=== PATIENT | female | born 1995 | race Caucasian/White ===

== ENCOUNTER → 2016-06-12 | Outpatient (CLI) | payer BC ==
--- NOTE | 2016-06-12 13:40 | DIAGNOSTIC IMAGING REPORT ---
CHEST 2 VIEWS ROUTINE CLINICAL HISTORY: Adenopathy COMPARISON STUDY: No previous studies for comparison. FINDINGS: The cardiac and mediastinal contours are normal. There is no evidence of focal pulmonary consolidation. There is no evidence of failure. No pleural effusions are visualized.[ There is no conventional radiographic evidence of adenopathy within the chest. IMPRESSION: No active disease in the chest. Electronically signed by: Kory Foreman M.D. 06/12/2016 1:38 PM
[2016-06-12 14:38] LABS: BASO % 0.4 %; BASO ABS # 0.03 K/uL (0-0.2); COMPLETE YES; EOS % 1.3 %; HEMATOCRIT 42.8 % (37-47); IG% 0.1 %; LYMPH % 28.1 %; LYMPH ABS # 2.17 K/uL (1.2-3.4); MEAN CELL VOLUME 87.9 fL (80-100); MEAN CORPUSCULAR HGB CONC 34.1 g/dl (32-36); MEAN PLATELET VOLUME 11.6 fL (7.4-10.4); MONO % 5.6 %; NEUT % 64.5 %; PLATELET COUNT 184 K/uL (130-400); RED BLOOD COUNT 4.87 M/uL (4.2-5.4); WHITE BLOOD COUNT 7.71 K/uL (4.8-10.8)
[2016-06-12 14:46] LABS: PREG INTERNAL NEGATIVE QC NEG CLEAR BACKGROUND; PREG INTERNAL POSITIVE QC POS CONTROL LINE
[2016-06-12 14:49] LABS: URINE APPEARANCE CLEAR (CLEAR); URINE BILIRUBIN NEG (NEG); URINE COLOR YELLOW; URINE NITRITE NEG (NEG); URINE SPECIFIC GRAVITY 1.005 (1.000-1.030); UROBILINOGEN NEG (NEG); ZZUR CULT IF INDIC CLEAN CATCH NO
[2016-06-12 14:52] LABS: ALT/SGPT 23 U/L (12-78); AST/SGOT 9 U/L (15-37); BLOOD UREA NITROGEN 6 mg/dl (7-18); BUN/CREATININE RATIO 7.5 (10-20); CALCIUM 8.7 mg/dl (8.5-10.1); CARBON DIOXIDE 24 mmol/L (21-32); CHLORIDE 106 mmol/L (98-107); GLUCOSE 77 mg/dl (70-99); MANUAL MICROSCOPIC REQUIRED? NO; POTASSIUM 3.9 mmol/L (3.5-5.1); REVIEW REQ? NO; SODIUM 141 mmol/L (136-145)
[2016-06-12 14:54] LABS: ALB/GLOB RATIO 1.4 (0.9-2); ALKALINE PHOSPHATASE 91 U/L (45-117); CHOLESTEROL 149 mg/dl (0-200); CHOLESTEROL/HDL RATIO 2.3; HDL CHOLESTEROL 65 mg/dl; LDL CHOLESTEROL CALCULATED 72 mg/dl; TRIGLYCERIDES 60 mg/dl (0-150); VERY LOW DENSITY LIPOPROT CALC 12 mg/dl
== END | disposition home or self-care (01) ==
LOC: C.LAB1850 12:16
PROVIDERS: ATTEND Internal Medicine
DX: N92.6 Irregular menstruation, unspecified (principal); R59.9 Enlarged lymph nodes, unspecified

== ENCOUNTER → 2016-06-19 | Outpatient (CLI) | payer BC | END | disposition home or self-care (01) | LOC: C.LAB1850 11:03 | PROVIDERS: ATTEND Internal Medicine | DX: Z20.5 Contact with and (suspected) exposure to viral hepatitis (principal) ==

== ENCOUNTER → 2016-06-19 | Outpatient (CLI) | payer BC ==
[2016-06-20 23:08] LABS: CHLAMYDIA TRACH RNA*** NOT DETECTED (NOT DETECTED); GC (NEIS GONORRHOEAE)RNA** NOT DETECTED (NOT DETECTED)
== END | disposition home or self-care (01) ==
LOC: C.LABSPEC 10:51
PROVIDERS: ATTEND Obstetrics & Gynecology
DX: N92.1 Excessive and frequent menstruation with irregular cycle (principal)

== ENCOUNTER 2019-07-30 08:50 | Inpatient (IN) ==
[2019-07-30] MEDS ORDERED: ACETAMINOPHEN 500 MG TAB PO STA (09:28)
[2019-07-30] MEDS ORDERED: KETOROLAC 30 MG/ML VIAL IV STA (09:28)
[2019-07-30] MEDS: SODIUM CHLORIDE 0.9% 1000ML 1,000 ML IV SCH ×2 (09:44→11:34)
--- NOTE | 2019-07-30 09:51 | Emergency Department Note ---
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 She has had a cough and some minor upper respiratory symptoms for a few days, these apparently got worse last evening, at which point she noted a sore throat, fever and a dry cough. She was given Tylenol for subjective fever last evening up but not take her temperature with a thermometer. She noted worsening left upper chest and left lateral rib pain in the last 24 hours. She states it is constant in nature, sharp, worse with deep breathing and coughing, rating it a 7/10. She notes shortness of breath with exertion. She reports feeling nauseous and anorexic denies vomiting. She reports generalized body and muscle aches. She did not get a flu shot this year. She has been around sick people at home and at work. She d enies any abdominal pain. No urinary symptoms. Home Medications Home Medications Medication Instructions Recorded Confirmed Type buprenorphine HCl 8 mg sublingual 8 mg SL BID #10 tab 04/09/19 07/30/19 Rx tablet acetaminophen [Tylenol] 325 mg PO QID PRN 07/30/19 07/30/19 History citalopram [Celexa] 10 mg PO HS 07/30/19 07/30/19 History clindamycin-benzoyl peroxide 1 applic TOPICAL BID 07/30/19 07/30/19 History Allergies Allergy/AdvReac Type Severity Reaction Status Date / Time No Known Allergies Allergy Verified 07/30/19 09:43 Past Med/Surg History Medical History Depression (Chronic) GERD (gastroesophageal reflux disease) H/O intravenous drug use in remission Hx MRSA infection (Chronic) Raynauds disease (Chronic) Surgical History History of cholecystectomy History of incision and drainage History of tonsillectomy and adenoidectomy Family History (Updated 07/30/19 @ 13:41 by Tanya Hensley DO) Other No significant family history Social History (Updated 07/30/19 @ 13:42 by Tanya Hensley DO) Preferred Language: Kazakh current occupational status: employed Feels Safe at Home: Yes Smoking Status: Current every day smoker Hx Alcohol Use: No Hx Substance Use: Yes substance use type: former substance user Review of Systems A total of 10 systems reviewed and were otherwise negative Physical Exam Vital Signs Vital Signs - 24 hr 07/30/19 08:56 07/30/19 09:06 07/30/19 09:08 Temperature 38.2 C H Temperature Source Oral Pulse Rate 124 H 114 H 114 H Pulse Rate [Finger] Pulse Rate from SpO2 Sensor 115 H 114 H Respiratory Rate 22 36 H 34 H Respiratory Effort / Characteristics Respiratory Depth Blood Pressure 106/69 111/69 Blood Pressure [Right Arm] Blood Pressure Mean 81 86 Blood Pressure Mean [Right Arm] Blood Pressure Position Sitting Pulse Oximetry 96 96 96 Oxygen Delivery Method Room Air Sepsis Recent Fever Within 48 Hours Yes Sepsis New/Unexplained Change in Mental Status No Sepsis Action Taken by Nursing No Action Required 07/30/19 09:10 07/30/19 09:20 07/30/19 09:30 Temperature Temperature Source Pulse Rate 114 H 120 H 118 H Pulse Rate [Finger] Pulse Rate from SpO2 Sensor 115 H 119 H 117 H Respiratory Rate 37 H 29 H 31 H Respiratory Effort / Characteristics Respiratory Depth Blood Pressure 118/71 Blood Pressure [Right Arm] Blood Pressure Mean 76 Blood Pressure Mean [Right Arm] Blood Pressure Position Pulse Oximetry 95 95 Oxygen Delivery Method Sepsis Recent Fever Within 48 Hours Sepsis New/Unexplained Change in Mental Status Sepsis Action Taken by Nursing 07/30/19 09:31 07/30/19 09:40 07/30/19 09:42 Temperature Temperature Source Pulse Rate 118 H 121 H Pulse Rate [Finger] 117 H Pulse Rate from SpO2 Sensor 119 H 120 H Respiratory Rate 28 H 31 H 22 Respiratory Effort / Characteristics Non-Labored Respiratory Depth Normal Blood Pressure Blood Pressure [Right Arm] 118/71 Blood Pressure Mean Blood Pressure Mean [Right Arm] 86 Blood Pressure Position Pulse Oximetry 95 97 Oxygen Delivery Method Room Air Sepsis Recent Fever Within 48 Hours Sepsis New/Unexplained Change in Mental Status Sepsis Action Taken by Nursing 07/30/19 09:50 07/30/19 10:00 07/30/19 10:01 Temperature Temperature Source Pulse Rate 113 H 112 H 112 H Pulse Rate [Finger] Pulse Rate from SpO2 Sensor 116 H 112 H 112 H Respiratory Rate 44 H 36 H 31 H Respiratory Effort / Characteristics Respiratory Depth Blood Pressure 108/70 Blood Pressure [Right Arm] Blood Pressure Mean 75 Blood Pressure Mean [Right Arm] Blood Pressure Position Pulse Oximetry 97 92 92 Oxygen Delivery Method Sepsis Recent Fever Within 48 Hours Sepsis New/Unexplained Change in Mental Status Sepsis Action Taken by Nursing 07/30/19 10:10 07/30/19 10:20 07/30/19 11:02 Temperature 37.8 C H Temperature Source Oral Pulse Rate 112 H 108 H Pulse Rate [Finger] Pulse Rate from SpO2 Sensor 112 H 108 H Respiratory Rate 36 H 31 H Respiratory Effort / Characteristics Respiratory Depth Blood Pressure Blood Pressure [Right Arm] Blood Pressure Mean Blood Pressure Mean [Right Arm] Blood Pressure Position Pulse Oximetry 95 93 Oxygen Delivery Method Sepsis Recent Fever Within 48 Hours Sepsis New/Unexplained Change in Mental Status Sepsis Action Taken by Nursing 07/30/19 11:11 07/30/19 11:12 07/30/19 11:13 Temperature Temperature Source Pulse Rate 114 H 111 H 112 H Pulse Rate [Finger] Pulse Rate from SpO2 Sensor 112 H Respiratory Rate 36 H 33 H 35 H Respiratory Effort / Characteristics Respiratory Depth Blood Pressure 114/68 Blood Pressure [Right Arm] Blood Pressure Mean 99 Blood Pressure Mean [Right Arm] Blood Pressure Position Pulse Oximetry 95 91 Oxygen Delivery Method Sepsis Recent Fever Within 48 Hours Sepsis New/Unexplained Change in Mental Status Sepsis Action Taken by Nursing 07/30/19 11:20 07/30/19 11:30 07/30/19 11:31 Temperature Temperature Source Pulse Rate 111 H 108 H 108 H Pulse Rate [Finger] Pulse Rate from SpO2 Sensor 114 H Respiratory Rate 20 30 H 30 H Respiratory Effort / Characteristics Respiratory Depth Blood Pressure Blood Pressure [Right Arm] Blood Pressure Mean Blood Pressure Mean [Right Arm] Blood Pressure Position Pulse Oximetry 90 Oxygen Delivery Method Sepsis Recent Fever Within 48 Hours Sepsis New/Unexplained Change in Mental Status Sepsis Action Taken by Nursing 07/30/19 11:32 07/30/19 11:40 07/30/19 12:02 Temperature Temperature Source Pulse Rate 110 H 110 H 108 H Pulse Rate [Finger] Pulse Rate from SpO2 Sensor Respiratory Rate 31 H 25 H 17 Respiratory Effort / Characteristics Respiratory Depth Blood Pressure 102/44 L Blood Pressure [Right Arm] Blood Pressure Mean 60 Blood Pressure Mean [Right Arm] Blood Pressure Position Pulse Oximetry Oxygen Delivery Method Sepsis Recent Fever Within 48 Hours Sepsis New/Unexplained Change in Mental Status Sepsis Action Taken by Nursing 07/30/19 12:10 07/30/19 12:20 07/30/19 12:30 Temperature Temperature Source Pulse Rate 112 H 107 H 108 H Pulse Rate [Finger] Pulse Rate from SpO2 Sensor Respiratory Rate 26 H 29 H 27 H Respiratory Effort / Characteristics Respiratory Depth Blood Pressure 115/68 Blood Pressure [Right Arm] Blood Pressure Mean 82 Blood Pressure Mean [Right Arm] Blood Pressure Position Pulse Oximetry Oxygen Delivery Method Sepsis Recent Fever Within 48 Hours Sepsis New/Unexplained Change in Mental Status Sepsis Action Taken by Nursing 07/30/19 12:31 07/30/19 12:59 07/30/19 13:00 Temperature Temperature Source Pulse Rate 106 H 107 H 107 H Pulse Rate [Finger] Pulse Rate from SpO2 Sensor Respiratory Rate 27 H 28 H 23 Respiratory Effort / Characteristics Respiratory Depth Blood Pressure Blood Pressure [Right Arm] Blood Pressure Mean Blood Pressure Mean [Right Arm] Blood Pressure Position Pulse Oximetry Oxygen Delivery Method Sepsis Recent Fever Within 48 Hours Sepsis New/Unexplained Change in Mental Status Sepsis Action Taken by Nursing 07/30/19 13:10 07/30/19 13:20 07/30/19 13:30 Temperature Temperature Source Pulse Rate 112 H 107 H 107 H Pulse Rate [Finger] Pulse Rate from SpO2 Sensor Respiratory Rate 25 H 32 H 26 H Respiratory Effort / Characteristics Respiratory Depth Blood Pressure Blood Pressure [Right Arm] Blood Pressure Mean Blood Pressure Mean [Right Arm] Blood Pressure Position Pulse Oximetry Oxygen Delivery Method Sepsis Recent Fever Within 48 Hours Sepsis New/Unexplained Change in Mental Status Sepsis Action Taken by Nursing 07/30/19 13:36 07/30/19 13:37 07/30/19 13:40 Temperature 37.1 C Temperature Source Pulse Rate 105 H 105 H 106 H Pulse Rate [Finger] Pulse Rate from SpO2 Sensor 105 H 105 H 105 H Respiratory Rate 28 H 20 22 Respiratory Effort / Characteristics Respiratory Depth Blood Pressure 105/61 Blood Pressure [Right Arm] Blood Pressure Mean 89 Blood Pressure Mean [Right Arm] Blood Pressure Position Pulse Oximetry 100 99 100 Oxygen Delivery Method Room Air Sepsis Recent Fever Within 48 Hours Sepsis New/Unexplained Change in Mental Status Sepsis Action Taken by Nursing MENTAL STATUS: Patient is an ill although nontoxic appearing 23-year-old female who is awake and alert and in mild distress due to her stated complaint. She is febrile in triage with a temperature of 38.2 C orally. She is noted to be tachycardic. HEAD: Atraumatic, without temporal or scalp tenderness. EYES: PERRL, EOMI, no discharge or injection. EARS: Tympanic membranes intact, not inflamed, have normal contour. External canals clear. NOSE: Nares patent, turbinates edematous and boggy with clear rhinorrhea. MOUTH: Mucous membranes moist, no lesions, tongue and gums appear normal. THROAT: Tonsils are surgically absent. No pharyngeal erythema, injection, exudates. Uvula is midline. Airway is patent. No trismus. NECK: Supple, nontender, no lymphadenopathy. HEART: Tachycardic rate and rhythm without murmurs, ectopy, gallops, or rubs. LUNGS: Breath sounds slightly harsh and diminished to auscultation, right greater than left posteriorly. No accessory muscle use or retraction. Full and equal chest expansion. CHEST: Reproducible left costochondral tenderness to palpation. SKIN: Chronic scarring noted diffusely. Mild erythema of the hands bilaterally. NEUROLOGICAL: Sensory and motor functions grossly intact. Normal gait. Course Course The patient was seen and assessed as above. Old records are reviewed. She presents the emergency department for evaluation of influenza-like symptoms over the last few days with associated cough and now worsening pleuritic chest and rib pain. She is noted to be febrile and tachycardic in triage. O2 sats are stable on room air. She is ill but nontoxic in appearance without signs of meningitis or encephalitis on exam. Patient history and presentation were reviewed with attending physician and ED work-up was agreed upon. IV lock was initiated and laboratory studies were collected. Patient was placed on the nurse monitoring and EKG was performed. She was hydrated with 2 L of normal saline solution medicated with Tylenol 1 g orally for fever and Toradol 30 mg IV for myalgias and chest pain. CBC with differential, CMP, ESR, troponin, d-dimer, lactic acid, blood cultures x2 and influenza swab were obtained. Chest x-ray was performed. Laboratory studies noted a leukopenia, with a white count of 3.5. No left shift or bandemia. No anemia. Platelet count is also slightly low at 95,000. Sed rate is normal at 3. D-dimer markedly elevated at 3480. Chemistries note sodium 133, potassium 3.2, chloride 101, carbon dioxide 23, BUN 6 and creatinine 0.7. Lactic acid 1.8. She has slight nonspecific elevation of her transaminases of unclear etiology. Troponin is negative x1. Influenza swab was negative. Urine dip was clear and test was negative. Chest x-ray noted consolidative infiltrative changes bilaterally. All laboratory and diagnostic imaging studies were reviewed with attending physician. She was empirically ordered ceftriaxone 1 g IV and doxycycline 100 mg IV. Influenza PCR was performed. All laboratory and diagnostic imaging studies were reviewed with the patient. IV team had been consulted for access, as the patient is a difficult stick. They were unable to place an 18-gauge in the antecubital space and the 18-gauge in the right forearm that they placed the patient accidentally dislodged. CT PE study was desired due to her elevated d- dimer and her symptoms, however this was later ordered as a CT chest with IV c ontrast due to lack of appropriate access. Admission/observation was advised and the patient was agreeable. The patient did take her own buprenorphine 8mg SL tablet in the ED. The patient's influenza PCR was positive for influenza B. Chest CT confirmed multifocal airspace opacities in the lower lobes concerning for a multifocal pneumonia. Results of her additional studies were reviewed with her. She was made aware that I was pursuing hospitalization. Patient was reviewed with the [facility] Service, Dr. Hensley, for further care and management. Administered Medications Sodium Chloride (Nss 1000ml) 1,000 mls @ 250 mls/hr IV .Q4H MARK Stop: 08/29/19 13:29 Last Admin: 07/30/19 13:39 Dose: 250 mls/hr Documented by: [id number] Ioversol (Optiray 320 100ml) 94 ml IV ONCE PRN PRN Reason: Interaction Checking Stop: 08/03/19 11:53 Last Admin: 07/30/19 11:54 Dose: 94 ml Documented by: [id number] Discontinued Medications Acetaminophen (Tylenol) 1,000 mg PO NOW STA Stop: 07/30/19 09:29 Last Admin: 07/30/19 09:41 Dose: 1,000 mg Documented by: [id number] Sodium Chloride (Nss 1000ml) 1,000 mls @ 999 mls/hr IV .Q1H1M MARK Stop: 07/30/19 11:28 Last Infusion: 07/30/19 13:22 Dose: 0 mls/hr Documented by: [id number] Admin: 07/30/19 11:34 Dose: 999 mls/hr Documented by: [id number] Infusion: 07/30/19 10:56 Dose: 0 mls/hr Documented by: [id number] Admin: 07/30/19 09:44 Dose: 999 mls/hr Documented by: [id number] Ceftriaxone Sodium (Rocephin) 1,000 mg in 50 mls @ 100 mls/hr IV NOW STA Stop: 07/30/19 11:18 Last Infusion: 07/30/19 12:16 Dose: 0 mls/hr Documented by: [id number] Admin: 07/30/19 11:34 Dose: 100 mls/hr Documented by: [id number] Doxycycline Hyclate 100 mg/ (Dextrose) 110 mls @ 50 mls/hr IV NOW STA Stop: 07/30/19 13:00 Last Admin: 07/30/19 12:15 Dose: 50 mls/hr Documented by: [id number] Ketorolac Tromethamine (Toradol) 30 mg IV NOW STA Stop: 07/30/19 09:29 Last Admin: 07/30/19 09:44 Dose: 30 mg Documented by: [id number] Medical Decision Making Differential Diagnosis Differential diagnosis includes acute coronary syndrome, myocarditis, end ocarditis, pericarditis, pericardial effusions /tamponade, pulmonary embolism, pneumonia, pneumothorax, anemia, acute bronchitis, musculoskeletal, anxiety, costochondritis, among others. Medical Records Attestation: I reviewed the patient's medical records. Home Medications Current Medication List: was personally reviewed by me Laboratory Data Attestation: I reviewed the patient's lab results. Result diagrams: 07/30/19 09:49 07/30/19 09:49 Lab Results 07/30/19 07/30/19 07/30/19 Range/Units 09:35 09:35 09:49 WBC (4.8-10.8) K/uL RBC (4.2-5.4) M/uL Hgb (12.0-16.0) g/dL Hct (37-47) % MCV (80-100) fL MCH (25-34) pg MCHC (32-36) g/dL RDW Std Deviation (36.4-46.3) fL RDW Coeff of Christina (11.5-14.5) % Plt Count (130-400) K/uL MPV (7.4-10.4) fL Immature Gran % (Auto) % Neut % (Auto) % Lymph % (Auto) % [place] % (Auto) % Eos % (Auto) % Baso % (Auto) % Immature Gran # (Auto) (0.00-0.02) K/uL Neut # (Auto) (1.4-6.5) K/uL Lymph # (Auto) (1.2-3.4) K/uL [place] # (Auto) (0.11-0.59) K/uL Eos # (Auto) (0-0.5) K/uL Baso # (Auto) (0-0.2) K/uL Platelet Estimate (Normal) ESR (0-21) mm/hr D-Dimer 3480 H* (0-500) ug/L FEU Sodium (136-145) mmol/L Potassium (3.5-5.1) mmol/L Chloride (98-107) mmol/L Carbon Dioxide (21-32) mmol/L Anion Gap (3-11) BUN (7-18) mg/dl Creatinine (0.6-1.2) mg/dl Est Cr Clr Drug Dosing Est GFR ( Amer) Est GFR (Non-Af Amer) BUN/Creatinine Ratio (10-20) Glucose (70-99) mg/dl Lactate (0.4-2.0) mmol/L Calcium (8.5-10.1) mg/dl Total Bilirubin (0.2-1) mg/dl AST (15-37) U/L ALT (12-78) U/L Alkaline Phosphatase (45-117) U/L Troponin I (0-0.045) ng/ml Total Protein (6.4-8.2) gm/dl Albumin (3.4-5.0) gm/dl Globulin (2.5-4.0) gm/dl Albumin/Globulin Ratio (0.9-2) POC Urine pH (4.5-7.5) POC Urine Protein (Negative) POC Ur Glucose (UA) (Normal) POC Urine Ketones (Negative) POC Urine Blood (Negative) POC Urine Nitrite (Negative) POC Urine Bilirubin (Negative) POC Urine Urobilinogen (Normal) POC U Leukocyte Esteras (Negative) POC Ur Test (NEG) Influenza Type A Ag Neg for Influ A (Neg) Influenza Type A (PCR) Neg for Influ A (Neg) Influenza Type B Ag Neg for Influ B (Neg) Influenza Type B (PCR) Pos for Influ B A* (Neg) 07/30/19 07/30/19 07/30/19 Range/Units 09:49 09:49 09:49 WBC 3.45 L (4.8-10.8) K/uL RBC 4.77 (4.2-5.4) M/uL Hgb 13.9 (12.0-16.0) g/dL Hct 40.1 (37-47) % MCV 84.1 (80-100) fL MCH 29.1 (25-34) pg MCHC 34.7 (32-36) g/dL RDW Std Deviation 38.7 (36.4-46.3) fL RDW Coeff of Christina 12.7 (11.5-14.5) % Plt Count 95 L (130-400) K/uL MPV 10.3 (7.4-10.4) fL Immature Gran % (Auto) 0.3 % Neut % (Auto) 81.7 % Lymph % (Auto) 9.9 % [place] % (Auto) 8.1 % Eos % (Auto) 0.0 % Baso % (Auto) 0.0 % Immature Gran # (Auto) 0.01 (0.00-0.02) K/uL Neut # (Auto) 2.82 (1.4-6.5) K/uL Lymph # (Auto) 0.34 L (1.2-3.4) K/uL [place] # (Auto) 0.28 (0.11-0.59) K/uL Eos # (Auto) 0.00 (0-0.5) K/uL Baso # (Auto) 0.00 (0-0.2) K/uL Platelet Estimate Decreased L (Normal) ESR 3 (0-21) mm/hr D-Dimer (0-500) ug/L FEU Sodium 133 L (136-145) mmol/L Potassium 3.2 L (3.5-5.1) mmol/L Chloride 101 (98-107) mmol/L Carbon Dioxide 23 (21-32) mmol/L Anion Gap 9.0 (3-11) BUN 6 L (7-18) mg/dl Creatinine 0.70 (0.6-1.2) mg/dl Est Cr Clr Drug Dosing Not Reportable Est GFR ( Amer) 140.5 Est GFR (Non-Af Amer) 121.3 BUN/Creatinine Ratio 8.2 L (10-20) Glucose 120 H (70-99) mg/dl Lactate (0.4-2.0) mmol/L Calcium 8.3 L (8.5-10.1) mg/dl Total Bilirubin 0.4 (0.2-1) mg/dl AST 90 H (15-37) U/L ALT 99 H (12-78) U/L Alkaline Phosphatase 132 H (45-117) U/L Troponin I < 0.015 (0-0.045) ng/ml Total Protein 6.9 (6.4-8.2) gm/dl Albumin 4.0 (3.4-5.0) gm/dl Globulin 2.9 (2.5-4.0) gm/dl Albumin/Globulin Ratio 1.4 (0.9-2) POC Urine pH (4.5-7.5) POC Urine Protein (Negative) POC Ur Glucose (UA) (Normal) POC Urine Ketones (Negative) POC Urine Blood (Negative) POC Urine Nitrite (Negative) POC Urine Bilirubin (Negative) POC Urine Urobilinogen (Normal) POC U Leukocyte Esteras (Negative) POC Ur Test (NEG) Influenza Type A Ag (Neg) Influenza Type A (PCR) (Neg) Influenza Type B Ag (Neg) Influenza Type B (PCR) (Neg) 07/30/19 07/30/19 07/30/19 Range/Units 09:49 11:15 11:15 WBC (4.8-10.8) K/uL RBC (4.2-5.4) M/uL Hgb (12.0-16.0) g/dL Hct (37-47) % MCV (80-100) fL MCH (25-34) pg MCHC (32-36) g/dL RDW Std Deviation (36.4-46.3) fL RDW Coeff of Christina (11.5-14.5) % Plt Count (130-400) K/uL MPV (7.4-10.4) fL Immature Gran % (Auto) % Neut % (Auto) % Lymph % (Auto) % [place] % (Auto) % Eos % (Auto) % Baso % (Auto) % Immature Gran # (Auto) (0.00-0.02) K/uL Neut # (Auto) (1.4-6.5) K/uL Lymph # (Auto) (1.2-3.4) K/uL [place] # (Auto) (0.11-0.59) K/uL Eos # (Auto) (0-0.5) K/uL Baso # (Auto) (0-0.2) K/uL Platelet Estimate (Normal) ESR (0-21) mm/hr D-Dimer (0-500) ug/L FEU Sodium (136-145) mmol/L Potassium (3.5-5.1) mmol/L Chloride (98-107) mmol/L Carbon Dioxide (21-32) mmol/L Anion Gap (3-11) BUN (7-18) mg/dl Creatinine (0.6-1.2) mg/dl Est Cr Clr Drug Dosing Est GFR ( Amer) Est GFR (Non-Af Amer) BUN/Creatinine Ratio (10-20) Glucose (70-99) mg/dl Lactate 1.8 (0.4-2.0) mmol/L Calcium (8.5-10.1) mg/dl Total Bilirubin (0.2-1) mg/dl AST (15-37) U/L ALT (12-78) U/L Alkaline Phosphatase (45-117) U/L Troponin I (0-0.045) ng/ml Total Protein (6.4-8.2) gm/dl Albumin (3.4-5.0) gm/dl Globulin (2.5-4.0) gm/dl Albumin/Globulin Ratio (0.9-2) POC Urine pH 7 (4.5-7.5) POC Urine Protein Negative (Negative) POC Ur Glucose (UA) Normal (Normal) POC Urine Ketones Negative (Negative) POC Urine Blood Negative (Negative) POC Urine Nitrite Negative (Negative) POC Urine Bilirubin Negative (Negative) POC Urine Urobilinogen Normal (Normal) POC U Leukocyte Esteras Negative (Negative) POC Ur Test NEG (NEG) Influenza Type A Ag (Neg) Influenza Type A (PCR) (Neg) Influenza Type B Ag (Neg) Influenza Type B (PCR) (Neg) Imaging Data Attestation: I personally reviewed and interpreted this imaging study as follows: Radiologist's Impression: CHEST CT WITH CONTRAST CT DOSE: 219.89 mGy.cm HISTORY: Abnormal chest x-ray. MULTIFOCAL PNEUMONIA TECHNIQUE: Multiaxial CT images of the chest were performed following the intr avenous administration of contrast. A dose lowering technique was utilized adhering to the principles of ALARA. COMPARISON: Chest 07/30/2019. FINDINGS: No pneumothorax. No pleural effusions. Opacification of some of the bilateral lower lobe bronchi. Subcentimeter nodular densities within the lung apices favor pleural-parenchymal scarring. Respiratory motion artifact. Multifocal areas of dense consolidation within the bilateral lower lobes, left greater than right. Multiple additional scattered nodular densities seen within the bilateral lower lobes, right middle lobe, and left upper lobe. These findings favor a multifocal pneumonia. No areas of central cavitation. No fractures within the visualized osseous structures. Prominent mediastinal and hilar lymph nodes which may be reactive. Normal esophagus. The spleen is partially visualized but appears to be enlarged. Prior cholecystectomy. A 9 mm hypodense lesion within the right hepatic dome. This is technically too small to characterize. The mediastinal vascular structures are within normal limits. IMPRESSION: 1. Multifocal airspace opacities as described above most pronounced within the lower lobes. This favors a multifocal pneumonia. Chest x-ray follow-up recommended to ensure complete resolution. 2. Prominent mediastinal and bilateral hilar lymph nodes which may be reactive. 3. Splenomegaly. This may also be reactive. XR chest 2V PA/lateral CLINICAL HISTORY: COUGH, FEVER dyspnea COMPARISON STUDY: 06/12/2016 FINDINGS: Diffuse bibasilar parenchymal infiltrative change. Consolidative component involving the left lower lobe. Potential underlying nodular component of the left hilum as well as left lower lobe region. Poor visibility left hemidiaphragm. Pulmonary apices are clear. IMPRESSION: 1. Consolidative infiltrative change left and to a lesser extent right lung base. 2. Nodular-like consolidative change at versus true nodularity left lower lobe and left perihilar region. 3. This examination should be repeated at a later date to ensure complete resolution and exclude underlying nodular pathology. ECG Data Attestation: I personally reviewed and interpreted this ECG as follows: Indication: + chest pain and + SOB/dyspnea Rate (beats per minute): 114 Rhythm: + sinus tachycardia ECG Intervals/blocks: + Normal QT and + Normal QT-c ECG [place]: + Normal ECG ST segments: no ST elevation Comparison ECG Date: no prior available Prescription Drug Monitoring [place] Drug Monitoring Program reviewed and findings noted below (Buprenorphine prescriptions from a provider in [place], last filled 07/21/2019) Blood Pressure Blood Pressure Findings: Normal blood pressure Blood Pressure Disposition: did not require urgent referral MDM Narrative See ED Course. Impression & Plan Multifocal pneumonia, Influenza B Discharge Plan Visit Data Chief Complaint: Flank Pain Stated Complaint: LT SIDED FLANK PAIN, FLU SYMPTOMS LAST NIGHT ED Provider: Gilson Brennan ED Midlevel Provider: Ingrid Lizama Discharge Problem: Multifocal pneumonia, Influenza B Patient Disposition: Being Evaluated by Hospitalist Forms Stand Alone Forms: My [facility] [employer] Prescriptions Prescriptions: No Action buprenorphine HCl 8 mg tablet, sublingual 8 mg SL BID Qty: 10 RF: 0 acetaminophen [Tylenol] 325 mg Tablet 325 mg PO QID PRN (Reason: Pain) RF: 0 clindamycin-benzoyl peroxide 1-5 % gel 1 applic TOPICAL BID RF: 0 citalopram [Celexa] 10 mg tablet 10 mg PO HS RF: 0 Referrals Referrals: PCP,NO [Primary Care Provider] -
[2019-07-30 10:15] LABS: D Dimer 3480 ug/L FEU (0-500)
[2019-07-30 10:19] LABS: Alanine Aminotransferase 99 U/L (12-78); BUN Creatinine Ratio 8.2 (10-20); Blood Urea Nitrogen 6 mg/dl (7-18); Calcium 8.3 mg/dl (8.5-10.1); Carbon Dioxide 23 mmol/L (21-32); Chloride 101 mmol/L (98-107); Est GFR (African American) 140.5; Est GFR (Non-African American) 121.3; Glucose 120 mg/dl (70-99); Potassium 3.2 mmol/L (3.5-5.1); Sodium 133 mmol/L (136-145)
[2019-07-30 10:21] LABS: Hematocrit (blood only) 40.1 % (37-47); Hemoglobin 13.9 g/dL (12.0-16.0); Mean Corpuscular Hemoglobin 29.1 pg (25-34); Mean Corpuscular Hgb Conc 34.7 g/dL (32-36); Mean Corpuscular Volume 84.1 fL (80-100); Mean Platelet Volume 10.3 fL (7.4-10.4); Platelet Count 95 K/uL (130-400); RDW Coefficient of Variation 12.7 % (11.5-14.5); RDW Standard Deviation 38.7 fL (36.4-46.3); Red Blood Count 4.77 M/uL (4.2-5.4); White Blood Count 3.45 K/uL (4.8-10.8)
[2019-07-30 10:22] LABS: Immature Granulocytes # (auto) 0.01 K/uL (0.00-0.02); Immature Granulocytes % (auto) 0.3 %; Lymphocytes # (auto) 0.34 K/uL (1.2-3.4); Lymphocytes % (auto) 9.9 %; Monocytes # (auto) 0.28 K/uL (0.11-0.59); Monocytes % (auto) 8.1 %; Neutrophils # (auto) 2.82 K/uL (1.4-6.5); Neutrophils % (auto) 81.7 %; Platelet Estimate Decreased (Normal)
[2019-07-30 10:24] LABS: Albumin Globulin Ratio 1.4 (0.9-2); Alkaline Phosphatase 132 U/L (45-117); Aspartate Aminotransferase 90 U/L (15-37); Bilirubin,Total 0.4 mg/dl (0.2-1); Globulin 2.9 gm/dl (2.5-4.0); Total Protein 6.9 gm/dl (6.4-8.2); Troponin I < 0.015 ng/ml (0-0.045)
--- NOTE | 2019-07-30 10:42 | XRay Report ---
XR chest 2V PA/lateral CLINICAL HISTORY: COUGH, FEVER dyspnea COMPARISON STUDY: 06/12/2016 FINDINGS: Diffuse bibasilar parenchymal infiltrative change. Consolidative component involving the le ft lower lobe. Potential underlying nodular component of the left hilum as well as left lower lobe region. Poor visibility left hemidiaphragm. Pulmonary apices are clear. IMPRESSION: 1. Consolidative infiltrative change left and to a lesser extent right lung base. 2. Nodular-like consolidative change at versus true nodularity left lower lobe and left perihilar reg ion. 3. This examination should be repeated at a later date to ensure complete resolution and exclude unde rlying nodular pathology. ACT 112: Negative or not required by law. The above report was generated using voice recognition software. It may contain grammatical, syntax or spelling errors. Electronically signed by: Gary Denny M.D. 07/30/2019 10:40 AM
[2019-07-30] MEDS ORDERED: DOXYCYCLINE HYCLATE 100 MG in DEXTROSE 5% 100 ML IV STA (10:49)
[2019-07-30] MEDS ORDERED: cefTRIAXone SODIUM 1,000 MG/50 ML BAG IV STA (10:49)
[2019-07-30 11:20] LABS: POC Urine Bilirubin Negative (Negative); POC Urine Blood Negative (Negative); POC Urine Glucose Normal (Normal); POC Urine Ketones Negative (Negative); POC Urine Leukocytes Negative (Negative); POC Urine Nitrite Negative (Negative); POC Urine Protein Negative (Negative); POC Urine Urobilinogen Normal (Normal); POC Urine pH 7 (4.5-7.5)
[2019-07-30] MEDS ORDERED: IOVERSOL 100ml IV PRN (11:54)
[2019-07-30 11:57] LABS: Influenza A virus by PCR Neg for Influ A (Neg)
--- NOTE | 2019-07-30 12:27 | CT Scan Report ---
CHEST CT WITH CONTRAST CT DOSE: 219.89 mGy.cm HISTORY: Abnormal chest x-ray. MULTIFOCAL PNEUMONIA TECHNIQUE: Multiaxial CT images of the chest were performed following the intravenous administration of contrast. A dose lowering technique was utilized adhering to the principles of ALARA. COMPARISON: Chest 07/30/2019. FINDINGS: No pneumothorax. No pleural effusions. Opacification of some of the bilateral lower lobe br onchi. Subcentimeter nodular densities within the lung apices favor pleural-parenchymal scarring. Res piratory motion artifact. Multifocal areas of dense consolidation within the bilateral lower lobes, l eft greater than right. Multiple additional scattered nodular densities seen within the bilateral low er lobes, right middle lobe, and left upper lobe. These findings favor a multifocal pneumonia. No are as of central cavitation. No fractures within the visualized osseous structures. Prominent mediastina l and hilar lymph nodes which may be reactive. Normal esophagus. The spleen is partially visualized b ut appears to be enlarged. Prior cholecystectomy. A 9 mm hypodense lesion within the right hepatic do me. This is technically too small to characterize. The mediastinal vascular structures are within nor mal limits. IMPRESSION: 1. Multifocal airspace opacities as described above most pronounced within the lower lobes. This favo rs a multifocal pneumonia. Chest x-ray follow-up recommended to ensure complete resolution. 2. Prominent mediastinal and bilateral hilar lymph nodes which may be reactive. 3. Splenomegaly. This may also be reactive. ACT 112: Negative or not required by law. Electronically signed by: Yakov Calvert M.D. 07/30/2019 12:26 PM
[2019-07-30] MEDS ORDERED: SODIUM CHLORIDE 0.9% 1000ML 1,000 ML IV SCH (13:30)
--- NOTE | 2019-07-30 14:06 | History & Physical Report ---
Date of Service July 30, 2019 Assessment & Plan (1) Influenza B: 23-year-old female with history of former IV drug use, MRSA infection, presenting with influenza B and multifocal pneumonia. Patient febrile on arrival, tachycardic, tachypneic, adequate oxygenation on room air. Symptoms ongoing for 2 to 3 days. -Admit to medical floor telemetry monitoring Droplet precautions Tamiflu 75 mg p.o. twice daily Supplemental oxygen as needed to maintain saturations greater than 94% Tylenol as needed for pain or fever Present on Admission?: Yes (2) Multifocal pneumonia: Patient with dense bilateral consolidations noted on CT chest most consistent with multifocal pneumonia. In setting of influenza B and history of prior MRSA skin infections would be most concerned about staphylococcal pneumonia. Patient is febrile, tachycardic, tachypneic, leukopenic with WBC = 3.45. Maintaining saturations on room air. Of note, obtaining sats difficult at times due to patient's Raynauds. -Admit to medical floor telemetry Obtain sputum culture -Check ABG when patient arrives to the floor Follow blood cultures drawn in the ER Tamiflu as above for influenza B Vancomycin, ceftriaxone and azithromycin. Will de-escalate pending patient's clinical response and culture results Normal saline at 125 mL/h x 2 L Tylenol as needed for pain or fever Repeat troponin, patient with mild T wave abnormalities on EKG. -Supplemental oxygen as needed Present on Admission?: Yes (3) Hx MRSA infection: Boyfriend reports patient contracted MRSA from a previous surgery. She has had minor skin abscesses and infections intermittently over the last few years. Does not appear to have any active skin/soft tissue infections. Contact precautions Vancomycin for pneumonia as above Present on Admission?: Yes (4) H/O intravenous drug use in remission: Patient with prior history of IV drug use. 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 She is on Subutex 8 mg sublingual twice daily -Check U tox Continue Subutex 8 mg sublingual twice daily Avoid use of opioids if possible Present on Admission?: Yes (5) Depression: Chronic. Continue Celexa 10 mg p.o. nightly Present on Admission?: Yes (6) Abnormal LFTs: Patient with mild elevation of LFTs, alkaline phosphatase of 132, AST = 90, ALT = 99. Abdominal exam is benign Repeat LFTs in a.m. Consider additional imaging if labs worsening Present on Admission?: Yes (7) Thrombocytopenia: Platelets = 95. Possibly secondary to underlying illness/sepsis. No active bleeding Repeat CBC in a.m. Present on Admission?: Yes (8) GERD (gastroesophageal reflux disease): Chronic. Stable. Patient presently on no medications for this Continue to monitor F/E/Nnormal saline at 125 mL hour x2 L with 20 mEq KCl per bag, regular diet as tolerated Prophylaxispatient is low risk for DVT. No prophylaxis indicated Codefull per discussion with patient Dispositionadmission to medical floor telemetry monitoring. Low threshold for transfer should patient's clinical condition decline Present on Admission?: Yes History of Present Illness Chief Complaint: Cough, shortness of breath Primary Care Provider: NO PCP Hugo Ortiz is a 23-year-old female with history of prior IV drug abuse, MRSA infections presenting with multifocal pneumonia and influenza B. Patient states she has been having 2 to 3 days of fevers, chills, sweats and body aches. Also with a dry cough, throat pain and chest discomfort with breathing and coughing. On arrival to the ER patient febrile at 38.2, tachycardic at 124 bpm, tachypneic at 36 breaths/min, adequate oxygenation of 96% on room air. ER course Tylenol 1000 mg p.o., ceftriaxone 1 g IV, doxycycline 100 mg IV, Toradol 30 mg IV, normal saline x 1L and 250 mL/h Allergies Allergy/AdvReac Type Severity Reaction Status Date / Time No Known Allergies Allergy Verified 07/30/19 09:43 Home Medications Home Medications Medication Instructions Recorded Confirmed Type buprenorphine HCl 8 mg sublingual 8 mg SL BID #10 tab 04/09/19 07/30/19 Rx tablet acetaminophen [Tylenol] 325 mg PO QID PRN 07/30/19 07/30/19 History citalopram [Celexa] 10 mg PO HS 07/30/19 07/30/19 History clindamycin-benzoyl peroxide 1 applic TOPICAL BID 07/30/19 07/30/19 History Past Med/Surg History Medical History Depression (Chronic) GERD (gastroesophageal reflux disease) H/O intravenous drug use in remission Hx MRSA infection (Chronic) Raynauds disease (Chronic) Surgical History History of cholecystectomy History of incision and drainage History of tonsillectomy and adenoidectomy Family History (Updated 07/30/19 @ 13:41 by Tanya Hensley DO) Other No significant family history Social History (Updated 07/30/19 @ 13:42 by Tanya Hensley DO) Preferred Language: Mongolian current occupational status: employed Feels Safe at Home: Yes Smoking Status: Current every day smoker Hx Alcohol Use: No Hx Substance Use: Yes substance use type: former substance user Review of Systems Review of Systems: All systems reviewed & are unremarkable except as noted in HPI & below Patient denies headache, dizziness, abdominal pain, nausea, vomiting, diarrhea, constipation Physical Exam Physical Exam: General: patient anxious and ill in appearance, NAD, AA&O x 4 Skin: warm, dry, intact, skin on hands and feet red, blanchable. Scattered scars on arms and legs HEENT: NC/AT, PERRL, EOMI, anicteric sclera, conjunctiva without injection, external ear normal to inspection and nontender, nares patent, slightly dry mucus membranes, dentition intact, no oropharyngeal lesions, neck supple, trachea midline, no LAD, no thyromegaly, no JVD Heart: +S1/S2, regular, tachycardic, no m/r/g Lungs: equal air entry bilaterally, coarse breath sounds in bilateral lung mallory with diffuse crackles and end expiratory wheezing Abd: +BS, soft, NT/ND, no masses/organomegaly/ascites Ext: warm, 2+ pulses in UE/LE bilaterally, no clubbing/cyanosis or edema, redness of skin as above Neuro: nonfocal, patient AA&O x 4, speech intact, no facial droop, moving all extremities on command with equal strength 5/5 Results & Data Vital Signs (Past 12 Hours) Vital Signs Temp Pulse Pulse Resp BP BP Pulse Ox 07/30/19 13:10 112 H 25 H 07/30/19 13:00 107 H 23 07/30/19 12:59 107 H 28 H 07/30/19 12:31 106 H 27 H 07/30/19 12:30 108 H 27 H 115/68 07/30/19 12:20 107 H 29 H 07/30/19 12:10 112 H 26 H 07/30/19 12:02 108 H 17 07/30/19 11:40 110 H 25 H 07/30/19 11:32 110 H 31 H 102/44 L 07/30/19 11:31 108 H 30 H 07/30/19 11:30 108 H 30 H 07/30/19 11:20 111 H 20 90 07/30/19 11:13 112 H 35 H 91 07/30/19 11:12 111 H 33 H 114/68 95 07/30/19 11:11 114 H 36 H 07/30/19 11:02 37.8 C H 07/30/19 10:20 108 H 31 H 93 07/30/19 10:10 112 H 36 H 95 07/30/19 10:01 112 H 31 H 92 07/30/19 10:00 112 H 36 H 108/70 92 07/30/19 09:50 113 H 44 H 97 07/30/19 09:42 117 H 22 118/71 97 07/30/19 09:40 121 H 31 H 07/30/19 09:31 118 H 28 H 95 07/30/19 09:30 118 H 31 H 118/71 07/30/19 09:20 120 H 29 H 95 07/30/19 09:10 114 H 37 H 95 07/30/19 09:08 114 H 34 H 96 07/30/19 09:06 114 H 36 H 111/69 96 07/30/19 08:56 38.2 C H 124 H 22 106/69 96 Laboratory Results Lab Results 07/30/19 07/30/19 07/30/19 Range/Units 09:35 09:35 09:49 WBC (4.8-10.8) K/uL RBC (4.2-5.4) M/uL Hgb (12.0-16.0) g/dL Hct (37-47) % MCV (80-100) fL MCH (25-34) pg MCHC (32-36) g/dL RDW Std Deviation (36.4-46.3) fL RDW Coeff of Christina (11.5-14.5) % Plt Count (130-400) K/uL MPV (7.4-10.4) fL Immature Gran % (Auto) % Neut % (Auto) % Lymph % (Auto) % [place] % (Auto) % Eos % (Auto) % Baso % (Auto) % Immature Gran # (Auto) (0.00-0.02) K/uL Neut # (Auto) (1.4-6.5) K/uL Lymph # (Auto) (1.2-3.4) K/uL [place] # (Auto) (0.11-0.59) K/uL Eos # (Auto) (0-0.5) K/uL Baso # (Auto) (0-0.2) K/uL Platelet Estimate (Normal) ESR (0-21) mm/hr D-Dimer 3480 H* (0-500) ug/L FEU Sodium (136-145) mmol/L Potassium (3.5-5.1) mmol/L Chloride (98-107) mmol/L Carbon Dioxide (21-32) mmol/L Anion Gap (3-11) BUN (7-18) mg/dl Creatinine (0.6-1.2) mg/dl Est Cr Clr Drug Dosing Est GFR ( Amer) Est GFR (Non-Af Amer) BUN/Creatinine Ratio (10-20) Glucose (70-99) mg/dl Lactate (0.4-2.0) mmol/L Calcium (8.5-10.1) mg/dl Total Bilirubin (0.2-1) mg/dl AST (15-37) U/L ALT (12-78) U/L Alkaline Phosphatase (45-117) U/L Troponin I (0-0.045) ng/ml Total Protein (6.4-8.2) gm/dl Albumin (3.4-5.0) gm/dl Globulin (2.5-4.0) gm/dl Albumin/Globulin Ratio (0.9-2) POC Urine pH (4.5-7.5) POC Urine Protein (Negative) POC Ur Glucose (UA) (Normal) POC Urine Ketones (Negative) POC Urine Blood (Negative) POC Urine Nitrite (Negative) POC Urine Bilirubin (Negative) POC Urine Urobilinogen (Normal) POC U Leukocyte Esteras (Negative) POC Ur Test (NEG) Influenza Type A Ag Neg for Influ A (Neg) Influenza Type A (PCR) Neg for Influ A (Neg) Influenza Type B Ag Neg for Influ B (Neg) Influenza Type B (PCR) Pos for Influ B A* (Neg) 07/30/19 07/30/19 07/30/19 Range/Units 09:49 09:49 09:49 WBC 3.45 L (4.8-10.8) K/uL RBC 4.77 (4.2-5.4) M/uL Hgb 13.9 (12.0-16.0) g/dL Hct 40.1 (37-47) % MCV 84.1 (80-100) fL MCH 29.1 (25-34) pg MCHC 34.7 (32-36) g/dL RDW Std Deviation 38.7 (36.4-46.3) fL RDW Coeff of Christina 12.7 (11.5-14.5) % Plt Count 95 L (130-400) K/uL MPV 10.3 (7.4-10.4) fL Immature Gran % (Auto) 0.3 % Neut % (Auto) 81.7 % Lymph % (Auto) 9.9 % [place] % (Auto) 8.1 % Eos % (Auto) 0.0 % Baso % (Auto) 0.0 % Immature Gran # (Auto) 0.01 (0.00-0.02) K/uL Neut # (Auto) 2.82 (1.4-6.5) K/uL Lymph # (Auto) 0.34 L (1.2-3.4) K/uL [place] # (Auto) 0.28 (0.11-0.59) K/uL Eos # (Auto) 0.00 (0-0.5) K/uL Baso # (Auto) 0.00 (0-0.2) K/uL Platelet Estimate Decreased L (Normal) ESR 3 (0-21) mm/hr D-Dimer (0-500) ug/L FEU Sodium 133 L (136-145) mmol/L Potassium 3.2 L (3.5-5.1) mmol/L Chloride 101 (98-107) mmol/L Carbon Dioxide 23 (21-32) mmol/L Anion Gap 9.0 (3-11) BUN 6 L (7-18) mg/dl Creatinine 0.70 (0.6-1.2) mg/dl Est Cr Clr Drug Dosing Not Reportable Est GFR ( Amer) 140.5 Est GFR (Non-Af Amer) 121.3 BUN/Creatinine Ratio 8.2 L (10-20) Glucose 120 H (70-99) mg/dl Lactate (0.4-2.0) mmol/L Calcium 8.3 L (8.5-10.1) mg/dl Total Bilirubin 0.4 (0.2-1) mg/dl AST 90 H (15-37) U/L ALT 99 H (12-78) U/L Alkaline Phosphatase 132 H (45-117) U/L Troponin I < 0.015 (0-0.045) ng/ml Total Protein 6.9 (6.4-8.2) gm/dl Albumin 4.0 (3.4-5.0) gm/dl Globulin 2.9 (2.5-4.0) gm/dl Albumin/Globulin Ratio 1.4 (0.9-2) POC Urine pH (4.5-7.5) POC Urine Protein (Negative) POC Ur Glucose (UA) (Normal) POC Urine Ketones (Negative) POC Urine Blood (Negative) POC Urine Nitrite (Negative) POC Urine Bilirubin (Negative) POC Urine Urobilinogen (Normal) POC U Leukocyte Esteras (Negative) POC Ur Test (NEG) Influenza Type A Ag (Neg) Influenza Type A (PCR) (Neg) Influenza Type B Ag (Neg) Influenza Type B (PCR) (Neg) 07/30/19 07/30/19 07/30/19 Range/Units 09:49 11:15 11:15 WBC (4.8-10.8) K/uL RBC (4.2-5.4) M/uL Hgb (12.0-16.0) g/dL Hct (37-47) % MCV (80-100) fL MCH (25-34) pg MCHC (32-36) g/dL RDW Std Deviation (36.4-46.3) fL RDW Coeff of Christina (11.5-14.5) % Plt Count (130-400) K/uL MPV (7.4-10.4) fL Immature Gran % (Auto) % Neut % (Auto) % Lymph % (Auto) % [place] % (Auto) % Eos % (Auto) % Baso % (Auto) % Immature Gran # (Auto) (0.00-0.02) K/uL Neut # (Auto) (1.4-6.5) K/uL Lymph # (Auto) (1.2-3.4) K/uL [place] # (Auto) (0.11-0.59) K/uL Eos # (Auto) (0-0.5) K/uL Baso # (Auto) (0-0.2) K/uL Platelet Estimate (Normal) ESR (0-21) mm/hr D-Dimer (0-500) ug/L FEU Sodium (136-145) mmol/L Potassium (3.5-5.1) mmol/L Chloride (98-107) mmol/L Carbon Dioxide (21-32) mmol/L Anion Gap (3-11) BUN (7-18) mg/dl Creatinine (0.6-1.2) mg/dl Est Cr Clr Drug Dosing Est GFR ( Amer) Est GFR (Non-Af Amer) BUN/Creatinine Ratio (10-20) Glucose (70-99) mg/dl Lactate 1.8 (0.4-2.0) mmol/L Calcium (8.5-10.1) mg/dl Total Bilirubin (0.2-1) mg/dl AST (15-37) U/L ALT (12-78) U/L Alkaline Phosphatase (45-117) U/L Troponin I (0-0.045) ng/ml Total Protein (6.4-8.2) gm/dl Albumin (3.4-5.0) gm/dl Globulin (2.5-4.0) gm/dl Albumin/Globulin Ratio (0.9-2) POC Urine pH 7 (4.5-7.5) POC Urine Protein Negative (Negative) POC Ur Glucose (UA) Normal (Normal) POC Urine Ketones Negative (Negative) POC Urine Blood Negative (Negative) POC Urine Nitrite Negative (Negative) POC Urine Bilirubin Negative (Negative) POC Urine Urobilinogen Normal (Normal) POC U Leukocyte Esteras Negative (Negative) POC Ur Test NEG (NEG) Influenza Type A Ag (Neg) Influenza Type A (PCR) (Neg) Influenza Type B Ag (Neg) Influenza Type B (PCR) (Neg) Diagnostic Findings XR chest 2V PA/lateral CLINICAL HISTORY: COUGH, FEVER dyspnea COMPARISON STUDY: 06/12/2016 FINDINGS: Diffuse bibasilar parenchymal infiltrative change. Consolidative component involving the left lower lobe. Potential underlying nodular component of the left hilum as well as left lower lobe region. Poor visibility left hemidiaphragm. Pulmonary apices are clear. IMPRESSION: 1. Consolidative infiltrative change left and to a lesser extent right lung base. 2. Nodular-like consolidative change at versus true nodularity left lower lobe and left perihilar region. 3. This examination should be repeated at a later date to ensure complete resolution and exclude underlying nodular pathology. ACT 112: Negative or not required by law. The above report was generated using voice recognition software. It may contain grammatical, syntax or spelling errors. Electronically signed by: Gary Denny M.D. 07/30/2019 10:40 AM Dictated: 07/30/19 1038 Transcribed: 07/30/[address] WITH CONTRAST CT DOSE: 219.89 mGy.cm HISTORY: Abnormal chest x-ray. MULTIFOCAL PNEUMONIA TECHNIQUE: Multiaxial CT images of the chest were performed following the intravenous administration of contrast. A dose lowering technique was utilized adhering to the principles of ALARA. COMPARISON: Chest 07/30/2019. FINDINGS: No pneumothorax. No pleural effusions. Opacification of some of the bilateral lower lobe bronchi. Subcentimeter nodular densities within the lung apices favor pleural-parenchymal scarring. Respiratory motion artifact. Multifocal areas of dense consolidation within the bilateral lower lobes, left greater than right. Multiple additional scattered nodular densities seen within the bilateral lower lobes, right middle lobe, and left upper lobe. These findings favor a multifocal pneumonia. No areas of central cavitation. No fractures within the visualized osseous structures. Prominent mediastinal and hilar lymph nodes which may be reactive. Normal esophagus. The spleen is partially visualized but appears to be enlarged. Prior cholecystectomy. A 9 mm hypodense lesion within the right hepatic dome. This is technically too small to characterize. The mediastinal vascular structures are within normal limits. IMPRESSION: 1. Multifocal airspace opacities as described above most pronounced within the lower lobes. This favors a multifocal pneumonia. Chest x-ray follow-up recommended to ensure complete resolution. 2. Prominent mediastinal and bilateral hilar lymph nodes which may be reactive. 3. Splenomegaly. This may also be reactive. ACT 112: Negative or not required by law. Electronically signed by: Yakov Calvert M.D. 07/30/2019 12:26 PM Dictated: 07/30/19 1218 Transcribed: 07/30/19 1218 ECG Additional Comments: Study shows sinus tachycardia 114 bpm, normal axis, WV = 138, QRS = 80, QTC = 463, T wave inversions present in anterior leads Code Status & VTE Plan Code Status Full code per discussion with patient VTE Prophylaxis Plan Reason for no VTE drug order: Treatment not indicated Reason for no VTE mechanical prophylaxis: Treatment not indicated PG Care Time/CCT Total # of Minutes Spent Total Time Spent with Patient: Total time spent is greater than 50% in coordination of care (as documented) at patient's floor/unit and/or counseling patient: Coding Level of Care Code 63815 Initial Inpt Care Lvl 3 Diagnoses Influenza B J10.1 Multifocal pneumonia J18.9 Hx MRSA infection Z86.14 H/O intravenous drug use in remission Z87.898 Depression F32.9 Depression Type: major depressive disorder Major depression recurrence: unspecified whether recurrent Active/Remission status: remission status unspecified Abnormal LFTs R94.5 Thrombocytopenia D69.6 GERD (gastroesophageal reflux disease) K21.9 Esophagitis presence: esophagitis presence not specified (1) GERD (gastroesophageal reflux disease) Esophagitis presence: esophagitis presence not specified Qualified Code(s): K21.9 - Gastro-esophageal reflux disease without esophagitis (2) Depression Depression Type: major depressive disorder Major depression recurrence: unspecified whether recurrent Active/Remission status: remission status unspecified Qualified Code(s): F32.9 - Major depressive disorder, single episode, unspecified
[2019-07-30] MEDS ORDERED: VANCOMYCIN CONSULT ACTIVE PRN (14:31)
[2019-07-30] MEDS ORDERED: ACETAMINOPHEN 325 MG TAB PO PRN (14:31)
[2019-07-30] MEDS ORDERED: ONDANSETRON INJ 2 MG/ML 2 ML VIAL IV PRN (14:31)
[2019-07-30] MEDS ORDERED: AZITHROMYCIN 500 MG in DEXTROSE 5% 250 ML IV STA (14:34)
[2019-07-30 15:07] LABS: HCO3 ABG 18 mmol/L (19-24); Oxygen Saturation ABG 85.1 % (90-95); PCO2 ABG 33 mmHg (35-46); PO2 ABG 54 mmHg (80-95); pH ABG 7.37 (7.35-7.45)
[2019-07-30 15:08] LABS: Allen Test Pos (Pos)
--- NOTE | 2019-07-30 15:12 | Pharmacy Report ---
Pharmacy Abx Initial Consult - Date of Service July 30, 2019 - Pharmacy Dosing Scope Date of Consult: 07/30/2019 Consultation requested by: Dr. Hensley Pharmacy is consulted to initiate vancomycin IV dosing therapy, order appropriate labs and adjust drug dose/frequency. - Subjective The patient is a 23 year old F admitted on 07/30/19 13:21 with flu and multilobular pneumonia - Objective Height: 5 ft 2 in Weight: 47.627 kg Vital Signs (Past 12hrs): Vital Signs Temp Pulse Pulse Resp BP BP Pulse Ox 07/30/19 13:40 106 H 22 100 07/30/19 13:37 37.1 C 105 H 20 99 07/30/19 13:36 105 H 28 H 105/61 100 07/30/19 13:30 107 H 26 H 07/30/19 13:20 107 H 32 H 07/30/19 13:10 112 H 25 H 07/30/19 13:00 107 H 23 07/30/19 12:59 107 H 28 H 07/30/19 12:31 106 H 27 H 07/30/19 12:30 108 H 27 H 115/68 07/30/19 12:20 107 H 29 H 07/30/19 12:10 112 H 26 H 07/30/19 12:02 108 H 17 07/30/19 11:40 110 H 25 H 07/30/19 11:32 110 H 31 H 102/44 L 07/30/19 11:31 108 H 30 H 07/30/19 11:30 108 H 30 H 07/30/19 11:20 111 H 20 90 07/30/19 11:13 112 H 35 H 91 07/30/19 11:12 111 H 33 H 114/68 95 07/30/19 11:11 114 H 36 H 07/30/19 11:02 37.8 C H 07/30/19 10:20 108 H 31 H 93 07/30/19 10:10 112 H 36 H 95 07/30/19 10:01 112 H 31 H 92 07/30/19 10:00 112 H 36 H 108/70 92 07/30/19 09:50 113 H 44 H 97 07/30/19 09:42 117 H 22 118/71 97 07/30/19 09:40 121 H 31 H 07/30/19 09:31 118 H 28 H 95 07/30/19 09:30 118 H 31 H 118/71 07/30/19 09:20 120 H 29 H 95 07/30/19 09:10 114 H 37 H 95 07/30/19 09:08 114 H 34 H 96 07/30/19 09:06 114 H 36 H 111/69 96 07/30/19 08:56 38.2 C H 124 H 22 106/69 96 Lab Results (24hrs): Laboratory Tests (24 Hours) 07/30/19 07/30/19 07/30/19 09:49 09:49 09:49 WBC 3.45 L Neut # (Auto) 2.82 ESR 3 Creatinine 0.70 Est Cr Clr Drug Dosing Not Reportable Micro Results: 07/30/19 10:53 Aerobic Blood Culture - Pending Blood Anaerobic Blood Culture - Pending 07/30/19 09:45 Aerobic Blood Culture - Pending Blood Anaerobic Blood Culture - Pending - Risk Factors for Resistance * History of infection with a multidrug-resistant organism: MRSA - Assessment & Plan Assessment 23 year old F ADMITTED WITH FLU AND MULTILOBULAR PNEUMONIA Plan VANCOMYCIN for treatment of POST-FLU PNEUMONIA H/O MRSA Vancomycin IV * Estimated PK Parameters: Vd 0.7 L/kg, Juan José 0.0874 hr-1, t1/2 7.9 hr * Loading dose: 1250 mg (25 mg/kg) * Maintenance dose: 1000 mg IV (20 mg/kg) every 8 hours * Goal trough level for PNEUMONIA : 15 to 20 mcg/mL * Trough ordered for 07/31/2019 (prior to steady state to see if therapeutic level is obtainable) * A less than traditional dose has been selected due to increased clearance in young, thin patients. Pharmacy will continue to follow and will adjust dose/frequency as necessary. Thank you.
[2019-07-30] MEDS ORDERED: VANCOMYCIN HCL 1,250 MG in SODIUM CHLORIDE 0.9% 250 ML IV ONE (15:15)
[2019-07-30 15:54] LABS: Magnesium 1.3 mg/dl (1.8-2.4); Phosphorus 1.9 mg/dl (2.5-4.9)
[2019-07-30] MEDS: NSS + 20MEQ KCL 20 MEQ/1,000 ML BAG IV SCH (16:20)
[2019-07-30] MEDS: OSELTAMIVIR PHOSPHATE 75 MG CAP PO SCH ×2 (16:20→22:55)
[2019-07-30] MEDS ORDERED: SODIUM PHOSPHATE 3 MMOL/1 ML INFUSION IV STA (16:36)
[2019-07-30] MEDS ORDERED: SODIUM PHOSPHATE 15 MMOL in SODIUM CHLORIDE 0.9% 250 ML IV ONE (17:00)
[2019-07-30 17:40] LABS: Amphetamines+Metham, Urine Pos (Neg); Barbiturates, Urine Neg (Neg); Benzodiazepine, Urine Neg (Neg); Cocaine, Urine Neg (Neg); MDMA (Ecstacy), Urine Pos (Neg); Methadone, Urine Neg (Neg); Opiate, Urine Neg (Neg); Phencyclidine, Urine Neg (Neg)
[2019-07-30 17:45] LABS: Base Excess ABG -6.8 mEq/L (-9-1.8); HCO3 ABG 18 mmol/L (19-24); Oxygen Saturation ABG 89.8 % (90-95); PCO2 ABG 35 mmHg (35-46); PO2 ABG 61 mmHg (80-95); pH ABG 7.34 (7.35-7.45)
[2019-07-30 17:47] LABS: Allen Test Pos (Pos)
[2019-07-30] MEDS: MAGNESIUM SULFATE / D5W 1 GM/100 ML BAG IV SCH ×3 (17:49→20:05)
[2019-07-30] MEDS ORDERED: LORazepam 1 MG/2 ML VIAL IV STA (19:57)
[2019-07-30] MEDS: CEFEPIME 2,000 MG in SYRINGE 7.5 ML IV SCH (20:19)
--- NOTE | 2019-07-30 20:48 | Critical Care Consultation ---
Date of Consultation July 30, 2019 Assessment & Plan (1) Sepsis with acute hypoxic respiratory failure: Reason Critically Ill: 23-year-old female presents with positive influenza B and likely superimposed multilobular pneumonia and hypoxic respiratory failure Neuro - [facility] ICU: Negative History of drug abuse: Continue Suboxone Anxiety disorder: Continue home med Cardiac - Currently normotensive, mild sinus tachycardia with rate in the low 100s Troponins negative Will obtain echocardiogram as patient has history of IV drug abuse, multiple MRSA infections, febrile and septic Respiratory - Hypoxic respiratory failureinfluenza B pneumonia with likely superimposed multilobular pneumonia on CT -Currently maintaining oxygenation on BiPAP, continue to monitor in ICU as patient is high risk for needing intubation if decompensates -AB.28/36/147/17, adjusting BiPAP settings as necessary -We will continue broad-spectrum antibiotics, see pneumonia treatment -Sputum culture pending, Legionella, Streptococcus sent; blood cultures pending -Continuous pulse ox monitoring -Repeat chest x-ray in a.m. GI - N.p.o. for now except medications Elevated LFTsabdominal exam benign -we will obtain hepatic ultrasound -Patient high risk for hep C, hep C and HIV pending -Trend LFTs RENAL/LYTES - Creatinine within normal limits, monitor routine BMPs Replete electrolytes as necessary Mild metabolic acidosis, lactate elevated will continue to trend - Strict I's and O's ENDO - No history diabetes or thyroid disease, ICU hyperglycemia protocol HEME - H&H stable, monitor Thrombocytopeniasepsis induced?, Liver disease? -Hep C and liver ultrasound pending -See sepsis and transaminitis management -Continue to trend platelet count, transfuse if indicated ID - Sepsispatient presents with fever, elevated lactate in the setting of multifocal pneumonia and positive influenza B -Blood cultures pending, Legionella pending -MRSA PCR positive -Hep C HIV pending -Trending lactate, procalcitonin -Continue vancomycin, cefepime, azithromycin, Tamiflu; will narrow antibiotics based off cultures LINES/IV ACCESS - Peripheral IVs DVT PROPHYLAXIS - Sheyla Soler I have personally spent 45 minutes of critical care time in the direct management of this patient. This is a life/limb threatening event. This includes time spent evaluating patient, direct bedside care, chart review, placing orders, interpretation of diagnostic studies, discussion with consultants, patient, and family members, as well as other required patient management activities. This time is exclusive of all separately billable procedures, and teaching time and separate from and in addition to any other critical care service time. Thank you for allowing us to participate in the care of this patient. Please refer to my attending physician's documentation for any further recommendations. (2) Abnormal LFTs: (3) Multifocal pneumonia: (4) Thrombocytopenia: (5) Influenza B: (6) GERD (gastroesophageal reflux disease): (7) Raynauds disease: (8) Depression: (9) Hx MRSA infection: (10) IV drug abuse: (11) Lactic acid acidosis: Supervising Physician Co-Signing Physician Notes Seen and examined. Discussed with admitting hospitalist and JAEL overnight. Please refer to my critical care note from today. History of Present Illness Attending Physician: Tanya Hensley DO History of Present Illness Ms. Ortiz is a 23-year-old female with past medical history of IV drug a buse, recurrent MRSA skin infections, GERD, Raynauds disease who presented with dry cough, throat pain, left chest and rib pain with inspiration, SOB, that had worsened overnight and reported a fever from the previous night. She was positive for influenza B in the ED and CT imaging reflective of multifocal pneumonia. Patient had become increasingly hypoxic and tachypneic throughout the day and was requiring high flow nasal cannula. She was transferred to the ICU for worsening of hypoxia and SOB with patient considered high risk for intubation. On arrival to the ICU patient is sitting up in bed, seemingly anxious and tachypneic with respiratory rate in the low 30s. At the time she was wearing high flow nasal cannula, which she was refusing higher settings of flow due to discomfort. She was briefly tried on BiPAP but did not tolerate due to anxiety. At this time the patient's oxygen saturation was upper 80s to low 90s on 15 L oxygen mask. Patient was given IV Ativan for anxiety and placed on BiPAP which she tolerated at that time. She has showed significant improvement in oxygen saturation and respiratory rate on BiPAP, however patient still at significant high risk for requiring intubation in the event of decompensation and will remain in ICU for further management at this time. She reports shortness of breath and anxiety and continues to have left-sided chest pain with inspiration. She currently denies headache, syncope/dizziness, sore throat, abdominal pain, nausea or vomiting, or diarrhea. Patient does have swelling to the hands and feet she states is chronic associated with Raynauds. Allergies Allergy/AdvReac Type Severity Reaction Status Date / Time No Known Allergies Allergy Verified 07/30/19 09:43 Home Medications Home Medications Medication Instructions Recorded Confirmed Type buprenorphine HCl 8 mg sublingual 8 mg SL BID #10 tab 04/09/19 07/30/19 Rx tablet acetaminophen [Tylenol] 325 mg PO QID PRN 07/30/19 07/30/19 History citalopram [Celexa] 10 mg PO HS 07/30/19 07/30/19 History clindamycin-benzoyl peroxide 1 applic TOPICAL BID 07/30/19 07/30/19 History Patient History Medical History Depression (Chronic) GERD (gastroesophageal reflux disease) H/O intravenous drug use in remission Hx MRSA infection (Chronic) Raynauds disease (Chronic) Surgical History History of cholecystectomy History of incision and drainage History of tonsillectomy and adenoidectomy Family History (Updated 07/30/19 @ 13:41 by Tanya Hensley DO) Other No significant family history Social History (Updated 07/30/19 @ 13:42 by Tanya Hensley DO) Preferred Language: Croatian Communication Ability: Effective Ssrs Report Developer Required: No Beliefs That Will Affect Care: None Current Living Situation: Significant Other current occupational status: employed Feels Safe at Home: Yes Smoking Status: Current every day smoker Tobacco Type: cigarettes ; Hx Alcohol Use: No Hx Substance Use: No Review of Systems Review of Systems: All systems reviewed & are unremarkable except as noted in HPI & below Physical Exam Eyes: PERRL, conjunctivae normal, anicteric sclerae ENMT: external ear and nose normal, oropharynx normal Neck: trachea midline, no thyromegaly Respiratory: + tachypneic and symmetric chest movement; does not use accessory muscles and no stridor Auscultation: no wheezes Rhonchi auscultated in all lung mallory bilaterally and more pronounced in bases bilaterally Cardiovascular: Rate/Rhythm: + tachycardic Heart Sounds: normal S1 and normal S2; no murmur Vessels: no JVD Extremities: + pedal edema Gastrointestinal (Abdomen): normal bowel sounds, soft, nontender, no hepatosplenomegaly Neurologic: PERRL, EOMI, accommodation nl, no face palsy, no dysarthria Psychiatric: Orientation: alert and oriented x 3 Anxious Results & Data ([facility]) Vital Signs (Past 12 Hours) Vital Signs Temp Pulse Pulse Resp BP BP BP 07/30/19 19:50 106 H 29 H 07/30/19 19:43 108 H 35 H 108/67 07/30/19 19:40 108 H 100 H 28 H 07/30/19 19:30 108 H 29 H 07/30/19 19:20 108 H 29 H 07/30/19 19:12 112 H 33 H 97/66 L 07/30/19 19:11 112 H 34 H 07/30/19 19:00 36.8 C 104 H 07/30/19 18:29 110 H 22 07/30/19 16:20 37.1 C 110 H 27 H 94/60 L 07/30/19 16:09 108 H 20 07/30/19 15:19 36.8 C 109 H 101/67 07/30/19 15:06 36.7 C 111 H 26 H 95/56 L 07/30/19 13:40 106 H 22 07/30/19 13:37 37.1 C 105 H 20 07/30/19 13:36 105 H 28 H 105/61 07/30/19 13:30 107 H 26 H 07/30/19 13:20 107 H 32 H 07/30/19 13:10 112 H 25 H 07/30/19 13:00 107 H 23 07/30/19 12:59 107 H 28 H 07/30/19 12:31 106 H 27 H 07/30/19 12:30 108 H 27 H 115/68 07/30/19 12:20 107 H 29 H 07/30/19 12:10 112 H 26 H 07/30/19 12:02 108 H 17 07/30/19 11:40 110 H 25 H 07/30/19 11:32 110 H 31 H 102/44 L 07/30/19 11:31 108 H 30 H 07/30/19 11:30 108 H 30 H 07/30/19 11:20 111 H 20 07/30/19 11:13 112 H 35 H 07/30/19 11:12 111 H 33 H 114/68 07/30/19 11:11 114 H 36 H 07/30/19 11:02 37.8 C H 07/30/19 10:20 108 H 31 H 07/30/19 10:10 112 H 36 H 07/30/19 10:01 112 H 31 H 07/30/19 10:00 112 H 36 H 108/70 07/30/19 09:50 113 H 44 H 07/30/19 09:42 117 H 22 118/71 07/30/19 09:40 121 H 31 H 07/30/19 09:31 118 H 28 H 07/30/19 09:30 118 H 31 H 118/71 07/30/19 09:20 120 H 29 H 07/30/19 09:10 114 H 37 H 07/30/19 09:08 114 H 34 H 07/30/19 09:06 114 H 36 H 111/69 07/30/19 08:56 38.2 C H 124 H 22 106/69 Pulse Ox 07/30/19 19:50 93 07/30/19 19:43 93 07/30/19 19:40 93 07/30/19 19:30 89 L 07/30/19 19:20 90 07/30/19 19:12 88 L 07/30/19 19:11 87 L 07/30/19 19:00 07/30/19 18:29 87 L 07/30/19 16:20 93 07/30/19 16:09 94 07/30/19 15:19 95 07/30/19 15:06 91 07/30/19 13:40 100 07/30/19 13:37 99 07/30/19 13:36 100 07/30/19 13:30 07/30/19 13:20 07/30/19 13:10 07/30/19 13:00 07/30/19 12:59 07/30/19 12:31 07/30/19 12:30 07/30/19 12:20 07/30/19 12:10 07/30/19 12:02 07/30/19 11:40 07/30/19 11:32 07/30/19 11:31 07/30/19 11:30 07/30/19 11:20 90 07/30/19 11:13 91 07/30/19 11:12 95 07/30/19 11:11 07/30/19 11:02 07/30/19 10:20 93 07/30/19 10:10 95 07/30/19 10:01 92 07/30/19 10:00 92 07/30/19 09:50 97 07/30/19 09:42 97 07/30/19 09:40 07/30/19 09:31 95 07/30/19 09:30 07/30/19 09:20 95 07/30/19 09:10 95 07/30/19 09:08 96 07/30/19 09:06 96 07/30/19 08:56 96 Laboratory Results Laboratory Results - last 24 hr 07/30/19 07/30/19 07/30/19 09:35 09:35 09:49 WBC RBC Hgb POC Hgb Hct POC Hct MCV MCH MCHC RDW Std Deviation RDW Coeff of Christina Plt Count MPV Immature Gran % (Auto) Neut % (Auto) Lymph % (Auto) [place] % (Auto) Eos % (Auto) Baso % (Auto) Immature Gran # (Auto) Neut # (Auto) Lymph # (Auto) [place] # (Auto) Eos # (Auto) Baso # (Auto) Platelet Estimate ESR D-Dimer 3480 H* Sample Site POC pH POC pCO2 POC pO2 POC HCO3 POC Total CO2 POC Base Excess ABG pH ABG pH (Temp Correct) ABG pCO2 ABG pCO2 (Temp Corrct ABG pO2 POC ABG pO2 at Pt Temp ABG HCO3 ABG O2 Saturation ABG Base Excess Dar Test Barometric Pressure Oxygen Given O2 Delivery Device POC O2 Rate POC FiO2 IPAP POC Sodium Sodium POC Potassium Potassium Chloride Carbon Dioxide Anion Gap BUN Creatinine Est Cr Clr Drug Dosing Est GFR ( Amer) Est GFR (Non-Af Amer) BUN/Creatinine Ratio Glucose Lactate Calcium Phosphorus Magnesium Total Bilirubin AST ALT Alkaline Phosphatase Troponin I Total Protein Albumin Globulin Albumin/Globulin Ratio POC Urine pH POC Urine Protein POC Ur Glucose (UA) POC Urine Ketones POC Urine Blood POC Urine Nitrite POC Urine Bilirubin POC Urine Urobilinogen POC U Leukocyte Esteras POC Ur Test Nasal Screen MRSA (PCR) Urine Opiates Screen Ur Methadone, Qual Urine Barbiturates Ur Phencyclidine (PCP) U Amphetamines Confirm U Amphetamin/Meth Scrn U Methamphetamin Confrm Urine MDEA MDMA (Ecstasy) Screen MDMA Urine MDMA U Benzodiazepines Scrn Ur Cocaine Metabolite U Marijuana (THC) Screen Drug Screen Comment Hepatitis A IgM Ab Hep Bs Antigen Hep B Core IgM Ab Hepatitis C Antibody HIV 1&2 Ab/P24 Ag 4thGn Influenza Type A Ag Neg for Influ A Influenza Type A (PCR) Neg for Influ A Influenza Type B Ag Neg for Influ B Influenza Type B (PCR) Pos for Influ B A* S.pneumoniae Type 1 IgG S.pneumoniae Type 3 IgG S.pneumoniae Type 4 IgG S.pneumoniae Type 5 IgG S.pneumoniae Type 8 IgG S.pneumoniae 9 (9N) IgG S.pneumon 12 (12F) IgG S.pneumoniae Typ 14 IgG S.pneumon 19 (19F) IgG S.pneumon 23 (23F) IgG S.pneumon 26 (6B) IgG S.pneumon 51 (7F) IgG S.pneumon 56 (18C) IgG S.pneumon 68 (9V) IgG 07/30/19 07/30/19 07/30/19 09:49 09:49 09:49 WBC 3.45 L RBC 4.77 Hgb 13.9 POC Hgb Hct 40.1 POC Hct MCV 84.1 MCH 29.1 MCHC 34.7 RDW Std Deviation 38.7 RDW Coeff of Christina 12.7 Plt Count 95 L MPV 10.3 Immature Gran % (Auto) 0.3 Neut % (Auto) 81.7 Lymph % (Auto) 9.9 [place] % (Auto) 8.1 Eos % (Auto) 0.0 Baso % (Auto) 0.0 Immature Gran # (Auto) 0.01 Neut # (Auto) 2.82 Lymph # (Auto) 0.34 L [place] # (Auto) 0.28 Eos # (Auto) 0.00 Baso # (Auto) 0.00 Platelet Estimate Decreased L ESR 3 D-Dimer Sample Site POC pH POC pCO2 POC pO2 POC HCO3 POC Total CO2 POC Base Excess ABG pH ABG pH (Temp Correct) ABG pCO2 ABG pCO2 (Temp Corrct ABG pO2 POC ABG pO2 at Pt Temp ABG HCO3 ABG O2 Saturation ABG Base Excess Dar Test Barometric Pressure Oxygen Given O2 Delivery Device POC O2 Rate POC FiO2 IPAP POC Sodium Sodium 133 L POC Potassium Potassium 3.2 L Chloride 101 Carbon Dioxide 23 Anion Gap 9.0 BUN 6 L Creatinine 0.70 Est Cr Clr Drug Dosing Not Reportable Est GFR ( Amer) 140.5 Est GFR (Non-Af Amer) 121.3 BUN/Creatinine Ratio 8.2 L Glucose 120 H Lactate Calcium 8.3 L Phosphorus Magnesium Total Bilirubin 0.4 AST 90 H ALT 99 H Alkaline Phosphatase 132 H Troponin I < 0.015 Total Protein 6.9 Albumin 4.0 Globulin 2.9 Albumin/Globulin Ratio 1.4 POC Urine pH POC Urine Protein POC Ur Glucose (UA) POC Urine Ketones POC Urine Blood POC Urine Nitrite POC Urine Bilirubin POC Urine Urobilinogen POC U Leukocyte Esteras POC Ur Test Nasal Screen MRSA (PCR) Urine Opiates Screen Ur Methadone, Qual Urine Barbiturates Ur Phencyclidine (PCP) U Amphetamines Confirm U Amphetamin/Meth Scrn U Methamphetamin Confrm Urine MDEA MDMA (Ecstasy) Screen MDMA Urine MDMA U Benzodiazepines Scrn Ur Cocaine Metabolite U Marijuana (THC) Screen Drug Screen Comment Hepatitis A IgM Ab Hep Bs Antigen Hep B Core IgM Ab Hepatitis C Antibody HIV 1&2 Ab/P24 Ag 4thGn Influenza Type A Ag Influenza Type A (PCR) Influenza Type B Ag Influenza Type B (PCR) S.pneumoniae Type 1 IgG S.pneumoniae Type 3 IgG S.pneumoniae Type 4 IgG S.pneumoniae Type 5 IgG S.pneumoniae Type 8 IgG S.pneumoniae 9 (9N) IgG S.pneumon 12 (12F) IgG S.pneumoniae Typ 14 IgG S.pneumon 19 (19F) IgG S.pneumon 23 (23F) IgG S.pneumon 26 (6B) IgG S.pneumon 51 (7F) IgG S.pneumon 56 (18C) IgG S.pneumon 68 (9V) IgG 07/30/19 07/30/19 07/30/19 09:49 09:49 11:15 WBC RBC Hgb POC Hgb Hct POC Hct MCV MCH MCHC RDW Std Deviation RDW Coeff of Christina Plt Count MPV Immature Gran % (Auto) Neut % (Auto) Lymph % (Auto) [place] % (Auto) Eos % (Auto) Baso % (Auto) Immature Gran # (Auto) Neut # (Auto) Lymph # (Auto) [place] # (Auto) Eos # (Auto) Baso # (Auto) Platelet Estimate ESR D-Dimer Sample Site POC pH POC pCO2 POC pO2 POC HCO3 POC Total CO2 POC Base Excess ABG pH ABG pH (Temp Correct) ABG pCO2 ABG pCO2 (Temp Corrct ABG pO2 POC ABG pO2 at Pt Temp ABG HCO3 ABG O2 Saturation ABG Base Excess Dar Test Barometric Pressure Oxygen Given O2 Delivery Device POC O2 Rate POC FiO2 IPAP POC Sodium Sodium POC Potassium Potassium Chloride Carbon Dioxide Anion Gap BUN Creatinine Est Cr Clr Drug Dosing Est GFR ( Amer) Est GFR (Non-Af Amer) BUN/Creatinine Ratio Glucose Lactate 1.8 Calcium Phosphorus 1.9 L Magnesium 1.3 L Total Bilirubin AST ALT Alkaline Phosphatase Troponin I Total Protein Albumin Globulin Albumin/Globulin Ratio POC Urine pH 7 POC Urine Protein Negative POC Ur Glucose (UA) Normal POC Urine Ketones Negative POC Urine Blood Negative POC Urine Nitrite Negative POC Urine Bilirubin Negative POC Urine Urobilinogen Normal POC U Leukocyte [place]ster[place] Negative POC Ur Test Nasal Screen MRSA (PCR) Urine Opiates Screen Ur Methadone, Qual Urine Barbiturates Ur Phencyclidine (PCP) U Amphetamines Confirm U Amphetamin/Meth Scrn U Methamphetamin Confrm Urine MDEA MDMA (Ecstasy) Screen MDMA Urine MDMA U Benzodiazepines Scrn Ur Cocaine Metabolite U Marijuana (THC) Screen Drug Screen Comment Hepatitis A IgM Ab Hep Bs Antigen Hep B Core IgM Ab Hepatitis C Antibody HIV 1&2 Ab/P24 Ag 4thGn Influenza Type A Ag Influenza Type A (PCR) Influenza Type B Ag Influenza Type B (PCR) S.pneumoniae Type 1 IgG S.pneumoniae Type 3 IgG S.pneumoniae Type 4 IgG S.pneumoniae Type 5 IgG S.pneumoniae Type 8 IgG S.pneumoniae 9 (9N) IgG S.pneumon 12 (12F) IgG S.pneumoniae Typ 14 IgG S.pneumon 19 (19F) IgG S.pneumon 23 (23F) IgG S.pneumon 26 (6B) IgG S.pneumon 51 (7F) IgG S.pneumon 56 (18C) IgG S.pneumon 68 (9V) IgG 07/30/19 07/30/19 07/30/19 11:15 14:57 16:00 WBC RBC Hgb POC Hgb Hct POC Hct MCV MCH MCHC RDW Std Deviation RDW Coeff of Christina Plt Count MPV Immature Gran % (Auto) Neut % (Auto) Lymph % (Auto) [place] % (Auto) Eos % (Auto) Baso % (Auto) Immature Gran # (Auto) Neut # (Auto) Lymph # (Auto) [place] # (Auto) Eos # (Auto) Baso # (Auto) Platelet Estimate ESR D-Dimer Sample Site POC pH POC pCO2 POC pO2 POC HCO3 POC Total CO2 POC Base Excess ABG pH 7.37 ABG pH (Temp Correct) ABG pCO2 33 L ABG pCO2 (Temp Corrct ABG pO2 54 L POC ABG pO2 at Pt Temp ABG HCO3 18 L ABG O2 Saturation 85.1 L ABG Base Excess -6.0 Dar Test Pos Barometric Pressure 738.9 Oxygen Given 3 L O2 Delivery Device POC O2 Rate POC FiO2 IPAP POC Sodium Sodium POC Potassium Potassium Chloride Carbon Dioxide Anion Gap BUN Creatinine Est Cr Clr Drug Dosing Est GFR ( Amer) Est GFR (Non-Af Amer) BUN/Creatinine Ratio Glucose Lactate Calcium Phosphorus Magnesium Total Bilirubin AST ALT Alkaline Phosphatase Troponin I Total Protein Albumin Globulin Albumin/Globulin Ratio POC Urine pH POC Urine Protein POC Ur Glucose (UA) POC Urine Ketones POC Urine Blood POC Urine Nitrite POC Urine Bilirubin POC Urine Urobilinogen POC U Leukocyte Esteras POC Ur Test NEG Nasal Screen MRSA (PCR) Positive A Urine Opiates Screen Ur Methadone, Qual Urine Barbiturates Ur Phencyclidine (PCP) U Amphetamines Confirm U Amphetamin/Meth Scrn U Methamphetamin Confrm Urine MDEA MDMA (Ecstasy) Screen MDMA Urine MDMA U Benzodiazepines Scrn Ur Cocaine Metabolite U Marijuana (THC) Screen Drug Screen Comment Hepatitis A IgM Ab Hep Bs Antigen Hep B Core IgM Ab Hepatitis C Antibody HIV 1&2 Ab/P24 Ag 4thGn Influenza Type A Ag Influenza Type A (PCR) Influenza Type B Ag Influenza Type B (PCR) S.pneumoniae Type 1 IgG S.pneumoniae Type 3 IgG S.pneumoniae Type 4 IgG S.pneumoniae Type 5 IgG S.pneumoniae Type 8 IgG S.pneumoniae 9 (9N) IgG S.pneumon 12 (12F) IgG S.pneumoniae Typ 14 IgG S.pneumon 19 (19F) IgG S.pneumon 23 (23F) IgG S.pneumon 26 (6B) IgG S.pneumon 51 (7F) IgG S.pneumon 56 (18C) IgG S.pneumon 68 (9V) IgG 07/30/19 07/30/19 07/30/19 17:10 17:10 17:28 WBC RBC Hgb POC Hgb Hct POC Hct MCV MCH MCHC RDW Std Deviation RDW Coeff of Christina Plt Count MPV Immature Gran % (Auto) Neut % (Auto) Lymph % (Auto) [place] % (Auto) Eos % (Auto) Baso % (Auto) Immature Gran # (Auto) Neut # (Auto) Lymph # (Auto) [place] # (Auto) Eos # (Auto) Baso # (Auto) Platelet Estimate ESR D-Dimer Sample Site POC pH POC pCO2 POC pO2 POC HCO3 POC Total CO2 POC Base Excess ABG pH 7.34 L ABG pH (Temp Correct) ABG pCO2 35 ABG pCO2 (Temp Corrct ABG pO2 61 L POC ABG pO2 at Pt Temp ABG HCO3 18 L ABG O2 Saturation 89.8 L ABG Base Excess -6.8 Dar Test Pos Barometric Pressure 740.1 Oxygen Given 40% O2 Delivery Device POC O2 Rate POC FiO2 IPAP POC Sodium Sodium POC Potassium Potassium Chloride Carbon Dioxide Anion Gap BUN Creatinine Est Cr Clr Drug Dosing Est GFR ( Amer) Est GFR (Non-Af Amer) BUN/Creatinine Ratio Glucose Lactate Calcium Phosphorus Magnesium Total Bilirubin AST ALT Alkaline Phosphatase Troponin I Total Protein Albumin Globulin Albumin/Globulin Ratio POC Urine pH POC Urine Protein POC Ur Glucose (UA) POC Urine Ketones POC Urine Blood POC Urine Nitrite POC Urine Bilirubin POC Urine Urobilinogen POC U Leukocyte Esteras POC Ur Test Nasal Screen MRSA (PCR) Urine Opiates Screen Neg Ur Methadone, Qual Neg Urine Barbiturates Neg Ur Phencyclidine (PCP) Neg U Amphetamines Confirm Pending U Amphetamin/Meth Scrn Pos H U Methamphetamin Confrm Pending Urine MDEA Pending MDMA (Ecstasy) Screen Pos H MDMA Pending Urine MDMA Pending U Benzodiazepines Scrn Neg Ur Cocaine Metabolite Neg U Marijuana (THC) Screen Neg Drug Screen Comment Pending Hepatitis A IgM Ab Hep Bs Antigen Hep B Core IgM Ab Hepatitis C Antibody HIV 1&2 Ab/P24 Ag 4thGn Influenza Type A Ag Influenza Type A (PCR) Influenza Type B Ag Influenza Type B (PCR) S.pneumoniae Type 1 IgG S.pneumoniae Type 3 IgG S.pneumoniae Type 4 IgG S.pneumoniae Type 5 IgG S.pneumoniae Type 8 IgG S.pneumoniae 9 (9N) IgG S.pneumon 12 (12F) IgG S.pneumoniae Typ 14 IgG S.pneumon 19 (19F) IgG S.pneumon 23 (23F) IgG S.pneumon 26 (6B) IgG S.pneumon 51 (7F) IgG S.pneumon 56 (18C) IgG S.pneumon 68 (9V) IgG 07/30/19 07/30/19 07/30/19 18:17 20:13 20:13 WBC RBC Hgb POC Hgb Hct POC Hct MCV MCH MCHC RDW Std Deviation RDW Coeff of Christina Plt Count MPV Immature Gran % (Auto) Neut % (Auto) Lymph % (Auto) [place] % (Auto) Eos % (Auto) Baso % (Auto) Immature Gran # (Auto) Neut # (Auto) Lymph # (Auto) [place] # (Auto) Eos # (Auto) Baso # (Auto) Platelet Estimate ESR D-Dimer Sample Site POC pH POC pCO2 POC pO2 POC HCO3 POC Total CO2 POC Base Excess ABG pH ABG pH (Temp Correct) ABG pCO2 ABG pCO2 (Temp Corrct ABG pO2 POC ABG pO2 at Pt Temp ABG HCO3 ABG O2 Saturation ABG Base Excess Dar Test Barometric Pressure Oxygen Given O2 Delivery Device POC O2 Rate POC FiO2 IPAP POC Sodium Sodium POC Potassium Potassium Chloride Carbon Dioxide Anion Gap BUN Creatinine Est Cr Clr Drug Dosing Est GFR ( Amer) Est GFR (Non-Af Amer) BUN/Creatinine Ratio Glucose Lactate Calcium Phosphorus Magnesium Total Bilirubin AST ALT Alkaline Phosphatase Troponin I < 0.015 Total Protein Albumin Globulin Albumin/Globulin Ratio POC Urine pH POC Urine Protein POC Ur Glucose (UA) POC Urine Ketones POC Urine Blood POC Urine Nitrite POC Urine Bilirubin POC Urine Urobilinogen POC U Leukocyte Esteras POC Ur Test Nasal Screen MRSA (PCR) Urine Opiates Screen Ur Methadone, Qual Urine Barbiturates Ur Phencyclidine (PCP) U Amphetamines Confirm U Amphetamin/Meth Scrn U Methamphetamin Confrm Urine MDEA MDMA (Ecstasy) Screen MDMA Urine MDMA U Benzodiazepines Scrn Ur Cocaine Metabolite U Marijuana (THC) Screen Drug Screen Comment Hepatitis A IgM Ab Pending Hep Bs Antigen Pending Hep B Core IgM Ab Pending Hepatitis C Antibody Pending HIV 1&2 Ab/P24 Ag 4thGn Influenza Type A Ag Influenza Type A (PCR) Influenza Type B Ag Influenza Type B (PCR) S.pneumoniae Type 1 IgG Pending S.pneumoniae Type 3 IgG Pending S.pneumoniae Type 4 IgG Pending S.pneumoniae Type 5 IgG Pending S.pneumoniae Type 8 IgG Pending S.pneumoniae 9 (9N) IgG Pending S.pneumon 12 (12F) IgG Pending S.pneumoniae Typ 14 IgG Pending S.pneumon 19 (19F) IgG Pending S.pneumon 23 (23F) IgG Pending S.pneumon 26 (6B) IgG Pending S.pneumon 51 (7F) IgG Pending S.pneumon 56 (18C) IgG Pending S.pneumon 68 (9V) IgG Pending 07/30/19 07/30/19 07/30/19 20:13 20:13 20:56 WBC RBC Hgb POC Hgb 10.5 L Hct POC Hct 31 L MCV MCH MCHC RDW Std Deviation RDW Coeff of Christina Plt Count MPV Immature Gran % (Auto) Neut % (Auto) Lymph % (Auto) [place] % (Auto) Eos % (Auto) Baso % (Auto) Immature Gran # (Auto) Neut # (Auto) Lymph # (Auto) [place] # (Auto) Eos # (Auto) Baso # (Auto) Platelet Estimate ESR D-Dimer Sample Site R Radial POC pH 7.28 L POC pCO2 37 POC pO2 147 H POC HCO3 17 L POC Total CO2 18 L POC Base Excess -10.0 L ABG pH ABG pH (Temp Correct) 7.281 L ABG pCO2 ABG pCO2 (Temp Corrct 37 ABG pO2 POC ABG pO2 at Pt Temp 146 ABG HCO3 ABG O2 Saturation ABG Base Excess Dar Test Pass Barometric Pressure Oxygen Given O2 Delivery Device BIPAP POC O2 Rate 26 POC FiO2 100 IPAP 14 POC Sodium 136 Sodium POC Potassium 3.0 L Potassium Chloride Carbon Dioxide Anion Gap BUN Creatinine Est Cr Clr Drug Dosing Est GFR ( Amer) Est GFR (Non-Af Amer) BUN/Creatinine Ratio Glucose Lactate 2.9 H* Calcium Phosphorus Magnesium Total Bilirubin AST ALT Alkaline Phosphatase Troponin I Total Protein Albumin Globulin Albumin/Globulin Ratio POC Urine pH POC Urine Protein POC Ur Glucose (UA) POC Urine Ketones POC Urine Blood POC Urine Nitrite POC Urine Bilirubin POC Urine Urobilinogen POC U Leukocyte Esteras POC Ur Test Nasal Screen MRSA (PCR) Urine Opiates Screen Ur Methadone, Qual Urine Barbiturates Ur Phencyclidine (PCP) U Amphetamines Confirm U Amphetamin/Meth Scrn U Methamphetamin Confrm Urine MDEA MDMA (Ecstasy) Screen MDMA Urine MDMA U Benzodiazepines Scrn Ur Cocaine Metabolite U Marijuana (THC) Screen Drug Screen Comment Hepatitis A IgM Ab Hep Bs Antigen Hep B Core IgM Ab Hepatitis C Antibody HIV 1&2 Ab/P24 Ag 4thGn Pending Influenza Type A Ag Influenza Type A (PCR) Influenza Type B Ag Influenza Type B (PCR) S.pneumoniae Type 1 IgG S.pneumoniae Type 3 IgG S.pneumoniae Type 4 IgG S.pneumoniae Type 5 IgG S.pneumoniae Type 8 IgG S.pneumoniae 9 (9N) IgG S.pneumon 12 (12F) IgG S.pneumoniae Typ 14 IgG S.pneumon 19 (19F) IgG S.pneumon 23 (23F) IgG S.pneumon 26 (6B) IgG S.pneumon 51 (7F) IgG S.pneumon 56 (18C) IgG S.pneumon 68 (9V) IgG Medications Administered Home Medications buprenorphine HCl 8 mg sublingual tablet 8 mg SL BID #10 tab 04/09/19 [Rx Confirmed 07/30/19] acetaminophen [Tylenol] 325 mg PO QID PRN 07/30/19 [History Confirmed 07/30/19] citalopram [Celexa] 10 mg PO HS 07/30/19 [History Confirmed 07/30/19] clindamycin-benzoyl peroxide 1 applic TOPICAL BID 07/30/19 [History Confirmed 07/30/19] Active Medications Acetaminophen (Tylenol) 650 mg PO Q4H PRN PRN Reason: pain/fever Stop: 08/29/19 14:30 Albuterol (Ventolin 0.5% 2.5mg/0.5ml) 2.5 mg NEB Q2H PRN PRN Reason: SOB/Wheeze Stop: 08/29/19 16:34 Buprenorphine HCl (Subutex) 8 mg SL BID MARK Stop: 08/29/19 20:59 Citalopram Hydrobromide (Celexa) 10 mg PO HS MARK Stop: 08/29/19 20:59 Hydroxyzine HCl (Vistaril) 10 mg PO TID PRN PRN Reason: Anxiety Stop: 08/29/19 14:30 Azithromycin 250 mg/ Dextrose 252.5 mls @ 125 mls/hr IV Q24H MARK Stop: 08/05/19 18:02 Potassium Chloride/Sodium Chloride (Normal Saline W/20 Meq Kcl) 20 meq in 1,000 mls @ 125 mls/hr IV .Q8H MARK Stop: 07/31/19 07:29 Last Infusion: 07/30/19 17:52 Dose: 0 mls/hr Documented by: Vancomycin HCl 1,000 mg/ (Sodium Chloride) 270 mls @ 125 mls/hr IV Q8H MARK Stop: 08/07/19 00:00 Cefepime HCl 2,000 mg/ Syringe 20 mls @ 5.5 mls/min IV Q8H MARK; Protocol Stop: 08/06/19 19:59 Last Admin: 07/30/19 20:19 Dose: 5.5 mls/min Documented by: Ioversol (Optiray 320 100ml) 94 ml IV ONCE PRN PRN Reason: Interaction Checking Stop: 08/03/19 11:53 Last Admin: 07/30/19 11:54 Dose: 94 ml Documented by: Miscellaneous (Order Awaiting Action) 1 ea N/A QS MARK Stop: 08/29/19 15:59 Last Admin: 07/30/19 15:21 Dose: Not Given Documented by: Miscellaneous (Icu Protocol For Hyperglycemia) 1 ea N/A PRN PRN; Protocol PRN Reason: Hyperglycemia Protocol Stop: 08/01/19 21:32 Miscellaneous Information (Consult) 1 ea N/A UD PRN PRN Reason: Consult Stop: 08/29/19 14:30 Ondansetron HCl (Zofran) 4 mg IV Q6H PRN PRN Reason: Nausea Stop: 08/29/19 14:30 Last Admin: 07/30/19 17:10 Dose: 4 mg Documented by: Oseltamivir Phosphate (Tamiflu) 75 mg PO BID MARK; Protocol Stop: 08/04/19 15:59 Last Admin: 07/30/19 16:20 Dose: 75 mg Documented by: Coding Level of Care Code Critical Care 1st 30-74 mins Diagnoses Sepsis with acute hypoxic respiratory failure A41.9; R65.20; J96.01 Abnormal LFTs R94.5 Multifocal pneumonia J18.9 Thrombocytopenia D69.6 Influenza B J10.1 GERD (gastroesophageal reflux disease) K21.9 Esophagitis presence: esophagitis presence not specified Raynauds disease I73.00 Depression F32.9 Active/Remission status: remission status unspecified Depression Type: major depressive disorder Major depression recurrence: unspecified whether recurrent Hx MRSA infection Z86.14 IV drug abuse F19.10 Lactic acid acidosis E87.2 (1) Depression Active/Remission status: remission status unspecified Depression Type: major depressive disorder Major depression recurrence: unspecified whether recurrent Qualified Code(s): F32.9 - Major depressive disorder, single episode, unspecified (2) GERD (gastroesophageal reflux disease) Esophagitis presence: esophagitis presence not specified Qualified Code(s): K21.9 - Gastro-esophageal reflux disease without esophagitis
[2019-07-30 21:10] LABS: iSTAT Allen Test Pass; iSTAT Art Bld Gas pCO2 Correct 37 mmHg (35-46); iSTAT Art Bld Gas pH Corrected 7.281 (7.35-7.45); iSTAT Arterial Blood Gas HCO3 17 meg/L (19-24); iSTAT Arterial Blood Gas pCO2 37 mmHg (35-46); iSTAT Arterial Blood Gas pH 7.28 (7.35-7.45); iSTAT Arterial Blood Gas pO2 147 mmHg (80-95); iSTAT Arterial Blood Gas pO2 C 146; iSTAT Carbon Dioxide 18 mmol/L (24-31); iSTAT FiO2 100 %; iSTAT Hematocrit 31 % (37-47); iSTAT Hemoglobin 10.5 g/dl (12.0-16.0); iSTAT Site R Radial; iSTAT Sodium 136 mmol/L (135-144)
[2019-07-30] MEDS ORDERED: ICU PROTOCOL FOR HYPERGLYCEMIA PRN (21:33)
--- NOTE | 2019-07-30 21:42 | XRay Report ---
SINGLE VIEW CHEST CLINICAL HISTORY: Respiratory failure. FINDINGS: An AP, portable, upright chest radiograph is compared to chest x-ray and chest CT performed earlier the same day 07/30/2019. The examination is degraded by portable technique and patient rotati on. The cardiomediastinal silhouette is unremarkable. Dense bibasilar airspace consolidation is aga in noted. This has increased at the right lung base from previous. There is small layering pleural ef fusions. No pneumothorax is seen. The bony thorax is grossly intact. IMPRESSION: Dense bibasilar airspace consolidation and small pleural effusions. Consolidation at the right lung base has increased as compared to today's earlier examination. ACT 112: Negative or not required by law. Electronically signed by: Steve Shelby M.D. 07/30/2019 9:41 PM
[2019-07-30] MEDS: buprenorphine HCL 8 MG SUBL SL SCH ×2 (22:53→23:00)
[2019-07-30] MEDS: CITALOPRAM 20 MG TAB PO SCH (22:54)
[2019-07-31] MEDS ORDERED: NORMOSOL-R 1,000 ML IV SCH (00:30)
[2019-07-31] MEDS: VANCOMYCIN HCL 1,000 MG in SODIUM CHLORIDE 0.9% 250 ML IV SCH ×2 (00:35→09:56)
[2019-07-31 01:49] LABS: Hepatitis B Surface Antigen Neg (Neg)
[2019-07-31 02:17] LABS: Hepatitis C IgG 13Yrs+Old_Rflx Neg (Neg)
[2019-07-31 02:58] LABS: BUN Creatinine Ratio 9.3 (10-20); Calcium 6.9 mg/dl (8.5-10.1); Creatinine Clr Calc Pharmacy 106.9 ml/min; Est GFR (African American) 147.1; Est GFR (Non-African American) 126.9; Potassium 3.9 mmol/L (3.5-5.1)
[2019-07-31] MEDS ORDERED: LORazepam 2 MG/4 ML VIAL ONE ×2 (03:11→05:47)
[2019-07-31] MEDS: CEFEPIME 2,000 MG in SYRINGE 7.5 ML IV SCH ×3 (03:20→19:38)
[2019-07-31] MEDS ORDERED: LORazepam 1 MG/2 ML VIAL IV STA ×2 (03:24→05:45)
[2019-07-31] MEDS: NSS + 20MEQ KCL 20 MEQ/1,000 ML BAG IV SCH (04:57)
--- NOTE | 2019-07-31 06:06 | Electrocardiogram Report ---
Test Reason : Blood Pressure : / mmHG Vent. Rate : 114 BPM Atrial Rate : 114 BPM P-R Int : 138 ms QRS Dur : 080 ms QT Int : 336 ms P-R-T Axes : 074 058 057 degrees QTc Int : 463 ms Poor data quality, interpretation may be adversely affected Sinus tachycardia Nonspecific T wave abnormality Abnormal ECG No previous ECGs available Confirmed by Harinder Rankin ([id number]) on 07/31/2019 6:06:24 AM Referred By: REFERRED SELF Confirmed By:Harinder Rankin
--- NOTE | 2019-07-31 06:39 | Ultrasound Report ---
US liver CLINICAL HISTORY: elevated LFTs COMPARISON STUDY: No previous studies for comparison. FINDINGS: Prior cholecystectomy. Common bile duct 4 mm. Possible 1 cm hemangioma superior right hepat ic lobe. Pancreas is unremarkable. Right kidney is negative for hydronephrosis. IMPRESSION: 1. Negative study post cholecystectomy.. 2. 1 cm benign hepatic hemangioma. ACT 112: Negative or not required by law. The above report was generated using voice recognition software. It may contain grammatical, syntax or spelling errors. Electronically signed by: Gary Denny M.D. 07/31/2019 6:38 AM
[2019-07-31] MEDS ORDERED: RAPID SEQUENCE INDUCTION BAG ONE (07:24)
[2019-07-31] MEDS ORDERED: PROPOFOL IV EMULSION 10 MG/ML 100 ML VIAL IV ONE (07:24)
[2019-07-31] MEDS ORDERED: VANCOMYCIN TROUGH ONE ×2 (07:30→17:30)
--- NOTE | 2019-07-31 08:39 | XRay Report ---
XR chest 1V portable CLINICAL HISTORY: L sub CVL, Intubation, OG Tube placement COMPARISON STUDY: 07/30/2019 FINDINGS: Interval placement of a left subclavian catheter with the tip in the superior vena cava. No evidence for pneumothorax. Nasogastric tube within the stomach. Endotracheal tube 3 cm above the denice. Basilar infiltrative changes again noted. IMPRESSION: 1. Central catheter placed in the superior vena cava. 2. Endotracheal tube 3 cm above the denice. 3. Nasogastric tube within the stomach. ACT 112: Negative or not required by law. The above report was generated using voice recognition software. It may contain grammatical, syntax or spelling errors. Electronically signed by: Gary Denny M.D. 07/31/2019 8:37 AM
[2019-07-31] MEDS ORDERED: STAT IV Infusion **Titration per Protocol STA (08:42)
[2019-07-31] MEDS ORDERED: fentaNYL citrate 100 MCG/2 ML VIAL IV PRN (08:42)
[2019-07-31] MEDS ORDERED: fentaNYL citrate 100 MCG/2 ML VIAL ONE (08:47)
[2019-07-31] MEDS ORDERED: MIDAZOLAM HCL 1 MG/ML 2ML VIAL ONE (08:48)
[2019-07-31] MEDS ORDERED: ENOXAPARIN INJ 40 MG/0.4 ML SYR SQ SCH (09:00)
--- NOTE | 2019-07-31 09:09 | Procedure Note ---
Procedure Note Date of Service July 31, 2019 INTUBATION PROCEDURE NOTE: Provider: Uli Troncoso MD A time-out was completed verifying correct patient, procedure, site, positioning. Patient was evaluated and required intubation for hypoxemic respiratory failure, multifocal pneumonia, and respiratory fatigue. Sedative agent used: 40 mg of etomidate, 10 mL's propofol Paralysis agent used: None Emergent consent was implied given patients rapidly declining clinical status and need for airway protection. The patient was prepared in the appropriate fashion. Patient was preoxygenated using BiPAP. She was placed on 100% FiO2. Appropriate adjuvants were identified. The patient was administered etomidate. A roll was placed under the shoulders to achieve appropriate sniffing position. Video laryngoscopy was performed using a glide scope with a #3 blade. A grade 1 view was identified. A previously tested 7.5 endotracheal tube had been loaded on the stylette. This was passed through the oropharynx and under direct visualization directed into the glottis. The stylette was removed and the patient was ventilated via the bag valve system. Tube misting was identified. Bilateral breath sounds were auscultated. Bilateral chest rise noted. End-tidal CO2 was detected. The tube was secured at 23 cm at the teeth. Patient tolerated the procedure well. Post Intubation Chest X-ray confirms placement without pneumothorax. Patient tolerated the procedure well and there were no immediate complications. Coding CPT Codes Resuscitation - Resuscitation: 26281 Endotracheal Intubation, emergency ([id number]) [facility] [place] Procedure Codes (Charges) Resuscitation Resuscitation: 24139 Endotracheal Intubation, emergency
--- NOTE | 2019-07-31 09:11 | Procedure Note ---
Procedure Note Date of Service July 31, 2019 CENTRAL LINE PROCEDURE NOTE: Procedure: Central Line Placement Provider: Uli Troncoso MD Indication: Central Drug Administration, Poor Venous Access, Multiple Lab Draws Necessary, etc. Anesthesia: 5 mL lidocaine 1% Site: Left subclavian EBL: Less than 10 mL's Procedure was emergent. Patient was unable to provide consent. No family immediately available A time-out was completed verifying correct patient, procedure, site, positioning, and implants(s) or special equipment if applicable. The left anterior chest and neck were prepped and draped in normal sterile fashion using chlorhexidine. Sterile drapes and full barrier precautions were used. An area inferior to the mid clavicular area was anesthetized with lidocaine down to the clavicle. A finder needle was then used and passed underneath the clavicle to access the subclavian vein. Blood appeared dark and nonpulsatile. A wire was passed without difficulty. The tract was dilated over the wire. A triple-lumen catheter was then threaded over the wire via Seldinger technique. Wire was withdrawn. All ports flushed and estephanie easily. Biopatch was applied and the catheter sutured in place with a sterile dressing applied. Post procedure x-ray was completed, placement was appropriate and no pneumothorax was noted. Images obtained are saved for permanent record Coding CPT Codes Tubes, Drains, and Vasc Access - Tubes, Drains, and Vasc Access: [id number] Place catheter in vein superior or inferior vena cava ([id number]) [facility] [place] Procedure Codes (Charges) Tubes, Drains, and Vasc Access Procedure 1: Tubes, Drains, and Vasc Access: [id number] Place catheter in vein superior or inferior vena cava
--- NOTE | 2019-07-31 09:13 | Procedure Note ---
Procedure Note Date of Service July 31, 2019 ARTERIAL LINE PROCEDURE NOTE: Procedure: Arterial Line Placement Provider: Uli Troncoso MD Indication: Monitoring on Pressors Anesthesia: None Procedure was urgent. Patient is been intubated and was unable to provide consent. No family immediately available A time-out was completed verifying correct patient, procedure, site, positioning, and implant(s) or special equipment if applicable. Allens test was performed to ensure adequate perfusion. Patients right wrist was prepped and draped in the usual sterile fashion. A 20g Arrow arterial line was introduced into the right radial artery on the second attempt. Catheter was threaded, and the needle was removed with appropriate blood return. Good waveform was observed. The patient tolerated the procedure well. Blood Loss: Minimal Complications: None Coding CPT Codes Tubes, Drains, and Vasc Access - Tubes, Drains, and Vasc Access: [id number] Place Catheter In Artery ([id number]) [facility] [place] Procedure Codes (Charges) Tubes, Drains, and Vasc Access Procedure 1: Tubes, Drains, and Vasc Access: [id number] Place Catheter In Artery
--- NOTE | 2019-07-31 09:20 | Critical Care Progress Note ---
Date of Service July 31, 2019 Assessment & Plan Admission and Anticipated Discharge Date Admission Date: July 30, 2019 Subjective Patient in ICU, sedated on ventilator. Review of Systems Review of Systems: Unobtainable due to endotracheal tube Physical Exam Constitutional: WD/WN, vitals as above Eyes: + anicteric sclerae ENMT: external ear and nose normal, oropharynx normal Neck: normal visual inspection and trachea midline Respiratory: + respiratory distress; + abnormal respiratory effort, no retract ions, does not use accessory muscles and no cough Auscultation: + rhonchi (b/l lung bases); no diminished lung sounds, no crackles, no wheezes and no pleural rub Cardiovascular: RRR, no murmur, no edema Heart Sounds: normal S1 and normal S2 Gastrointestinal (Abdomen): normal bowel sounds, soft, nontender, no hepatosplenomegaly Skin: + rash (patient with blanching areas of erythema on b/l lower extremties. ) Trauma: + evidence of skin trauma (patient with multiple healed scabs consistent with IV drug use on b/l UE) Patient with violaceous discoloration of hands and feet, consistent with radynaud's phenomenon. +tattoo of lower on L lateral thigh Genitourinary: woods catheter in place draining pale yellow colored urine without visible clots Results [facility] Data ([facility]) Vital Signs (Past 12 Hours) Vital Signs Temp Pulse Resp BP Pulse Ox Pulse Ox 07/31/19 07:45 110 H 26 H 98 07/31/19 07:11 123 H 45 H 171/152 H 90 07/31/19 07:00 122 H 36 H 100 07/31/19 06:41 118 H 37 H 153/74 H 98 07/31/19 06:30 115 H 34 H 100 07/31/19 06:11 116 H 34 H 132/97 100 07/31/19 06:00 117 H 38 H 100 07/31/19 05:42 120 H 41 H 120/68 96 07/31/19 05:30 118 H 40 H 87 L 07/31/19 05:11 123 H 38 H 149/77 H 89 L 07/31/19 05:00 107 H 23 97 07/31/19 04:41 111 H 22 119/70 100 07/31/19 04:30 110 H 23 100 07/31/19 04:11 110 H 24 113/66 100 07/31/19 04:00 37 C 110 H 25 H 100 07/31/19 03:57 112 H 23 126/73 97 07/31/19 03:30 117 H 30 H 92 07/31/19 03:00 105 H 21 93 07/31/19 02:30 115 H 37 H 99 07/31/19 02:21 110 H 28 H 99 07/31/19 02:00 36.9 C 113 H 30 H 100 07/31/19 01:41 105 H 24 126/74 100 07/31/19 01:30 107 H 23 100 07/31/19 01:11 105 H 23 119/79 99 07/31/19 01:00 37 C 103 H 23 100 07/31/19 00:45 105 H 28 H 99 07/31/19 00:41 108 H 32 H 124/77 100 07/31/19 00:30 103 H 24 100 07/31/19 00:15 106 H 26 H 100 07/31/19 00:11 108 H 29 H 130/73 100 07/31/19 00:00 106 H 25 H 100 100 07/30/19 23:45 103 H 22 100 07/30/19 23:41 102 H 20 101/79 100 07/30/19 23:30 101 H 22 100 07/30/19 23:15 101 H 25 H 94 07/30/19 23:11 101 H 26 H 121/81 90 07/30/19 23:00 105 H 36 H 94 07/30/19 22:45 100 H 23 95 07/30/19 22:41 100 H 22 118/75 92 07/30/19 22:30 102 H 26 H 97 07/30/19 22:15 99 H 27 H 93 07/30/19 22:12 101 H 21 96 07/30/19 22:10 99 H 28 H 116/73 92 07/30/19 22:00 101 H 20 100 07/30/19 21:50 100 H 22 95 07/30/19 21:40 100 H 22 119/73 99 07/30/19 21:30 101 H 26 H 95 Resident Activity Tracking Resident Involvement: Resident Care Provided Care Provided: Adult [facility] Medicine
--- NOTE | 2019-07-31 09:29 | Critical Care Progress Note ---
Date of Service July 31, 2019 Assessment & Plan (1) Sepsis with acute hypoxic respiratory failure: Impression: 23-year-old female with history of drug abuse presents with influenza B and multifocal pneumonia with progressive hypoxemic respiratory failure. 24-hour events: Patient was admitted to the intensive care unit and initially appeared to respond to noninvasive positive pressure ventilation. This morning she had increased work of breathing and progressive oxygen requirement. Decision was made to proceed with intubation. Central line and arterial line were placed. Proceeding with bronchoscopy with BAL today. Recommendations: 1. Acute hypoxemic respiratory failure: Secondary to influenza and multifocal pneumonia. Continue lung protective ventilatory strategy. 2. Multifocal pneumonia: Day #2 cefepime, azithromycin, Tamiflu. Await bronchoscopy cultures cultures and tailor antibiotics based on results and clinical response. 3. Leukopenia/thrombocytopenia: HIV pending. May be secondary to sepsis with underlying bone marrow suppression. Continue to trend. 4. Nutrition: Nutritional consult for initiation of enteric tube feedings. 5. Non-anion gap metabolic acidosis. Patient did have an elevated lactate and follow-up is pending this morning. 6. Hypokalemia/hypocalcemia: Replacement protocol initiated. Will follow. 7. Transaminitis: Suspect some degree of shock liver. Continue to trend AST and ALT as well as alk phos. Additional imaging depending on clinical course and trend of laboratory values. 8. Substance abuse: Patient's tox screen was positive for methamphetamine and MDMA on presentation. 9. Blanching skin rash, history of Raynaud's phenomenon: May be consistent with toxic shock syndrome. Await blood cultures. May need to transition to clindamycin. Renal function preserved currently. Unclear if the patient has some underlying connective tissue disorders. 60 minutes critical care time spent evaluating managing patient with multiorgan system high risk of loss of life or function. (2) Multifocal pneumonia: (3) Thrombocytopenia: (4) Abnormal LFTs: (5) Influenza B: Review of Systems Review of Systems: Unobtainable due to endotracheal tube Physical Exam Constitutional: + ill appearing and + mechanically ventilated Intubated and sedated Eyes: PERRL Neck: trachea midline, no thyromegaly Respiratory: Coarse rhonchi bilateral bases. No wheezing Cardiovascular: Rate/Rhythm: + tachycardic Heart Sounds: normal S1 and normal S2; no murmur Gastrointestinal (Abdomen): normal bowel sounds, soft, nontender, no hepatosplenomegaly Musculoskeletal: Extremities: extremities normal to inspection Skin: Multiple areas of blanching rash most prominent on the bilateral thighs and feet. Some evidence of Raynaud's phenomenon. Neurologic: Intubated and sedated Lymphatic: no cervical lymphadenopathy Results & Data ([facility]) Vital Signs (Past 12 Hours) Vital Signs Temp Pulse Resp BP Pulse Ox Pulse Ox 07/31/19 07:45 110 H 26 H 98 07/31/19 07:11 123 H 45 H 171/152 H 90 07/31/19 07:00 122 H 36 H 100 07/31/19 06:41 118 H 37 H 153/74 H 98 07/31/19 06:30 115 H 34 H 100 07/31/19 06:11 116 H 34 H 132/97 100 07/31/19 06:00 117 H 38 H 100 07/31/19 05:42 120 H 41 H 120/68 96 07/31/19 05:30 118 H 40 H 87 L 07/31/19 05:11 123 H 38 H 149/77 H 89 L 07/31/19 05:00 107 H 23 97 07/31/19 04:41 111 H 22 119/70 100 07/31/19 04:30 110 H 23 100 07/31/19 04:11 110 H 24 113/66 100 07/31/19 04:00 37 C 110 H 25 H 100 07/31/19 03:57 112 H 23 126/73 97 07/31/19 03:30 117 H 30 H 92 07/31/19 03:00 105 H 21 93 07/31/19 02:30 115 H 37 H 99 07/31/19 02:21 110 H 28 H 99 07/31/19 02:00 36.9 C 113 H 30 H 100 07/31/19 01:41 105 H 24 126/74 100 07/31/19 01:30 107 H 23 100 07/31/19 01:11 105 H 23 119/79 99 07/31/19 01:00 37 C 103 H 23 100 07/31/19 00:45 105 H 28 H 99 07/31/19 00:41 108 H 32 H 124/77 100 07/31/19 00:30 103 H 24 100 07/31/19 00:15 106 H 26 H 100 07/31/19 00:11 108 H 29 H 130/73 100 02/20/20 00:00 106 H 25 H 100 100 07/30/19 23:45 103 H 22 100 07/30/19 23:41 102 H 20 101/79 100 07/30/19 23:30 101 H 22 100 07/30/19 23:15 101 H 25 H 94 07/30/19 23:11 101 H 26 H 121/81 90 07/30/19 23:00 105 H 36 H 94 07/30/19 22:45 100 H 23 95 07/30/19 22:41 100 H 22 118/75 92 07/30/19 22:30 102 H 26 H 97 07/30/19 22:15 99 H 27 H 93 07/30/19 22:12 101 H 21 96 07/30/19 22:10 99 H 28 H 116/73 92 07/30/19 22:00 101 H 20 100 07/30/19 21:50 100 H 22 95 07/30/19 21:40 100 H 22 119/73 99 07/30/19 21:30 101 H 26 H 95 Laboratory Results 07/30/19 07/30/19 14:57 17:28 ABG pH 7.37 7.34 L ABG pCO2 33 L 35 ABG pO2 54 L 61 L ABG HCO3 18 L 18 L ABG O2 Saturation 85.1 L 89.8 L ABG Base Excess -6.0 -6.8 CBC, BMP pending from this morning Diagnostic Findings Post intubation film this morning demonstrates bilateral hazy opacities with possible left pleural effusion. Subclavian line and orogastric tube are in good position. Endotracheal tube approximately 1-1/2 cm above the current Coding Level of Care Code Critical Care 1st 30-74 mins Diagnoses Sepsis with acute hypoxic respiratory failure A41.9; R65.20; J96.01 Multifocal pneumonia J18.9 Thrombocytopenia D69.6 Abnormal LFTs R94.5 Influenza B J10.1 Time Spent (min) 60
[2019-07-31 09:37] LABS: Hematocrit (blood only) 30.3 % (37-47); Hemoglobin 10.5 g/dL (12.0-16.0); Mean Corpuscular Hemoglobin 29.2 pg (25-34); Mean Corpuscular Hgb Conc 34.7 g/dL (32-36); Mean Corpuscular Volume 84.2 fL (80-100); Mean Platelet Volume 10.3 fL (7.4-10.4); Platelet Count 62 K/uL (130-400); RDW Coefficient of Variation 12.9 % (11.5-14.5); RDW Standard Deviation 39.5 fL (36.4-46.3); White Blood Count 3.59 K/uL (4.8-10.8)
[2019-07-31] MEDS ORDERED: ETOMIDATE 2 MG/ML 20 ML VIAL IV ONE (09:43)
[2019-07-31 09:47] LABS: Alanine Aminotransferase 179 U/L (12-78); Albumin Level 2.2 gm/dl (3.4-5.0); Aspartate Aminotransferase 140 U/L (15-37); BUN Creatinine Ratio 12.2 (10-20); Blood Urea Nitrogen 5 mg/dl (7-18); Calcium 6.5 mg/dl (8.5-10.1); Carbon Dioxide 19 mmol/L (21-32); Chloride 111 mmol/L (98-107); Creatinine Clr Calc Pharmacy 155.3 ml/min; Est GFR (African American) > 150.0; Est GFR (Non-African American) 143.5; Glucose 103 mg/dl (70-99); Magnesium 2.3 mg/dl (1.8-2.4); Potassium 3.7 mmol/L (3.5-5.1); Sodium 137 mmol/L (136-145)
--- NOTE | 2019-07-31 09:48 | Hospitalist Progress Note ---
Date of Service July 31, 2019 Assessment & Plan (1) Sepsis with acute hypoxic respiratory failure: Pt is a 23yo with a Hx of IV drug abuse on Subaxone who is currently in the ICU with acute hypoxic respiratory failure secondary to influenza and a multifocal pneumonia. Acute hypoxic respiratory failure in the setting of Influenza and multifocal pneumonia. -currently intubated in the ICU -chest XR on admission with L>R lung consolidation -chest CT with multifocal airspace opacities suggestive of multifocal pneumonia -MRSA + -pancytopenic, likely from influenza (viral suppression) or secondary to sepsis -Blood Cx x2 pending, bronch Cx pending -Echo with no evidence of vegetations, no significant abnormalities noted -continue Vancomycin, cefepime, azithromycin -continue Tamiflu BID Transaminitis -Liver enzymes elevated -Liver ultrasound with only noted cholecystectomy and 1cm benign hepatic hemangioma -HIV and hepatitis studies pending -shock liver a potential cause Hx of IV drug Use -Pt 2 years clean per chart review -drug screen positive for Meth and MDMA- possibly secondary to recent use of cold medicines? -continue home Subaxone 8mg SL BID Hx of Raynauds -stable Depression -continue home Celexa 10mg po hs FEN/GI: TPN DVT prophylaxis: Heparin CODE STATUS: Full Dispo: ICU for intubation Admission and Anticipated Discharge Date Admission Date: July 30, 2019 Supervising Physician Co-Signing Physician Notes I personally examined the patient and verified all pedro points of history and exam, discussed case, and agree with decision making with Dr Steen. Intubated, sedated. No meaningful HPI or review of systems obtainable. Vitals noted, in general she is intubated sedated. Lungs coarse on the vent. Chest rise and fall is even. No pallor or icterus. No focal neuro deficits n oted/asymmetry noted at rest. Influenza with subsequent pneumonia and hypoxic respiratory failure requiring ventilationcontinue current care, follow closely. Appreciate senior firmware engineer assistance. Otherwise as above. Subjective Pt seen this AM. Intubated. Review of Systems Review of Systems: Unobtainable due to endotracheal tube Physical Exam Physical Exam: General: Intubated Neuro: currently sedated HEENT: NC/AT, intubated CV: RRR, Normal s1, s2. No murmurs appreciated Resp: Breath sounds coarse and wheezy bilaterall Abdomen: . Soft, nondistended. No organomegaly appreciated. Extremities: lower extremities bilaterally in boots Results & Data ([place]) Vital Signs (Past 12 Hours) Vital Signs Temp Pulse Resp BP Pulse Ox Pulse Ox 07/31/19 07:45 110 H 26 H 98 07/31/19 07:11 123 H 45 H 171/152 H 90 07/31/19 07:00 122 H 36 H 100 07/31/19 06:41 118 H 37 H 153/74 H 98 07/31/19 06:30 115 H 34 H 100 07/31/19 06:11 116 H 34 H 132/97 100 07/31/19 06:00 117 H 38 H 100 07/31/19 05:42 120 H 41 H 120/68 96 07/31/19 05:30 118 H 40 H 87 L 07/31/19 05:11 123 H 38 H 149/77 H 89 L 07/31/19 05:00 107 H 23 97 07/31/19 04:41 111 H 22 119/70 100 07/31/19 04:30 110 H 23 100 07/31/19 04:11 110 H 24 113/66 100 07/31/19 04:00 37 C 110 H 25 H 100 07/31/19 03:57 112 H 23 126/73 97 07/31/19 03:30 117 H 30 H 92 07/31/19 03:00 105 H 21 93 07/31/19 02:30 115 H 37 H 99 07/31/19 02:21 110 H 28 H 99 07/31/19 02:00 36.9 C 113 H 30 H 100 07/31/19 01:41 105 H 24 126/74 100 07/31/19 01:30 107 H 23 100 07/31/19 01:11 105 H 23 119/79 99 07/31/19 01:00 37 C 103 H 23 100 07/31/19 00:45 105 H 28 H 99 07/31/19 00:41 108 H 32 H 124/77 100 07/31/19 00:30 103 H 24 100 07/31/19 00:15 106 H 26 H 100 07/31/19 00:11 108 H 29 H 130/73 100 07/31/19 00:00 106 H 25 H 100 100 07/30/19 23:45 103 H 22 100 07/30/19 23:41 102 H 20 101/79 100 02/19/20 23:30 101 H 22 100 07/30/19 23:15 101 H 25 H 94 07/30/19 23:11 101 H 26 H 121/81 90 07/30/19 23:00 105 H 36 H 94 07/30/19 22:45 100 H 23 95 07/30/19 22:41 100 H 22 118/75 92 07/30/19 22:30 102 H 26 H 97 07/30/19 22:15 99 H 27 H 93 07/30/19 22:12 101 H 21 96 07/30/19 22:10 99 H 28 H 116/73 92 07/30/19 22:00 101 H 20 100 07/30/19 21:50 100 H 22 95 Resident Activity Tracking Resident Involvement: Resident Care Provided Care Provided: Adult Hospital Medicine
[2019-07-31] MEDS: MIDAZOLAM HCL 125 MG/250 ML BAG IV SCH (09:53)
[2019-07-31 09:58] LABS: Immature Granulocytes # (auto) 0.02 K/uL (0.00-0.02); Immature Granulocytes % (auto) 0.6 %; Lymphocytes # (auto) 0.43 K/uL (1.2-3.4); Monocytes # (auto) 0.17 K/uL (0.11-0.59); Monocytes % (auto) 4.7 %; Neutrophils # (auto) 2.97 K/uL (1.4-6.5); Neutrophils % (auto) 82.7 %
[2019-07-31] MEDS: MIDAZOLAM HCL 1 MG/ML 2ML VIAL IV PRN (09:59)
[2019-07-31] MEDS: buprenorphine HCL 8 MG SUBL SL SCH (10:00)
[2019-07-31] MEDS: HEPARIN SOD 5,000 UNIT/0.5 ML VIAL SQ SCH ×2 (10:05→19:53)
[2019-07-31] MEDS: fentaNYL DRIP 1,250 MCG/250 ML BAG IV SCH ×2 (10:05→19:52)
[2019-07-31 10:09] LABS: Alkaline Phosphatase 176 U/L (45-117); Bilirubin Direct 0.4 mg/dl (0-0.2); Bilirubin,Total 0.7 mg/dl (0.2-1); Phosphorus 1.8 mg/dl (2.5-4.9); Total Protein 4.4 gm/dl (6.4-8.2)
--- NOTE | 2019-07-31 10:18 | Procedure Note ---
Procedure Note: Bronchoscopy Procedure Procedure: Fiberoptic bronchoscopy Bronchoalveolar lavage Provider: Uli Troncoso MD Consent: Emergent procedure. Patient intubated and unable to provide consent. Family not immediately available. Procedure: Patient was intubated in the intensive care unit on the mechanical ventilator. She had diffuse pulmonary infiltrates and bronchoscopy was indicated to provide lower respiratory samples to guide therapy. The patient was placed on 100% FiO2 via the ventilator. The fiberoptic br onchoscope was advanced through the existing endotracheal tube via the adapter. The tube was sounded and found to be approximately 0.5 cm above the denice. It will be withdrawn 1 to 2cm. The denice was sharp. There were no endobronchial lesions or masses. There were some thin mucopurulent secretions identified within the bilateral lower lobes which were collected and sent for microbiologic analysis. The mucosa was very friable. After the inspection bronchoscopy was completed, the scope was wedged into the left lower lobe. BAL was attempted with instillation of 2 aliquots of 60 cc of saline. Unfortunately return was suboptimal due to easily collapsing airways. Nevertheless an adequate rib turn was achieved to allow for additional microbiologic analysis. Impression: 1. Endotracheal tube just proximal to the level of the denice. Will be withdrawn 2 cm. 2. Scant mucopurulent secretions in the lower lobes. Await microbiologic analysis 3. Borderline successful BAL left lower lobe.
[2019-07-31] MEDS: OSELTAMIVIR PHOSPHATE 75 MG CAP PO SCH (11:15)
[2019-07-31 11:26] LABS: Lymphocyte Body Fluid Man 0 %; Neutrophil Body Fluid Man 95 %
[2019-07-31 11:27] LABS: Eosinophil Body Fluid Man 2 %; Fluid Mono/Macrophage 3 %
[2019-07-31 11:55] LABS: iSTAT Art Bld Gas pCO2 Correct 36 mmHg (35-46); iSTAT Art Bld Gas pH Corrected 7.328 (7.35-7.45); iSTAT Arterial Blood Gas HCO3 19 meg/L (19-24); iSTAT Arterial Blood Gas pCO2 33 mmHg (35-46); iSTAT Arterial Blood Gas pH 7.36 (7.35-7.45); iSTAT Arterial Blood Gas pO2 98 mmHg (80-95); iSTAT Arterial Blood Gas pO2 C 110; iSTAT Carbon Dioxide 20 mmol/L (24-31); iSTAT FiO2 60 %; iSTAT Hematocrit 27 % (37-47); iSTAT Hemoglobin 9.2 g/dl (12.0-16.0); iSTAT Potassium 3.8 mmol/L (3.3-5.0); iSTAT Site Art Line; iSTAT Sodium 135 mmol/L (135-144)
[2019-07-31] MEDS ORDERED: cefTRIAXone SODIUM 1,000 MG in DEXTROSE 5% 50 ML IV SCH (12:00)
[2019-07-31] MEDS: ACETAMINOPHEN SOL 650 MG/20.3 ML UDC OG PRN ×2 (12:12→17:35)
[2019-07-31] MEDS: OSELTAMIVIR PHOSPHATE SUSP 75 MG/12.5 ML UDP NG SCH ×2 (12:12→19:57)
[2019-07-31] MEDS: IMPACT LIQD 1.0 CAL 1,000 ML BAG OG SCH (12:14)
--- NOTE | 2019-07-31 13:43 | Pharmacy Report ---
Pharmacy Abx Dose Short Note - Date of Service July 31, 2019 - Assessment & Plan Assessment * 23 year old F admitted for influenza B, multifocal pneumonia, resp failure, early ARDS? - intubated this AM * Empiric VANCOMYCIN + CEFEPIME+ AZITHROMYCIN + TAMIFLU ordered - Pharmacy consulted to dose VANCOMYCIN * CXR read as: dense bibasilar airspace consolidation and small pleural effusions * + fever, + tachycardia, + tachypnea, + leukopenia, non-hypotensive, procal 6.6 * Pt does have + MRSA nasal screening this admission, + h/o IVDA * BAL cx's obtained this AM * BLCXs, Legionella urine Ag, and strep serology pending * SCr stable - will need to reeval UOP s/p intubation * QTc 463 Plan Vancomycin * Currently receiving 1000mg (~20mg/kg) IV Q 8 hrs * Trough level was ordered this AM prior to 2nd dose, however retimed trough for prior to 3rd dose - this is prior to achieving steady-state and needs to be interpreted as such. Will hold this dose until trough level reported * Regimen is aggressive and may lead to a supratherapeutic level * Goal trough level for pulm infxn : 15 to 20 mcg/mL Pharmacy will continue to follow and will adjust dose/frequency as necessary. Thank you.
--- NOTE | 2019-07-31 14:09 | XCELERA ---
[id number] [id number]
[2019-07-31] MEDS: AZITHROMYCIN 250 MG in DEXTROSE 5% 250 ML IV SCH (15:43)
--- NOTE | 2019-07-31 17:25 | Billing Data ---
Date of Service July 31, 2019 Coding Level of Care Code 34352 Subseq Hosp Care Lvl 2
[2019-07-31] MEDS ORDERED: VANCOMYCIN HCL 1,000 MG in SODIUM CHLORIDE 0.9% 250 ML IV ONE (19:30)
[2019-07-31] MEDS: CITALOPRAM 20 MG TAB PO SCH (19:53)
[2019-08-01] MEDS: VANCOMYCIN HCL 1,000 MG in SODIUM CHLORIDE 0.9% 250 ML IV SCH ×2 (02:25→10:37)
[2019-08-01] MEDS: CEFEPIME 2,000 MG in SYRINGE 7.5 ML IV SCH (03:51)
[2019-08-01] MEDS: ACETAMINOPHEN SOL 650 MG/20.3 ML UDC OG PRN ×3 (03:51→16:36)
[2019-08-01] MEDS: fentaNYL DRIP 1,250 MCG/250 ML BAG IV SCH ×3 (04:33→19:53)
[2019-08-01] MEDS: MIDAZOLAM HCL 125 MG/250 ML BAG IV SCH ×2 (04:33→19:53)
[2019-08-01 04:36] LABS: Base Excess ABG -4.9 mEq/L (-9-1.8); HCO3 ABG 20 mmol/L (19-24); Oxygen Saturation ABG 95.4 % (90-95); PCO2 ABG 35 mmHg (35-46); PO2 ABG 75 mmHg (80-95); pH ABG 7.37 (7.35-7.45)
[2019-08-01 04:38] LABS: Allen Test Pos (Pos)
[2019-08-01 04:39] LABS: Hematocrit (blood only) 28.3 % (37-47); Hemoglobin 9.7 g/dL (12.0-16.0); Mean Corpuscular Hgb Conc 34.3 g/dL (32-36); Mean Corpuscular Volume 84.5 fL (80-100); RDW Coefficient of Variation 13.3 % (11.5-14.5); RDW Standard Deviation 40.9 fL (36.4-46.3); Red Blood Count 3.35 M/uL (4.2-5.4); White Blood Count 2.86 K/uL (4.8-10.8)
[2019-08-01 04:54] LABS: Mean Platelet Volume 10.3 fL (7.4-10.4); Platelet Count 59 K/uL (130-400)
[2019-08-01 05:06] LABS: Alanine Aminotransferase 109 U/L (12-78); Albumin Level 1.9 gm/dl (3.4-5.0); Aspartate Aminotransferase 52 U/L (15-37); BUN Creatinine Ratio 21.8 (10-20); Bilirubin Direct 0.6 mg/dl (0-0.2); Blood Urea Nitrogen 9 mg/dl (7-18); Calcium 6.7 mg/dl (8.5-10.1); Carbon Dioxide 23 mmol/L (21-32); Chloride 112 mmol/L (98-107); Creatinine Clr Calc Pharmacy 163.1 ml/min; Est GFR (African American) > 150.0; Est GFR (Non-African American) 145.8; Glucose 118 mg/dl (70-99); Magnesium 2.4 mg/dl (1.8-2.4); Potassium 3.7 mmol/L (3.5-5.1); Sodium 136 mmol/L (136-145)
[2019-08-01 05:11] LABS: Alkaline Phosphatase 163 U/L (45-117); Bilirubin,Total 0.9 mg/dl (0.2-1); Total Protein 4.1 gm/dl (6.4-8.2)
[2019-08-01 05:16] LABS: Dohle Bodies 2+; Echinocytes 1+; Eosinophils # (auto) 0.03 K/uL (0-0.5); Giant Platelets 2+; Immature Granulocytes # (auto) 0.14 K/uL (0.00-0.02); Immature Granulocytes % (auto) 4.9 %; Lymphocytes # (auto) 0.35 K/uL (1.2-3.4); Lymphocytes % (auto) 12.2 %; Monocytes # (auto) 0.12 K/uL (0.11-0.59); Monocytes % (auto) 4.2 %; Neutrophils # (auto) 2.22 K/uL (1.4-6.5); Neutrophils % (auto) 77.7 %
[2019-08-01] MEDS ORDERED: POTASSIUM PHOS 3 MMOL/1 ML INFUSION IV STA (06:10)
[2019-08-01] MEDS ORDERED: POTASSIUM PHOSPHATE 24 MMOL in SODIUM CHLORIDE 0.9% 500 ML IV ONE (06:15)
--- NOTE | 2019-08-01 07:07 | XRay Report ---
XR chest 1V portable CLINICAL HISTORY: Respiratory failure COMPARISON STUDY: July 31, 2019 FINDINGS: The endotracheal tube is 13 mm above the denice. There is a left subclavian central venous catheter unchanged in position. There is a nasogastric tube which passes into the stomach. The heart is normal in size. There are persistent extensive lower lung zone bilateral pulmonary airspace opacit ies.[ IMPRESSION: Extensive bilateral pulmonary airspace opacities similar to the preceding examination. ACT 112: Negative or not required by law. Electronically signed by: Kory Foreman M.D. 08/01/2019 7:06 AM
[2019-08-01 07:12] LABS: Phosphorus 0.8 mg/dl (2.5-4.9)
--- NOTE | 2019-08-01 08:37 | Critical Care Progress Note ---
Date of Service August 01, 2019 Assessment & Plan (1) Admitted to intensive care unit: Reason Critically Ill: 23 yo female with hypoxic respiratory failure secondary to Influenza B + superimposed bacterial PNA 24hrs: patient was intubated due to increased work of breathing. A L subclavian CVC and a R radial A-line were placed. 1 of 2 blood cultures grew MRSA. CXR stable from previous study, demonstrating appropriate positioning of tubes and catheters. Neuro: [facility] ICU: negative * sedated on 150mcg/hr fentanyl drip and 8mg/hr versed * Hx of IV drug abuse - on Suboxone, currently holding as patient is on fentanyl for sedation * Hx anxiety/depression - continue home Celexa, hydroxyzine * urine tox positive on admission for Methamphetamine and Ecstasy Cardiac: * ECHO 07/30 showing normal EF without valvular vegetations. * R art line for continuous BP monitoring * tachycardia: HR remains >100 bpm. Likely secondary to septic state Respiratory: * Mechanically ventilated; on assist control volume. settings: 18/360/5/30% * Influenza B + superimposed multifocal PNA - continue respiratory support. Currently on Day 2/7 of Vancomycin, Day 2/7 of Cefepime. Day 2/5 for Azithromycin, Day 2/5 of Tamiflu. We will discontinue vanc in favor of dapsone/ceftaroline for better MRSA coverage (however dapsone alone insufficient for pulmonary penetration). awaiting bronch cultures and urine legionella antigen. There is concern for L sided pleural effusion - will reposition patient to upright and perform bedside US; pleuracentesis if necessary to reduce risk of infection GI: * NPO, tube feeds at rate of 35 with plans to increase to 45 today. -stress ulcer ppx with protonix (H2 duarte unfavorable in setting of thrombocytopenia) * Elevated LFTs: trending down. likely contact center representative of shock liver > primary hepatic etiology. Hep B and C neg. Hep A pending. RENAL/LYTES: * mild, non-gapped metabolic acidosis * phos low at 0.8; IV replacement ordered; K normal at 3.7. Mag normal. Ca corrects to 8.4. * Cr remains WNL : * Valentino -strict Is/Os ENDO: * ICU protocol for hyperglycemia HEME: * thrombocytopenia: platelets at 59 today. patient is on heparin for DVT ppx - unlikely to represent HIT although we will rule out with heparin Inc platelet antibody; likely secondary to septic state; will d/c heparin today * leukocytosis - WBC at 2.86, down from 3.5 on admission. suspicion for underlying immunodeficiency (HIV neg, Hep B and C neg); consider further work up * anemia: hg 9.7 today. may be dilutional as patient has received >6.5 liters of fluid. continue to trend ID: * Influenza B with superimposed multifocal PNA. Currently on Day 2 of Cefepime. Day 2 for Azithromycin, Day 2/5 of Tamiflu. Patient received 1 day of vancomycin, but we will discontinue the vanc in favor of dapsone/ceftaroline for better MRSA coverage (dapsone alone insufficient for pulmonary penetration). awaiting bronch cultures and urine legionella antigen. * 1 of 2 blood cultures return as + for gram positive cocci, PCR + for MRSA. repeat blood cultures ordered. antibiotics as above. ECHO from 07/31 showing no valvular vegetations. * concern for Toxic Shock Syndrome at this point is low given marked improvement in lower extremity rash; also less likely given staph bacteremia, as opposed t o strep. * procal up to 6.83; lactate has downtrended * recommend influenza vaccination for mother, boyfriend, and other close contacts LINES/IV ACCESS: * ETT * R radial A-line * L subclavian CVC * OG tube * Valentino CODE STATUS: Full DVT PROPHYLAXIS: we will d/c Heparin in the setting of thrombocytopenia. bilateral SCDs Thank you for allowing us to participate in the care of this patient. Please re osman to my attending physician's documentation for any further recommendations. Admission and Anticipated Discharge Date Admission Date: July 30, 2019 Supervising Physician Co-Signing Physician Notes Patient seen and examined. Discussed on multidisciplinary rounds and with ICU bedside nurse. Mother updated at bedside. Patient has been relatively stable overnight. She continues to become agitated with any significant manipulation. Her chest x-ray is essentially unchanged. There was a question of potential pleural fluid collection on the left on this morning's x-ray. We performed thoracic ultrasound which did not demonstrate any significant pleural fluid on the left. The right lung was also free of any effusion. Her blood cultures and respiratory cultures are all positive for staph aureus. Will discontinue cefepime and vancomycin and placed on daptomycin and ceftaroline for pulmonary and bloodstream coverage as ceftaroline does not have a bacteremia indication. Surveillance cultures will be obtained today. Continue to trend white count and procalcitonin. Patient is receiving tube feeding and will continue to advance to goal. Continue deep sedation pending respiratory improvement which would allow for exacerbation. Subjective Patient in ICU; mechanically ventilated and sedated. Mother present at bedside - does not believe Hugo was vaccinated against influenza this season. Review of Systems Review of Systems: Unobtainable due to endotracheal tube Physical Exam Constitutional: WD/WN, vitals as above + mechanically ventilated + sedated Eyes: closed while sedated ENMT: external ear and nose normal, oropharynx normal Neck: normal visual inspection and trachea midline Respiratory: normal respiratory effort and symmetric chest movement Auscultation: + rhonchi (bilateral lung bases); no crackles and no pleural rub Cardiovascular: RRR, no murmur, no edema Heart Sounds: normal S1 and normal S2 Extremities: no pedal edema wearing bilateral SCDs Gastrointestinal (Abdomen): normal bowel sounds, soft, nontender, no hepatosplenomegaly Skin: Trauma: + evidence of skin trauma (multiple track chang on b/l forearms ) +tattoo present on R thigh (black galvan) blanching patches of erythema present on b/l lower extremities, receding compared to presentation on 07/31 Genitourinary: Valentino catheter in place draining yellow colored without visible clots Results & Data ([facility]) Vital Signs (Past 12 Hours) Vital Signs Pulse Resp BP Pulse Ox 08/01/19 05:00 118 H 93 08/01/19 04:54 107 H 18 95 08/01/19 04:30 105 H 94 08/01/19 04:15 107 H 115/63 91 08/01/19 04:00 108 H 91 08/01/19 03:30 105 H 94 08/01/19 03:15 105 H 125/65 95 08/01/19 03:00 105 H 96 08/01/19 02:30 104 H 96 08/01/19 02:15 102 H 104/64 96 08/01/19 02:00 103 H 95 08/01/19 01:39 102 H 19 95 08/01/19 01:30 103 H 95 08/01/19 01:15 103 H 111/60 96 08/01/19 01:00 106 H 96 08/01/19 00:30 103 H 99 08/01/19 00:15 105 H 104/57 L 98 08/01/19 00:00 104 H 98 07/31/19 23:30 105 H 97 07/31/19 23:15 104 H 107/57 L 98 07/31/19 23:00 104 H 98 07/31/19 22:30 107 H 100 07/31/19 22:15 107 H 103/61 98 07/31/19 22:00 113 H 98 07/31/19 21:30 111 H 98 07/31/19 21:15 111 H 102/47 L 98 07/31/19 21:00 113 H 18 98 Critical Care Time Critical Care Time: Yes Total Critical Care Time: 41 Resident Activity Tracking Resident Involvement: Resident Care Provided Care Provided: Adult Hospital Medicine
[2019-08-01] MEDS: OSELTAMIVIR PHOSPHATE SUSP 75 MG/12.5 ML UDP NG SCH ×2 (08:40→19:56)
[2019-08-01] MEDS: HEPARIN SOD 5,000 UNIT/0.5 ML VIAL SQ SCH (08:40)
[2019-08-01] MEDS: DAPTOmycin 500 MG in SYRINGE 0 ML IV SCH (10:33)
[2019-08-01] MEDS: CEFTAROLINE FOSAMIL ACETATE 600 MG in SODIUM CHLORIDE 0.9% 250 ML IV SCH ×2 (10:33→18:10)
[2019-08-01] MEDS: fentaNYL citrate 100 MCG/2 ML VIAL IV PRN (10:45)
[2019-08-01] MEDS: MIDAZOLAM HCL 1 MG/ML 2ML VIAL IV PRN (10:45)
--- NOTE | 2019-08-01 11:48 | Billing Data ---
Date of Service August 01, 2019 Coding Level of Care Code Critical Care 1st 30-74 mins Time Spent (min) 41
[2019-08-01] MEDS: LANSOPRAZOLE 30 MG SOLTAB OG SCH (12:11)
--- NOTE | 2019-08-01 13:40 | Hospitalist Progress Note ---
Date of Service August 01, 2019 Assessment & Plan (1) Sepsis with acute hypoxic respiratory failure: 23yo with a Hx of IV drug abuse on Subaxone and MRSA infection admitted to the ICU with sepsis and acute hypoxic respiratory failure secondary to influenza and a multifocal pneumonia Acute hypoxic respiratory failure in the setting of Influenza and multifocal pneumonia. -remains intubated and on sedatives (fentanyl/midazolam) -chest XR on admission with L>R lung consolidation -chest CT with multifocal airspace opacities suggestive of multifocal pneumonia -Nasal MRSA + -One blood culture growing staph aureus; repeat blood Cx x 2 pending, bronch Cx growing staph aureus as well -Echo with no evidence of vegetations, no significant abnormalities noted -Transitioned from Vancomycin, cefepime, azithromycin to Azithromycin and Daptomycin/Ceftaroline for better MRSA coverage (dapsone alone has poor lung penetration) -continue Tamiflu BID Pancytopenia likely secondary to bone marrow suppression in the setting of infection/influenza -WBC 2.8, Hgb 9.7, and plt 50 -Continue to monitor CBC Transaminitis likely secondary to sepsis/shock liver -Liver enzymes improving -Liver ultrasound with only noted cholecystectomy and 1cm benign hepatic hemangioma -HIV negative and hepatitis panel - negative HBsAg and Hep C others pending -Continue to monitor Hx of IV drug Use -Pt 2 years clean per chart review -drug screen positive for Meth and MDMA- possibly secondary to recent use of cold medicines? -Holding home Subaxone 8mg SL BID while on fentanyl Hx of Raynauds -stable Depression -continue home Celexa 10mg po hs FEN/GI: Enteral nutrition started via OG tube, pantoprazole for GI prophylaxis DVT prophylaxis: Heparin CODE STATUS: Full Dispo: transition to PCU once clinically improved (2) Multifocal pneumonia: (3) H/O intravenous drug use in remission: (4) Hx MRSA infection: (5) Depression: (6) Raynauds disease: (7) Influenza B: (8) GERD (gastroesophageal reflux disease): (9) Thrombocytopenia: (10) Abnormal LFTs: Admission and Anticipated Discharge Date Admission Date: July 30, 2019 Supervising Physician Co-Signing Physician Notes case dw dr fox. ICU/Dr Troncoso managing critical care. otherwise as above to clarify - sepsis was present on admission, as manifest by her tachycardia, tachypnea, white count, and (to a lesser degree) temperature. Subjective Patient continues to be in the ICU; mechanically ventilated and sedated. Mother present at bedside and reports her color being better today. She was as little anxious over night but was calmer this morning according to mother. Review of Systems Review of Systems: Limited due to patient being sedated and on ventilator Physical Exam Physical Exam: General: In NAD Neuro: Sedated while on ventilator, moves to physical stimuli but does not open eyes CV: RRR, no m/r/g Pulm: coarse breath sounds while on ventilator Abdomen: +BS, no response to palpation in all quadrants, non-distended Extremities: bilateral hand trace-1+ edema, radial pulse 2+, finger tips cold - hx of raynauds, trace-1+ LE edema Results & Data ([facility]) Vital Signs (Past 12 Hours) Vital Signs Pulse Resp BP Pulse Ox 08/01/19 11:37 100 H 18 97 08/01/19 11:15 102 H 105/57 L 96 08/01/19 10:15 106 H 103/66 95 08/01/19 09:15 109 H 127/79 97 08/01/19 09:12 105 H 21 97 08/01/19 08:15 97 H 124/69 99 08/01/19 08:00 105 H 08/01/19 07:15 94 H 114/60 100 08/01/19 05:00 118 H 93 08/01/19 04:54 107 H 18 95 08/01/19 04:30 105 H 94 08/01/19 04:15 107 H 115/63 91 08/01/19 04:00 108 H 91 08/01/19 03:30 105 H 94 08/01/19 03:15 105 H 125/65 95 08/01/19 03:00 105 H 96 08/01/19 02:30 104 H 96 08/01/19 02:15 102 H 104/64 96 08/01/19 02:00 103 H 95 Resident Activity Tracking Resident Involvement: Resident Care Provided Care Provided: Adult Hospital Medicine (1) Depression Active/Remission status: remission status unspecified Depression Type: major depressive disorder Major depression recurrence: unspecified whether recurrent Qualified Code(s): F32.9 - Major depressive disorder, single episode, unspecified (2) GERD (gastroesophageal reflux disease) Esophagitis presence: esophagitis presence not specified Qualified Code(s): K21.9 - Gastro-esophageal reflux disease without esophagitis
[2019-08-01] MEDS: AZITHROMYCIN 250 MG in DEXTROSE 5% 250 ML IV SCH (16:23)
--- NOTE | 2019-08-01 19:24 | Hospitalist Progress Note ---
Date of Service August 01, 2019 Assessment & Plan Admission and Anticipated Discharge Date Admission Date: July 30, 2019 Results & Data ([facility]) Vital Signs (Past 12 Hours) Vital Signs Pulse Resp BP Pulse Ox 08/01/19 18:15 105 H 115/61 95 08/01/19 17:28 108 H 18 94 08/01/19 17:15 107 H 109/62 94 08/01/19 16:15 105 H 110/62 95 08/01/19 15:15 103 H 111/65 95 08/01/19 14:15 98 H 110/59 L 97 08/01/19 14:02 96 H 19 96 08/01/19 13:15 95 H 109/58 L 97 08/01/19 12:15 98 H 108/59 L 96 08/01/19 11:37 100 H 18 97 08/01/19 11:15 102 H 105/57 L 96 08/01/19 10:15 106 H 103/66 95 08/01/19 09:15 109 H 127/79 97 08/01/19 09:12 105 H 21 97 08/01/19 08:15 97 H 124/69 99 08/01/19 08:00 105 H PG Care Time/CCT Total # of Minutes Spent Total Time Spent with Patient: Total time spent is greater than 50% in coordination of care (as documented) at patient's floor/unit and/or counseling patient: Coding Level of Care Code None
[2019-08-01] MEDS: CITALOPRAM 20 MG TAB PO SCH (19:56)
[2019-08-02] MEDS: CEFTAROLINE FOSAMIL ACETATE 600 MG in SODIUM CHLORIDE 0.9% 250 ML IV SCH ×3 (02:17→17:31)
[2019-08-02] MEDS: ACETAMINOPHEN SOL 650 MG/20.3 ML UDC OG PRN (04:00)
[2019-08-02] MEDS: ALBUTEROL 0.5% NEB SOLN 2.5 MG/0.5 ML VIAL NEB PRN ×5 (04:42→23:49)
[2019-08-02] MEDS: fentaNYL DRIP 1,250 MCG/250 ML BAG IV SCH (04:47)
[2019-08-02 04:51] LABS: Base Excess ABG -5.9 mEq/L (-9-1.8); HCO3 ABG 20 mmol/L (19-24); Oxygen Saturation ABG 94.1 % (90-95); PCO2 ABG 40 mmHg (35-46); PO2 ABG 70 mmHg (80-95); pH ABG 7.32 (7.35-7.45)
[2019-08-02 04:53] LABS: Allen Test POS (Pos)
[2019-08-02 05:02] LABS: Hematocrit (blood only) 29.6 % (37-47); Hemoglobin 10.2 g/dL (12.0-16.0); Mean Corpuscular Hemoglobin 29.1 pg (25-34); Mean Corpuscular Hgb Conc 34.5 g/dL (32-36); Mean Corpuscular Volume 84.6 fL (80-100); RDW Coefficient of Variation 13.5 % (11.5-14.5); RDW Standard Deviation 41.4 fL (36.4-46.3); White Blood Count 7.42 K/uL (4.8-10.8)
[2019-08-02 05:03] LABS: Alanine Aminotransferase 78 U/L (12-78); Albumin Level 1.9 gm/dl (3.4-5.0); Aspartate Aminotransferase 18 U/L (15-37); BUN Creatinine Ratio 20.3 (10-20); Blood Urea Nitrogen 9 mg/dl (7-18); Calcium 7.2 mg/dl (8.5-10.1); Carbon Dioxide 23 mmol/L (21-32); Chloride 113 mmol/L (98-107); Creatinine Clr Calc Pharmacy 173.9 ml/min; Est GFR (African American) > 150.0; Est GFR (Non-African American) 140.2; Glucose 121 mg/dl (70-99); Potassium 3.8 mmol/L (3.5-5.1); Sodium 138 mmol/L (136-145)
[2019-08-02 05:17] LABS: Basophils # (auto) 0.01 K/uL (0-0.2); Basophils % (auto) 0.1 %; Dohle Bodies 1+; Echinocytes 2+; Eosinophils # (auto) 0.03 K/uL (0-0.5); Eosinophils % (auto) 0.4 %; Immature Granulocytes # (auto) 0.03 K/uL (0.00-0.02); Immature Granulocytes % (auto) 0.4 %; Lymphocytes % (auto) 13.5 %; Mean Platelet Volume 10.6 fL (7.4-10.4); Monocytes # (auto) 0.68 K/uL (0.11-0.59); Monocytes % (auto) 9.2 %; Neutrophils # (auto) 5.67 K/uL (1.4-6.5); Neutrophils % (auto) 76.4 %; Platelet Count 90 K/uL (130-400); Platelet Estimate Decreased (Normal)
[2019-08-02 05:19] LABS: Alkaline Phosphatase 221 U/L (45-117); Bilirubin,Total 1.4 mg/dl (0.2-1); Creatine Kinase 58 U/L (26-192); Phosphorus 1.2 mg/dl (2.5-4.9); Total Protein 4.6 gm/dl (6.4-8.2)
[2019-08-02] MEDS ORDERED: POTASSIUM PHOS 3 MMOL/1 ML INFUSION IV STA (05:40)
[2019-08-02] MEDS ORDERED: POTASSIUM PHOSPHATE 24 MMOL in SODIUM CHLORIDE 0.9% 500 ML IV ONE (06:15)
--- NOTE | 2019-08-02 07:13 | Critical Care Progress Note ---
Date of Service August 02, 2019 Assessment & Plan (1) Admitted to intensive care unit: Reason Critically Ill: 23 yo female with hypoxic respiratory failure secondary to Influenza B + superimposed bacterial PNA 24hrs: Maintained on ventilator with ARDSnet protocol. Bedside thoracic US show ing no appreciable pleural effusion on either side. Gram + coverage was escalated to dapsone/ceftaroline. Gram - coverage was discontinued. Repeat blood cultures were ordered, showing no growth thus far. Neuro: [facility] ICU: negative * sedated on 150mcg/hr fentanyl drip and 7mg/hr versed * Hx of IV drug abuse - on Suboxone, currently holding as patient is on fentanyl for sedation * Hx anxiety/depression - continue home Celexa, hydroxyzine * urine tox positive on admission for Methamphetamine and Ecstasy Cardiac: * ECHO 07/30 showing normal EF without valvular vegetations. * R art line for continuous BP monitoring * tachycardia: HR remains >100 bpm. Likely secondary to septic state Respiratory: * Mechanically ventilated; on assist control volume. settings: 18/360/5/40% * Influenza B + superimposed multifocal PNA - currently supporting respiration with mechanical ventilation; will wean sedation for SBT today. Currently on Day 2 of Dapsone/ceftaroline (MRSA coverage), Day 3/5 for Azithromycin (atypical coverage), Day 3/5 of Tamiflu. bronch cultures + for staph aureas. urine legionella antigen negative. GI: * NPO, tube feeds at goal rate of 45 - continue stress ulcer ppx with protonix (indication is 48 hour ventilation) * Elevated LFTs: resolved. likely ict sales representative of shock liver > primary hepatic etiology. Hep B and C neg. Hep A pending. RENAL/LYTES: * mild, non-gapped metabolic acidosis * phos low at 1.2; IV replacement ordered; K normal at 3.8. Mag normal 2.0. Ca corrects to 8.9 * Cr remains WNL : * Valentino -strict Is/Os ENDO: * ICU protocol for hyperglycemia HEME: * thrombocytopenia: platelets increased to 97 today, up from 59. heparin platelet antibody negative. likely secondary to septic state * leukocytosis - resolved. WBC normal at 7 today. Immunodeficiency was considered, work up thus far negative. (HIV neg, Hep B and C neg) * anemia: hgb stable at 10.2 ID: * Influenza B with superimposed multifocal PNA. Currently on Day 2 of dapsone/ceftaroline (MRSA coverage), Day 3/5 for Azithromycin (atypical coverage), Day 3/5 of Tamiflu. bronch cultures grew staph aureas; urine legionella antigen neg. * 1 of 2 blood cultures from 07/30 return as + for gram positive cocci, PCR + for MRSA. repeat blood cultures obtained 08/01, no growth to date. antibiotics as above. ECHO from 07/31 showing no valvular vegetations. * concern for Toxic Shock Syndrome at this point is low given marked improvement in lower extremity rash; also less likely given staph bacteremia, as opposed to strep. * procal trending down. lactate has downtrended * recommend influenza vaccination for mother, boyfriend, and other close contacts LINES/IV ACCESS: * ETT * R radial A-line * L subclavian CVC * OG tube * Valentino CODE STATUS: Full DVT PROPHYLAXIS: Heparin discontinued 08/01 in the setting of thrombocytopenia. bilateral SCDs Thank you for allowing us to participate in the care of this patient. Please refer to my attending physician's documentation for any further recommendations. Admission and Anticipated Discharge Date Admission Date: July 30, 2019 Supervising Physician Co-Signing Physician Notes Patient seen and examined. Discussed with ICU nurse and mother at bedside relatively stable overnight. She remains on minimal vent settings. Her chest x-ray is stable. She remains deeply sedated at this point time and will working on cutting down her sedation. In the past she had become extremely agitated with decreasing sedatives. We will start her on dexmedetomidine and Geodon to see if we can decrease her sedation. If she does well on a sedation break, may be able to do an SBT but previously she has become too agitated with any attempts to perform SBT's. Surveillance cultures remain negative to date but will continue to follow. She is currently day #2 daptomycin and ceftaroline. Will complete course of azithromycin and Tamiflu Her HIT antibody screen was negative and platelets are recovering. White blood cell count also increasing. Her procalcitonin continues to climb as well which will need to be followed closely. Continue antibiotics for now. Restart DVT prophylaxis. Continue tube feeds but may need to hold off when she is ready for a spontaneous breathing trial. Significant ray nodes with blanching the hands. Will check JOSE and SCL 70. Subjective Patient in ICU. Sedated on mechanical ventilation. Review of Systems Review of Systems: Unobtainable due to endotracheal tube Physical Exam Constitutional: WD/WN, vitals as above + mechanically ventilated ENMT: external ear and nose normal, oropharynx normal Neck: normal visual inspection and trachea midline Respiratory: normal respiratory effort and symmetric chest movement Auscultation: + rhonchi (bilateral lung bases); no crackles and no pleural rub Cardiovascular: Rate/Rhythm: regular rhythm and + tachycardic Heart Sounds: normal S1 and normal S2 Extremities: no pedal edema Gastrointestinal (Abdomen): normal bowel sounds, soft, nontender, no hepatosplenomegaly Skin: Trauma: + evidence of skin trauma (multiple track chang on b/l forearms ) erythematous, blanching patches on b/l lowering extremities, not transcending demarcated boundaries. Genitourinary: Valentino catheter in place draining yellow colored urine without visible clots Results & Data ([facility]) Vital Signs (Past 12 Hours) Vital Signs Pulse Resp BP Pulse Ox Pulse Ox 08/02/19 05:15 118 H 19 96 08/02/19 05:00 119 H 95 08/02/19 04:30 120 H 99 08/02/19 04:15 117 H 122/76 85 L 08/02/19 04:00 102 H 123/73 08/02/19 03:30 103 H 95 08/02/19 03:15 101 H 122/72 96 08/02/19 03:00 103 H 95 08/02/19 02:30 101 H 96 08/02/19 02:15 102 H 123/73 95 08/02/19 02:11 101 H 18 96 08/02/19 02:00 101 H 96 08/02/19 01:30 103 H 95 08/02/19 01:15 101 H 124/72 96 08/02/19 01:00 102 H 95 08/02/19 00:30 108 H 94 08/02/19 00:15 107 H 126/77 94 08/02/19 00:00 105 H 93 08/01/19 23:30 107 H 94 08/01/19 23:15 111 H 127/82 93 08/01/19 23:06 107 H 18 95 08/01/19 23:00 106 H 95 08/01/19 22:30 104 H 96 02/21/20 22:26 104 H 126/75 96 08/01/19 22:15 106 H 125/76 93 08/01/19 22:00 102 H 96 08/01/19 21:31 100 H 119/70 96 08/01/19 21:30 100 H 96 08/01/19 21:15 99 H 119/70 97 08/01/19 21:09 97 08/01/19 21:07 99 H 08/01/19 21:00 99 H 97 08/01/19 20:30 100 H 98 08/01/19 20:15 101 H 118/64 97 08/01/19 20:00 102 H 115/61 98 97 08/01/19 19:47 101 H 18 98 08/01/19 19:30 101 H 97 08/01/19 19:15 101 H 118/66 97 Resident Activity Tracking Resident Involvement: Resident Care Provided Care Provided: Adult [facility] Medicine
--- NOTE | 2019-08-02 08:06 | XRay Report ---
XR chest 1V portable HISTORY: Shortness of breath. COMPARISON: Chest 08/01/2019. FINDINGS: Endotracheal tube terminates 1.2 cm from the denice. Left subclavian Port-A-Cath terminates at the right atrium. Nasogastric tube terminus below the diaphragm. The tip is not included on this study. No pneumothorax. Bibasilar airspace opacities remain unchanged. No evidence for pulmonary nguyen a. The heart is normal in size. IMPRESSION: 1. No change in the bibasilar airspace opacities. 2. Endotracheal tube terminates 1.2 cm from the denice. This could be pulled back by approximately 1 cm. ACT 112: Negative or not required by law. Electronically signed by: Yakov Calvert M.D. 08/02/2019 8:04 AM
[2019-08-02] MEDS ORDERED: STAT IV Infusion **Titration per Protocol STA (08:40)
[2019-08-02] MEDS ORDERED: CALCIUM CHLORIDE 10% 1,000 MG in SODIUM CHLORIDE 0.9% 50 ML IV STA (08:50)
--- NOTE | 2019-08-02 08:52 | Billing Data ---
Date of Service August 02, 2019 Coding Level of Care Code 71357 Subseq Hosp Care Lvl 3
[2019-08-02] MEDS: OSELTAMIVIR PHOSPHATE SUSP 75 MG/12.5 ML UDP NG SCH ×2 (09:05→19:46)
[2019-08-02] MEDS: LANSOPRAZOLE 30 MG SOLTAB OG SCH (09:05)
[2019-08-02] MEDS: DEXMEDETOMIDINE HCL 200 MCG in SODIUM CHLORIDE 0.9% 48 ML IV SCH ×2 (09:06→19:41)
[2019-08-02] MEDS ORDERED: DAPTOMYCIN CONSULT ACTIVE PRN (09:21)
[2019-08-02] MEDS ORDERED: [UNRECOGNIZED DRUG - REMARK] PRN (09:21)
[2019-08-02] MEDS: ENOXAPARIN INJ 30 MG/0.3 ML SYR SQ SCH ×2 (09:23→19:44)
[2019-08-02] MEDS: DAPTOmycin 500 MG in SYRINGE 0 ML IV SCH (09:42)
--- NOTE | 2019-08-02 10:00 | Hospitalist Progress Note ---
Date of Service August 02, 2019 Assessment & Plan (1) Admitted to intensive care unit: (2) Sepsis with acute hypoxic respiratory failure: 23yo with a Hx of IV drug abuse on Subaxone and MRSA infection remains in the ICU after presenting with sepsis and acute hypoxic respiratory failure se condary to influenza and a multifocal pneumonia. Plan for weaning sedation today and SBT. Acute hypoxic respiratory failure in the setting of Influenza and multifocal pneumonia. -remains intubated and on sedatives (fentanyl/midazolam) - Plan for weaning sedation today and SBT -chest XR on admission with L>R lung consolidation -chest CT with multifocal airspace opacities suggestive of multifocal pneumonia -Nasal MRSA +, urine legionella negative -One blood culture growing staph aureus; repeat blood Cx x 2 NGTD, bronch Cx growing staph aureus as well -Echo with no evidence of vegetations, no significant abnormalities noted -Transitioned from Vancomycin, cefepime, azithromycin --> Azithromycin 3/5 and Daptomycin/Ceftaroline for better MRSA coverage (dapsone alone has poor lung penetration), day 2 -continue Tamiflu BID, day 3/5 Pancytopenia likely secondary to bone marrow suppression in the setting of infection/influenza - improving Thrombocytopenia - improving plt 59 to 90 today, Heparin plt antibody negative Leukopenia - improved WBC 2.8 to 7.4 today Hgb stable at 10.2 -Continue to monitor CBC Transaminitis likely secondary to sepsis/shock liver -Liver enzymes improving -Liver ultrasound with only noted cholecystectomy and 1cm benign hepatic hemangioma -HIV negative and hepatitis panel - negative HBsAg and Hep C, Hep A pending -Continue to monitor Hx of IV drug Use -Pt 2 years clean per chart review -drug screen positive for Meth and MDMA- possibly secondary to recent use of cold medicines? -Holding home Subaxone 8mg SL BID while on fentanyl Hx of Raynauds -stable Depression -continue home Celexa 10mg po hs and hydroxyzine FEN/GI: Enteral nutrition started via OG tube, pantoprazole for GI prophylaxis DVT prophylaxis: Lovenox CODE STATUS: Full Dispo: transition to PCU once clinically improved (3) Multifocal pneumonia: (4) Thrombocytopenia: (5) Influenza B: (6) GERD (gastroesophageal reflux disease): (7) Raynauds disease: (8) Depression: (9) Hx MRSA infection: (10) H/O intravenous drug use in remission: Admission and Anticipated Discharge Date Admission Date: July 30, 2019 Supervising Physician Co-Signing Physician Notes I personally examined the patient and verified all pedro points of history and exam, discussed case, and agree with decision making with Dr Us. Still intubated and sedated. Does seem to be showing progress. Case discussed with fire alarm repairer. Input appreciated. Vitals noted, sedated on the ventilator chest rise and fall equal and even. No focal neuro deficits. Skin shows no rashes no pallor or icterus. Influenza with secondary pneumoniasepsis present on admission, bacteremiacontinue current care. Showing improvement Subjective Patient in ICU. Remains sedated on mechanical ventilation. Plan to wean sedation today for spontaneous breathing trial. Mother did not express any concerns, at bedside this AM Review of Systems Review of Systems: Limited due to pt being sedated and on ventilator Physical Exam Physical Exam: General: In NAD Neuro: Sedated while on ventilator, does not respond to verbal/physical stimuli CV: RRR, no m/r/g Pulm: coarse breath sounds while on ventilator Abdomen: +BS, no response to palpation in all quadrants, somewhat distended Extremities: hands/fingers warm to touch, mildly erythematous (hx of raynauds),bilateral hand trace-1+ edema, radial pulse 2+, trace-1+ LE edema Results & Data ([facility]) Vital Signs (Past 12 Hours) Vital Signs Pulse Resp BP Pulse Ox 08/02/19 08:00 99 H 08/02/19 07:59 99 H 18 95 08/02/19 05:15 118 H 19 96 08/02/19 05:00 119 H 95 08/02/19 04:30 120 H 99 08/02/19 04:15 117 H 122/76 85 L 08/02/19 04:00 102 H 123/73 08/02/19 03:30 103 H 95 08/02/19 03:15 101 H 122/72 96 08/02/19 03:00 103 H 95 08/02/19 02:30 101 H 96 08/02/19 02:15 102 H 123/73 95 08/02/19 02:11 101 H 18 96 08/02/19 02:00 101 H 96 08/02/19 01:30 103 H 95 08/02/19 01:15 101 H 124/72 96 08/02/19 01:00 102 H 95 08/02/19 00:30 108 H 94 08/02/19 00:15 107 H 126/77 94 08/02/19 00:00 105 H 93 08/01/19 23:30 107 H 94 08/01/19 23:15 111 H 127/82 93 08/01/19 23:06 107 H 18 95 08/01/19 23:00 106 H 95 08/01/19 22:30 104 H 96 08/01/19 22:26 104 H 126/75 96 08/01/19 22:15 106 H 125/76 93 Resident Activity Tracking Resident Involvement: Resident Care Provided Care Provided: Adult Hospital Medicine (1) Depression Active/Remission status: remission status unspecified Depression Type: major depressive disorder Major depression recurrence: unspecified whether recurrent Qualified Code(s): F32.9 - Major depressive disorder, single episode, unspecified (2) GERD (gastroesophageal reflux disease) Esophagitis presence: esophagitis presence not specified Qualified Code(s): K21.9 - Gastro-esophageal reflux disease without esophagitis
--- NOTE | 2019-08-02 15:07 | Billing Data ---
Date of Service August 02, 2019 Coding Level of Care Code 73248 Subseq Hosp Care Lvl 2
[2019-08-02] MEDS: AZITHROMYCIN 250 MG in DEXTROSE 5% 250 ML IV SCH (17:31)
[2019-08-02] MEDS: IMPACT LIQD 1.0 CAL 1,000 ML BAG OG SCH (17:34)
[2019-08-02] MEDS: CITALOPRAM 20 MG TAB PO SCH (19:41)
[2019-08-03] MEDS: ZIPRASIDONE 20 MG/ML SDV IM PRN ×3 (01:07→20:57)
[2019-08-03] MEDS: ACETAMINOPHEN SOL 650 MG/20.3 ML UDC OG PRN ×3 (01:16→16:57)
[2019-08-03] MEDS: DEXMEDETOMIDINE HCL 200 MCG in SODIUM CHLORIDE 0.9% 48 ML IV SCH ×7 (01:51→21:07)
[2019-08-03] MEDS: CEFTAROLINE FOSAMIL ACETATE 600 MG in SODIUM CHLORIDE 0.9% 250 ML IV SCH ×3 (02:24→18:41)
[2019-08-03 04:14] LABS: Eosinophils # (auto) 0.01 K/uL (0-0.5); Eosinophils % (auto) 0.2 %; Hematocrit (blood only) 25.2 % (37-47); Hemoglobin 8.5 g/dL (12.0-16.0); Immature Granulocytes # (auto) 0.05 K/uL (0.00-0.02); Immature Granulocytes % (auto) 0.8 %; Lymphocytes # (auto) 0.74 K/uL (1.2-3.4); Lymphocytes % (auto) 11.6 %; Mean Corpuscular Hemoglobin 28.9 pg (25-34); Mean Corpuscular Hgb Conc 33.7 g/dL (32-36); Mean Corpuscular Volume 85.7 fL (80-100); Mean Platelet Volume 11.1 fL (7.4-10.4); Monocytes # (auto) 0.76 K/uL (0.11-0.59); Monocytes % (auto) 11.9 %; Neutrophils # (auto) 4.83 K/uL (1.4-6.5); Neutrophils % (auto) 75.5 %; Platelet Count 120 K/uL (130-400); RDW Coefficient of Variation 13.9 % (11.5-14.5); RDW Standard Deviation 43.6 fL (36.4-46.3); Red Blood Count 2.94 M/uL (4.2-5.4); White Blood Count 6.39 K/uL (4.8-10.8)
[2019-08-03 04:34] LABS: Alanine Aminotransferase 50 U/L (12-78); Albumin Level 1.6 gm/dl (3.4-5.0); Aspartate Aminotransferase 15 U/L (15-37); BUN Creatinine Ratio 29.3 (10-20); Bilirubin Direct 0.7 mg/dl (0-0.2); Blood Urea Nitrogen 10 mg/dl (7-18); Calcium 7.2 mg/dl (8.5-10.1); Carbon Dioxide 24 mmol/L (21-32); Chloride 114 mmol/L (98-107); Creatinine Clr Calc Pharmacy 237.1 ml/min; Est GFR (African American) > 150.0; Est GFR (Non-African American) > 150.0; Glucose 140 mg/dl (70-99); Magnesium 1.8 mg/dl (1.8-2.4); Potassium 3.6 mmol/L (3.5-5.1); Sodium 141 mmol/L (136-145)
[2019-08-03 04:39] LABS: Alkaline Phosphatase 269 U/L (45-117); Bilirubin,Total 1.1 mg/dl (0.2-1)
[2019-08-03] MEDS ORDERED: POTASSIUM PHOS 3 MMOL/1 ML INFUSION IV STA (06:39)
[2019-08-03] MEDS ORDERED: MAGNESIUM SULFATE / D5W 1 GM/100 ML BAG IV ONE (06:39)
[2019-08-03] MEDS ORDERED: POTASSIUM PHOSPHATE 15 MMOL in SODIUM CHLORIDE 0.9% 250 ML IV ONE (06:45)
[2019-08-03] MEDS: ALBUTEROL 0.5% NEB SOLN 2.5 MG/0.5 ML VIAL NEB PRN ×2 (07:22→19:38)
[2019-08-03] MEDS: MIDAZOLAM HCL 125 MG/250 ML BAG IV SCH (08:05)
[2019-08-03] MEDS: fentaNYL DRIP 1,250 MCG/250 ML BAG IV SCH ×2 (08:05→08:11)
[2019-08-03] MEDS: LANSOPRAZOLE 30 MG SOLTAB OG SCH (08:08)
[2019-08-03] MEDS: ENOXAPARIN INJ 30 MG/0.3 ML SYR SQ SCH ×2 (08:08→20:14)
[2019-08-03] MEDS: OSELTAMIVIR PHOSPHATE SUSP 75 MG/12.5 ML UDP NG SCH ×2 (08:10→20:16)
--- NOTE | 2019-08-03 08:16 | Critical Care Progress Note ---
Date of Service August 03, 2019 Assessment & Plan (1) Sepsis with acute hypoxic respiratory failure: Impression: 23-year-old female with history of drug abuse presents with influenza B and multifocal pneumonia with progressive hypoxemic respiratory failure. 24-hour events: Continued sedation with Precedex. Had to administer Geodon this morning due to severe agitation. Remains hemodynamically stable. Recommendations: 1. Acute hypoxemic respiratory failure: Secondary to influenza and multifocal MRSA pneumonia. Continue lung protective ventilatory strategy. SBT today if we can treat her agitation. 2. MRSA bacteremia and pneumonia with influenza B: Currently on ceftaroline and daptomycin. Has completed course of a azithromycin and Tamiflu. Will need at least 6 weeks of IV antibiotics given bacteremia. Surveillance cultures negative to date. Surface echo unremarkable 3. Leukopenia/thrombocytopenia: HIV negative. Now resolved 4. Nutrition: Continue enteric tube feedings if unable to extubate today. 5. Non-anion gap metabolic acidosis. Resolved 6. Hypokalemia/hypocalcemia: Replacement protocol initiated. Will follow. 7. Transaminitis: Suspect some degree of shock liver. Now resolved, but Alk phos remains elevated. Continue to trend and check GGT. Bili mildly elevated. At risk for acalc cholecystitis but afebrile and WBC normal. Check RUQ US. 8. Substance abuse: Patient's tox screen was positive for methamphetamine and MDMA on presentation. Follow for signs of withdrawl. Holding Subutex 9. Blanching skin rash, history of Raynaud's phenomenon: JOSE and Scl 70 pendi ng. Has had prior hand debridements for deep soft tissue infections. 10. Cytopenias: Significant drop in hemoglobin hematocrit this morning but no evidence of bleeding. No indication for transfusion. Will continue to trend hemoglobin and hematocrit. Platelet count and white count recovering. HIT was negative. HIV negative. 11. Agitated delirium: 1 dose IM Geodon this morning. Continue Precedex. We will add oral olanzipine as well in hopes to decrease the Precedex and facilitate liberation from mechanical ventilator. Discussed with mother and POTTERY DECORATOR at bedside. (2) Multifocal pneumonia: (3) Thrombocytopenia: (4) Abnormal LFTs: (5) Influenza B: Subjective Intubated and sedated on the mechanical ventilator Review of Systems Review of Systems: Unobtainable due to endotracheal tube Physical Exam Constitutional: WD/WN, vitals as above + mechanically ventilated ENMT: external ear and nose normal, oropharynx normal Neck: normal visual inspection and trachea midline Respiratory: normal respiratory effort and symmetric chest movement Auscultation: + rhonchi (bilateral lung bases); no crackles and no pleural rub Cardiovascular: Rate/Rhythm: regular rhythm and + tachycardic Heart Sounds: normal S1 and normal S2 Extremities: no pedal edema Gastrointestinal (Abdomen): normal bowel sounds, soft, nontender, no hepat osplenomegaly Skin: Trauma: + evidence of skin trauma (multiple track chang on b/l forearms ) erythematous, blanching patches on b/l lowering extremities, not transcending demarcated boundaries. Genitourinary: Valentino catheter in place draining yellow colored urine without visible clots Results & Data ([facility]) Vital Signs (Past 12 Hours) Vital Signs Pulse Resp BP Pulse Ox Pulse Ox 08/03/19 05:30 82 96 08/03/19 05:16 83 113/65 97 08/03/19 05:00 86 97 08/03/19 04:30 90 96 08/03/19 04:16 88 119/64 96 08/03/19 04:00 91 H 96 08/03/19 03:30 92 H 97 08/03/19 03:16 93 H 123/63 97 08/03/19 03:00 96 H 97 08/03/19 02:30 102 H 96 08/03/19 02:16 107 H 116/64 96 08/03/19 02:09 104 H 18 98 08/03/19 02:00 106 H 97 08/03/19 01:30 110 H 94 08/03/19 01:16 115 H 110/63 93 08/03/19 01:00 120 H 90 08/03/19 00:30 130 H 89 L 08/03/19 00:16 118 H 118/65 93 08/03/19 00:00 115 H 94 08/02/19 23:34 98 H 18 96 08/02/19 23:30 99 H 95 08/02/19 23:16 99 H 117/64 95 08/02/19 23:00 99 H 95 08/02/19 22:30 101 H 95 08/02/19 22:16 102 H 116/67 95 08/02/19 22:00 103 H 94 08/02/19 21:30 106 H 94 08/02/19 21:16 108 H 117/69 93 08/02/19 21:12 93 H 08/02/19 21:00 112 H 93 97 08/02/19 20:30 117 H 95 08/02/19 20:29 93 H 18 96 08/02/19 20:16 96 H 125/66 96 Laboratory Results 08/03/19 03:45 08/03/19 03:45 Diagnostic Findings Chest x-ray pending Coding Level of Care Code 72905 Subseq Hosp Care Lvl 3 Diagnoses Sepsis with acute hypoxic respiratory failure A41.9; R65.20; J96.01 Multifocal pneumonia J18.9 Thrombocytopenia D69.6 Abnormal LFTs R94.5 Influenza B J10.1 Time Spent (min) 36
[2019-08-03] MEDS: OLANZAPINE ZYDIS 5 MG ORALLY DIS. TAB PO SCH (08:58)
[2019-08-03] MEDS: MIDAZOLAM HCL 1 MG/ML 2ML VIAL IV PRN ×3 (09:11→16:04)
--- NOTE | 2019-08-03 09:16 | XRay Report ---
XR chest 1V portable CLINICAL HISTORY: resp failure dyspnea COMPARISON STUDY: 08/02/2019 FINDINGS: Endotracheal tube 2.8 cm above the denice. Unchanged increase in density left lung base as well as medial right base. The pulmonary apices are clear. There is a nasogastric tube within the stomach. IMPRESSION: Basilar infiltrates unchanged from the prior exam. ACT 112: Negative or not required by law. The above report was generated using voice recognition software. It may contain grammatical, syntax or spelling errors. Electronically signed by: Gary Denny M.D. 08/03/2019 9:15 AM
--- NOTE | 2019-08-03 10:18 | Hospitalist Progress Note ---
Date of Service August 03, 2019 Assessment & Plan (1) Sepsis with acute hypoxic respiratory failure: 23yo with a Hx of IV drug abuse on Subaxone and MRSA infection in the past. Presented with sepsis and acute hypoxic respiratory failure secondary to influenza and a multifocal pneumonia. Remains in the ICU. Plan for SBT today if can control anxiety. Acute hypoxic respiratory failure in the setting of Influenza and multifocal pneumonia. -remains intubated and on sedatives, precedex. Plan for SBT today -chest XR on admission with L>R lung consolidation -chest XR today unchanged bibasilar inflitrates -chest CT with multifocal airspace opacities suggestive of multifocal pneumonia -Nasal MRSA +, urine legionella negative -One blood culture grew staph aureus; repeat blood Cx x 2 NGTD, bronch Cx grew staph aureus as well -Echo with no evidence of vegetations, no significant abnormalities noted -Transitioned from Vancomycin, cefepime, azithromycin initially --> Azithromycin 4/5 and Daptomycin/Ceftaroline for better MRSA coverage (dapsone alone has poor lung penetration), day 3 -continue Tamiflu BID, day 4/5 Pancytopenia likely secondary to bone marrow suppression in the setting of infection/influenza - improving Thrombocytopenia - 120 improving, Heparin plt antibody negative Leukopenia - improved, wnl Hgb decreased from 10.2 to 8.5. No concern for bleeding. -Continue to monitor CBC Transaminitis likely secondary to sepsis/shock liver - improving -AST/ALT improved, continues to have elevated bilirubin and alk phos - RUQ US and GGT ordered -Liver ultrasound initially with only noted cholecystectomy and 1cm benign hepatic hemangioma -HIV negative and hepatitis panel - negative HBsAg and Hep C, Hep A pending -Continue to monitor Hx of IV drug Use -Pt 2 years clean per chart review -drug screen positive for Meth and MDMA- possibly secondary to recent use of cold medicines? -Holding home Subaxone 8mg SL BID while on fentanyl Hx of Raynauds: blanching skin rash -stable -JOSE and Scl 70 scleroderma ordered Depression -continue home Celexa 10mg po hs and hydroxyzine FEN/GI: Enteral nutrition started via OG tube, pantoprazole for GI prophylaxis DVT prophylaxis: Lovenox CODE STATUS: Full Dispo: transition to PCU once clinically improved (2) Multifocal pneumonia: (3) Thrombocytopenia: (4) Influenza B: (5) GERD (gastroesophageal reflux disease): (6) Raynauds disease: (7) Depression: (8) Hx MRSA infection: (9) H/O intravenous drug use in remission: Admission and Anticipated Discharge Date Admission Date: July 30, 2019 Supervising Physician Co-Signing Physician Notes Pt seen, verified all pedro points of history and exam, discussed case, and agree with decision making with Dr Us. Still intubated and sedated. nursing notes she was quite agitated with stimulation earlier - but with lessening sedation they're hoping they may be able to extubate her later today. Vitals noted, calm on the ventilator no pallor. seen very limited due to reported agitation with any significant stimulation, and not wanting to have agitation from exam create a roadblock to possible successful extubation. Influenza with secondary pneumoniasepsis present on admission, bacteremiacontinue current care. appreciate icu management. hopefully extubation soon. Subjective Pt remains in ICU and sedated on ventilator Review of Systems Review of Systems: Limited due to pt being sedated and on ventilator Physical Exam Physical Exam: General: In NAD Neuro: Sedated while on ventilator, appears anxious moving arms and legs but does not open eyes to verbal/physical stimuli CV: RRR, no m/r/g Pulm: coarse breath sounds and transmitted upper airway sounds while on vent ilator Abdomen: +BS, no response to palpation in all quadrants, distended Extremities: hands/fingers warm to touch, erythematous (hx of raynauds),bilateral hand 1+ edema, bilateral LE 1+ edema Results & Data ([facility]) Vital Signs (Past 12 Hours) Vital Signs Pulse Pulse Resp BP Pulse Ox 08/03/19 09:40 92 H 14 92 08/03/19 07:22 79 79 18 96 08/03/19 05:30 82 96 08/03/19 05:16 83 113/65 97 08/03/19 05:00 86 97 08/03/19 04:30 90 96 08/03/19 04:16 88 119/64 96 08/03/19 04:00 91 H 96 08/03/19 03:30 92 H 97 08/03/19 03:16 93 H 123/63 97 08/03/19 03:00 96 H 97 08/03/19 02:30 102 H 96 08/03/19 02:16 107 H 116/64 96 02/23/20 02:09 104 H 18 98 08/03/19 02:00 106 H 97 08/03/19 01:30 110 H 94 08/03/19 01:16 115 H 110/63 93 08/03/19 01:00 120 H 90 08/03/19 00:30 130 H 89 L 08/03/19 00:16 118 H 118/65 93 08/03/19 00:00 115 H 94 08/02/19 23:34 98 H 18 96 08/02/19 23:30 99 H 95 08/02/19 23:16 99 H 117/64 95 08/02/19 23:00 99 H 95 08/02/19 22:30 101 H 95 Resident Activity Tracking Resident Involvement: Resident Care Provided Care Provided: Adult Hospital Medicine (1) Depression Active/Remission status: remission status unspecified Depression Type: major depressive disorder Major depression recurrence: unspecified whether recurrent Qualified Code(s): F32.9 - Major depressive disorder, single episode, unspecified (2) GERD (gastroesophageal reflux disease) Esophagitis presence: esophagitis presence not specified Qualified Code(s): K21.9 - Gastro-esophageal reflux disease without esophagitis
[2019-08-03] MEDS: DAPTOmycin 500 MG in SYRINGE 0 ML IV SCH (11:37)
[2019-08-03] MEDS: fentaNYL citrate 100 MCG/2 ML VIAL IV PRN ×2 (14:53→20:50)
--- NOTE | 2019-08-03 15:08 | Billing Data ---
Date of Service August 03, 2019 Coding Level of Care Code 33061 Subseq Hosp Care Lvl 1
[2019-08-03] MEDS: AZITHROMYCIN 250 MG in DEXTROSE 5% 250 ML IV SCH (15:45)
[2019-08-03] MEDS ORDERED: PROPOFOL IV EMULSION 10 MG/ML 100 ML VIAL IV ONE (16:13)
[2019-08-03] MEDS: propofoL 1,000 MG/100 ML VIAL IV SCH (16:30)
[2019-08-03] MEDS: IMPACT LIQD 1.0 CAL 1,000 ML BAG OG SCH (16:51)
[2019-08-03] MEDS: CITALOPRAM 20 MG TAB PO SCH (20:13)
[2019-08-03] MEDS: hydrOXYzine HCl 10 MG TAB PO PRN (20:48)
[2019-08-04] MEDS: propofoL 1,000 MG/100 ML VIAL IV SCH ×7 (00:44→23:16)
[2019-08-04] MEDS: DEXMEDETOMIDINE HCL 200 MCG in SODIUM CHLORIDE 0.9% 48 ML IV SCH ×3 (00:45→06:52)
[2019-08-04] MEDS: ALBUTEROL 0.5% NEB SOLN 2.5 MG/0.5 ML VIAL NEB PRN (01:29)
[2019-08-04] MEDS: MIDAZOLAM HCL 1 MG/ML 2ML VIAL IV PRN (02:02)
[2019-08-04] MEDS: CEFTAROLINE FOSAMIL ACETATE 600 MG in SODIUM CHLORIDE 0.9% 250 ML IV SCH ×3 (02:45→18:24)
[2019-08-04] MEDS: ACETAMINOPHEN 1,000 MG/100 ML VIAL IV PRN ×3 (03:59→21:23)
[2019-08-04 04:33] LABS: Base Excess ABG -0.8 mEq/L (-9-1.8); HCO3 ABG 23 mmol/L (19-24); Oxygen Saturation ABG 94.8 % (90-95); PCO2 ABG 32 mmHg (35-46); PO2 ABG 71 mmHg (80-95); pH ABG 7.47 (7.35-7.45)
[2019-08-04 04:34] LABS: Allen Test Pos (Pos)
[2019-08-04 05:01] LABS: Basophils # (auto) 0.01 K/uL (0-0.2); Basophils % (auto) 0.2 %; Eosinophils # (auto) 0.03 K/uL (0-0.5); Eosinophils % (auto) 0.7 %; Hematocrit (blood only) 25.2 % (37-47); Hemoglobin 8.3 g/dL (12.0-16.0); Immature Granulocytes # (auto) 0.04 K/uL (0.00-0.02); Immature Granulocytes % (auto) 0.9 %; Lymphocytes # (auto) 0.63 K/uL (1.2-3.4); Lymphocytes % (auto) 14.3 %; Mean Corpuscular Hemoglobin 28.2 pg (25-34); Mean Corpuscular Hgb Conc 32.9 g/dL (32-36); Mean Corpuscular Volume 85.7 fL (80-100); Mean Platelet Volume 10.4 fL (7.4-10.4); Monocytes # (auto) 0.81 K/uL (0.11-0.59); Monocytes % (auto) 18.4 %; Neutrophils # (auto) 2.89 K/uL (1.4-6.5); Neutrophils % (auto) 65.5 %; Platelet Count 164 K/uL (130-400); RDW Coefficient of Variation 14.1 % (11.5-14.5); RDW Standard Deviation 43.9 fL (36.4-46.3); Red Blood Count 2.94 M/uL (4.2-5.4); White Blood Count 4.41 K/uL (4.8-10.8)
[2019-08-04] MEDS ORDERED: DEXMEDETOMIDINE HCL 400 MCG in 0.9 % SODIUM CHLORIDE 96 ML IV SCH (05:30)
[2019-08-04 05:33] LABS: Alanine Aminotransferase 43 U/L (12-78); Albumin Level 1.6 gm/dl (3.4-5.0); Aspartate Aminotransferase 12 U/L (15-37); BUN Creatinine Ratio 26.2 (10-20); Bilirubin Direct 0.5 mg/dl (0-0.2); Blood Urea Nitrogen 9 mg/dl (7-18); Calcium 7.5 mg/dl (8.5-10.1); Carbon Dioxide 27 mmol/L (21-32); Chloride 112 mmol/L (98-107); Creatinine Clr Calc Pharmacy 230.1 ml/min; Est GFR (African American) > 150.0; Est GFR (Non-African American) > 150.0; Glucose 143 mg/dl (70-99); Magnesium 1.7 mg/dl (1.8-2.4); Potassium 3.5 mmol/L (3.5-5.1); Sodium 142 mmol/L (136-145); Total Protein 4.4 gm/dl (6.4-8.2)
[2019-08-04 05:34] LABS: Alkaline Phosphatase 293 U/L (45-117); Phosphorus 2.4 mg/dl (2.5-4.9)
[2019-08-04] MEDS ORDERED: POTASSIUM PHOS 3 MMOL/1 ML INFUSION IV STA (05:53)
[2019-08-04] MEDS ORDERED: MAGNESIUM SULFATE / D5W 1 GM/100 ML BAG IV ONE (05:53)
[2019-08-04] MEDS ORDERED: POTASSIUM PHOSPHATE 21 MMOL in SODIUM CHLORIDE 0.9% 500 ML IV ONE (06:00)
--- NOTE | 2019-08-04 06:49 | Critical Care Progress Note ---
Date of Service August 04, 2019 Assessment & Plan (1) Admitted to intensive care unit: Reason Critically Ill: 23 yo female with PMHx of IV drug abuse admitted for hypoxic respiratory failure secondary to Influenza B + superimposed bacterial PNA, sent to ICU for acute, hypoxic respiratory distress 24hrs: SBT yesterday was unsuccessful, patient remains on ventilator. R arterial line occluded and was removed. Despite continued gram + coverage, and completion of Azithromycin and Tamiflu courses, patient became febrile 08/03. Appears to be volume overloaded on exam. Neuro: [facility] ICU: negative * sedated on propofol 30mg/kg/min, zyprexa 5mg qAM. Started Versed drip in response to continued agitation. Plan for SBT 08/05 * Hx of IV drug abuse - on Suboxone, currently holding as patient has fentanyl 50mcg q2h * Hx anxiety/depression - continue home Celexa, hydroxyzine * urine tox positive on admission for Methamphetamine and Ecstasy Cardiac: * ECHO 07/30 showing normal EF without valvular vegetations. * EKG today showing sinus tach; tachycardiac likely secondary to septic state * Patient appears to be volume overloaded on exam; will order Lasix 10mg, IV; head of bed elevated to 45 degrees to reduce pulmonary congestion * ordered bilateral upper and lower extremity venous duplex studies to assess for venous thrombophlebitis: left cephalic vein with occlusive superficial thrombosis (not phlebitis) in the distal upper arm which is the prior site of the US guided peripheral line that was removed on 08/03 for discontinued functioning. Will surveil with subsequent studies to assess for proximal progression Respiratory: * Mechanically ventilated; on assist control volume. settings: 18/360/5/30% * Influenza B + superimposed multifocal PNA - currently supporting respiration with mechanical ventilation. Currently on Day 4 of Dapsone/ceftaroline (MRSA coverage), completed course of Azithromycin (atypical coverage), and Tamiflu. bronch cultures + for staph aureas, munira albicans. urine legionella antigen negative. GI: * NPO, tube feeds at goal rate of 55 - continue stress ulcer ppx with protonix (indication is 48 hour ventilation) * Elevated LFTs: resolved. likely business process representative of shock liver > primary hepatic etiology. Hep B and C neg. Hep A pending. RENAL/LYTES: * mild respiratory alkalosis * phos low at 2.4; 20mmol IV replacement ordered; K normal at 3.8. Mag low at 1.7, will start PO Mag-oxide. Ca corrects to 9.9 * Cr remains WNL : * Valentino -strict Is/Os * order GC/Chlamydia PCR to assess for additional infectious source ENDO: * ICU protocol for hyperglycemia HEME: * thrombocytopenia: resolved. platelets at 164 today, up from 97. heparin platelet antibody negative. likely secondary to septic state * leukocytopenia: WBC at 4 today; Immunodeficiency was considered, work up thus far negative. (HIV neg, Hep B and C neg) * anemia: hgb stable at 8.3; no obvious source of bleeding; transfuse < 7 ID: * Influenza B with superimposed multifocal PNA. Currently on Day 4 of dapsone/ceftaroline (MRSA coverage), Day 5/5 for Azithromycin (atypical coverage), Day 5/5 of Tamiflu. bronch cultures grew staph aureas; urine legionella antigen neg. * 1 of 2 blood cultures from 07/30 return as + for gram positive cocci, PCR + for MRSA. repeat blood cultures obtained 08/01, no growth to date. antibiotics as above. - patient did spike fever of 38.7 on 08/03 and continues to be febrile today. will repeat blood cultures. - ECHO from 07/31 showing no valvular vegetations. -Rectal exam not concerning for abscess formation. Patient moving all 4 extremities (low concern for spinal abscess formation at this time) * concern for Toxic Shock Syndrome at this point is low given marked improvement in lower extremity rash; also less likely given staph bacteremia, as opposed to strep. * procal trending down. lactate has downtrended * recommend influenza vaccination for mother, boyfriend, and other close contacts LINES/IV ACCESS: * ETT * L subclavian CVC * OG tube * Valentino CODE STATUS: Full DVT PROPHYLAXIS: Lovenox 30mg sq, q12. bilateral SCDs Thank you for allowing us to participate in the care of this patient. Please refer to my attending physician's documentation for any further recommendations. Admission and Anticipated Discharge Date Admission Date: July 30, 2019 Supervising Physician Co-Signing Physician Notes Dr. Newell was resident physician during care of patient. I separately evaluated patient for pedro portions of the history and the exam. I was present during the critical portion of medical decision making, and I discussed the case with the resident. I generally agree with the findings and plan. Patient with persistent fevers, we obtained blood cultures x2 during episodes of febrility. She was found to have a occlusive superficial thrombus in the left upper extremity consistent at prior ultrasound-guided IV site. This does not appear to be propagating proximally, at this time I consider her low risk for subsequent sequelae, symptomatic management as needed, no evidence of suppurative thrombophlebitis. Patient on appropriate antibiotics at this time, she is significantly edematous we will gently diurese the patient and attempt to decrease her total lung water. Patient is previously been on Precedex for several days, I am discontinuing this and transitioning to a Versed infusion in addition to the propofol. Patient remains critically ill. Subjective patient in ICU. Review of Systems Review of Systems: Unobtainable due to endotracheal tube Physical Exam Constitutional: WD/WN, vitals as above + mechanically ventilated ENMT: external ear and nose normal, oropharynx normal Neck: normal visual inspection and trachea midline Respiratory: normal respiratory effort and symmetric chest movement Auscultation: + rhonchi (bilateral lung bases); no crackles and no pleural rub Cardiovascular: RRR, no murmur, no edema Rate/Rhythm: regular rhythm and + tachycardic Heart Sounds: normal S1 and normal S2 Extremities: + pedal edema Gastrointestinal (Abdomen): normal bowel sounds, soft, nontender, no hepatosp lenomegaly Rectal Exam: no rectal mass and no rectal lesions Musculoskeletal: wearing bilateral SCDs Skin: + erythema (blanching patches of erythema present on b/l lower extremities, demarcated) Trauma: + evidence of skin trauma (multiple track chang on b/l forearms ) Neurologic: moves all extremities Genitourinary: Valentino catheter in place draining yellow-colored urine without visible blood clots Results & Data ([facility]) Vital Signs (Past 12 Hours) Vital Signs Pulse Pulse Resp BP Pulse Ox Pulse Ox 08/04/19 06:16 99 H 102/62 95 08/04/19 05:16 96 H 100/60 96 08/04/19 04:16 107 H 98/67 L 95 08/04/19 03:37 105 H 18 97 08/04/19 03:16 108 H 123/75 96 08/04/19 02:16 117 H 131/75 95 08/04/19 01:55 122 H 120/82 96 08/04/19 01:29 87 87 18 92 08/04/19 01:16 84 94/60 L 95 08/04/19 00:16 84 100/70 92 08/03/19 23:16 86 102/66 93 08/03/19 23:12 87 18 95 08/03/19 22:30 90 96 08/03/19 22:16 91 H 101/64 93 08/03/19 22:00 93 H 95 08/03/19 21:30 97 H 93 08/03/19 21:16 100 H 99/62 L 93 08/03/19 21:00 104 H 95 97 08/03/19 20:30 112 H 92 08/03/19 20:16 116 H 97/59 L 95 08/03/19 20:00 120 H 88 L 08/03/19 19:47 102 H 102 H 18 91 08/03/19 19:30 115 H 91 08/03/19 19:16 89 102/57 L 98 08/03/19 19:00 88 98 Critical Care Time Critical Care Time: Yes Total Critical Care Time: 95 I have personally spent 95 minutes of critical care time in the direct management of this patient. This is a life/limb threatening event. This includes time spent evaluating patient, direct bedside care, chart review, placing orders, interpretation of diagnostic studies, discussion with consultants, patient, and/or family members regarding treatment decisions, as well as other required patient management activities. This time is exclusive of all separately billable procedures, and teaching time and separate from and in addition to any other critical care service time. Resident Activity Tracking Resident Involvement: Resident Care Provided Care Provided: Adult [facility]
--- NOTE | 2019-08-04 06:59 | XRay Report ---
XR chest 1V portable CLINICAL HISTORY: Abnormal chest x-ray. Follow-up study. Respiratory failure. COMPARISON STUDY: 08/03/2019 FINDINGS: The endotracheal tube is 1 cm above the denice. There is a left subclavian central venous c atheter unchanged in position. There is a nasogastric tube which passes into the stomach. There are p ersistent bilateral mid to lower lung zone airspace opacities.[ IMPRESSION: 1. Endotracheal tube 1 cm above the denice 2. Persistent bilateral mid to lower lung zone pulmonary airspace opacities ACT 112: Negative or not required by law. Electronically signed by: Kory Foreman M.D. 08/04/2019 6:57 AM
[2019-08-04 07:10] LABS: Amphetamine Urine, Confirm 5410 ng/mL (<250); MDA negative; MDEA negative; MDMA (Ecstasy) Urine, Confirm negative; Methamphetamine, Ur Confirm >15000 ng/mL (<250)
--- NOTE | 2019-08-04 08:06 | Hospitalist Progress Note ---
Date of Service August 04, 2019 Assessment & Plan (1) Admitted to intensive care unit: 23 yo female with PMHx of IV drug abuse admitted for hypoxic respiratory failure secondary to superimposed multifocal pneumonia on Influenza B with MRSA positive blood cultures, sent to ICU for acute, hypoxic respiratory distress. - Currently intubated with mechanical ventilation and sedation. Sedated on propofol 30mg/kg/min, zyprexa 5mg qAM. Precedex discontinued - GI feeds via orograstric tube - Failed spontaneous breathing trail yesterday, became agitated, tachycardic, unable to follow commands safely. - Noted that Right arterial line was occluded and removed. Code: Full Code DVT ppx: Lovenox 30mg SQ q12h FENGI: NPO, tube feeds at goal rate of 55; Protonix for stress ulcer prevention Disposition: Pending improvement of respiratory status/wean from vent for transfer to floor. (2) Sepsis with acute hypoxic respiratory failure: Correction of underlying causes - infectious processes. (3) Multifocal pneumonia: - Superimposed multifocal PNA on positive Influenza B - On Day 4 of Dapsone (MRSA blood and other possible soft tissue infections) and ceftaroline (MRSA Lung coverage), completed course of Azithromycin (atypical coverage), and Tamiflu (influenza B). - bronch cultures positive for MRSA, munira albicans. urine legionella antigen negative. (4) IV drug abuse: - Urine tox positive on admission for Methamphetamine and Ecstasy - Echocardiogram 07/30 showing normal EF without valvular vegetations. Obvious concern for right sided endocarditis in setting of IV drug abuse, but no evidence with normal echo. 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 primary hepatic etiology. Hep B and C neg. Hep A pending. - Resolved. (6) Thrombocytopenia: - Suspected from bone marrow infiltration from influenza - Resolved (7) Influenza B: as noted above (8) GERD (gastroesophageal reflux disease): - noted in past medical hx - Protonix for stress ulcer prevention (9) Lactic acid acidosis: 07/30 2.9 --> resovled to 1.6 on 07/31 Most likely from poor perfusion in setting of sepsis (10) Raynauds disease: Noted in past medical hx No outpatient noted treatment Hands are erythematous with blanching on palpation consistent with disease process. (11) Depression: Noted to be on Celexa 10mg PO HS at home (12) Hx MRSA infection: As noted in past medical hx; most likely from IV Drug Abuse. Admission and Anticipated Discharge Date Admission Date: July 30, 2019 Supervising Physician Co-Signing Physician Notes Attending attestation Pt seen and examined in concert with Dr. Austin. In agreement with the d ocumented findings as noted in the resident documentation with any exceptions or additions as noted here. Pt sedated on ventilator. On examination, diffuse rhonchi and rales with transmitted vent noise. S1/S2 nl, tachycardic. Bilateral distal extremity erythema Acute hypoxic respiratory failure in the setting of multifocal MRSA PNA and influenza B - continue dapsone and ceftaroline. Complete course of Tamiflu. Ventilatory support per ICU team. h/o IVDA - previously on buprenorphine by history, +ve Utox as noted. Not currently on narcotic therapy, monitor for signs/sx of withdrawal Raynauds - stable findings, on broad spectrum abx Else see resident documentation as noted. Subjective Caveat: History Limited by Mechanical Intubation with Sedation. No acute events reported overnight. Continues to have bilateral hand swelling and skin changes consistent with Raynaud's. Failed SBT yesterday for considerations for extubation, patient became anxious, tachycardic, unable to follow commands. Review of Systems Review of Systems: Unobtainable due to endotracheal tube Physical Exam Constitutional: WD/WN, vitals as above + ill appearing and comfortable Eyes: PERRL, conjunctivae normal, anicteric sclerae ENMT: intubated; orogastric feeding tube in place Neck: normal visual inspection and trachea midline Respiratory: coarse expiratory breath sounds anteriorly, diffusely. Inspiratory crackles anteriorly greater on right to area of 4th IC. Cardiovascular: Rate/Rhythm: regular rate and regular rhythm Gastrointestinal (Abdomen): Inspection/Auscultation: abdomen not distended Percussion/Palpation: abdomen soft; abdomen nontender and abdomen not rigid Musculoskeletal: bilateral hand edema with erythematous skin that blanches with pressure to white consistent with patient's Raynaud's history; bilateral feet clearing of erythema as pen estevan outlined from prior for concerns of cellulitis. Scarring to left lateral thigh consistent with prior IV drug use. Neurologic: Sedated Psychiatric: unable to assess sedated Results & Data ([facility]) Vital Signs (Past 12 Hours) Vital Signs Pulse Pulse Resp BP Pulse Ox Pulse Ox 08/04/19 06:16 99 H 102/62 95 08/04/19 05:16 96 H 100/60 96 08/04/19 04:16 107 H 98/67 L 95 08/04/19 03:37 105 H 18 97 08/04/19 03:16 108 H 123/75 96 08/04/19 02:16 117 H 131/75 95 08/04/19 01:55 122 H 120/82 96 08/04/19 01:29 87 87 18 92 08/04/19 01:16 84 94/60 L 95 08/04/19 00:16 84 100/70 92 08/03/19 23:16 86 102/66 93 08/03/19 23:12 87 18 95 08/03/19 22:30 90 96 08/03/19 22:16 91 H 101/64 93 08/03/19 22:00 93 H 95 08/03/19 21:30 97 H 93 08/03/19 21:16 100 H 99/62 L 93 08/03/19 21:00 104 H 95 97 08/03/19 20:30 112 H 92 08/03/19 20:16 116 H 97/59 L 95 Laboratory Results Laboratory Results - last 24 hr 07/30/19 08/03/19 08/03/19 17:10 08:39 11:48 WBC RBC Hgb Hct MCV MCH MCHC RDW Std Deviation RDW Coeff of Christina Plt Count MPV Immature Gran % (Auto) Neut % (Auto) Lymph % (Auto) [place] % (Auto) Eos % (Auto) Baso % (Auto) Immature Gran # (Auto) Neut # (Auto) Lymph # (Auto) [place] # (Auto) Eos # (Auto) Baso # (Auto) ABG pH ABG pCO2 ABG pO2 ABG HCO3 ABG O2 Saturation ABG Base Excess Dar Test Oxygen Given Sodium Potassium Chloride Carbon Dioxide Anion Gap BUN Creatinine Est Cr Clr Drug Dosing Est GFR ( Amer) Est GFR (Non-Af Amer) BUN/Creatinine Ratio Glucose POC Glucose 94 Calcium Phosphorus Magnesium Total Bilirubin Direct Bilirubin GGT Pending AST ALT Alkaline Phosphatase Total Protein Albumin Procalcitonin U Amphetamines Confirm 5410 H U Methamphetamin Confrm >19632 H Urine MDEA negative MDMA negative Urine MDMA negative Drug Screen Comment SEE NOTE 08/03/19 08/04/1908/04/20 18:36 02:58 04:24 WBC RBC Hgb Hct MCV MCH MCHC RDW Std Deviation RDW Coeff of Christina Plt Count MPV Immature Gran % (Auto) Neut % (Auto) Lymph % (Auto) [place] % (Auto) Eos % (Auto) Baso % (Auto) Immature Gran # (Auto) Neut # (Auto) Lymph # (Auto) [place] # (Auto) Eos # (Auto) Baso # (Auto) ABG pH 7.47 H ABG pCO2 32 L ABG pO2 71 L ABG HCO3 23 ABG O2 Saturation 94.8 ABG Base Excess -0.8 Dar Test Pos Oxygen Given 30% Sodium Potassium Chloride Carbon Dioxide Anion Gap BUN Creatinine Est Cr Clr Drug Dosing Est GFR ( Amer) Est GFR (Non-Af Amer) BUN/Creatinine Ratio Glucose POC Glucose 129 H 100 H Calcium Phosphorus Magnesium Total Bilirubin Direct Bilirubin GGT AST ALT Alkaline Phosphatase Total Protein Albumin Procalcitonin U Amphetamines Confirm U Methamphetamin Confrm Urine MDEA MDMA Urine MDMA Drug Screen Comment 08/04/19 08/04/19 08/04/19 04:53 04:53 04:53 WBC 4.41 L RBC 2.94 L Hgb 8.3 L Hct 25.2 L MCV 85.7 MCH 28.2 MCHC 32.9 RDW Std Deviation 43.9 RDW Coeff of Christina 14.1 Plt Count 164 MPV 10.4 Immature Gran % (Auto) 0.9 Neut % (Auto) 65.5 Lymph % (Auto) 14.3 [place] % (Auto) 18.4 Eos % (Auto) 0.7 Baso % (Auto) 0.2 Immature Gran # (Auto) 0.04 H Neut # (Auto) 2.89 Lymph # (Auto) 0.63 L [place] # (Auto) 0.81 H Eos # (Auto) 0.03 Baso # (Auto) 0.01 ABG pH ABG pCO2 ABG pO2 ABG HCO3 ABG O2 Saturation ABG Base Excess Dar Test Oxygen Given Sodium 142 Potassium 3.5 Chloride 112 H Carbon Dioxide 27 Anion Gap 3.0 BUN 9 Creatinine 0.34 L Est Cr Clr Drug Dosing 230.1 Est GFR ( Amer) > 150.0 Est GFR (Non-Af Amer) > 150.0 BUN/Creatinine Ratio 26.2 H Glucose 143 H POC Glucose Calcium 7.5 L Phosphorus 2.4 L Magnesium 1.7 L Total Bilirubin 1.0 Direct Bilirubin 0.5 H GGT AST 12 L ALT 43 Alkaline Phosphatase 293 H Total Protein 4.4 L Albumin 1.6 L Procalcitonin 1.79 H U Amphetamines Confirm U Methamphetamin Confrm Urine MDEA MDMA Urine MDMA Drug Screen Comment Medications Administered Albuterol (Ventolin 0.5% 2.5mg/0.5ml) 2.5 mg NEB Q2H PRN PRN Reason: SOB/Wheeze Stop: 08/29/19 16:34 Last Admin: 08/04/19 01:29 Dose: 2.5 mg Documented by: [id number] Admin: 08/03/19 19:38 Dose: 2.5 mg Documented by: [id number] Admin: 08/03/19 07:22 Dose: 2.5 mg Documented by: [id number] Admin: 08/02/19 23:49 Dose: 2.5 mg Documented by: [id number] Admin: 08/02/19 20:13 Dose: 2.5 mg Documented by: [id number] Admin: 08/02/19 13:34 Dose: 2.5 mg Documented by: [id number] Admin: 08/02/19 07:59 Dose: 2.5 mg Documented by: [id number] Admin: 08/02/19 04:42 Dose: 2.5 mg Documented by: [id number] Buprenorphine HCl (Subutex) 8 mg SL BID MARK Stop: 08/29/19 20:59 Last Admin: 07/31/19 10:00 Dose: Not Given Documented by: [id number] Admin: 07/30/19 23:00 Dose: Not Given Documented by: [id number] Citalopram Hydrobromide (Celexa) 10 mg PO HS MARK Stop: 08/29/19 20:59 Last Admin: 08/03/19 20:13 Dose: 10 mg Documented by: [id number] Admin: 08/02/19 19:41 Dose: 10 mg Documented by: [id number] Admin: 08/01/19 19:56 Dose: 10 mg Documented by: [id number] Admin: 07/31/19 19:53 Dose: 10 mg Documented by: [id number] Admin: 07/30/19 22:54 Dose: 10 mg Documented by: [id number] Enoxaparin Sodium (Lovenox) 30 mg SQ Q12H MARK Stop: 09/01/19 08:59 Last Admin: 08/04/19 08:21 Dose: 30 mg Documented by: [id number] Admin: 08/03/19 20:14 Dose: 30 mg Documented by: [id number] Admin: 08/03/19 08:08 Dose: 30 mg Documented by: [id number] Admin: 08/02/19 19:44 Dose: 30 mg Documented by: [id number] Admin: 08/02/19 09:23 Dose: 30 mg Documented by: [id number] Enteral Nutritional Formula (Impact 1.0 [place]) 1,[address] [facility]; Protocol Stop: 08/30/19 11:14 Last Admin: 08/03/19 16:51 Dose: 1,000 ml Documented by: [id number] Admin: 08/02/19 17:34 Dose: 1,000 ml Documented by: [id number] Admin: 07/31/19 12:14 Dose: 1,000 ml Documented by: [id number] Fentanyl Citrate (Fentanyl Citrate) 50 mcg IV Q2H PRN PRN Reason: Moderate Pain (4,5,6) Stop: 08/14/19 08:41 Last Admin: 08/03/19 20:50 Dose: 50 mcg Documented by: [id number] Admin: 08/03/19 14:53 Dose: 50 mcg Documented by: [id number] Admin: 08/01/19 10:45 Dose: 50 mcg Documented by: [id number] Hydroxyzine HCl (Vistaril) 10 mg PO TID PRN PRN Reason: Anxiety Stop: 08/29/19 14:30 Last Admin: 08/03/19 20:48 Dose: 10 mg Documented by: [id number] Azithromycin 250 mg/ Dextrose 252.5 mls @ 125 mls/hr IV Q24H MARK Stop: 08/05/19 18:02 Last Infusion: 08/03/19 18:08 Dose: 0 mls/hr Documented by: [id number] Admin: 08/03/19 15:45 Dose: 125 mls/hr Documented by: [id number] Infusion: 08/02/19 21:03 Dose: 0 mls/hr Documented by: [id number] Admin: 08/02/19 17:31 Dose: 125 mls/hr Documented by: [id number] Infusion: 08/01/19 18:48 Dose: 0 mls/hr Documented by: [id number] Admin: 08/01/19 16:23 Dose: 125 mls/hr Documented by: [id number] Infusion: 07/31/19 17:37 Dose: 0 mls/hr Documented by: [id number] Admin: 07/31/19 15:43 Dose: 125 mls/hr Documented by: [id number] Fentanyl Citrate (Fentanyl Drip) 1,250 mcg in 250 mls @ 0 mls/hr IV .Q0M MARK; Protocol Stop: 08/14/19 08:44 Last Titration: 08/03/19 08:50 Dose: 0 mcg/hr, 0 mls/hr Documented by: [id number] Admin: 08/03/19 08:11 Dose: Not Given Documented by: [id number] Admin: 08/03/19 08:05 Dose: Not Given Documented by: [id number] Titration: 08/02/19 14:40 Dose: 0 mcg/hr, 0 mls/hr Documented by: [id number] Titration: 08/02/19 12:00 Dose: 75 mcg/hr, 15 mls/hr Documented by: [id number] Titration: 08/02/19 10:30 Dose: 100 mcg/hr, 20 mls/hr Documented by: [id number] Titration: 08/02/19 08:43 Dose: 125 mcg/hr, 25 mls/hr Documented by: [id number] Admin: 08/02/19 04:47 Dose: 150 mcg/hr, 30 mls/hr Documented by: [id number] Cosigned by: [id number] Titration: 08/02/19 04:13 Dose: 150 mcg/hr, 30 mls/hr Documented by: [id number] Cosigned by: [id number] Admin: 08/01/19 19:53 Dose: 150 mcg/hr, 30 mls/hr Documented by: [id number] Cosigned by: [id number] Titration: 08/01/19 19:53 Dose: 150 mcg/hr, 30 mls/hr Documented by: [id number] Cosigned by: [id number] Titration: 08/01/19 18:57 Dose: 150 mcg/hr, 30 mls/hr Documented by: [id number] Cosigned by: [id number] Admin: 08/01/19 12:13 Dose: 150 mcg/hr, 30 mls/hr Documented by: [id number] Cosigned by: [id number] Titration: 08/01/19 12:13 Dose: 150 mcg/hr, 30 mls/hr Documented by: [id number] Cosigned by: [id number] Titration: 08/01/19 07:22 Dose: 150 mcg/hr, 30 mls/hr Documented by: [id number] Cosigned by: [id number] Admin: 08/01/19 04:33 Dose: 150 mcg/hr, 30 mls/hr Documented by: [id number] Cosigned by: [id number] Titration: 08/01/19 04:12 Dose: 150 mcg/hr, 30 mls/hr Documented by: [id number] Cosigned by: [id number] Admin: 07/31/19 19:52 Dose: 150 mcg/hr, 30 mls/hr Documented by: [id number] Cosigned by: [id number] Titration: 07/31/19 19:52 Dose: 100 mcg/hr, 20 mls/hr Documented by: [id number] Cosigned by: [id number] Titration: 07/31/19 19:23 Dose: 100 mcg/hr, 20 mls/hr Documented by: [id number] Cosigned by: [id number] Titration: 07/31/19 13:05 Dose: 100 mcg/hr, 20 mls/hr Documented by: [id number] Titration: 07/31/19 12:13 Dose: 75 mcg/hr, 15 mls/hr Documented by: [id number] Titration: 07/31/19 11:14 Dose: 50 mcg/hr, 10 mls/hr Documented by: [id number] Admin: 07/31/19 10:05 Dose: 25 mcg/hr, 5 mls/hr Documented by: [id number] Cosigned by: [id number] Midazolam HCl (Versed) 125 mg in 250 mls @ 0 mls/hr IV .Q0M MARK; Protocol Stop: 08/30/19 08:44 Last Titration: 08/03/19 08:51 Dose: 0 mg/hr, 0 mls/hr Documented by: [id number] Admin: 08/03/19 08:05 Dose: Not Given Documented by: [id number] Admin: 08/03/19 08:05 Dose: Not Given Documented by: [id number] Admin: 08/03/19 08:05 Dose: Not Given Documented by: [id number] Titration: 08/02/19 14:40 Dose: 0 mg/hr, 0 mls/hr Documented by: [id number] Titration: 08/02/19 12:35 Dose: 2 mg/hr, 4 mls/hr Documented by: [id number] Titration: 08/02/19 10:30 Dose: 4 mg/hr, 8 mls/hr Documented by: [id number] Titration: 08/02/19 09:27 Dose: 5 mg/hr, 10 mls/hr Documented by: [id number] Titration: 08/02/19 08:43 Dose: 6 mg/hr, 12 mls/hr Documented by: [id number] Titration: 08/01/19 19:53 Dose: 7 mg/hr, 14 mls/hr Documented by: [id number] Cosigned by: [id number] Admin: 08/01/19 19:53 Dose: 7 mg/hr, 14 mls/hr Documented by: [id number] Cosigned by: [id number] Titration: 08/01/19 18:57 Dose: 7 mg/hr, 14 mls/hr Documented by: [id number] Cosigned by: [id number] Titration: 08/01/19 18:25 Dose: 7 mg/hr, 14 mls/hr Documented by: [id number] Titration: 08/01/19 07:22 Dose: 8 mg/hr, 16 mls/hr Documented by: [id number] Cosigned by: [id number] Admin: 08/01/19 04:33 Dose: 8 mg/hr, 16 mls/hr Documented by: [id number] Cosigned by: [id number] Titration: 08/01/19 04:33 Dose: 8 mg/hr, 16 mls/hr Documented by: [id number] Cosigned by: [id number] Titration: 07/31/19 20:30 Dose: 8 mg/hr, 16 mls/hr Documented by: [id number] Titration: 07/31/19 19:23 Dose: 4 mg/hr, 8 mls/hr Documented by: [id number] Cosigned by: [id number] Titration: 07/31/19 12:13 Dose: 4 mg/hr, 8 mls/hr Documented by: [id number] Titration: 07/31/19 11:14 Dose: 2 mg/hr, 4 mls/hr Documented by: [id number] Titration: 07/31/19 10:30 Dose: 1.5 mg/hr, 3 mls/hr Documented by: [id number] Admin: 07/31/19 09:53 Dose: 1 mg/hr, 2 mls/hr Documented by: [id number] Ceftaroline Fosamil 600 mg/ (Sodium Chloride) 270 mls @ 270 mls/hr IV Q8H MARK Stop: 08/08/19 10:29 Last Infusion: 08/04/19 03:59 Dose: 0 mls/hr Documented by: [id number] Admin: 08/04/19 02:45 Dose: 270 mls/hr Documented by: [id number] Infusion: 08/03/19 20:18 Dose: 0 mls/hr Documented by: [id number] Admin: 08/03/19 18:41 Dose: 270 mls/hr Documented by: [id number] Infusion: 08/03/19 12:38 Dose: 0 mls/hr Documented by: [id number] Admin: 08/03/19 11:37 Dose: 270 mls/hr Documented by: [id number] Infusion: 08/03/19 04:30 Dose: 0 mls/hr Documented by: [id number] Admin: 08/03/19 02:24 Dose: 270 mls/hr Documented by: [id number] Infusion: 08/02/19 19:00 Dose: 0 mls/hr Documented by: [id number] Admin: 08/02/19 17:31 Dose: 270 mls/hr Documented by: [id number] Infusion: 08/02/19 10:45 Dose: 0 mls/hr Documented by: [id number] Admin: 08/02/19 09:42 Dose: 270 mls/hr Documented by: [id number] Infusion: 08/02/19 03:34 Dose: 0 mls/hr Documented by: [id number] Admin: 08/02/19 02:17 Dose: 270 mls/hr Documented by: [id number] Infusion: 08/01/19 20:18 Dose: 0 mls/hr Documented by: [id number] Admin: 08/01/19 18:10 Dose: 270 mls/hr Documented by: [id number] Infusion: 08/01/19 12:10 Dose: 0 mls/hr Documented by: [id number] Admin: 08/01/19 10:33 Dose: 270 mls/hr Documented by: [id number] Daptomycin 500 mg/ Syringe 10 mls @ 5 mls/min IV Q24H MARK; Protocol Stop: 08/15/19 10:29 Last Admin: 08/03/19 11:37 Dose: 5 mls/min Documented by: [id number] Admin: 08/02/19 09:42 Dose: 5 mls/min Documented by: [id number] Admin: 08/01/19 10:33 Dose: 5 mls/min Documented by: [id number] Propofol (Diprivan) 1,000 mg in 100 mls @ 12.186 mls/hr IV .Q8H13M MARK; Protocol Stop: 08/06/19 16:14 Last Titration: 08/04/19 06:54 Dose: 30 mcg/kg/min, 12.2 mls/hr Documented by: [id number] Cosigned by: [id number] Admin: 08/04/19 00:44 Dose: 30 mcg/kg/min, 12.2 mls/hr Documented by: [id number] Cosigned by: [id number] Titration: 08/04/19 00:44 Dose: 30 mcg/kg/min, 12.2 mls/hr Documented by: [id number] Cosigned by: [id number] Titration: 08/03/19 22:55 Dose: 30 mcg/kg/min, 12.2 mls/hr Documented by: [id number] Cosigned by: [id number] Titration: 08/03/19 16:50 Dose: 10 mcg/kg/min, 4.1 mls/hr Documented by: [id number] Admin: 08/03/19 16:30 Dose: 5 mcg/kg/min, 2 mls/hr Documented by: [id number] Cosigned by: [id number] Acetaminophen (Ofirmev) 1,000 mg in 100 mls @ 400 mls/hr IV Q8H PRN PRN Reason: Pain or Fever Stop: 08/07/19 03:49 Last Infusion: 08/04/19 04:19 Dose: 0 mls/hr Documented by: [id number] Admin: 08/04/19 03:59 Dose: 400 mls/hr Documented by: [id number] Dexmedetomidine HCl 400 mcg/ (Sodium Chloride) 100 mls @ 16.925 mls/hr IV .Q5H5 5M MARK; Protocol Stop: 08/08/19 05:29 Last Admin: 08/04/19 06:54 Dose: 1 mcg/kg/hr, 16.9 mls/hr Documented by: [id number] Cosigned by: [id number] Potassium Phosphate 21 mmol/ (Sodium Chloride) 507 mls @ 88 mls/hr IV ONE ONE Stop: 08/04/19 11:45 Last Admin: 08/04/19 06:11 Dose: 88 mls/hr Documented by: [id number] Lansoprazole (Prevacid) [address] [facility] Stop: 08/31/19 10:59 Last Admin: 08/04/19 08:20 Dose: 30 mg Documented by: [id number] Admin: 08/03/19 08:08 Dose: 30 mg Documented by: [id number] Admin: 08/02/19 09:05 Dose: 30 mg Documented by: [id number] Admin: 08/01/19 12:11 Dose: 30 mg Documented by: [id number] Midazolam HCl (Versed) 2 mg IV Q2H PRN PRN Reason: agitation/anxiety Stop: 08/30/19 08:41 Last Admin: 08/04/19 02:02 Dose: 2 mg Documented by: [id number] Admin: 08/03/19 16:04 Dose: 2 mg Documented by: [id number] Admin: 08/03/19 12:18 Dose: 2 mg Documented by: [id number] Admin: 08/03/19 09:11 Dose: 2 mg Documented by: [id number] Admin: 08/01/19 10:45 Dose: 2 mg Documented by: [id number] Admin: 07/31/19 09:59 Dose: 2 mg Documented by: [id number] Miscellaneous (Order Awaiting Action) 1 ea N/A QS [facility] Stop: 08/29/19 15:59 Last Admin: 07/31/19 09:59 Dose: Not Given Documented by: [id number] Admin: 07/31/19 06:14 Dose: Not Given Documented by: [id number] Admin: 07/30/19 15:21 Dose: Not Given Documented by: [id number] Olanzapine (Zyprexa Zydis Od) [address] [facility] Stop: 09/02/19 08:59 Last Admin: 08/04/19 08:20 Dose: 5 mg Documented by: [id number] Admin: 08/03/19 08:58 Dose: 5 mg Documented by: [id number] Ondansetron HCl (Zofran) 4 mg IV Q6H PRN PRN Reason: Nausea Stop: 08/29/19 14:30 Last Admin: 07/30/19 17:10 Dose: 4 mg Documented by: [id number] Ziprasidone (Geodon) 5 mg IM BID PRN PRN Reason: Agitation Stop: 09/01/19 08:39 Last Admin: 08/03/19 20:57 Dose: 5 mg Documented by: [id number] Admin: 08/03/19 08:15 Dose: 5 mg Documented by: [id number] Admin: 08/03/19 01:07 Dose: 5 mg Documented by: [id number] Resident Activity Tracking Resident Involvement: Resident Care Provided Care Provided: Adult Hospital Medicine (1) Depression Active/Remission status: remission status unspecified Depression Type: major depressive disorder Major depression recurrence: unspecified whether recurrent Qualified Code(s): F32.9 - Major depressive disorder, single episode, unspecified (2) GERD (gastroesophageal reflux disease) Esophagitis presence: esophagitis presence not specified Qualified Code(s): K21.9 - Gastro-esophageal reflux disease without esophagitis
[2019-08-04] MEDS: LANSOPRAZOLE 30 MG SOLTAB OG SCH (08:20)
[2019-08-04] MEDS: OLANZAPINE ZYDIS 5 MG ORALLY DIS. TAB PO SCH (08:20)
[2019-08-04] MEDS: ENOXAPARIN INJ 30 MG/0.3 ML SYR SQ SCH ×2 (08:21→21:22)
[2019-08-04] MEDS ORDERED: FUROSEMIDE 40 MG/4 ML VIAL IV ONE (10:30)
[2019-08-04] MEDS ORDERED: POTASSIUM CHLORIDE PWD 20 MEQ PACK PO ONE (10:45)
[2019-08-04] MEDS: DAPTOmycin 500 MG in SYRINGE 0 ML IV SCH (12:06)
[2019-08-04] MEDS: fentaNYL citrate 100 MCG/2 ML VIAL IV PRN ×5 (12:08→23:15)
--- NOTE | 2019-08-04 12:50 | Ultrasound Report ---
BILATERAL LOWER EXTREMITY VENOUS DOPPLER HISTORY: systemic infection COMPARISON STUDY: None. FINDINGS: There is normal compressibility, flow, and augmentation within the bilateral lower extremit y deep venous systems. IMPRESSION: No DVT within the right or left lower extremity. ACT 112: Negative or not required by law. Electronically signed by: Johan Bledsoe M.D. 08/04/2019 12:49 PM
--- NOTE | 2019-08-04 12:52 | Ultrasound Report ---
US venous doppler UE BI HISTORY: 23 years-old Female systemic infection COMPARISON: None TECHNIQUE: Multiple real-time sonographic images of the bilateral upper extremity deep venous structu res were obtained assessing grayscale appearance, color and spectral flow FINDINGS: Normal flow, compressibility, phasicity and augmentation of the upper extremity deep venous structure s. Limited view of the right upper extremity basilic and cephalic veins secondary to small size. Adams tionally, there is limited view of the left subclavian vein secondary to IV catheter and bandaging. Occlusive superficial venous thrombosis involves the cephalic vein at the level of the distal upper a rm and antecubital fossa extending for a length of at least 5 cm. There is adjacent subcutaneous nguyen a. IMPRESSION: 1. No sonographic evidence of deep venous thrombosis. 2. Occlusive superficial venous thrombosis of the left cephalic vein. ACT 112: Negative or not required by law. The above report was generated using voice recognition software. It may contain grammatical, syntax o r spelling errors. Electronically signed by: Johan Bledsoe M.D. 08/04/2019 12:51 PM
[2019-08-04] MEDS: IMPACT LIQD 1.0 CAL 1,000 ML BAG OG SCH (13:10)
[2019-08-04 14:25] LABS: Anti Nuclear Antibody Screen NEGATIVE (NEGATIVE); Scleroderma Anti Scl-70 Ab <1.0 NEG AI (<1.0 NEG)
[2019-08-04] MEDS ORDERED: MIDAZOLAM HCL 1 MG/ML 2ML VIAL ONE (16:53)
[2019-08-04] MEDS ORDERED: STAT IV Infusion **Titration per Protocol STA (17:19)
[2019-08-04] MEDS ORDERED: MIDAZOLAM HCL 125MG/250ML D5W ONE (17:20)
[2019-08-04 17:26] LABS: Blood Urea Nitrogen 9 mg/dl (7-18); Calcium 7.7 mg/dl (8.5-10.1); Carbon Dioxide 27 mmol/L (21-32); Chloride 112 mmol/L (98-107); Creatinine Clr Calc Pharmacy 230.1 ml/min; Est GFR (African American) > 150.0; Est GFR (Non-African American) > 150.0; Glucose 130 mg/dl (70-99); Magnesium 1.9 mg/dl (1.8-2.4); Potassium 4.2 mmol/L (3.5-5.1); Sodium 142 mmol/L (136-145)
[2019-08-04] MEDS: MIDAZOLAM HCL 125 MG/250 ML BAG IV SCH (17:31)
[2019-08-04 17:32] LABS: Phosphorus 3.4 mg/dl (2.5-4.9)
[2019-08-04] MEDS ORDERED: MIDAZOLAM HCL 1 MG/ML 2ML VIAL IV STA (18:10)
--- NOTE | 2019-08-04 18:34 | Billing Data ---
Date of Service August 04, 2019 Coding Level of Care Code Critical Care 1st - mins
--- NOTE | 2019-08-04 21:11 | Procedure Note ---
Procedure Note Date of Service August 04, 2019 Procedure: Arterial Line Placement Attending: Dr. Mccarty APC: Ed Penaloza PA-C Indication: Monitoring on Pressors Anesthesia: Lidocaine 1% Emergent consent implied given the patient's labile blood pressures and need for frequent blood draws in the setting of poor central access. A time-out was completed verifying correct patient, procedure, site, positioning, and implant(s) or special equipment if applicable. Allens test was performed to ensure adequate perfusion. Patients RIGHT wrist was prepped and draped in the usual sterile fashion. Ultrasound guidance was used to aid needle placement. A 20g Arrow arterial line was introduced into the RIGHT Radial artery. Strong pulsatile blood flow was appreciated up the catheter, however I was unable to introduce the catheter into the vessel. The needle was removed and catheter was withdrawn and pulsatile arterial blood flow was noted. The catheter was wired over and I attempted to gently pass the catheter into the vessel unsuccessfully. The procedure was abated at this time and dressing was applied to the affected area. The patient tolerated the procedure well. Blood Loss: Minimal Complications: None Procedural Ultrasound Guidance: Procedure Date: 08/04/2019 Indication: Poor access, frequent lab draws, labile blood pressures. Attending: Dr. Mccarty APC: Ed Penaloza PA-C Artery Identified: YES Complications: Unable to thread catheter into vessel. Patient tolerated procedure: WELL Coding CPT Codes Tubes, Drains, and Vasc Access - Tubes, Drains, and Vasc Access: [id number] Place Catheter In Artery ([id number]) [facility] [place] Codes (Charges) Tubes, Drains, and Vasc Access Procedure 2: Tubes, Drains, and Vasc Access: [id number] Place Catheter In Artery
[2019-08-04] MEDS: MAGNESIUM OXIDE 400 MG TAB PO SCH (21:22)
[2019-08-04] MEDS: CITALOPRAM 20 MG TAB PO SCH (21:22)
[2019-08-05 00:02] LABS: BUN Creatinine Ratio 28.6 (10-20); Blood Urea Nitrogen 9 mg/dl (7-18); Calcium 7.5 mg/dl (8.5-10.1); Carbon Dioxide 29 mmol/L (21-32); Chloride 109 mmol/L (98-107); Creatinine Clr Calc Pharmacy 252.4 ml/min; Est GFR (African American) > 150.0; Est GFR (Non-African American) > 150.0; Glucose 127 mg/dl (70-99); Magnesium 1.8 mg/dl (1.8-2.4); Phosphorus 3.2 mg/dl (2.5-4.9); Potassium 3.6 mmol/L (3.5-5.1); Sodium 141 mmol/L (136-145)
[2019-08-05] MEDS ORDERED: POTASSIUM CHLORIDE / WTR 20 MEQ/100 ML PLCT IV ONE (00:07)
[2019-08-05] MEDS ORDERED: FUROSEMIDE 10 MG in SYRINGE 0 ML IV STA (00:13)
[2019-08-05] MEDS: fentaNYL citrate 100 MCG/2 ML VIAL IV PRN ×2 (01:49→04:21)
[2019-08-05] MEDS: CEFTAROLINE FOSAMIL ACETATE 600 MG in SODIUM CHLORIDE 0.9% 250 ML IV SCH ×3 (02:29→17:51)
[2019-08-05] MEDS: propofoL 1,000 MG/100 ML VIAL IV SCH ×3 (04:13→18:20)
[2019-08-05] MEDS ORDERED: ALBUMIN 25% 50 ML IV ONE (05:23)
[2019-08-05 05:35] LABS: Hematocrit (blood only) 25.1 % (37-47); Hemoglobin 8.4 g/dL (12.0-16.0); Mean Corpuscular Hemoglobin 28.6 pg (25-34); Mean Corpuscular Hgb Conc 33.5 g/dL (32-36); Mean Corpuscular Volume 85.4 fL (80-100); Mean Platelet Volume 9.8 fL (7.4-10.4); Platelet Count 275 K/uL (130-400); RDW Standard Deviation 43.9 fL (36.4-46.3); Red Blood Count 2.94 M/uL (4.2-5.4); White Blood Count 9.08 K/uL (4.8-10.8)
[2019-08-05] MEDS ORDERED: FUROSEMIDE 10 MG in SYRINGE 0 ML IV ONE (05:35)
[2019-08-05 05:47] LABS: Base Excess ABG 2.2 mEq/L (-9-1.8); HCO3 ABG 26 mmol/L (19-24); Oxygen Saturation ABG 95.6 % (90-95); PCO2 ABG 35 mmHg (35-46); PO2 ABG 79 mmHg (80-95); pH ABG 7.48 (7.35-7.45)
[2019-08-05 05:51] LABS: Allen Test Pos (Pos)
[2019-08-05 05:52] LABS: BUN Creatinine Ratio 28.2 (10-20); Blood Urea Nitrogen 10 mg/dl (7-18); Calcium 7.9 mg/dl (8.5-10.1); Carbon Dioxide 29 mmol/L (21-32); Chloride 108 mmol/L (98-107); Creatinine Clr Calc Pharmacy 230.1 ml/min; Est GFR (African American) > 150.0; Est GFR (Non-African American) > 150.0; Glucose 119 mg/dl (70-99); Magnesium 1.8 mg/dl (1.8-2.4); Phosphorus 3.6 mg/dl (2.5-4.9); Sodium 141 mmol/L (136-145)
--- NOTE | 2019-08-05 06:15 | Critical Care Progress Note ---
Date of Service August 05, 2019 Assessment & Plan (1) Admitted to intensive care unit: Reason Critically Ill: 23 yo female with PMHx of IV drug abuse admitted for hypoxic respiratory failure secondary to Influenza B + superimposed bacterial PNA, sent to ICU for intubation and mechanical ventilation 24hrs: Blood pressures became labile with elevated HR last evening. Night team attempted to place a R Arterial line but was unable to secure; blood pressures since stabilized. Blood cultures were repeated in the setting of a new fever. CXR reviewed showing improvement of infiltrate in R lower base. Neuro: [facility] ICU: negative * sedation stopped for SBT * Hx of IV drug abuse - on Suboxone, currently holding as patient has fentanyl 50mcg q2h * Hx anxiety/depression - continue home Celexa, hydroxyzine * urine tox positive on admission for Methamphetamine and Ecstasy Cardiac: * ECHO 07/30 showing normal EF without valvular vegetations. We will repeat TTE today given new exam finding of erythema/warmth in vascular distribution on right foot (ie concern for sceptic thrombosis). If TTE is negative for valvular vegetations, will hold off on ANGELO. patient does have history of Raynaud's disease, which has presented with redness hands and feet throughout hospital stay, although exam today reveals uncharacteristic unilateral findings. * tachycardia - likely secondary to septic state * Patient appears to be volume overloaded on exam; received two doses of 10mg IV lasix overnight; diuresed >6.5 L of urine. head of bed elevated to 45 degrees to reduce pulmonary congestion; ordered bilateral leg wraps * left cephalic vein with occlusive superficial thrombosis (not phlebitis) visualized in the distal upper arm on venous duplex from 08/04. consistent with the prior site of the US guided peripheral line that was removed on 08/03 for discontinued functioning. - we will initiate anticoagulation today with heparin drip Respiratory: * plan for extubation today * Influenza B + superimposed multifocal PNA - Currently on Day 5 of Dapsone/ceftaroline (MRSA coverage), completed course of Azithromycin (atypical coverage), and Tamiflu. bronch cultures + for staph aureas, munira albicans. urine legionella antigen negative. GI: * NPO, tube feeds held today for SBT - continue stress ulcer ppx with protonix (indication is 48 hour ventilation) * Elevated LFTs: resolved. likely manufacturer representative of shock liver > primary hepatic etiology. Hep B and C neg. Hep A pending. RENAL/LYTES: * Metabolic and respiratory alkalosis * phos normal at 3.6; K normal at 4.0. Mag normal at 1.8, continue PO Mag-oxide. Ca corrects to 9.8 * Cr remains WNL : * Valentino -strict Is/Os * GC/Chlamydia PCR pending ENDO: * ICU protocol for hyperglycemia HEME: * thrombocytopenia: resolved. platelets at 275. heparin platelet antibody negative. likely secondary to septic state * leukocytopenia: resolved, WBC normal today; Immunodeficiency was considered, work up thus far negative. (HIV neg, Hep B and C neg) * anemia: hgb stable at 8.4; no obvious source of bleeding; transfuse < 7 ID: * Influenza B with superimposed multifocal PNA. Currently on Day 5 of 5 of dapsone/ceftaroline (MRSA coverage), completed course of Azithromycin (atypical coverage) and Tamiflu. bronch cultures grew staph aureas; urine legionella antigen neg. CXR from today reviewed, showing improvement in infiltrate of R base, no change to L base. * 1 of 2 blood cultures from 07/30 return as + for gram positive cocci, PCR + for MRSA. repeat blood cultures obtained 08/01, no growth to date. blood cultures obtained again 08/04 in the morning and again in the evening corresponding to febrile episodes - showing no growth to date. antibiotics as above. - ECHO from 07/31 showing no valvular vegetations. Repeat TTE ordered today - Rectal exam 08/04 not concerning for abscess formation. No carbuncles or furuncles virilized on skin in perirectal area. Patient moving all 4 extremities (low concern for spinal abscess formation at this time) * concern for Toxic Shock Syndrome at this point is low given marked improvement in lower extremity rash; also less likely given staph bacteremia, as opposed to strep. * procal trending down. lactate has downtrended * recommend influenza vaccination for mother, boyfriend, and other close contacts LINES/IV ACCESS: * ETT * L subclavian CVC * OG tube * Valentino CODE STATUS: Full DVT PROPHYLAXIS: Lovenox 30mg sq, q12. bilateral SCDs Thank you for allowing us to participate in the care of this patient. Please refer to my attending physician's documentation for any further recommendations. Admission and Anticipated Discharge Date Admission Date: July 30, 2019 Supervising Physician Co-Signing Physician Notes Dr. Newell was resident physician during care of patient. I separately evaluated patient for pedro portions of the history and the exam. I was present during the critical portion of medical decision making, and I discussed the case with the resident. I generally agree with the findings and plan. Patient blood cultures remain negative, has defervesced. A occlusive superficial thrombus in the left upper extremity now has more edema in the left arm given reports of persistent lymphedema in the hands secondary to Raynaud's phenomenon and surgery we will place the patient on anticoagulation to hopefully minimize post thrombotic syndrome. Bleeding risk outweighed by potential benefits. She was able to be extubated, required some Geodon for agitation and restlessness, this should improve as the patient continues to clear her sedative medications. Patient remains critically ill. Subjective patient in ICU. currently sedated on ventilator Review of Systems Review of Systems: Unobtainable due to endotracheal tube Physical Exam Constitutional: WD/WN, vitals as above + mechanically ventilated ENMT: external ear and nose normal, oropharynx normal Neck: normal visual inspection and trachea midline Respiratory: normal respiratory effort and symmetric chest movement Auscultation: + rhonchi (bilateral lung bases); no crackles and no pleural rub Cardiovascular: RRR, no murmur, no edema Rate/Rhythm: regular rhythm and + tachycardic Heart Sounds: normal S1 and normal S2 Extremities: + edema (improved from exam 08/04) Gastrointestinal (Abdomen): normal bowel sounds, soft, nontender, no hepatosplenomegaly Skin: Trauma: + evidence of skin trauma (multiple track chang on b/l forearms ) +R foot is erythematous relative to L, warm to the touch. No erythema or streaking present on L upper extremity Neurologic: moves all extremities Genitourinary: Valentino catheter in place draining yellow colored urine without visible blood clots Results & Data ([facility]) Vital Signs (Past 12 Hours) Vital Signs Pulse Resp BP Pulse Ox Pulse Ox 08/05/19 04:09 128 H 08/05/19 04:03 126 H 22 93 08/05/19 02:17 126 H 111/69 90 08/05/19 02:03 130 H 20 92 08/05/19 02:00 140 H 88 L 08/05/19 01:17 126 H 122/78 95 08/05/19 01:00 113 H 95 08/05/19 00:17 112 H 113/70 97 08/05/19 00:05 112 H 08/05/19 00:00 111 H 97 08/04/19 23:50 95 08/04/19 23:30 112 H 18 96 08/04/19 23:17 115 H 116/64 96 08/04/19 23:00 120 H 95 08/04/19 22:17 122 H 124/71 95 08/04/19 22:00 120 H 96 08/04/19 21:17 130 H 136/79 94 08/04/19 21:00 122 H 95 95 08/04/19 20:53 128 H 22 94 08/04/19 20:00 120 H 94 08/04/19 19:17 125 H 126/84 92 08/04/19 19:00 129 H 93 08/04/19 18:17 127 H 108/89 93 Critical Care Time Critical Care Time: Yes Total Critical Care Time: 45 I have personally spent 45 minutes of critical care time in the direct management of this patient. This is a life/limb threatening event. This includes time spent evaluating patient, direct bedside care, chart review, placing orders, interpretation of diagnostic studies, discussion with consultants, patient, and/or family members regarding treatment decisions, as well as other required patient management activities. This time is exclusive of all separately billable procedures, and teaching time and separate from and in addition to any other critical care service time. Resident Activity Tracking Resident Involvement: Resident Care Provided Care Provided: Adult Hospital Medicine
[2019-08-05 06:47] LABS: Basophils # (auto) 0.02 K/uL (0-0.2); Basophils % (auto) 0.2 %; Eosinophils # (auto) 0.05 K/uL (0-0.5); Eosinophils % (auto) 0.6 %; Immature Granulocytes # (auto) 0.15 K/uL (0.00-0.02); Immature Granulocytes % (auto) 1.7 %; Lymphocytes # (auto) 1.12 K/uL (1.2-3.4); Lymphocytes % (auto) 12.3 %; Monocytes # (auto) 1.04 K/uL (0.11-0.59); Monocytes % (auto) 11.5 %; Neutrophils % (auto) 73.7 %
--- NOTE | 2019-08-05 06:56 | XRay Report ---
XR chest 1V portable CLINICAL HISTORY: f/u pneumonia COMPARISON STUDY: 08/04/2019 FINDINGS: Improved aeration right lung base. Unchanging infiltrative change left mid to lower lung. N asogastric tube within the stomach. Endotracheal tube 3 cm above the denice. IMPRESSION: 1. Endotracheal tube 3 cm above the denice. 2. Improving infiltrative process right base. 3. Unchanged increased density left lung base. ACT 112: Negative or not required by law. The above report was generated using voice recognition software. It may contain grammatical, syntax or spelling errors. Electronically signed by: Gary Denny M.D. 08/05/2019 6:54 AM
--- NOTE | 2019-08-05 06:57 | Hospitalist Progress Note ---
Date of Service August 05, 2019 Assessment & Plan (1) Admitted to intensive care unit: 23 yo female with PMHx of IV drug abuse admitted for hypoxic respiratory failure secondary to superimposed multifocal pneumonia on Influenza B with MRSA positive blood cultures, sent to ICU for acute, hypoxic respiratory distress. - Currently intubated with mechanical ventilation and sedation was stopped for SBT with goal for extubation today - GI feeds via orograstric tube held for trail of SBT and hopes to extubate today - Failed spontaneous breathing trail yesterday, became agitated, tachycardic, unable to follow commands safely. - Noted that Right arterial line was occluded and removed. Code: Full Code DVT ppx: Lovenox 30mg SQ q12h FENGI: NPO, tube feeds at goal rate of 55; Protonix for stress ulcer prevention Disposition: Pending improvement of respiratory status/wean from vent for tra nsfer to floor. (2) Sepsis with acute hypoxic respiratory failure: Correction of underlying causes - infectious processes. - Tachycardia and Echocardiogram findings of hyperdynamic LV most likely from sepsis. (3) Multifocal pneumonia: - Superimposed multifocal PNA on positive Influenza B - On Day 5 of Dapsone (MRSA blood and other possible soft tissue infections) and ceftaroline (MRSA Lung coverage), completed course of Azithromycin (atypical coverage), and Tamiflu (influenza B). - bronch cultures positive for MRSA, munira albicans. urine legionella antigen negative. - 1/2 blood cultures from 07/30 return positive for gram positive cocci/MRSA. Repeated blood cultures obtained 08/01, NGTD blood cultures obtained again 08/04 in the morning and again in the evening in setting of febrile episodes - showing no growth to date. antibiotics as above. (4) IV drug abuse: - Urine tox positive on admission for Methamphetamine and Ecstasy - Echocardiogram 07/30 showing normal EF without valvular vegetations. Obvious concern for right sided endocarditis in setting of IV drug abuse, but no evidence with normal echo. 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 primary hepatic etiology. Hep B and C neg. Hep A pending. - Resolved. (6) Thrombocytopenia: - Suspected from bone marrow infiltration from influenza - Resolved, significantly improved today (7) Influenza B: as noted above (8) GERD (gastroesophageal reflux disease): - noted in past medical hx - Protonix for stress ulcer prevention (9) Lactic acid acidosis: 07/30 2.9 --> resovled to 1.6 on 07/31 Most likely from poor perfusion in setting of sepsis (10) Raynauds disease: Noted in past medical hx No outpatient noted treatment Hands are erythematous with blanching on palpation consistent with disease process. (11) Depression: Noted to be on Celexa 10mg PO HS at home (12) Hx MRSA infection: As noted in past medical hx; most likely from IV Drug Abuse. (13) Edema: Noted significant bilateral upper extremities worse at hands; bilateral lower extremities but improved in setting of significant urine output. Admission and Anticipated Discharge Date Admission Date: July 30, 2019 Supervising Physician Co-Signing Physician Notes Attending attestation Pt seen and examined in concert with Dr. Austin. In agreement with the documented findings as noted in the resident documentation with any exceptions or additions as noted here. Pt sedated on ventilator with increased agitation approaching extubation with weaning sedation. On examination, diffuse rhonchi and rales with transmitted vent noise. S1/S2 nl, tachycardic. Bilateral distal extremity erythema minimally improved. Acute hypoxic respiratory failure in the setting of multifocal MRSA PNA and influenza B - continue dapsone and ceftaroline. Completed course of Tamiflu. Ventilatory support per ICU team for trial of extubation today. h/o IVDA - previously on buprenorphine by history, +ve Utox as noted. mother unaware of buprenorphine per s/o. continue fentanyl Raynauds - stable findings, on broad spectrum abx Else see resident documentation as noted. Subjective Caveat: History Limited by Mechanical Intubation with Sedation. No acute events reported overnight. Family was at bedside yesterday later afternoon and mother was unaware of her daughter's substance abuse history. Hguo was noted to have recently relocated back home from [place]. Review of Systems Review of Systems: Unobtainable due to endotracheal tube Physical Exam Constitutional: WD/WN, vitals as above + ill appearing and comfortable Eyes: PERRL, conjunctivae normal, anicteric sclerae Neck: normal visual inspection and trachea midline Cardiovascular: Rate/Rhythm: regular rate and regular rhythm Extremities: + edema (2+ pitting) Gastrointestinal (Abdomen): Inspection/Auscultation: abdomen not distended Percussion/Palpation: abdomen soft; abdomen not rigid Skin: bilateral hand edema with erythematous skin that blanches with pressure to white consistent with patient's Raynaud's history; bilateral feet clearing of erythema as pen estevan outlined from prior for concerns of cellulitis. Scarring to left lateral thigh consistent with prior IV drug use. Results & Data ([facility]) Vital Signs (Past 12 Hours) Vital Signs Pulse Resp BP Pulse Ox Pulse Ox 08/05/19 04:09 128 H 08/05/19 04:03 126 H 22 93 08/05/19 02:17 126 H 111/69 90 08/05/19 02:03 130 H 20 92 08/05/19 02:00 140 H 88 L 08/05/19 01:17 126 H 122/78 95 08/05/19 01:00 113 H 95 08/05/19 00:17 112 H 113/70 97 08/05/19 00:05 112 H 08/05/19 00:00 111 H 97 08/04/19 23:50 95 08/04/19 23:30 112 H 18 96 08/04/19 23:17 115 H 116/64 96 08/04/19 23:00 120 H 95 08/04/19 22:17 122 H 124/71 95 08/04/19 22:00 120 H 96 08/04/19 21:17 130 H 136/79 94 08/04/19 21:00 122 H 95 95 08/04/19 20:53 128 H 22 94 08/04/19 20:00 120 H 94 08/04/19 19:17 125 H 126/84 92 08/04/19 19:00 129 H 93 Laboratory Results Laboratory Results - last 24 hr 08/02/19 08/03/19 08/04/19 08:58 08:39 11:00 WBC RBC Hgb Hct MCV MCH MCHC RDW Std Deviation RDW Coeff of Christina Plt Count MPV Immature Gran % (Auto) Neut % (Auto) Lymph % (Auto) Kerr % (Auto) Eos % (Auto) Baso % (Auto) Immature Gran # (Auto) Neut # (Auto) Lymph # (Auto) Kerr # (Auto) Eos # (Auto) Baso # (Auto) PT INR APTT PTT Ratio ABG pH ABG pCO2 ABG pO2 ABG HCO3 ABG O2 Saturation ABG Base Excess Dar Test Barometric Pressure Oxygen Given Sodium Potassium Chloride Carbon Dioxide Anion Gap BUN Creatinine Est Cr Clr Drug Dosing Est GFR ( Amer) Est GFR (Non-Af Amer) BUN/Creatinine Ratio Glucose POC Glucose 117 H Calcium Phosphorus Magnesium GGT 91 H JOSE Screen NEGATIVE Scl-70 Scleroderma Ab <1.0 NEG C.trachomatis RNA N.gonorrhoeae RNA Reference Lab Comment 08/04/19 08/04/19 08/04/19 13:51 16:19 23:35 WBC RBC Hgb Hct MCV MCH MCHC RDW Std Deviation RDW Coeff of Christina Plt Count MPV Immature Gran % (Auto) Neut % (Auto) Lymph % (Auto) Kerr % (Auto) Eos % (Auto) Baso % (Auto) Immature Gran # (Auto) Neut # (Auto) Lymph # (Auto) Kerr # (Auto) Eos # (Auto) Baso # (Auto) PT INR APTT PTT Ratio ABG pH ABG pCO2 ABG pO2 ABG HCO3 ABG O2 Saturation ABG Base Excess Dar Test Barometric Pressure Oxygen Given Sodium 142 141 Potassium 4.2 D 3.6 Chloride 112 H 109 H Carbon Dioxide 27 29 Anion Gap 3.0 3.0 BUN 9 9 Creatinine 0.34 L 0.31 L Est Cr Clr Drug Dosing 230.1 252.4 Est GFR ( Amer) > 150.0 > 150.0 Est GFR (Non-Af Amer) > 150.0 > 150.0 BUN/Creatinine Ratio 28.0 H 28.6 H Glucose 130 H 127 H POC Glucose Calcium 7.7 L 7.5 L Phosphorus 3.4 D 3.2 Magnesium 1.9 1.8 GGT JOSE Screen Scl-70 Scleroderma Ab C.trachomatis RNA Pending N.gonorrhoeae RNA Pending Reference Lab Comment Pending 08/05/19 08/05/19 08/05/19 05:12 05:12 05:36 WBC 9.08 RBC 2.94 L Hgb 8.4 L Hct 25.1 L MCV 85.4 MCH 28.6 MCHC 33.5 RDW Std Deviation 43.9 RDW Coeff of Christina 14.0 Plt Count 275 D MPV 9.8 Immature Gran % (Auto) 1.7 Neut % (Auto) 73.7 Lymph % (Auto) 12.3 Kerr % (Auto) 11.5 Eos % (Auto) 0.6 Baso % (Auto) 0.2 Immature Gran # (Auto) 0.15 H Neut # (Auto) 6.70 H Lymph # (Auto) 1.12 L Kerr # (Auto) 1.04 H Eos # (Auto) 0.05 Baso # (Auto) 0.02 PT INR APTT PTT Ratio ABG pH 7.48 H ABG pCO2 35 ABG pO2 79 L ABG HCO3 26 H ABG O2 Saturation 95.6 H ABG Base Excess 2.2 H Dar Test Pos Barometric Pressure 727.1 Oxygen Given 35% Sodium 141 Potassium 4.0 Chloride 108 H Carbon Dioxide 29 Anion Gap 4.0 BUN 10 Creatinine 0.34 L Est Cr Clr Drug Dosing 230.1 Est GFR ( Amer) > 150.0 Est GFR (Non-Af Amer) > 150.0 BUN/Creatinine Ratio 28.2 H Glucose 119 H POC Glucose Calcium 7.9 L Phosphorus 3.6 Magnesium 1.8 GGT JOSE Screen Scl-70 Scleroderma Ab C.trachomatis RNA N.gonorrhoeae RNA Reference Lab Comment 08/05/19 10:35 WBC RBC Hgb Hct MCV MCH MCHC RDW Std Deviation RDW Coeff of Christina Plt Count MPV Immature Gran % (Auto) Neut % (Auto) Lymph % (Auto) Kerr % (Auto) Eos % (Auto) Baso % (Auto) Immature Gran # (Auto) Neut # (Auto) Lymph # (Auto) Kerr # (Auto) Eos # (Auto) Baso # (Auto) PT Pending INR Pending APTT Pending PTT Ratio Pending ABG pH ABG pCO2 ABG pO2 ABG HCO3 ABG O2 Saturation ABG Base Excess Dar Test Barometric Pressure Oxygen Given Sodium Potassium Chloride Carbon Dioxide Anion Gap BUN Creatinine Est Cr Clr Drug Dosing Est GFR ( Amer) Est GFR (Non-Af Amer) BUN/Creatinine Ratio Glucose POC Glucose Calcium Phosphorus Magnesium GGT JOSE Screen Scl-70 Scleroderma Ab C.trachomatis RNA N.gonorrhoeae RNA Reference Lab Comment Medications Administered Albuterol (Ventolin 0.5% 2.5mg/0.5ml) 2.5 mg NEB Q2H PRN PRN Reason: SOB/Wheeze Stop: 08/29/19 16:34 Last Admin: 08/04/19 01:29 Dose: 2.5 mg Documented by: [id number] Admin: 08/03/19 19:38 Dose: 2.5 mg Documented by: [id number] Admin: 08/03/19 07:22 Dose: 2.5 mg Documented by: [id number] Admin: 08/02/19 23:49 Dose: 2.5 mg Documented by: [id number] Admin: 08/02/19 20:13 Dose: 2.5 mg Documented by: [id number] Admin: 08/02/19 13:34 Dose: 2.5 mg Documented by: [id number] Admin: 08/02/19 07:59 Dose: 2.5 mg Documented by: [id number] Admin: 08/02/19 04:42 Dose: 2.5 mg Documented by: [id number] Buprenorphine HCl (Subutex) 8 mg SL BID MARK Stop: 08/29/19 20:59 Last Admin: 07/31/19 10:00 Dose: Not Given Documented by: [id number] Admin: 07/30/19 23:00 Dose: Not Given Documented by: [id number] Citalopram Hydrobromide (Celexa) 10 mg PO HS MARK Stop: 08/29/19 20:59 Last Admin: 08/04/19 21:22 Dose: 10 mg Documented by: [id number] Admin: 08/03/19 20:13 Dose: 10 mg Documented by: [id number] Admin: 08/02/19 19:41 Dose: 10 mg Documented by: [id number] Admin: 08/01/19 19:56 Dose: 10 mg Documented by: [id number] Admin: 07/31/19 19:53 Dose: 10 mg Documented by: [id number] Admin: 07/30/19 22:54 Dose: 10 mg Documented by: [id number] Enteral Nutritional Formula (Impact 1.0 Kota) 1,000 ml [facility]G [facility]; Protocol Stop: 08/30/19 11:14 Last Admin: 08/04/19 13:10 Dose: 1,000 ml Documented by: [id number] Admin: 08/03/19 16:51 Dose: 1,000 ml Documented by: [id number] Admin: 08/02/19 17:34 Dose: 1,000 ml Documented by: [id number] Admin: 07/31/19 12:14 Dose: 1,000 ml Documented by: [id number] Fentanyl Citrate (Fentanyl Citrate) 50 mcg IV Q2H PRN PRN Reason: Moderate Pain (4,5,6) Stop: 08/14/19 08:41 Last Admin: 08/05/19 04:21 Dose: 50 mcg Documented by: [id number] Admin: 08/05/19 01:49 Dose: 50 mcg Documented by: [id number] Admin: 08/04/19 23:15 Dose: 50 mcg Documented by: [id number] Admin: 08/04/19 19:53 Dose: 50 mcg Documented by: [id number] Admin: 08/04/19 17:44 Dose: 50 mcg Documented by: [id number] Admin: 08/04/19 15:31 Dose: 50 mcg Documented by: [id number] Admin: 08/04/19 12:08 Dose: 50 mcg Documented by: [id number] Admin: 08/03/19 20:50 Dose: 50 mcg Documented by: [id number] Admin: 08/03/19 14:53 Dose: 50 mcg Documented by: [id number] Admin: 08/01/19 10:45 Dose: 50 mcg Documented by: [id number] Hydroxyzine HCl (Vistaril) 10 mg PO TID PRN PRN Reason: Anxiety Stop: 08/29/19 14:30 Last Admin: 08/03/19 20:48 Dose: 10 mg Documented by: [id number] Ceftaroline Fosamil 600 mg/ (Sodium Chloride) 270 mls @ 270 mls/hr IV Q8H MARK Stop: 08/08/19 10:29 Last Infusion: 08/05/19 03:30 Dose: 0 mls/hr Documented by: [id number] Admin: 08/05/19 02:29 Dose: 270 mls/hr Documented by: [id number] Infusion: 08/04/19 20:34 Dose: 0 mls/hr Documented by: [id number] Admin: 08/04/19 18:24 Dose: 270 mls/hr Documented by: [id number] Infusion: 08/04/19 13:44 Dose: 0 mls/hr Documented by: [id number] Admin: 08/04/19 12:06 Dose: 270 mls/hr Documented by: [id number] Infusion: 08/04/19 03:59 Dose: 0 mls/hr Documented by: [id number] Admin: 08/04/19 02:45 Dose: 270 mls/hr Documented by: [id number] Infusion: 08/03/19 20:18 Dose: 0 mls/hr Documented by: [id number] Admin: 08/03/19 18:41 Dose: 270 mls/hr Documented by: [id number] Infusion: 08/03/19 12:38 Dose: 0 mls/hr Documented by: [id number] Admin: 08/03/19 11:37 Dose: 270 mls/hr Documented by: [id number] Infusion: 08/03/19 04:30 Dose: 0 mls/hr Documented by: [id number] Admin: 08/03/19 02:24 Dose: 270 mls/hr Documented by: [id number] Infusion: 08/02/19 19:00 Dose: 0 mls/hr Documented by: [id number] Admin: 08/02/19 17:31 Dose: 270 mls/hr Documented by: [id number] Infusion: 08/02/19 10:45 Dose: 0 mls/hr Documented by: [id number] Admin: 08/02/19 09:42 Dose: 270 mls/hr Documented by: [id number] Infusion: 08/02/19 03:34 Dose: 0 mls/hr Documented by: [id number] Admin: 08/02/19 02:17 Dose: 270 mls/hr Documented by: [id number] Infusion: 08/01/19 20:18 Dose: 0 mls/hr Documented by: [id number] Admin: 08/01/19 18:10 Dose: 270 mls/hr Documented by: [id number] Infusion: 08/01/19 12:10 Dose: 0 mls/hr Documented by: [id number] Admin: 08/01/19 10:33 Dose: 270 mls/hr Documented by: [id number] Daptomycin 500 mg/ Syringe 10 mls @ 5 mls/min IV Q24H MARK; Protocol Stop: 08/15/19 10:29 Last Admin: 08/04/19 12:06 Dose: 5 mls/min Documented by: [id number] Admin: 08/03/19 11:37 Dose: 5 mls/min Documented by: [id number] Admin: 08/02/19 09:42 Dose: 5 mls/min Documented by: [id number] Admin: 08/01/19 10:33 Dose: 5 mls/min Documented by: [id number] Propofol (Diprivan) 1,000 mg in 100 mls @ 20.31 mls/hr IV .Q4H56M MARK; Protocol Stop: 08/06/19 16:14 Last Admin: 08/05/19 08:19 Dose: 50 mcg/kg/min, 20.3 mls/hr Documented by: [id number] Cosigned by: [id number] Titration: 08/05/19 08:19 Dose: 50 mcg/kg/min, 20.3 mls/hr Documented by: [id number] Cosigned by: [id number] Titration: 08/05/19 07:00 Dose: 50 mcg/kg/min, 20.3 mls/hr Documented by: [id number] Cosigned by: [id number] Admin: 08/05/19 04:13 Dose: 49.98 mcg/kg/min, 20.3 mls/hr Documented by: [id number] Cosigned by: [id number] Titration: 08/05/19 04:12 Dose: 49.98 mcg/kg/min, 20.3 mls/hr Documented by: [id number] Cosigned by: [id number] Admin: 08/04/19 23:16 Dose: 49.98 mcg/kg/min, 20.3 mls/hr Documented by: [id number] Cosigned by: [id number] Titration: 08/04/19 23:16 Dose: 50 mcg/kg/min, 20.3 mls/hr Documented by: [id number] Cosigned by: [id number] Titration: 08/04/19 23:02 Dose: 49.98 mcg/kg/min, 20.3 mls/hr Documented by: [id number] Cosigned by: [id number] Admin: 08/04/19 19:12 Dose: 50 mcg/kg/min, 20.3 mls/hr Documented by: [id number] Cosigned by: [id number] Titration: 08/04/19 19:12 Dose: 50 mcg/kg/min, 20.3 mls/hr Documented by: [id number] Cosigned by: [id number] Admin: 08/04/19 15:13 Dose: 50 mcg/kg/min, 20.3 mls/hr Documented by: [id number] Cosigned by: [id number] Titration: 08/04/19 14:28 Dose: 50 mcg/kg/min, 20.3 mls/hr Documented by: [id number] Cosigned by: [id number] Admin: 08/04/19 11:23 Dose: Not Given Documented by: [id number] Admin: 08/04/19 11:22 Dose: Not Given Documented by: [id number] Titration: 08/04/19 11:17 Dose: 50 mcg/kg/min, 20.3 mls/hr Documented by: [id number] Titration: 08/04/19 10:30 Dose: 45 mcg/kg/min, 18.3 mls/hr Documented by: [id number] Titration: 08/04/19 10:00 Dose: 40 mcg/kg/min, 16.2 mls/hr Documented by: [id number] Titration: 08/04/19 09:30 Dose: 35 mcg/kg/min, 14.2 mls/hr Documented by: [id number] Admin: 08/04/19 09:01 Dose: 30 mcg/kg/min, 12.2 mls/hr Documented by: [id number] Cosigned by: [id number] Titration: 08/04/19 08:56 Dose: 30 mcg/kg/min, 12.2 mls/hr Documented by: [id number] Cosigned by: [id number] Titration: 08/04/19 06:54 Dose: 30 mcg/kg/min, 12.2 mls/hr Documented by: [id number] Cosigned by: [id number] Admin: 08/04/19 00:44 Dose: 30 mcg/kg/min, 12.2 mls/hr Documented by: [id number] Cosigned by: [id number] Titration: 08/04/19 00:44 Dose: 30 mcg/kg/min, 12.2 mls/hr Documented by: [id number] Cosigned by: [id number] Titration: 08/03/19 22:55 Dose: 30 mcg/kg/min, 12.2 mls/hr Documented by: [id number] Cosigned by: [id number] Titration: 08/03/19 16:50 Dose: 10 mcg/kg/min, 4.1 mls/hr Documented by: [id number] Admin: 08/03/19 16:30 Dose: 5 mcg/kg/min, 2 mls/hr Documented by: [id number] Cosigned by: [id number] Acetaminophen (Ofirmev) 1,000 mg in 100 mls @ 400 mls/hr IV Q8H PRN PRN Reason: Pain or Fever Stop: 08/07/19 03:49 Last Infusion: 08/04/19 21:45 Dose: 0 mls/hr Documented by: [id number] Admin: 08/04/19 21:23 Dose: 400 mls/hr Documented by: [id number] Infusion: 08/04/19 13:30 Dose: 0 mls/hr Documented by: [id number] Admin: 08/04/19 13:04 Dose: 400 mls/hr Documented by: [id number] Infusion: 08/04/19 04:19 Dose: 0 mls/hr Documented by: [id number] Admin: 08/04/19 03:59 Dose: 400 mls/hr Documented by: [id number] Midazolam HCl (Versed) 125 mg in 250 mls @ 6 mls/hr IV .Q24H MARK; Protocol Stop: 09/03/19 17:29 Last Titration: 08/05/19 10:02 Dose: 3 mg/hr, 6 mls/hr Documented by: [id number] Titration: 08/05/19 09:02 Dose: 4 mg/hr, 8 mls/hr Documented by: [id number] Titration: 08/05/19 07:00 Dose: 5 mg/hr, 10 mls/hr Documented by: [id number] Cosigned by: [id number] Titration: 08/04/19 23:02 Dose: 5 mg/hr, 10 mls/hr Documented by: [id number] Cosigned by: [id number] Titration: 08/04/19 20:55 Dose: 5 mg/hr, 10 mls/hr Documented by: [id number] Titration: 08/04/19 20:22 Dose: 4 mg/hr, 8 mls/hr Documented by: [id number] Titration: 08/04/19 19:52 Dose: 3 mg/hr, 6 mls/hr Documented by: [id number] Titration: 08/04/19 19:22 Dose: 2.5 mg/hr, 5 mls/hr Documented by: [id number] Titration: 08/04/19 18:31 Dose: 1.5 mg/hr, 3 mls/hr Documented by: [id number] Admin: 08/04/19 17:31 Dose: 1 mg/hr, 2 mls/hr Documented by: [id number] Cosigned by: [id number] Lansoprazole (Prevacid) 30 mg OG DAILY MARK Stop: 08/31/19 10:59 Last Admin: 08/05/19 08:20 Dose: 30 mg Documented by: [id number] Admin: 08/04/19 08:20 Dose: 30 mg Documented by: [id number] Admin: 08/03/19 08:08 Dose: 30 mg Documented by: [id number] Admin: 08/02/19 09:05 Dose: 30 mg Documented by: [id number] Admin: 08/01/19 12:11 Dose: 30 mg Documented by: [id number] Magnesium Oxide (Mag-Ox) 400 mg PO HS MARK Stop: 09/03/19 20:59 Last Admin: 08/04/19 21:22 Dose: 400 mg Documented by: [id number] Miscellaneous (Order Awaiting Action) 1 ea N/A QS [facility] Stop: 08/29/19 15:59 Last Admin: 07/31/19 09:59 Dose: Not Given Documented by: [id number] Admin: 07/31/19 06:14 Dose: Not Given Documented by: [id number] Admin: 07/30/19 15:21 Dose: Not Given Documented by: [id number] Olanzapine (Zyprexa Zydis Od) 5 mg PO QAM [facility] Stop: 09/02/19 08:59 Last Admin: 08/05/19 08:20 Dose: 5 mg Documented by: [id number] Admin: 08/04/19 08:20 Dose: 5 mg Documented by: [id number] Admin: 08/03/19 08:58 Dose: 5 mg Documented by: [id number] Ondansetron HCl (Zofran) 4 mg IV Q6H PRN PRN Reason: Nausea Stop: 08/29/19 14:30 Last Admin: 07/30/19 17:10 Dose: 4 mg Documented by: [id number] Ziprasidone (Geodon) 5 mg IM BID PRN PRN Reason: Agitation Stop: 09/01/19 08:39 Last Admin: 08/03/19 20:57 Dose: 5 mg Documented by: [id number] Admin: 08/03/19 08:15 Dose: 5 mg Documented by: [id number] Admin: 08/03/19 01:07 Dose: 5 mg Documented by: [id number] Resident Activity Tracking Resident Involvement: Resident Care Provided Care Provided: Adult Hospital Medicine (1) Depression Active/Remission status: remission status unspecified Depression Type: major depressive disorder Major depression recurrence: unspecified whether recurrent Qualified Code(s): F32.9 - Major depressive disorder, single episode, unspecified (2) GERD (gastroesophageal reflux disease) Esophagitis presence: esophagitis presence not specified Qualified Code(s): K21.9 - Gastro-esophageal reflux disease without esophagitis
[2019-08-05] MEDS: OLANZAPINE ZYDIS 5 MG ORALLY DIS. TAB PO SCH (08:20)
[2019-08-05] MEDS: ENOXAPARIN INJ 30 MG/0.3 ML SYR SQ SCH (08:20)
[2019-08-05] MEDS: LANSOPRAZOLE 30 MG SOLTAB OG SCH (08:20)
[2019-08-05 10:57] LABS: Partial Thromboplastin Ratio 0.9; Partial Thromboplastin Time 23.6 Seconds (21.0-31.0); Prothrombin Time 10.4 Seconds (9.0-12.0)
[2019-08-05] MEDS: Heparin IV Standard *NO* Bolus IV SCH ×2 (11:22→11:28)
[2019-08-05] MEDS: HEPARIN SODIUM/DEXTROSE 25,000 UNITS/500 ML BAG IV SCH (11:23)
[2019-08-05] MEDS ORDERED: GLYCOPYRROLATE 0.2 MG/ML VIAL IV ONE (12:19)
[2019-08-05] MEDS ORDERED: DEXAMETHASONE SOD PHOSPHATE 4 MG in SYRINGE 0 ML IV ONE (12:30)
--- NOTE | 2019-08-05 13:14 | Billing Data ---
Date of Service August 05, 2019 Coding Level of Care Code Critical Care 1st - mins
[2019-08-05] MEDS: DAPTOmycin 500 MG in SYRINGE 0 ML IV SCH (13:39)
[2019-08-05] MEDS ORDERED: RACEPINEPHRINE 2.25% NEBU SOLN 0.5 ML VIAL NEB STA (13:47)
--- NOTE | 2019-08-05 14:30 | Electrocardiogram Report ---
Test Reason : Blood Pressure : / mmHG Vent. Rate : 121 BPM Atrial Rate : 121 BPM P-R Int : 154 ms QRS Dur : 072 ms QT Int : 300 ms P-R-T Axes : 050 028 017 degrees QTc Int : 426 ms Sinus tachycardia Nonspecific ST abnormality Abnormal ECG When compared with ECG of 30-JUL-2019 09:05, Nonspecific T wave abnormality has replaced inverted T waves in Lateral leads Confirmed by Gaetano Bae ([id number]) on 08/05/2019 2:29:58 PM Referred By: REFERRED SELF Confirmed By:Dino Bae
[2019-08-05] MEDS ORDERED: ZIPRASIDONE 20 MG/ML SDV IM PRN (17:35)
[2019-08-05] MEDS: ZIPRASIDONE 20 MG/ML SDV IM PRN (17:50)
[2019-08-05 18:31] LABS: Partial Thromboplastin Time 25.8 Seconds (21.0-31.0)
[2019-08-05] MEDS: MIDAZOLAM HCL 125 MG/250 ML BAG IV SCH (18:59)
[2019-08-05] MEDS ORDERED: HEPARIN IV BOLUS 5,000 UNITS in SYRINGE 0 ML IV ONE (19:30)
[2019-08-05] MEDS: CITALOPRAM 20 MG TAB PO SCH (20:35)
[2019-08-05] MEDS: MAGNESIUM OXIDE 400 MG TAB PO SCH (20:36)
[2019-08-05] MEDS: ZIPRASIDONE HCL 20 MG CAP PO SCH (20:36)
[2019-08-05] MEDS ORDERED: ZIPRASIDONE HCL 20 MG CAP PO SCH (21:00)
[2019-08-06 01:22] LABS: Partial Thromboplastin Ratio 1.2; Partial Thromboplastin Time 31.8 Seconds (21.0-31.0)
[2019-08-06] MEDS ORDERED: HEPARIN IV BOLUS 5,000 UNITS in SYRINGE 0 ML IV STA (01:43)
[2019-08-06] MEDS: CEFTAROLINE FOSAMIL ACETATE 600 MG in SODIUM CHLORIDE 0.9% 250 ML IV SCH ×3 (02:13→18:32)
[2019-08-06] MEDS: ACETAMINOPHEN 1,000 MG/100 ML VIAL IV PRN (02:14)
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
--- NOTE | 2019-08-06 06:56 | Hospitalist Progress Note ---
Date of Service August 06, 2019 Assessment & Plan (1) Admitted to intensive care unit: 23 yo female with PMHx of IV drug abuse admitted for hypoxic respiratory failure secondary to superimposed multifocal pneumonia on Influenza B with MRSA positive blood cultures, sent to ICU for acute, hypoxic respiratory distress. - Extubated and weaned from NC 2L. - Started on Xarelto for Occlusive superficial venous thrombosis of the left cephalic vein. - Noted that Right arterial line was occluded and removed. - Noted that Daptomycin was rec to be discontinued with plans for maintaining ceftaroline while inpatient and then d/c with plans for Dalvance at [facility] for 2 doses s/p d/c from hospital to complete treatment course - not a candidate for picc line with active drug use Code: Full Code DVT ppx: Xarelto 10mg PO FENGI: Regular easy to chew Disposition: Currently in ICU to monitor patient safety from drug use (2) Sepsis with acute hypoxic respiratory failure: Correction of underlying causes - infectious processes. - Tachycardia and prior Echocardiogram findings of hyperdynamic LV most likely from sepsis. (3) Multifocal pneumonia: - Superimposed multifocal PNA on positive Influenza B - On Day 6 of Dapsone (MRSA blood and other possible soft tissue infections) and ceftaroline (MRSA Lung coverage), completed course of Azithromycin (atypical coverage), and Tamiflu (influenza B). Dapto discontinued as noted above. - bronch cultures positive for MRSA, munira albicans. urine legionella antigen negative. - 1/2 blood cultures from 07/30 return positive for gram positive cocci/MRSA. Repeated blood cultures obtained 08/01, NGTD blood cultures obtained again 08/04 in the morning and again in the evening in setting of febrile episodes - showing no growth to date. antibiotics as above. (4) IV drug abuse: - Urine tox positive on admission for Methamphetamine and Ecstasy - Echocardiogram 07/30 showing normal EF without valvular vegetations. Obvious concern for right sided endocarditis in setting of IV drug abuse, but no evidence with normal echo. - on Suboxone, currently holding as patient has fentanyl 50mcg q2h - Repeat Echo Transthoracic didn't show any valvular vegetations (5) Abnormal LFTs: - likely circulation sales representative of shock liver from poor perfusion from sepsis vs. primary hepatic etiology. Hep B and C neg. Hep A pending. - Resolved. (6) Thrombocytopenia: - Suspected from bone marrow infiltration from influenza - Resolved, significantly improved (7) Influenza B: as noted above (8) GERD (gastroesophageal reflux disease): - noted in past medical hx - Protonix for stress ulcer prevention (9) Lactic acid acidosis: 07/30 2.9 --> resovled to 1.6 on 07/31 Most likely from poor perfusion in setting of sepsis (10) Raynauds disease: Noted in past medical hx No outpatient noted treatment Hands are erythematous with blanching on palpation consistent with disease pro cess. (11) Depression: Noted to be on Celexa 10mg PO HS at home (12) Hx MRSA infection: As noted in past medical hx; most likely from IV Drug Abuse. (13) Edema: Noted significant bilateral upper extremities worse at hands but significantly improved. Admission and Anticipated Discharge Date Admission Date: July 30, 2019 Supervising Physician Co-Signing Physician Notes Attending attestation Pt seen and examined in concert with Dr. Austin. In agreement with the documented findings as noted in the resident documentation with any exceptions or additions as noted here. Sitting up in bed, tolerating sips of soda. Reports feeling anxious because 'there are so many people'. She has had multiple surgeries for cellulitis of the hand 'because she was stupid' and 'left too early' from that admission. Denies feelings of overt depression, though does feel limited by her current condition. Appears driven to recover and willing to participate in care. On examination, improved air movement bilaterally with residual bilateral rales and rhonchi, overall improved from yesterday. S1/S2 nl RRR no MCG. Abd NT/ND BS+ve. Some TTP over site of thrombus and central line, mild. Multifocal pneumonia with acute ventilator dependent respiratory failure (resolved) - recent fever 2 days ago w/ reculture pending results. Continue ceftaroline. Completed tamiflu, azithromycin. Off daptomycin. Substance use disorder - h/o suboxone (held) on fentanyl. Consider ANGELO with recurrent fever. TTE without vegitation apparent. Depression - resume citalopram and follow. Else see resident documentation as noted. Subjective Hugo tolerated extubation yesterday. This morning she was requesting to have urine cath removed. She also noted some back pain and was requesting to lay down back in bed. She denies any worsening of shortness of breath or chest pain at rest but notes her right upper chest is sore if she pushes on it with her hand. She denies fevers or chills. She notes her mood is poor from her current illness/hospitalization. Mom was present at bedside this AM as well. Physical Exam Constitutional: WD/WN, vitals as above cooperative and comfortable sitt ing up in bedside chair Eyes: PERRL, conjunctivae normal, anicteric sclerae ENMT: external ear and nose normal, oropharynx normal Neck: normal visual inspection and trachea midline Respiratory: diffuse coarse breath sounds diffusely Cardiovascular: Rate/Rhythm: regular rate and regular rhythm Extremities: + edema (2+ pitting) Gastrointestinal (Abdomen): Inspection/Auscultation: abdomen not distended Percussion/Palpation: abdomen soft; abdomen not rigid Musculoskeletal: Head/Neck/Chest: normocephalic, head atraumatic and neck supple Skin: bilateral hand edema with erythematous skin that blanches with pressure to white consistent with patient's Raynaud's history has improved from yesterday; bilateral feet clearing of erythema as pen estevan outlined from prior for concerns of cellulitis. Scarring to left lateral thigh and bilateral dorsal hands that patient notes from prior cellulitic surgery Neurologic: moves all extremities and awake Psychiatric: Orientation: alert and oriented x 3 Eye Contact: + poor eye contact Affect: + anxious affect Mood: + anxious mood Results & Data ([facility]) Vital Signs (Past 12 Hours) Vital Signs Temp Pulse Resp BP Pulse Ox 08/06/19 05:17 88 21 113/78 95 08/06/19 04:17 73 117/70 96 08/06/19 04:04 37.1 C 08/06/19 03:17 80 112/71 95 08/06/19 02:17 93 H 106/76 94 08/06/19 01:17 87 115/72 97 08/06/19 00:17 97 H 117/81 91 08/06/19 00:00 36.8 C 08/05/19 23:17 88 102/65 93 08/05/19 22:57 81 08/05/19 22:17 81 99/64 L 98 08/05/19 21:17 92 H 129/61 91 08/05/19 20:18 83 106/83 97 08/05/19 20:00 37.6 C H 08/05/19 19:17 77 118/70 97 Resident Activity Tracking Resident Involvement: Resident Care Provided Care Provided: Adult Hospital Medicine (1) Depression Active/Remission status: remission status unspecified Depression Type: major depressive disorder Major depression recurrence: unspecified whether recurrent Qualified Code(s): F32.9 - Major depressive disorder, single episode, unspecified (2) GERD (gastroesophageal reflux disease) Esophagitis presence: esophagitis presence not specified Qualified Code(s): K21.9 - Gastro-esophageal reflux disease without esophagitis
--- NOTE | 2019-08-06 07:16 | XRay Report ---
XR chest 1V portable CLINICAL HISTORY: f/u COMPARISON STUDY: Chest CT July 30, 2019. Chest radiograph July 31, 2019 FINDINGS: Left subclavian central line remains in place. There is no pneumothorax. The endotracheal a nd nasogastric tubes have been removed. Bilateral lower lobe consolidation, left greater than right, persists. There is no evidence for pulmonary edema. Cardiomediastinal silhouette is stable. There may be a small left pleural effusion. IMPRESSION: 1. Persistent extensive bilateral lower lung opacities which suggest pneumonia. Possible small left p leural effusion. 2. Interval removal of the endotracheal and nasogastric tubes. ACT 112: Negative or not required by law. Electronically signed by: Markell Pizano M.D. 08/06/2019 7:15 AM
[2019-08-06 07:32] LABS: Basophils # (auto) 0.01 K/uL (0-0.2); Basophils % (auto) 0.1 %; Eosinophils # (auto) 0.02 K/uL (0-0.5); Eosinophils % (auto) 0.2 %; Hematocrit (blood only) 24.6 % (37-47); Hemoglobin 8.3 g/dL (12.0-16.0); Immature Granulocytes # (auto) 0.33 K/uL (0.00-0.02); Immature Granulocytes % (auto) 3.9 %; Lymphocytes # (auto) 1.98 K/uL (1.2-3.4); Lymphocytes % (auto) 23.3 %; Mean Corpuscular Hemoglobin 28.5 pg (25-34); Mean Corpuscular Hgb Conc 33.7 g/dL (32-36); Mean Corpuscular Volume 84.5 fL (80-100); Mean Platelet Volume 9.5 fL (7.4-10.4); Monocytes # (auto) 0.76 K/uL (0.11-0.59); Neutrophils # (auto) 5.39 K/uL (1.4-6.5); Neutrophils % (auto) 63.5 %; Platelet Count 348 K/uL (130-400); RDW Coefficient of Variation 13.4 % (11.5-14.5); RDW Standard Deviation 41.2 fL (36.4-46.3); Red Blood Count 2.91 M/uL (4.2-5.4); White Blood Count 8.49 K/uL (4.8-10.8)
[2019-08-06 07:44] LABS: Partial Thromboplastin Ratio 1.4; Partial Thromboplastin Time 38.8 Seconds (21.0-31.0)
[2019-08-06 08:10] LABS: Alanine Aminotransferase 35 U/L (12-78); Albumin Level 2.2 gm/dl (3.4-5.0); Alkaline Phosphatase 251 U/L (45-117); Aspartate Aminotransferase 13 U/L (15-37); BUN Creatinine Ratio 17.9 (10-20); Bilirubin Direct 0.2 mg/dl (0-0.2); Bilirubin,Total 0.5 mg/dl (0.2-1); Blood Urea Nitrogen 9 mg/dl (7-18); Calcium 8.7 mg/dl (8.5-10.1); Carbon Dioxide 25 mmol/L (21-32); Chloride 111 mmol/L (98-107); Creatinine Clr Calc Pharmacy 134.5 ml/min; Est GFR (African American) > 150.0; Est GFR (Non-African American) 134.6; Glucose 142 mg/dl (70-99); Magnesium 2.1 mg/dl (1.8-2.4); Phosphorus 2.3 mg/dl (2.5-4.9); Potassium 3.2 mmol/L (3.5-5.1); Sodium 141 mmol/L (136-145); Total Protein 5.8 gm/dl (6.4-8.2)
[2019-08-06] MEDS: OLANZAPINE ZYDIS 5 MG ORALLY DIS. TAB PO SCH (09:22)
[2019-08-06] MEDS: LANSOPRAZOLE 30 MG SOLTAB OG SCH (09:22)
[2019-08-06] MEDS: ZIPRASIDONE HCL 20 MG CAP PO SCH (09:22)
[2019-08-06] MEDS ORDERED: buprenorphine HCL 8 MG SUBL SL ONE (09:45)
[2019-08-06] MEDS ORDERED: POTASSIUM PHOSPHATE 18 MMOL in SODIUM CHLORIDE 0.9% 500 ML IV ONE (10:00)
[2019-08-06] MEDS ORDERED: POTASSIUM CHLORIDE 20 MEQ TABCR PO ONE (10:00)
[2019-08-06] MEDS: DAPTOmycin 500 MG in SYRINGE 0 ML IV SCH (10:42)
[2019-08-06] MEDS: RIVAROXABAN 10 MG TABLET PO SCH (10:42)
[2019-08-06] MEDS: HEPARIN SODIUM/DEXTROSE 25,000 UNITS/500 ML BAG IV SCH (10:43)
--- NOTE | 2019-08-06 11:45 | Psychiatric Consultation ---
Date of Consultation August 06, 2019 Impression / Recommendations Impression Dr. Saadia Rodney was directly involved in review and discussion of the patient's case and participated in medical decision making regarding treatment recommendations. RECOMMENDATIONS: 08/06 - Reviewed with patient history of citalopram, states it was initiated for anxiety and "irritability" and is prescribed by a telemedicine provider. It remains uncertain if patient's specific history is reliable, as most recent prescription was sent by an internal medicine PA-C. - Discussed with patient and mother current consideration to hold citalopram while patient is being treated with Linezolid - reviewed serious risk of serotonin syndrome and contraindication for coadministration. Risks and benefits of the options were discussed. Both verbalized understanding and are agreeable with discontinuing citalopram while patient is prescribed Linezolid. - Pt was offered referral for psychiatric prescriber and/or therapist practicing locally, to better support patient's mental health treatment. Pt was agreeable with being offered a resource book outlining community psychiatric services, but is not yet allowing us to make referrals. Will continue to assess willingness for this. - Would suggest patient be restarted on citalopram 10mg daily as an outpatient, when medically appropriate after Linezolid has been discontinued. - Substance abuse treatment per primary team, case management consult to assist with discharge planning and substance abuse treatment resources - No present criteria for inpatient psychiatric treatment. Discharge planning per primary team. - Please reach out to our service with any additional questions or updates Risk Factors Assessment Do You Have Access To A Gun?: No Psych History Identifying Data 23-year-old female admitted medically on 07/30/2019 after presenting to the ED with complaints of left sided flank pain and flu-like symptoms. Pt was found to be positive for influenza B with superimposed multilobular pneumonia and hypoxic respiratory failure. Pt required intubation on 07/31/2019 and was extubated on 08/05/2019. Psychiatric consultation was requested as citalopram is contraindicated in the context of Linezolid use, which is being considered for patient's discharge antibiotic regimen. Chief Complaint "I still don't feel very good." History of Present Illness Hugo Ortiz is a 23-year-old female admitted medically on 07/30/2019 after presenting to the ED with reports of left-sided flank pain and flulike symptoms. Patient was admitted with sepsis and hypoxic respiratory failure which is presumed to be related to influenza B and a superimposed bacterial pneumonia. Patient was intubated from 07/31/2019 through 08/05/2019. Her past medical history significant for IV drug use, which is reportedly complicating options for antibiotic treatment after discharge, as peripheral/central lines are contraindicated due to concern for ongoing substance use after discharge. Consideration at this time is to utilize Linezolid to provider antibiotic coverage; however, there is a contraindication to co-administer her home dose of citalopram during course of antibiotic treatment. Psychiatric consultation was requested to evaluate indication for citalopram and provide recommendations regarding mental health treatment in the setting of Linezolid usage. Patient is cooperative with psychiatric evaluation; however, her ability to participate is limited by sedation and difficulty speaking due to recent extubation. Patient's mother, Jamia, was visiting in the room and patient requests that she remain present during our encounter. Patient also provides verbal consent to allow Danielle Mahmood PA-C to observe today's encounter. Due to patient's level of discomfort and limited ability to participate in a more comprehensive psychiatric assessment, a more focused interview was conducted. Background information was provided on our services involvement in her case, and this provider reiterated treatment recommendations for her bacterial pneumonia and its effect on her current psychiatric medication regimen. Patient was presented with the option to discontinue citalopram for the period of time that she is being prescribed Linezolid with option to resume the medication on an outpatient basis once it is deemed medically appropriate. Option to continue citalopram was also discussed, with the caveat that other antibiotic options may need to be explored to manage her current medical diagnoses. Patient is agreeable with discontinuing citalopram for a period of time, but does indicate a desire to resume the medication when she is cleared to do so. Patient believes that she has been prescribed citalopram "for several years" and states she has been receiving the prescription from a telemedicine provider in [place]. Most recent prescription, however, was provided by an internal medicine PA in [place]. Patient states she takes the medication for anxiety and "irritability." She states she has never been on a dose higher than the 10 mg she is currently prescribed. She does report feeling as though it is effective for her anxiety and mood. Patient denies suicidal ideation or history of suicide attempts or inpatient psychiatric treatment. She reports ability to contract for safety outside of the hospital at this time, and feels comfortable being off of an antidepressant medication for the next several weeks. Patient identified her mother as a positive support, and stated she would be able to reach out to the mother should she have any thoughts to harm herself or end her life. Patient was offered more local psychiatric professional supports, but was on willing to commit to referrals at this time. She was agreeable with receiving a book that outlines local resources, and was informed that our team would be following up with her intermittently during her hospitalization and can initiate referrals as patient desires. Substance use history was discussed with primary attending and case management consult has been requested. It is reported that patient has discussed her history of IV drug use with her mother today, and mother is now aware and reports she is supportive. Recommendation for substance abuse treatment are being provided by the primary team. Past Psychiatric History Previous Psych History: Ability to obtain psychiatric history is limited due to severity of patient's medical condition. Limited ability to communicate during time of encounter due to recent extubation. Outpatient Services: Pt states she receives her citalopram through a telemedicine provider. Denies having local psychiatric professional supports Previous Psych Admissions: Denies Do You Have Access To A Gun?: No History of Previous Suicide Attempt: No Past Medication Trials: Per patient report, though she is at present a limited historian: 1. Celexa 2. Wellbutrin 3. Xanax Allergies Allergy/AdvReac Type Severity Reaction Status Date / Time No Known Allergies Allergy Verified 07/30/19 09:43 Home Medications Home Medications Medication Instructions Recorded Confirmed Type buprenorphine HCl 8 mg sublingual 8 mg SL BID #10 tab 04/09/19 07/30/19 Rx tablet acetaminophen [Tylenol] 325 mg PO QID PRN 07/30/19 07/30/19 History citalopram [Celexa] 10 mg PO HS 07/30/19 07/30/19 History clindamycin-benzoyl peroxide 1 applic TOPICAL BID 07/30/19 07/30/19 History Substance Abuse History Admits to history of IV drug use - reporting last methamphetamine use was 1 month ago. 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[employer]) Marital Status: Single Number Of Children: None Beliefs That Will Affect Care: None Patient History Medical History Depression (Chronic) GERD (gastroesophageal reflux disease) H/O intravenous drug use in remission Hx MRSA infection (Chronic) IV drug abuse Raynauds disease (Chronic) Surgical History History of cholecystectomy History of incision and drainage History of tonsillectomy and adenoidectomy Family History Other No significant family history Social History Preferred Language: Russian Communication Ability: Effective 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 Pt is appropriate dressed for setting, wearing a hospital gown. She appears disheveled and mildly unkempt. Hair is messy. Arms are marked with scarring, bilaterally. Eye Contact: + poor eye contact (is positioned in bed in a way that she does not attempt direct eye contact ) Motor Behavior: no abnormal motor movements (observed while sitting in bed, propped up by her arms) Speech: + abnormal rate/rhythm/volume of speech (brief responses to questions, quiety volume) Affect: + blunted affect and mood congruent with affect Mood: no depressed mood ("Ok") Thought Process: goal directed thought process Thought Content: reality based without delusions; no hopelessness Suicidal Thoughts: denies suicidal thoughts and denies suicidal intent Homicidal Thoughts: denies homicidal thoughts Hallucinations: no auditory hallucinations and no visual hallucinations Vital Signs (Past 24 Hours): Last Vital Signs Temp 37.1 C 08/06/19 04:04 Pulse 88 08/06/19 05:17 Resp 21 08/06/19 05:17 BP 113/78 08/06/19 05:17 Pulse Ox 95 08/06/19 05:17 Review of Systems Constitutional: reports weakness and general discomfort HEENT: throat soreness, likely from intubation Cardiovascular: denied Respiratory: cough Gastrointestinal: denied Neurological: denied Psychiatric: denies symptoms other than stated above Total of at least 10 systems reviewed, pertinent positives as above and in HPI. Results & Data (PSY) Medications Administered Albuterol (Ventolin 0.5% 2.5mg/0.5ml) 2.5 mg NEB Q2H PRN PRN Reason: SOB/Wheeze Stop: 08/29/19 16:34 Last Admin: 08/04/19 01:29 Dose: 2.5 mg Documented by: [id number] Admin: 08/03/19 19:38 Dose: 2.5 mg Documented by: [id number] Admin: 08/03/19 07:22 Dose: 2.5 mg Documented by: [id number] Admin: 08/02/19 23:49 Dose: 2.5 mg Documented by: [id number] Admin: 08/02/19 20:13 Dose: 2.5 mg Documented by: [id number] Admin: 08/02/19 13:34 Dose: 2.5 mg Documented by: [id number] Admin: 08/02/19 07:59 Dose: 2.5 mg Documented by: [id number] Admin: 08/02/19 04:42 Dose: 2.5 mg Documented by: [id number] Citalopram Hydrobromide (Celexa) 10 mg PO HS MARK Stop: 08/29/19 20:59 Last Admin: 08/05/19 20:35 Dose: 10 mg Documented by: [id number] Admin: 08/04/19 21:22 Dose: 10 mg Documented by: [id number] Admin: 08/03/19 20:13 Dose: 10 mg Documented by: [id number] Admin: 08/02/19 19:41 Dose: 10 mg Documented by: [id number] Admin: 08/01/19 19:56 Dose: 10 mg Documented by: [id number] Admin: 07/31/19 19:53 Dose: 10 mg Documented by: [id number] Admin: 07/30/19 22:54 Dose: 10 mg Documented by: [id number] Hydroxyzine HCl (Vistaril) 10 mg PO TID PRN PRN Reason: Anxiety Stop: 08/29/19 14:30 Last Admin: 08/03/19 20:48 Dose: 10 mg Documented by: [id number] Ceftaroline Fosamil 600 mg/ (Sodium Chloride) 270 mls @ 270 mls/hr IV Q8H MARK Stop: 08/15/19 10:29 Last Admin: 08/06/19 10:42 Dose: 270 mls/hr Documented by: [id number] Infusion: 08/06/19 03:13 Dose: 0 mls/hr Documented by: [id number] Admin: 08/06/19 02:13 Dose: 270 mls/hr Documented by: [id number] Infusion: 08/05/19 18:59 Dose: 0 mls/hr Documented by: [id number] Admin: 08/05/19 17:51 Dose: 270 mls/hr Documented by: [id number] Infusion: 08/05/19 13:29 Dose: 270 mls/hr Documented by: [id number] Admin: 08/05/19 11:25 Dose: 270 mls/hr Documented by: [id number] Infusion: 08/05/19 03:30 Dose: 0 mls/hr Documented by: [id number] Admin: 08/05/19 02:29 Dose: 270 mls/hr Documented by: [id number] Infusion: 08/04/19 20:34 Dose: 0 mls/hr Documented by: [id number] Admin: 08/04/19 18:24 Dose: 270 mls/hr Documented by: [id number] Infusion: 08/04/19 13:44 Dose: 0 mls/hr Documented by: [id number] Admin: 08/04/19 12:06 Dose: 270 mls/hr Documented by: [id number] Infusion: 08/04/19 03:59 Dose: 0 mls/hr Documented by: [id number] Admin: 08/04/19 02:45 Dose: 270 mls/hr Documented by: [id number] Infusion: 08/03/19 20:18 Dose: 0 mls/hr Documented by: [id number] Admin: 08/03/19 18:41 Dose: 270 mls/hr Documented by: [id number] Infusion: 08/03/19 12:38 Dose: 0 mls/hr Documented by: [id number] Admin: 08/03/19 11:37 Dose: 270 mls/hr Documented by: [id number] Infusion: 08/03/19 04:30 Dose: 0 mls/hr Documented by: [id number] Admin: 08/03/19 02:24 Dose: 270 mls/hr Documented by: [id number] Infusion: 08/02/19 19:00 Dose: 0 mls/hr Documented by: [id number] Admin: 08/02/19 17:31 Dose: 270 mls/hr Documented by: [id number] Infusion: 08/02/19 10:45 Dose: 0 mls/hr Documented by: [id number] Admin: 08/02/19 09:42 Dose: 270 mls/hr Documented by: [id number] Infusion: 08/02/19 03:34 Dose: 0 mls/hr Documented by: [id number] Admin: 08/02/19 02:17 Dose: 270 mls/hr Documented by: [id number] Infusion: 08/01/19 20:18 Dose: 0 mls/hr Documented by: [id number] Admin: 08/01/19 18:10 Dose: 270 mls/hr Documented by: [id number] Infusion: 08/01/19 12:10 Dose: 0 mls/hr Documented by: [id number] Admin: 08/01/19 10:33 Dose: 270 mls/hr Documented by: [id number] Daptomycin 500 mg/ Syringe 10 mls @ 5 mls/min IV Q24H MARK; Protocol Stop: 08/15/19 10:29 Last Admin: 08/06/19 10:42 Dose: 5 mls/min Documented by: [id number] Admin: 08/05/19 13:39 Dose: 5 mls/min Documented by: [id number] Admin: 08/04/19 12:06 Dose: 5 mls/min Documented by: [id number] Admin: 08/03/19 11:37 Dose: 5 mls/min Documented by: [id number] Admin: 08/02/19 09:42 Dose: 5 mls/min Documented by: [id number] Admin: 08/01/19 10:33 Dose: 5 mls/min Documented by: [id number] Acetaminophen (Ofirmev) 1,000 mg in 100 mls @ 400 mls/hr IV Q8H PRN PRN Reason: Pain or Fever Stop: 08/07/19 03:49 Last Infusion: 08/06/19 02:29 Dose: 0 mls/hr Documented by: [id number] Admin: 08/06/19 02:14 Dose: 400 mls/hr Documented by: [id number] Infusion: 08/04/19 21:45 Dose: 0 mls/hr Documented by: [id number] Admin: 08/04/19 21:23 Dose: 400 mls/hr Documented by: [id number] Infusion: 08/04/19 13:30 Dose: 0 mls/hr Documented by: [id number] Admin: 08/04/19 13:04 Dose: 400 mls/hr Documented by: [id number] Infusion: 08/04/19 04:19 Dose: 0 mls/hr Documented by: [id number] Admin: 08/04/19 03:59 Dose: 400 mls/hr Documented by: [id number] Potassium Phosphate 18 mmol/ (Sodium Chloride) 506 mls @ 101.2 mls/hr IV NOW ONE Stop: 08/06/19 14:59 Last Admin: 08/06/19 10:42 Dose: 101.2 mls/hr Documented by: [id number] Magnesium Oxide (Mag-Ox) 400 mg PO HS [facility] Stop: 09/03/19 20:59 Last Admin: 08/05/19 20:36 Dose: 400 mg Documented by: [id number] Admin: 08/04/19 21:22 Dose: 400 mg Documented by: [id number] Miscellaneous (Order Awaiting Action) 1 ea N/A QS [facility] Stop: 08/29/19 15:59 Last Admin: 07/31/19 09:59 Dose: Not Given Documented by: [id number] Admin: 07/31/19 06:14 Dose: Not Given Documented by: [id number] Admin: 07/30/19 15:21 Dose: Not Given Documented by: [id number] Ondansetron HCl (Zofran) 4 mg IV Q6H PRN PRN Reason: Nausea Stop: 08/29/19 14:30 Last Admin: 07/30/19 17:10 Dose: 4 mg Documented by: [id number] Rivaroxaban (Xarelto) 10 mg PO DAILY [facility] Stop: 09/05/19 10:14 Last Admin: 08/06/19 10:42 Dose: 10 mg Documented by: [id number] Coding Level of Care Code 01953 [facility] Intl Hosp Care Lvl 2
--- NOTE | 2019-08-06 11:58 | Infectious Disease Consult ---
Date of Consultation August 06, 2019 Assessment & Plan (1) Gram positive sepsis: can continue ceftaroline for now, will treat both bsi and pna. can stop dapto. Suspect skin vs pulm source for bsi. echo negative but with superficial clot would give 4 weeks treatment with abx. suspect initial flu with secondary MRSA bacterial pna, clinically improving. tentative stop date for abx 08/28. She is not a candidate for picc line with active drug use. would suggest maintaining ceftaroline while inpatient and then d/c with plans for [facility] at [facility] for 2 doses s/p d/c from hospital to complete treatment course. would offer HCV and HIV testing if not done already due to active drug use. echo and repeat blood cultures are negative. (2) Multifocal pneumonia: (3) Influenza B: (4) Superficial thrombophlebitis: (5) H/O intravenous drug use in remission: History of Present Illness Attending Physician: Greg Cristobal MD pt admitted on 07/30 in septic shock, found to have resp distress and b/l pna. She tested + flu B, was given abx and tamiflu, transferred to ICU, intubated, improved and was extubated yesterday. 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 She underwent bronch and grew MRSA, initial blood cultures 06/14 blood cultures grew MRSA as well. repeat cultures done on 08/01 and 08/04 are negative.She is now on ceftaroline and dapto and is tolerating well. fevers have improved. wbc 8. proclacitonin improved, LFTS improved, creat normal. esr 3. UDS + MDMA and meth, known h/o IVDA. most recen echo on 08/05 negative for veg but found to have superficial clot in LUE, on anticoagulation for this. she is awake on my exam, asking to leave ICU. states she is still coughing, somewhat productive. no f/c. no abd pain, no cp, sob, done. CXR done this am continues with b/l ll infiltrates. ID consulted for IV access due to + blood cultures. Allergies Allergy/AdvReac Type Severity Reaction Status Date / Time No Known Allergies Allergy Verified 07/30/19 09:43 Home Medications Home Medications Medication Instructions Recorded Confirmed Type buprenorphine HCl 8 mg sublingual 8 mg SL BID #10 tab 04/09/19 07/30/19 Rx tablet acetaminophen [Tylenol] 325 mg PO QID PRN 07/30/19 07/30/19 History citalopram [Celexa] 10 mg PO HS 07/30/19 07/30/19 History clindamycin-benzoyl peroxide 1 applic TOPICAL BID 07/30/19 07/30/19 History Patient History Medical History Depression (Chronic) GERD (gastroesophageal reflux disease) H/O intravenous drug use in remission Hx MRSA infection (Chronic) IV drug abuse Raynauds disease (Chronic) Surgical History History of cholecystectomy History of incision and drainage History of tonsillectomy and adenoidectomy Family History Other No significant family history Social History Preferred Language: Telugu Communication Ability: Effective 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 Beliefs That Will Affect Care: None Current Living Situation: Significant Other current occupational status: employed Feels Safe at Home: Yes Smoking Status: Current every day smoker Tobacco Type: cigarettes ; Hx Alcohol Use: No Hx Substance Use: No Review of Systems Review of Systems: All systems reviewed & are unremarkable except as noted in HPI & below Physical Exam Constitutional: WD/WN, vitals as above Eyes: PERRL, conjunctivae normal, anicteric sclerae ENMT: external ear and nose normal, oropharynx normal Neck: trachea midline, no thyromegaly normal visual inspection Respiratory: normal respiratory effort, lungs clear to auscultation Auscultation: + diminished lung sounds and + rhonchi Cardiovascular: RRR, no murmur, no edema Gastrointestinal (Abdomen): normal bowel sounds, soft, nontender, no hepatosplenomegaly Musculoskeletal: no cyanosis or clubbing, extremities motor strength 5/5 Skin: no rashes, warm and dry + ulcer (multiple superficial ulcerations) Psychiatric: A+Ox3, euthymic affect Results & Data ([facility]) Vital Signs (Past 12 Hours) Vital Signs Temp Pulse Resp BP Pulse Ox 08/06/19 05:17 88 21 113/78 95 08/06/19 04:17 73 117/70 96 08/06/19 04:04 37.1 C 08/06/19 03:17 80 112/71 95 08/06/19 02:17 93 H 106/76 94 08/06/19 01:17 87 115/72 97 08/06/19 00:17 97 H 117/81 91 08/06/19 00:00 36.8 C Laboratory Results Microbiology 08/01/19 09:55 Blood Aerobic Blood Culture - Final No growth in Aerobic bottle after 5 days. 08/01/19 09:55 Blood Anaerobic Blood Culture - Final 08/01/19 09:48 Blood Aerobic Blood Culture - Final No growth in Aerobic bottle after 5 days. 08/01/19 09:48 Blood Anaerobic Blood Culture - Final No growth in Anaerobic bottle after 5 days. 08/04/19 19:29 Blood Fungal Smear - Final 08/04/19 19:47 Blood Aerobic Blood Culture - Preliminary No growth in Aerobic bottle after 24 hours. 08/04/19 19:47 Blood Anaerobic Blood Culture - Preliminary No growth in Anaerobic bottle after 24 hours. 08/04/19 19:45 Blood Aerobic Blood Culture - Preliminary No growth in Aerobic bottle after 24 hours. 08/04/19 19:45 Blood Anaerobic Blood Culture - Preliminary No growth in Anaerobic bottle after 24 hours. 08/04/19 10:50 Blood Aerobic Blood Culture - Preliminary No growth in Aerobic bottle after 24 hours. 08/04/19 10:50 Blood Anaerobic Blood Culture - Preliminary No growth in Anaerobic bottle after 24 hours. 08/04/19 11:01 Blood Aerobic Blood Culture - Preliminary No growth in Aerobic bottle after 24 hours. 08/04/19 11:01 Blood Anaerobic Blood Culture - Preliminary No growth in Anaerobic bottle after 24 hours. 07/30/19 10:53 Blood Aerobic Blood Culture - Final No growth in Aerobic bottle after 5 days. 07/30/19 10:53 Blood Anaerobic Blood Culture - Final 07/30/19 09:45 Blood Aerobic Blood Culture - Preliminary Staph aureus MRSA 07/30/19 09:45 Blood Anaerobic Blood Culture - Final No growth in Anaerobic bottle after 5 days. 07/31/19 10:15 Bronch Wash, Left Main Stem Fungal Smear - Final 07/31/19 10:15 Bronch Wash, Left Main Stem Fungal Culture - Preliminary Jodie albicans 07/31/19 10:15 Bronch Wash, Left Main Stem Acid Fast Bacilli Smear - Final 07/31/19 10:15 Bronch Wash, Left Main Stem Acid Fast Bacilli Culture - Preliminary No Acid-Fast Bacilli Isolated - Report 1, Additional Report to Follow. 07/31/19 10:15 Bronch Wash,Left Lower Lobe Acid Fast Bacilli Smear - Final 07/31/19 10:15 Bronch Wash,Left Lower Lobe Acid Fast Bacilli Culture - Preliminary No Acid-Fast Bacilli Isolated - Report 1, Additional Report to Follow. 07/31/19 10:15 Bronch Wash,Left Lower Lobe Fungal Smear - Final 07/31/19 10:15 Bronch Wash,Left Lower Lobe Fungal Culture - Preliminary No yeast or fungus isolated - Report 1, Additional Report to Follow. 07/31/19 10:15 Bronch Wash, Left Main Stem Gram Stain - Final 07/31/19 10:15 Bronch Wash, Left Main Stem Bronchoalveolar Lavage Culture - Final Staph aureus MRSA 07/31/19 10:15 Bronch Wash,Left Lower Lobe Gram Stain - Final 07/31/19 10:15 Bronch Wash,Left Lower Lobe Bronchoalveolar Lavage Culture - Final Staph aureus MRSA PG Care Time/CCT Total # of Minutes Spent Total Time Spent with Patient: Total time spent is greater than 50% in coordination of care (as documented) at patient's floor/unit and/or counseling patient: Coding Level of Care Code 30339 Inpt Consult Level 4 Diagnoses Gram positive sepsis A41.89 Multifocal pneumonia J18.9 Influenza B J10.1 Superficial thrombophlebitis I80.9 H/O intravenous drug use in remission Z87.898
--- NOTE | 2019-08-06 14:27 | Billing Data ---
Date of Service August 06, 2019 Coding Level of Care Code 81377 Subseq Hosp Care Lvl 3
[2019-08-06] MEDS: ACETAMINOPHEN SOL 650 MG/20.3 ML UDC PO PRN (18:32)
[2019-08-06 19:00] LABS: Hepatitis A Antibody IgM NON-REACTIVE (NON-REACTIVE); Hepatitis B Core Antibody IgM NON-REACTIVE (NON-REACTIVE); Pneumococcal IgG Type 1 <0.3; Pneumococcal IgG Type 12 (12F) <0.3; Pneumococcal IgG Type 14 <0.3; Pneumococcal IgG Type 19 (19F) <0.3; Pneumococcal IgG Type 23 (23F) <0.3; Pneumococcal IgG Type 26 (6B) <0.3; Pneumococcal IgG Type 3 <0.3; Pneumococcal IgG Type 4 <0.3; Pneumococcal IgG Type 5 <0.3; Pneumococcal IgG Type 51 (7F) <0.3; Pneumococcal IgG Type 56 (18C) <0.3; Pneumococcal IgG Type 68 (9V) <0.3; Pneumococcal IgG Type 8 <0.3; Pneumococcal IgG Type 9 (9N) <0.3
[2019-08-06] MEDS: hydrOXYzine HCl 10 MG TAB PO PRN (21:24)
[2019-08-06] MEDS: MAGNESIUM OXIDE 400 MG TAB PO SCH (21:24)
[2019-08-06] MEDS: buprenorphine HCL 8 MG SUBL SL SCH (21:24)
[2019-08-07] MEDS: CEFTAROLINE FOSAMIL ACETATE 600 MG in SODIUM CHLORIDE 0.9% 250 ML IV SCH ×3 (01:59→18:21)
[2019-08-07 05:07] LABS: Basophils # (auto) 0.01 K/uL (0-0.2); Basophils % (auto) 0.1 %; Eosinophils # (auto) 0.04 K/uL (0-0.5); Eosinophils % (auto) 0.4 %; Hematocrit (blood only) 24.7 % (37-47); Hemoglobin 8.1 g/dL (12.0-16.0); Immature Granulocytes # (auto) 0.13 K/uL (0.00-0.02); Immature Granulocytes % (auto) 1.3 %; Lymphocytes # (auto) 1.51 K/uL (1.2-3.4); Lymphocytes % (auto) 15.6 %; Mean Corpuscular Hemoglobin 28.1 pg (25-34); Mean Corpuscular Hgb Conc 32.8 g/dL (32-36); Mean Corpuscular Volume 85.8 fL (80-100); Mean Platelet Volume 9.6 fL (7.4-10.4); Monocytes # (auto) 0.66 K/uL (0.11-0.59); Monocytes % (auto) 6.8 %; Neutrophils # (auto) 7.35 K/uL (1.4-6.5); Neutrophils % (auto) 75.8 %; Platelet Count 402 K/uL (130-400); RDW Coefficient of Variation 13.5 % (11.5-14.5); RDW Standard Deviation 42.8 fL (36.4-46.3); Red Blood Count 2.88 M/uL (4.2-5.4)
[2019-08-07 05:24] LABS: BUN Creatinine Ratio 15.8 (10-20); Blood Urea Nitrogen 6 mg/dl (7-18); Calcium 8.2 mg/dl (8.5-10.1); Carbon Dioxide 24 mmol/L (21-32); Chloride 111 mmol/L (98-107); Creatinine Clr Calc Pharmacy 190.6 ml/min; Est GFR (African American) > 150.0; Est GFR (Non-African American) > 150.0; Glucose 91 mg/dl (70-99); Magnesium 1.8 mg/dl (1.8-2.4); Potassium 3.5 mmol/L (3.5-5.1); Sodium 140 mmol/L (136-145)
[2019-08-07 05:29] LABS: Phosphorus 3.6 mg/dl (2.5-4.9)
[2019-08-07] MEDS: hydrOXYzine HCl 10 MG TAB PO PRN (05:34)
--- NOTE | 2019-08-07 06:08 | Critical Care Progress Note ---
Date of Service August 07, 2019 Assessment & Plan (1) Admitted to intensive care unit: Reason Critically Ill: 23 yo female with PMHx of IV drug abuse admitted for hypoxic respiratory failure secondary to Influenza B + superimposed bacterial PNA, sent to ICU for intubation and mechanical ventilation 24hrs: Heparin drip discontinued and patient transitioned to oral anticoagulant. She maintained hemodynamic stability and tolerated O2 wean. She remains in ICU for close monitoring in the setting of central venous catheter placement and history of IV drug use, with concern for current desires to use + or - access. Participating in PT/OT. Neuro: [facility] ICU: negative * Hx of IV drug abuse - restarted home dose Suboxone * Hx anxiety/depression - discontinue home Celexa, as patient will be leaving hospital on (elevated risk of serotonin syndrome); psychiatry was consulted and was in agreement * urine tox positive on admission for Methamphetamine and Ecstasy Cardiac: * ECHO 07/30 showing normal EF without valvular vegetations. Repeat echo was obtained on 08/05 with concern for septic thromboemboli on exam, although study showed no valvular vegetations. Patient's history of Raynaud's phenomenon at times makes extremities appear red, warm, and swollen, making it difficult to discern acuity of exam findings * left cephalic vein with occlusive superficial thrombosis (not phlebitis) visualized in the distal upper arm on venous duplex from 08/04. consistent with the prior site of the US guided peripheral line that was removed on 08/03 for discontinued functioning. - Continue Rivaroxaban 10mg, daily for 6 weeks, without a loading dose, as discussed with Dr. Castrejon Respiratory: * currently saturating in the 90s on room air * Influenza B + superimposed multifocal MRSA PNA -patient has completed 5 day course of Daptomycin/Ceftaroline, 5 day course of Tamiflu and 5 day course of Azithromycin. - encouraged use of incentive spirometer GI: * Patient eating full liquid diet; advance as tolerated. - continue stress ulcer ppx with protonix (indication is 48 hour ventilation) * Elevated LFTs: resolved. likely sales representative education courses of shock liver > primary hepatic etiology. Hep A, B and C negative. RENAL/LYTES: * electrolytes within normal limits * Cr remains WNL. Check creatinine q72 hrs. : * GC/Chlamydia PCR pending ENDO: * ICU protocol for hyperglycemia HEME: * thrombocytopenia: resolved. heparin platelet antibody negative. likely secondary to septic state * leukocytopenia: resolved, WBC normal; Immunodeficiency was considered, work up thus far negative. (HIV neg, Hepatitis panel neg) * anemia: hgb stable at 8. no obvious source of bleeding; transfuse < 7 ID: * Influenza B with superimposed multifocal PNA. Completed 5 day course of Daptomycin/Ceftaroline, 5 day course of Tamiflu and 5 day course of Azithromycin. bronch cultures obtained 07/31 grew MRSA; urine legionella antigen neg. -procal trending down. lactate has downtrended. Continuing ceftaroline while in hospital (Day 7). * 1 of 2 blood cultures from 07/30 return as + for gram positive cocci, PCR + for MRSA. repeat blood cultures obtained 08/01, no growth to date. blood cultures obtained again 08/04 in the morning and again in the evening corresponding to febrile episodes - showing no growth to date. - Infectious disease consulted, recommending 4 weeks of gram + antimicrobial coverage given gram + bacteremia. Patient with continue on Ceftaroline (day 7) while in the hospital and transition to [facility] upon discharge. Patient was not a favorable candidate to leave hospital with a PICC line given history of IV drug abuse. - ECHO from 07/31 showing no valvular vegetations. Repeat TTE 08/05 showing no valvular vegetations. - Rectal exam 08/04 not concerning for abscess formation. No carbuncles or furuncles virilized on skin in perirectal area. Patient continues moving all 4 extremities (low concern for spinal abscess formation at this time) * recommend influenza vaccination for mother, boyfriend, and other close contacts LINES/IV ACCESS: * L subclavian CVC CODE STATUS: Full DVT PROPHYLAXIS: Lovenox 30mg sq, q12. bilateral SCDs Thank you for allowing us to participate in the care of this patient. Please refer to my attending physician's documentation for any further recommendations. Admission and Anticipated Discharge Date Admission Date: July 30, 2019 Supervising Physician Co-Signing Physician Notes Dr. Newell was resident physician during care of patient. I separately evaluated patient for pedro portions of the history and the exam. I was present during the critical portion of medical decision making, and I discussed the case with the resident. I generally agree with the findings and plan. Patient was discussed in multidisciplinary rounds and with the primary care team, we are working on getting [facility] approval for NTU administration. We have discontinued the daptomycin with continue ceftaroline. She requires the indwelling catheter secondary to poor venous access, we are looking to have that removed as soon as possible. This should occur as soon as the Dalvance is approved and we have a plan for administration. Subjective Patient in ICU. Boyfriend's mother present at bedside. Patient reports soreness in neck and back. Breathing is better today Review of Systems Musculoskeletal: + back pain and + neck pain Physical Exam Constitutional: WD/WN, vitals as above Eyes: + anicteric sclerae ENMT: external ear and nose normal, oropharynx normal Neck: normal visual inspection and trachea midline Respiratory: normal respiratory effort and symmetric chest movement; no respiratory distress and no labored breathing Auscultation: + rhonchi (bilateral lung bases) and + wheezes (expiratory; bilateral); no crackles and no pleural rub Cardiovascular: RRR, no murmur, no edema Rate/Rhythm: regular rhythm and + tachycardic Heart Sounds: normal S1 and normal S2 Gastrointestinal (Abdomen): normal bowel sounds, soft, nontender, no hepatosplenomegaly Rectal Exam: no rectal mass and no rectal lesions Skin: + erythema (bilateral hands and feet) and + scar (dorsal surface of bilateral hands) Trauma: + evidence of skin trauma (multiple track chang on b/l forearms ) Neurologic: moves all extremities Psychiatric: A+Ox3, euthymic affect Results & Data ([facility]) Vital Signs (Past 12 Hours) Vital Signs Temp Pulse Pulse Resp BP BP Pulse Ox 08/07/19 05:13 116 H 23 103/76 08/07/19 03:45 36.8 C 08/07/19 03:18 77 17 115/65 08/07/19 02:18 76 18 111/66 08/07/19 02:00 83 23 08/07/19 01:18 95 H 29 H 120/75 93 08/07/19 00:18 94 H 24 126/74 92 08/07/19 00:00 36.8 C 77 16 08/06/19 23:26 81 08/06/19 23:18 84 18 117/58 L 08/06/19 23:00 77 16 08/06/19 22:18 78 20 117/58 L 08/06/19 22:00 78 22 08/06/19 21:24 85 22 114/63 08/06/19 21:00 89 24 08/06/19 20:19 76 19 08/06/19 20:18 77 22 112/68 94 08/06/19 20:00 37.0 C 94 H 30 H 08/06/19 19:18 100 H 19 123/76 08/06/19 18:17 122 H 31 H 139/80 Resident Activity Tracking Resident Involvement: Resident Care Provided Care Provided: Adult [facility] Medicine
[2019-08-07 06:23] LABS: Chlamydia Trach RNA NOT DETECTED (NOT DETECTED); GC (Neis gonorrhoeae) RNA NOT DETECTED (NOT DETECTED)
--- NOTE | 2019-08-07 07:44 | Hospitalist Progress Note ---
Date of Service August 07, 2019 Assessment & Plan (1) Admitted to intensive care unit: 23 yo female with PMHx of IV drug abuse admitted for hypoxic respiratory failure secondary to superimposed multifocal pneumonia on Influenza B with MRSA positive blood cultures, sent to ICU for acute, hypoxic respiratory distress. - Extubated and weaned from NC 2L. - Started on Xarelto for Occlusive superficial venous thrombosis of the left cephalic vein. - Noted that Right arterial line was occluded and removed. - Noted that Daptomycin was rec to be discontinued with plans for maintaining ceftaroline while inpatient and then d/c with plans for Dalvance at [facility] for 2 doses s/p d/c from hospital to complete treatment course - not a candidate for picc line with active drug use Code: Full Code DVT ppx: Xarelto 10mg PO FENGI: Regular easy to chew Disposition: Currently in ICU to monitor patient safety from drug use (2) Sepsis with acute hypoxic respiratory failure: Correction of underlying causes - infectious processes. - Tachycardia and prior Echocardiogram findings of hyperdynamic LV most likely from sepsis. (3) Multifocal pneumonia: - Superimposed multifocal PNA on positive Influenza B - On Day 6 of Dapsone (MRSA blood and other possible soft tissue infections) and ceftaroline (MRSA Lung coverage), completed course of Azithromycin (atypical coverage), and Tamiflu (influenza B). Dapto discontinued as noted above. - bronch cultures positive for MRSA, munira albicans. urine legionella antigen negative. - 1/2 blood cultures from 07/30 return positive for gram positive cocci/MRSA. Repeated blood cultures obtained 08/01, NGTD blood cultures obtained again 08/04 in the morning and again in the evening in setting of febrile episodes - showing no growth to date. antibiotics as above. (4) IV drug abuse: - Urine tox positive on admission for Methamphetamine and Ecstasy - Echocardiogram 07/30 showing normal EF without valvular vegetations. Obvious concern for right sided endocarditis in setting of IV drug abuse, but no evidence with normal echo. - on Suboxone, currently holding as patient has fentanyl 50mcg q2h - Repeat Echo Transthoracic didn't show any valvular vegetations (5) Abnormal LFTs: - likely outside sales account representative of shock liver from poor perfusion from sepsis vs. primary hepatic etiology. Hep B and C neg. Hep A pending. - Resolved. (6) Thrombocytopenia: - Suspected from bone marrow infiltration from influenza - Resolved, significantly improved (7) Influenza B: as noted above (8) GERD (gastroesophageal reflux disease): - noted in past medical hx - Protonix for stress ulcer prevention (9) Lactic acid acidosis: 07/30 2.9 --> resovled to 1.6 on 07/31 Most likely from poor perfusion in setting of sepsis (10) Raynauds disease: Noted in past medical hx No outpatient noted treatment Hands are erythematous with blanching on palpation consistent with disease pro cess. (11) Depression: Noted to be on Celexa 10mg PO HS at home (12) Hx MRSA infection: As noted in past medical hx; most likely from IV Drug Abuse. (13) Edema: Noted significant bilateral upper extremities worse at hands but significantly improved. Admission and Anticipated Discharge Date Admission Date: July 30, 2019 Results & Data ([facility]) Vital Signs (Past 12 Hours) Vital Signs Temp Pulse Pulse Resp BP BP BP 08/07/19 06:05 94 H 26 H 127/64 08/07/19 05:13 116 H 23 103/76 08/07/19 03:45 36.8 C 08/07/19 03:18 77 17 115/65 08/07/19 02:18 76 18 111/66 08/07/19 02:00 83 23 08/07/19 01:18 95 H 29 H 120/75 08/07/19 00:18 94 H 24 126/74 08/07/19 00:00 36.8 C 77 16 08/06/19 23:26 81 08/06/19 23:18 84 18 117/58 L 08/06/19 23:00 77 16 08/06/19 22:18 78 20 117/58 L 08/06/19 22:00 78 22 08/06/19 21:24 85 22 114/63 08/06/19 21:00 89 24 08/06/19 20:19 76 19 08/06/19 20:18 77 22 112/68 08/06/19 20:00 37.0 C 94 H 30 H Pulse Ox 08/07/19 06:05 08/07/19 05:13 08/07/19 03:45 08/07/19 03:18 08/07/19 02:18 08/07/19 02:00 08/07/19 01:18 93 08/07/19 00:18 92 08/07/19 00:00 08/06/19 23:26 08/06/19 23:18 08/06/19 23:00 08/06/19 22:18 08/06/19 22:00 08/06/19 21:24 08/06/19 21:00 08/06/19 20:19 08/06/19 20:18 94 08/06/19 20:00 Resident Activity Tracking Resident Involvement: Resident Care Provided Care Provided: Adult Hospital Medicine (1) GERD (gastroesophageal reflux disease) Esophagitis presence: esophagitis presence not specified Qualified Code(s): K21.9 - Gastro-esophageal reflux disease without esophagitis (2) Depression Depression Type: major depressive disorder Major depression recurrence: unspecified whether recurrent Active/Remission status: remission status unspecified Qualified Code(s): F32.9 - Major depressive disorder, single episode, unspecified
[2019-08-07] MEDS: buprenorphine HCL 8 MG SUBL SL SCH ×2 (08:35→20:12)
[2019-08-07] MEDS: RIVAROXABAN 10 MG TABLET PO SCH (08:35)
--- NOTE | 2019-08-07 10:36 | Discharge Summary ---
Date of Service August 07, 2019 Admission HPI Per Admitting Provider Hugo Ortiz is a 23-year-old female with history of prior IV drug abuse, MRSA infections presenting with multifocal pneumonia and influenza B. Patient states she has been having 2 to 3 days of fevers, chills, sweats and body aches. Also with a dry cough, throat pain and chest discomfort with breathing and coughing. On arrival to the ER patient febrile at 38.2, tachycardic at 124 bpm, tachypneic at 36 breaths/min, adequate oxygenation of 96% on room air. ER course Tylenol 1000 mg p.o., ceftriaxone 1 g IV, doxycycline 100 mg IV, Toradol 30 mg IV, normal saline x 1L and 250 mL/h Principal Diagnosis MRSA Multifocal Pneumonia; MRSA Bacteremia; Acute Respiratory Failure requiring mechanical ventiliation Discharge Exam Constitutional WD/WN, vitals as above cooperative and comfortable Eyes PERRL, conjunctivae normal, anicteric sclerae ENMT external ear and nose normal, oropharynx normal Neck normal visual inspection and trachea midline Respiratory normal respiratory effort, lungs clear to auscultation Cardiovascular Rate/Rhythm: regular rate and regular rhythm Gastrointestinal (Abdomen) Inspection/Auscultation: abdomen not distended Percussion/Palpation: abdomen soft; abdomen nontender and abdomen not rigid Musculoskeletal Head/Neck/Chest: normocephalic, head atraumatic and neck supple Neurologic moves all extremities and awake Psychiatric Orientation: alert and oriented x 3 Discharge Data Allergies Allergy/AdvReac Type Severity Reaction Status Date / Time No Known Allergies Allergy Verified 07/30/19 09:43 Consultations 07/30/19 12:33 ED Decision to Admit Stat 07/30/19 19:17 Consult Supervisory Aide Routine 07/30/19 21:33 Consult Case Management - Discharge Planning Routine 08/06/19 09:44 Consult Infectious Diseases Routine 08/06/19 09:47 Consult Psychiatry Routine Ordered Studies 07/30/19 11:07 CT chest w con Stat 07/30/19 23:43 US liver Routine 07/31/19 07:34 US point of care ultrasound Routine 08/04/19 10:12 US venous doppler LE BI Routine US venous doppler UE BI Routine Hospital Course (1) Admitted to intensive care unit: 23 yo female with PMHx of IV drug abuse admitted for hypoxic respiratory failure secondary to superimposed multifocal pneumonia on Influenza B with MRSA positive blood cultures, sent to ICU for acute, hypoxic respiratory distress. - Extubated and weaned from NC 2L. - Started on Xarelto for Occlusive superficial venous thrombosis of the left cephalic vein. - Noted that Right arterial line was occluded and removed. - Noted that Daptomycin was rec to be discontinued with plans for maintaining ceftaroline while inpatient and then d/c with plans for Dalvance at [facility] for 2 doses s/p d/c from hospital to complete treatment course - not a candidate for picc line with active drug use Code: Full Code DVT ppx: Xarelto 10mg PO FENGI: Regular easy to chew Disposition: Currently in ICU to monitor patient safety from drug use (2) Sepsis with acute hypoxic respiratory failure: Correction of underlying causes - infectious processes. - Tachycardia and prior Echocardiogram findings of hyperdynamic LV most likely from sepsis. (3) Multifocal pneumonia: - Superimposed multifocal PNA on positive Influenza B - On Day 6 of Dapsone (MRSA blood and other possible soft tissue infections) and ceftaroline (MRSA Lung coverage), completed course of Azithromycin (atypical coverage), and Tamiflu (influenza B). Dapto discontinued as noted above. - bronch cultures positive for MRSA, munira albicans. urine legionella antigen negative. - 1/2 blood cultures from 07/30 return positive for gram positive cocci/MRSA. Repeated blood cultures obtained 08/01, NGTD blood cultures obtained again 08/04 in the morning and again in the evening in setting of febrile episodes - showing no growth to date. antibiotics as above. (4) IV drug abuse: - Urine tox positive on admission for Methamphetamine and Ecstasy - Echocardiogram 07/30 showing normal EF without valvular vegetations. Obvious concern for right sided endocarditis in setting of IV drug abuse, but no evidence with normal echo. - on Suboxone, currently holding as patient has fentanyl 50mcg q2h - Repeat Echo Transthoracic didn't show any valvular vegetations (5) Abnormal LFTs: - likely education courses sales representative of shock liver from poor perfusion from sepsis vs. primary hepatic etiology. Hep B and C neg. Hep A pending. - Resolved. (6) Thrombocytopenia: - Suspected from bone marrow infiltration from influenza - Resolved, significantly improved (7) Influenza B: as noted above (8) GERD (gastroesophageal reflux disease): - noted in past medical hx - Protonix for stress ulcer prevention (9) Lactic acid acidosis: 07/30 2.9 --> resovled to 1.6 on 07/31 Most likely from poor perfusion in setting of sepsis (10) Raynauds disease: Noted in past medical hx No outpatient noted treatment Hands are erythematous with blanching on palpation consistent with disease process. (11) Depression: Noted to be on Celexa 10mg PO HS at home (12) Hx MRSA infection: As noted in past medical hx; most likely from IV Drug Abuse. (13) Edema: Noted significant bilateral upper extremities worse at hands but significantly improved. Discharge Plan Discharge Items Patient Disposition: Home - Self-Care Reason For Visit: PNA, INFLUENZA Discharge Diagnosis: MRSA Multifocal Pneumonia; MRSA Bacteremia; Acute Respiratory Failure requiring mechanical ventilation Activity: Resume your previous activity Non-emergency contact: Primary Care Provider Call non-emergency contact if: you have any medication questions, your symptoms worsen and you have a fever Follow-up/Referrals: Octaviano Riley [Other] (Please call for first available appointment for hospital follow up) PCP,NO [Primary Care Provider] - Diet: Regular Addtl Attending Provider Instructions: You were admitted for MRSA Multifocal Pneumonia; MRSA Bacteremia; Acute Respiratory Failure requiring mechanical ventilation. You also tested positive for Influenza B. Please get your annual flu shot next March 2020. Please abstain from IV drug use. Continued use of IV drugs could cause another episode of everything you just went through. Please follow up with help for this. We believe in you that you can overcome this. IV drug use can cause heart damage, lead to stroke/brain damage, and will significantly shorten your life. You will need to come back to the hospital for 2 doses of an antibiotic called Dalvance. This medication is given through an IV and lasts for 2 weeks. You will get this twice which will be providing you antibacterial coverage for one month. This is important to treat your serious lung and blood infection caused by MRSA. Stand-Alone Forms: My [facility] Prelert, Smoking Cessation Medications and DC Order Prescriptions: No Action buprenorphine HCl 8 mg tablet, sublingual 8 mg SL BID Qty: 10 RF: 0 acetaminophen [Tylenol] 325 mg Tablet 325 mg PO QID PRN (Reason: Pain) RF: 0 clindamycin-benzoyl peroxide 1-5 % gel 1 applic TOPICAL BID RF: 0 citalopram [Celexa] 10 mg tablet 10 mg PO HS RF: 0 Admission Data Admit Date/Time: 07/30/19 13:21 Attending Provider: Greg Cristobal Admit Provider: Tanya Hensley Primary Care Provider: PCP,NO Other Providers: Uli Troncoso ; Tanya Hensley ; Melania Herring ; Saadia Rodney
--- NOTE | 2019-08-07 11:00 | Hospitalist Progress Note ---
Date of Service August 07, 2019 Assessment & Plan (1) Admitted to intensive care unit: 23 yo female with PMHx of IV drug abuse admitted for hypoxic respiratory failure secondary to superimposed multifocal pneumonia on Influenza B with MRSA positive blood cultures, sent to ICU for acute, hypoxic respiratory distress. - Currently on room air, lungs sound remarkably improved. - Started on Xarelto for Occlusive superficial venous thrombosis of the left cephalic vein. - Noted that Daptomycin was rec to be discontinued with plans for maintaining ceftaroline while inpatient and then d/c with plans for Dalvance at [facility] for 2 doses s/p d/c from hospital to complete treatment course - not a candidate for picc line with active drug use - Discussed need for compliance with Dalvance and to discussed plan to abstain from IV drug use which includes outpatient therapy. Code: Full Code DVT ppx: Xarelto 10mg PO FENGI: Regular easy to chew Disposition: Discharge pending Dalvance approval/outpatient logistical. (2) Sepsis with acute hypoxic respiratory failure: Correction of underlying causes - infectious processes. - Tachycardia and prior Echocardiogram findings of hyperdynamic LV most likely from sepsis. (3) Multifocal pneumonia: - Superimposed multifocal PNA on positive Influenza B - On Day 6 of Dapsone (MRSA blood and other possible soft tissue infections) and ceftaroline (MRSA Lung coverage), completed course of Azithromycin (atypical coverage), and Tamiflu (influenza B). Dapto discontinued as noted above. - bronch cultures positive for MRSA, munira albicans. urine legionella antigen negative. - 1/2 blood cultures from 07/30 return positive for gram positive cocci/MRSA. Repeated blood cultures obtained 08/01, NGTD blood cultures obtained again 08/04 in the morning and again in the evening in setting of febrile episodes - showing no growth to date. antibiotics as above. (4) IV drug abuse: - Urine tox positive on admission for Methamphetamine and Ecstasy - Echocardiogram 07/30 showing normal EF without valvular vegetations. Obvious concern for right sided endocarditis in setting of IV drug abuse, but no evidence with normal echo. - on Suboxone - Repeat Echo Transthoracic didn't show any valvular vegetations (5) Abnormal LFTs: - likely sales representative jewelry of shock liver from poor perfusion from sepsis vs. primary hepatic etiology. Hep B and C neg. Hep A pending. - Resolved. (6) Thrombocytopenia: - Suspected from bone marrow infiltration from influenza - Resolved, significantly improved (7) Influenza B: as noted above (8) GERD (gastroesophageal reflux disease): - noted in past medical hx - Protonix for stress ulcer prevention (9) Lactic acid acidosis: 07/30 2.9 --> resovled to 1.6 on 07/31 Most likely from poor perfusion in setting of sepsis (10) Raynauds disease: Noted in past medical hx No outpatient noted treatment Hands are erythematous with blanching on palpation consistent with disease process. (11) Depression: Noted to be on Celexa 10mg PO HS at home (12) Hx MRSA infection: As noted in past medical hx; most likely from IV Drug Abuse. (13) Edema: Noted significant bilateral upper extremities worse at hands but significantly improved. Admission and Anticipated Discharge Date Admission Date: July 30, 2019 Supervising Physician Co-Signing Physician Notes Attending attestation Pt seen and examined in concert with Dr. Austin. In agreement with the documented findings as noted in the resident documentation with any exceptions or additions as noted here. Continuing improvement of shortness of breath without complaint of fever. Still with minimal eye contact. Does not want brother to know about substance use history. On examination, improved coarseness, rhonchi and scattered rales but still severe. S1/S2 nl, no MCG. Abd NT/ND BS +Ve Sepsis w/ multifocal pneumonia in the setting of influenza B - continue ceftaroline with the intention to transition to [place] on discharge, pending case management. Blood cultures negative most recently, previously +ve for MRSA in bronch washings and BCx. IVDA - back on buprenorphine dose, intends to do 'outpatient meetings' evading clarification Upper extremity thrombosis - continue rivaroxaban Else see resident documentation as noted. Subjective Hugo notes her breathing has significantly improved from yesterday. She notes feeling still generalized weakness but is able to perform ADLs and walk but being mindful to take her time. She notes some mild back pain but attributes this to probably being bedbound while on ventilator for the past week. She notes that her plan to remain drug free is to attend outpatient rehab and attend support group meetings. She acknowledges awareness of need to be compliant with not using IV drugs and to return for Dalvance antibiotic therapy once this medication is approved. Physical Exam Constitutional: WD/WN, vitals as above cooperative and comfortable Eyes: PERRL, conjunctivae normal, anicteric sclerae ENMT: external ear and nose normal, oropharynx normal Neck: normal visual inspection and trachea midline Respiratory: normal respiratory effort, lungs clear to auscultation no respiratory distress Cardiovascular: Rate/Rhythm: regular rate and regular rhythm Gastrointestinal (Abdomen): Inspection/Auscultation: abdomen not distended Percussion/Palpation: abdomen soft; abdomen nontender and abdomen not rigid Musculoskeletal: Head/Neck/Chest: normocephalic, head atraumatic and neck supple improving edema to bilateral hands Neurologic: moves all extremities and awake Psychiatric: Orientation: alert and oriented x 3 Eye Contact: + poor eye contact Results & Data ([facility]) Vital Signs (Past 12 Hours) Vital Signs Temp Pulse Pulse Resp BP BP BP 08/07/19 09:30 106 H 26 H 08/07/19 09:01 90 23 08/07/19 09:00 91 H 25 H 137/76 08/07/19 08:30 90 22 08/07/19 08:00 37.5 C 91 H 23 08/07/19 07:30 88 27 H 08/07/19 07:28 90 29 H 08/07/19 06:05 94 H 26 H 127/64 08/07/19 05:13 116 H 23 103/76 08/07/19 03:45 36.8 C 08/07/19 03:18 77 17 115/65 08/07/19 02:18 76 18 111/66 08/07/19 02:00 83 23 08/07/19 01:18 95 H 29 H 120/75 08/07/19 00:18 94 H 24 126/74 08/07/19 00:00 36.8 C 77 16 08/06/19 23:26 81 08/06/19 23:18 84 18 117/58 L 08/06/19 23:00 77 16 Pulse Ox 08/07/19 09:30 08/07/19 09:01 08/07/19 09:00 08/07/19 08:30 08/07/19 08:00 08/07/19 07:30 08/07/19 07:28 08/07/19 06:05 08/07/19 05:13 08/07/19 03:45 08/07/19 03:18 08/07/19 02:18 08/07/19 02:00 08/07/19 01:18 93 08/07/19 00:18 92 08/07/19 00:00 08/06/19 23:26 08/06/19 23:18 08/06/19 23:00 Laboratory Results Laboratory Results - last 24 hr 07/30/19 08/04/19 08/07/19 20:13 13:51 04:24 WBC RBC Hgb Hct MCV MCH MCHC RDW Std Deviation RDW Coeff of Christina Plt Count MPV Immature Gran % (Auto) Neut % (Auto) Lymph % (Auto) [place] % (Auto) Eos % (Auto) Baso % (Auto) Immature Gran # (Auto) Neut # (Auto) Lymph # (Auto) [place] # (Auto) Eos # (Auto) Baso # (Auto) Sodium Potassium Chloride Carbon Dioxide Anion Gap BUN Creatinine Est Cr Clr Drug Dosing Est GFR ( Amer) Est GFR (Non-Af Amer) BUN/Creatinine Ratio Glucose Calcium Phosphorus Magnesium C.trachomatis RNA NOT DETECTED Hepatitis A IgM Ab NON-REACTIVE Hep B Core IgM Ab NON-REACTIVE Hepatitis C Antibody Neg HIV-1 RNA copies/mL Cancelled HIV-1 RNA logcopies/mL Cancelled HIV 1&2 Ab/P24 Ag 4thGn N.gonorrhoeae RNA NOT DETECTED S.pneumoniae Type 1 IgG <0.3 S.pneumoniae Type 3 IgG <0.3 S.pneumoniae Type 4 IgG <0.3 S.pneumoniae Type 5 IgG <0.3 S.pneumoniae Type 8 IgG <0.3 S.pneumoniae 9 (9N) IgG <0.3 S.pneumon 12 (12F) IgG <0.3 S.pneumoniae Typ 14 IgG <0.3 S.pneumon 19 (19F) IgG <0.3 S.pneumon 23 (23F) IgG <0.3 S.pneumon 26 (6B) IgG <0.3 S.pneumon 51 (7F) IgG <0.3 S.pneumon 56 (18C) IgG <0.3 S.pneumon 68 (9V) IgG <0.3 Reference Lab Comment SEE NOTE 08/07/19 08/07/19 08/07/19 04:24 04:27 04:27 WBC 9.70 RBC 2.88 L Hgb 8.1 L Hct 24.7 L MCV 85.8 MCH 28.1 MCHC 32.8 RDW Std Deviation 42.8 RDW Coeff of Christina 13.5 Plt Count 402 H MPV 9.6 Immature Gran % (Auto) 1.3 Neut % (Auto) 75.8 Lymph % (Auto) 15.6 [place] % (Auto) 6.8 Eos % (Auto) 0.4 Baso % (Auto) 0.1 Immature Gran # (Auto) 0.13 H Neut # (Auto) 7.35 H Lymph # (Auto) 1.51 [place] # (Auto) 0.66 H Eos # (Auto) 0.04 Baso # (Auto) 0.01 Sodium 140 Potassium 3.5 Chloride 111 H Carbon Dioxide 24 Anion Gap 5.0 BUN 6 L Creatinine 0.36 L Est Cr Clr Drug Dosing 190.6 Est GFR ( Amer) > 150.0 Est GFR (Non-Af Amer) > 150.0 BUN/Creatinine Ratio 15.8 Glucose 91 Calcium 8.2 L Phosphorus 3.6 D Magnesium 1.8 C.trachomatis RNA Hepatitis A IgM Ab Hep B Core IgM Ab Hepatitis C Antibody HIV-1 RNA copies/mL HIV-1 RNA logcopies/mL HIV 1&2 Ab/P24 Ag 4thGn Neg N.gonorrhoeae RNA S.pneumoniae Type 1 IgG S.pneumoniae Type 3 IgG S.pneumoniae Type 4 IgG S.pneumoniae Type 5 IgG S.pneumoniae Type 8 IgG S.pneumoniae 9 (9N) IgG S.pneumon 12 (12F) IgG S.pneumoniae Typ 14 IgG S.pneumon 19 (19F) IgG S.pneumon 23 (23F) IgG S.pneumon 26 (6B) IgG S.pneumon 51 (7F) IgG S.pneumon 56 (18C) IgG S.pneumon 68 (9V) IgG Reference Lab Comment Medications Administered Acetaminophen (Tylenol) 650 mg PO Q6H PRN PRN Reason: Pain Stop: 09/05/19 18:08 Last Admin: 08/06/19 18:32 Dose: 650 mg Documented by: [id number] Albuterol (Ventolin 0.5% 2.5mg/0.5ml) 2.5 mg NEB Q2H PRN PRN Reason: SOB/Wheeze Stop: 08/29/19 16:34 Last Admin: 08/04/19 01:29 Dose: 2.5 mg Documented by: [id number] Admin: 08/03/19 19:38 Dose: 2.5 mg Documented by: [id number] Admin: 08/03/19 07:22 Dose: 2.5 mg Documented by: [id number] Admin: 08/02/19 23:49 Dose: 2.5 mg Documented by: [id number] Admin: 08/02/19 20:13 Dose: 2.5 mg Documented by: [id number] Admin: 08/02/19 13:34 Dose: 2.5 mg Documented by: [id number] Admin: 08/02/19 07:59 Dose: 2.5 mg Documented by: [id number] Admin: 08/02/19 04:42 Dose: 2.5 mg Documented by: [id number] Buprenorphine HCl (Subutex) 8 mg SL BID MARK Stop: 09/05/19 20:59 Last Admin: 08/07/19 08:35 Dose: 8 mg Documented by: [id number] Admin: 08/06/19 21:24 Dose: 8 mg Documented by: [id number] Hydroxyzine HCl (Vistaril) 10 mg PO TID PRN PRN Reason: Anxiety Stop: 08/29/19 14:30 Last Admin: 08/07/19 05:34 Dose: 10 mg Documented by: [id number] Admin: 08/06/19 21:24 Dose: 10 mg Documented by: [id number] Admin: 08/03/19 20:48 Dose: 10 mg Documented by: [id number] Ceftaroline Fosamil 600 mg/ (Sodium Chloride) 270 mls @ 270 mls/hr IV Q8H MARK Stop: 08/15/19 10:29 Last Infusion: 08/07/19 12:20 Dose: 0 mls/hr Documented by: [id number] Admin: 08/07/19 10:39 Dose: 270 mls/hr Documented by: [id number] Infusion: 08/07/19 02:59 Dose: 0 mls/hr Documented by: [id number] Admin: 08/07/19 01:59 Dose: 270 mls/hr Documented by: [id number] Infusion: 08/06/19 19:32 Dose: 0 mls/hr Documented by: [id number] Admin: 08/06/19 18:32 Dose: 270 mls/hr Documented by: [id number] Infusion: 08/06/19 11:42 Dose: 0 mls/hr Documented by: [id number] Admin: 08/06/19 10:42 Dose: 270 mls/hr Documented by: [id number] Infusion: 08/06/19 03:13 Dose: 0 mls/hr Documented by: [id number] Admin: 08/06/19 02:13 Dose: 270 mls/hr Documented by: [id number] Infusion: 08/05/19 18:59 Dose: 0 mls/hr Documented by: [id number] Admin: 08/05/19 17:51 Dose: 270 mls/hr Documented by: [id number] Infusion: 08/05/19 13:29 Dose: 270 mls/hr Documented by: [id number] Admin: 08/05/19 11:25 Dose: 270 mls/hr Documented by: [id number] Infusion: 08/05/19 03:30 Dose: 0 mls/hr Documented by: [id number] Admin: 08/05/19 02:29 Dose: 270 mls/hr Documented by: [id number] Infusion: 08/04/19 20:34 Dose: 0 mls/hr Documented by: [id number] Admin: 08/04/19 18:24 Dose: 270 mls/hr Documented by: [id number] Infusion: 08/04/19 13:44 Dose: 0 mls/hr Documented by: [id number] Admin: 08/04/19 12:06 Dose: 270 mls/hr Documented by: [id number] Infusion: 08/04/19 03:59 Dose: 0 mls/hr Documented by: [id number] Admin: 08/04/19 02:45 Dose: 270 mls/hr Documented by: [id number] Infusion: 08/03/19 20:18 Dose: 0 mls/hr Documented by: [id number] Admin: 08/03/19 18:41 Dose: 270 mls/hr Documented by: [id number] Infusion: 08/03/19 12:38 Dose: 0 mls/hr Documented by: [id number] Admin: 08/03/19 11:37 Dose: 270 mls/hr Documented by: [id number] Infusion: 08/03/19 04:30 Dose: 0 mls/hr Documented by: [id number] Admin: 08/03/19 02:24 Dose: 270 mls/hr Documented by: [id number] Infusion: 08/02/19 19:00 Dose: 0 mls/hr Documented by: [id number] Admin: 08/02/19 17:31 Dose: 270 mls/hr Documented by: [id number] Infusion: 08/02/19 10:45 Dose: 0 mls/hr Documented by: [id number] Admin: 08/02/19 09:42 Dose: 270 mls/hr Documented by: [id number] Infusion: 08/02/19 03:34 Dose: 0 mls/hr Documented by: [id number] Admin: 08/02/19 02:17 Dose: 270 mls/hr Documented by: [id number] Infusion: 08/01/19 20:18 Dose: 0 mls/hr Documented by: [id number] Admin: 08/01/19 18:10 Dose: 270 mls/hr Documented by: [id number] Infusion: 08/01/19 12:10 Dose: 0 mls/hr Documented by: [id number] Admin: 08/01/19 10:33 Dose: 270 mls/hr Documented by: [id number] Magnesium Oxide (Mag-Ox) 400 mg PO [facility] Stop: 09/03/19 20:59 Last Admin: 08/06/19 21:24 Dose: 400 mg Documented by: [id number] Admin: 08/05/19 20:36 Dose: 400 mg Documented by: [id number] Admin: 08/04/19 21:22 Dose: 400 mg Documented by: [id number] Miscellaneous (Order Awaiting Action) 1 ea N/A QS [facility] Stop: 08/29/19 15:59 Last Admin: 07/31/19 09:59 Dose: Not Given Documented by: [id number] Admin: 07/31/19 06:14 Dose: Not Given Documented by: [id number] Admin: 07/30/19 15:21 Dose: Not Given Documented by: [id number] Ondansetron HCl (Zofran) 4 mg IV Q6H PRN PRN Reason: Nausea Stop: 08/29/19 14:30 Last Admin: 07/30/19 17:10 Dose: 4 mg Documented by: [id number] Rivaroxaban (Xarelto) 10 mg PO DAILY [facility] Stop: 09/05/19 10:14 Last Admin: 08/07/19 08:35 Dose: 10 mg Documented by: [id number] Admin: 08/06/19 10:42 Dose: 10 mg Documented by: [id number] Resident Activity Tracking Resident Involvement: Resident Care Provided Care Provided: Adult [facility] Medicine (1) Depression Active/Remission status: remission status unspecified Depression Type: major depressive disorder Major depression recurrence: unspecified whether recurrent Qualified Code(s): F32.9 - Major depressive disorder, single episode, unspecified (2) GERD (gastroesophageal reflux disease) Esophagitis presence: esophagitis presence not specified Qualified Code(s): K21.9 - Gastro-esophageal reflux disease without esophagitis
[2019-08-07] MEDS ORDERED: CALCIUM CARBONATE 500 MG CHEWABLE TAB PO PRN (15:31)
[2019-08-07] MEDS: MAGNESIUM OXIDE 400 MG TAB PO SCH (20:11)
[2019-08-07] MEDS: ACETAMINOPHEN SOL 650 MG/20.3 ML UDC PO PRN (23:06)
[2019-08-08] MEDS: CEFTAROLINE FOSAMIL ACETATE 600 MG in SODIUM CHLORIDE 0.9% 250 ML IV SCH ×3 (02:54→18:20)
[2019-08-08 04:18] LABS: Hematocrit (blood only) 22.8 % (37-47); Hemoglobin 7.7 g/dL (12.0-16.0); Mean Corpuscular Hemoglobin 28.9 pg (25-34); Mean Corpuscular Hgb Conc 33.8 g/dL (32-36); Mean Corpuscular Volume 85.7 fL (80-100); Mean Platelet Volume 9.2 fL (7.4-10.4); Platelet Count 444 K/uL (130-400); RDW Coefficient of Variation 13.4 % (11.5-14.5); RDW Standard Deviation 41.9 fL (36.4-46.3); Red Blood Count 2.66 M/uL (4.2-5.4); White Blood Count 12.44 K/uL (4.8-10.8)
[2019-08-08 04:48] LABS: Alanine Aminotransferase 50 U/L (12-78); Albumin Globulin Ratio 0.7 (0.9-2); Albumin Level 2.4 gm/dl (3.4-5.0); Alkaline Phosphatase 183 U/L (45-117); Aspartate Aminotransferase 27 U/L (15-37); Bilirubin,Total 0.5 mg/dl (0.2-1); Blood Urea Nitrogen 4 mg/dl (7-18); Calcium 8.5 mg/dl (8.5-10.1); Carbon Dioxide 26 mmol/L (21-32); Chloride 111 mmol/L (98-107); Creatinine Clr Calc Pharmacy 185.4 ml/min; Est GFR (African American) > 150.0; Est GFR (Non-African American) 149.6; Globulin 3.3 gm/dl (2.5-4.0); Glucose 110 mg/dl (70-99); Magnesium 1.8 mg/dl (1.8-2.4); Phosphorus 4.3 mg/dl (2.5-4.9); Potassium 3.3 mmol/L (3.5-5.1); Sodium 140 mmol/L (136-145); Total Protein 5.7 gm/dl (6.4-8.2)
[2019-08-08] MEDS ORDERED: POTASSIUM CHLORIDE 20 MEQ TABCR PO STA (05:51)
--- NOTE | 2019-08-08 06:19 | Critical Care Progress Note ---
Date of Service August 08, 2019 Assessment & Plan (1) Admitted to intensive care unit: Reason Critically Ill: 23 yo female with PMHx of IV drug abuse admitted for hypoxic respiratory failure secondary to Influenza B + superimposed bacterial PNA, sent to ICU for intubation and mechanical ventilation 24hrs: She remains in ICU for close monitoring in the setting of central venous catheter placement and history of IV drug use, with concern for current desires for drug use. Case management is working to get Dalvance approved. Patient will require two doses if approved, which will be arranged through [facility]. In the interim, patient is stable for medical downgrade. Floor nurses made aware of central venous catheter - we strongly recommend this be removed before the patient leaves the hospital given concern for persistent drug use. Neuro: [facility] ICU: negative * Hx of IV drug abuse - restarted home dose Suboxone * Hx anxiety/depression - restarted Celexa. patient not at an elevated serotonin syndrome risk with Dalvance * urine tox positive on admission for Methamphetamine and Ecstasy Cardiac: * ECHO 07/30 showing normal EF without valvular vegetations. Repeat echo was obtained on 08/05 with concern for septic thromboemboli on exam, although study showed no valvular vegetations. Patient's history of Raynaud's phenomenon at times makes extremities appear red, warm, and swollen, making it difficult to discern acuity of exam findings * left cephalic vein with occlusive superficial thrombosis (not phlebitis) visualized in the distal upper arm on venous duplex from 08/04. consistent with the prior site of the US guided peripheral line that was removed on 08/03 for discontinued functioning. - Continue Rivaroxaban 10mg, daily for 6 weeks, without a loading dose, as discussed with Dr. Castrejon Respiratory: * currently saturating in the 90s on room air. breathing improved. * Influenza B + superimposed multifocal MRSA PNA -patient has completed 5 day course of Daptomycin/Ceftaroline, 5 day course of Tamiflu and 5 day course of Azithromycin. - encouraged use of incentive spirometer GI: * Patient eating full liquid diet; advance as tolerated. - continue stress ulcer ppx with protonix (indication is 48 hour ventilation) * Elevated LFTs: resolved. likely representative government relations of shock liver > primary hepatic etiology. Hep A, B and C negative. RENAL/LYTES: * electrolytes within normal limits * Cr remains WNL. Check creatinine q72 hrs. : * GC/Chlamydia PCR negative ENDO: * ICU protocol for hyperglycemia HEME: * thrombocytopenia: resolved. heparin platelet antibody negative. likely secondary to septic state * leukocytopenia: resolved, WBC normal; Immunodeficiency was considered, work up thus far negative. (HIV neg, Hepatitis panel neg) * anemia: hgb stable at 8. no obvious source of bleeding; transfuse < 7 ID: * Influenza B with superimposed multifocal PNA. Completed 5 day course of Daptomycin/Ceftaroline, 5 day course of Tamiflu and 5 day course of Azithromycin. bronch cultures obtained 07/31 grew MRSA; urine legionella antigen neg. -procal trending down. lactate has downtrended. Continuing ceftaroline while in hospital (Day 8). * 1 of 2 blood cultures from 07/30 return as + for gram positive cocci, PCR + for MRSA. repeat blood cultures obtained 08/01, no growth to date. blood cultures obtained again 08/04 in the morning and again in the evening corresponding to febrile episodes - showing no growth to date. - Infectious disease consulted, recommending 4 weeks of gram + antimicrobial coverage given gram + bacteremia. Patient with continue on Ceftaroline (day 7) while in the hospital and transition to [facility] upon discharge. Patient was not a favorable candidate to leave hospital with a PICC line given history of IV drug abuse. - ECHO from 07/31 showing no valvular vegetations. Repeat TTE 08/05 showing no valvular vegetations. - Rectal exam 08/04 not concerning for abscess formation. No carbuncles or furuncles virilized on skin in perirectal area. Patient continues moving all 4 extremities (low concern for spinal abscess formation at this time) * recommend influenza vaccination for mother, boyfriend, and other close contacts LINES/IV ACCESS: * L subclavian CVC CODE STATUS: Full DVT PROPHYLAXIS: Lovenox 30mg sq, q12. bilateral SCDs Thank you for allowing us to participate in the care of this patient. Please refer to my attending physician's documentation for any further recommendations. Admission and Anticipated Discharge Date Admission Date: July 30, 2019 Supervising Physician Co-Signing Physician Notes Dr. Newell was resident physician during care of patient. I separately evaluated patient for pedro portions of the history and the exam. I was present during the critical portion of medical decision making, and I discussed the case with the resident. I generally agree with the findings and plan. Patient was discussed in multidisciplinary rounds and with the primary care team. Catheter to be removed as soon as we have definitive [facility] approval. Patient is stable for transfer out of ICU to [facility], close monitoring of the CVL. This is to remain given poor venous access, it is recognized that this is not ideal however she is not a candidate for a PICC line and has minimal venous access otherwise. Subjective Patient in ICU. Mother at bedside. feeling well. ambulating well. Review of Systems Review of Systems: All systems reviewed & are unremarkable except as noted in HPI & below Physical Exam Constitutional: WD/WN, vitals as above + mechanically ventilated Eyes: + anicteric sclerae ENMT: external ear and nose normal, oropharynx normal Neck: normal visual inspection and trachea midline Respiratory: normal respiratory effort and symmetric chest movement; no respiratory distress and no labored breathing Auscultation: + wheezes (expiratory; bilateral); no crackles, no rales and no pleural rub Cardiovascular: RRR, no murmur, no edema Rate/Rhythm: regular rhythm and + tachycardic Heart Sounds: normal S1 and normal S2 Extremities: + edema (improved from exam 08/04) Gastrointestinal (Abdomen): normal bowel sounds, soft, nontender, no hepatosplenomegaly Skin: + erythema (bilateral hands and feet) and + scar (dorsal surface of bilateral hands) Trauma: + evidence of skin trauma (multiple track chang on b/l forearms ) Neurologic: moves all extremities Psychiatric: A+Ox3, euthymic affect Results & Data ([facility]) Vital Signs (Past 12 Hours) Vital Signs Temp Pulse Resp BP Pulse Ox 08/08/19 04:00 37.2 C 73 20 124/62 98 08/08/19 00:00 37.7 C H 85 18 131/71 97 08/07/19 22:00 90 24 08/07/19 20:00 37.2 C 94 H 20 133/67 95 Resident Activity Tracking Resident Involvement: Resident Care Provided Care Provided: Adult Hospital Medicine
--- NOTE | 2019-08-08 08:36 | Billing Data ---
Date of Service August 07, 2019 Coding Level of Care Code 15662 Subseq Hosp Care Lvl 3
--- NOTE | 2019-08-08 08:37 | Billing Data ---
Date of Service August 08, 2019 Coding Level of Care Code 55786 Subseq Hosp Care Lvl 2
[2019-08-08] MEDS: RIVAROXABAN 10 MG TABLET PO SCH (08:45)
[2019-08-08] MEDS: buprenorphine HCL 8 MG SUBL SL SCH ×2 (08:56→21:37)
[2019-08-08] MEDS: ASCORBIC ACID 500 MG TAB PO SCH (10:20)
[2019-08-08] MEDS: FERROUS SULFATE 325 MG TAB PO SCH (10:20)
[2019-08-08] MEDS: MULTIVITAMIN TAB PO SCH (10:20)
--- NOTE | 2019-08-08 15:12 | XRay Report ---
XR ribs RT min 2V CLINICAL HISTORY: Cough with sudden Rt rib pain COMPARISON: Chest radiograph August 06, 2019. FINDINGS: Left subclavian central line is in place. No right pneumothorax is noted. Although subopti annette assessed on this exam, left basilar opacity persists. This is likely slightly improved since pr ior exam. There is also right basilar opacity. No right rib fracture is identified. IMPRESSION: 1. No pneumothorax. No acute right rib fractures identified. 2. Bibasilar consolidation. Left basilar opacity likely improved since exam of August 06, 2019. ACT 112: Negative or not required by law. Electronically signed by: Markell Pizano M.D. 08/08/2019 3:11 PM
[2019-08-08] MEDS: LIDOCAINE 5% 1 PATCH TD SCH (16:21)
--- NOTE | 2019-08-08 17:47 | Hospitalist Progress Note ---
Date of Service August 08, 2019 Assessment & Plan (1) Gram positive sepsis: 23 yo female with PMHx of IV drug abuse admitted for hypoxic respiratory failure secondary to superimposed multifocal pneumonia on Influenza B with MRSA positive blood cultures, sent to ICU for acute, hypoxic respiratory distress, extubated and transfered to [facility]. MRSA Sepsis/pna/influenza B - Currently on room air, lung exam excellent -Cont ceftaroline. Plan to d/c with dalvance at [facility] for 2 doses, 2 weeks apart. Cannot be on same day of d/c. -Awaiting approval. Likely august 10. -Access is issue: not candidate for midline or picc (h/o IVDU). Unable to obtain peripheral IV in hospital. - Discussed need for compliance with Dalvance and to discussed plan to abstain from IV drug use which includes outpatient therapy. - Tachycardia and prior Echocardiogram findings of hyperdynamic LV most likely f rom sepsis (resolved) Thrombophlebitis - Started on Xarelto for Occlusive superficial venous thrombosis of the left cephalic vein. Multifocal pneumonia: - Superimposed multifocal PNA on positive Influenza B - On Day 6 of Dapsone (MRSA blood and other possible soft tissue infections) and ceftaroline (MRSA Lung coverage), completed course of Azithromycin (atypical coverage), and Tamiflu (influenza B). Dapto discontinued as noted above. - bronch cultures positive for MRSA, munira albicans. urine legionella antigen negative. - 1/2 blood cultures from 07/30 return positive for gram positive cocci/MRSA. Repeated blood cultures obtained 08/01, NGTD blood cultures obtained again 08/04 in the morning and again in the evening in setting of febrile episodes - showing no growth to date. antibiotics as above. IV drug abuse: - Urine tox positive on admission for Methamphetamine and Ecstasy - Echocardiogram 07/30 showing normal EF without valvular vegetations. Obvious concern for right sided endocarditis in setting of IV drug abuse, but no evidence with normal echo. - on Suboxone - Repeat Echo Transthoracic didn't show any valvular vegetations Abnormal LFTs: - likely asset protection representative of shock liver from poor perfusion from sepsis vs. primary hepatic etiology. Hep B and C neg. Hep A pending. - Resolved. Thrombocytopenia: - Suspected from bone marrow infiltration from influenza - Resolved, significantly improved Influenza B: as noted above GERD (gastroesophageal reflux disease): - noted in past medical hx - Protonix for stress ulcer prevention Lactic acid acidosis: 07/30 2.9 --> resovled to 1.6 on 07/31 Most likely from poor perfusion in setting of sepsis Raynauds disease: Noted in past medical hx No outpatient noted treatment Hands are erythematous with blanching on palpation consistent with disease process. Depression: Noted to be on Celexa 10mg PO HS at home Hx MRSA infection: As noted in past medical hx; most likely from IV Drug Abuse. Edema: Noted significant bilateral upper extremities worse at hands but significantly improved. Code: Full Code DVT ppx: Xarelto 10mg PO FENGI: Regular easy to chew Disposition: Discharge pending Dalvance approval/outpatient logistical. (2) Superficial thrombophlebitis: (3) Edema: (4) Sepsis with acute hypoxic respiratory failure: (5) Multifocal pneumonia: (6) IV drug abuse: (7) Abnormal LFTs: (8) Thrombocytopenia: (9) Influenza B: (10) GERD (gastroesophageal reflux disease): (11) Raynauds disease: (12) Depression: (13) H/O intravenous drug use in remission: Admission and Anticipated Discharge Date Admission Date: July 30, 2019 Supervising Physician Co-Signing Physician Notes I saw the patient with the resident and confirmed pedro portions of the history and exam. I agree with impression and plan as noted above. We saw the patient good morning, she had just been transferred to the second floor. Her central line remains in place as IV team was unable to secure a peripheral line. Discussed with case management; antibiotic approval still pending. Hypoxic respiratory failure Influenza B Pneumonia Left cephalic vein occlusive superficial thrombosis Bacteremia, gram-positive cocci Thrombocytopenia, resolved Disposition largely dependent on approval of outpatient about except Venous access for this may represent a problem post discharge given known difficulties for IV access Xarelto 6 weeks Home medications resumed Subjective Patient much improved symptomatically today. Walking around room, improved edema in hands, increased strength. Eager for discharge Review of Systems Review of Systems: All systems reviewed & are unremarkable except as noted in HPI & below Constitutional: + body aches, + fatigue and + weakness; no fever Respiratory: + cough and + pain with cough; no dyspnea on exertion Cardiovascular: + edema (improving (hands b/l)) and + Raynauds symptoms; no chest pain, no dyspnea, no dyspnea on exertion and no lightheadedness Gastrointestinal: no abdominal pain, no nausea and no vomiting Genitourinary: no dysuria Integumentary: no rash Neurologic: + generalized weakness; no unsteadiness, no numbness and no paresthesia Psychiatric: + anxiety Physical Exam Constitutional: WD/WN, vitals as above cooperative and comfortable Eyes: PERRL, conjunctivae normal, anicteric sclerae + anicteric sclerae and PERRL ENMT: external ear and nose normal, oropharynx normal Neck: trachea midline, no thyromegaly normal visual inspection Respiratory: normal respiratory effort, lungs clear to auscultation symmetric chest movement; no respiratory distress, no labored breathing, does not use accessory muscles and no stridor Auscultation: no crackles, no rales and no pleural rub Cardiovascular: RRR, no murmur, no edema Vessels: no JVD Extremities: + edema (improved from exam 08/04) Gastrointestinal (Abdomen): normal bowel sounds, soft, nontender, no hepatosplenomegaly Musculoskeletal: no cyanosis or clubbing, extremities motor strength 5/5 Head/Neck/Chest: normocephalic, head atraumatic and neck supple Extremities: extremities normal to inspection Skin: no rashes, warm and dry + erythema (bilateral hands and feet) and + scar (dorsal surface of bilateral hands) Trauma: + evidence of skin trauma (multiple track chang on b/l forearms ) Neurologic: PERRL, EOMI, accommodation nl, no face palsy, no dysarthria Psychiatric: A+Ox3, euthymic affect Orientation: cooperative Apperance: appropriately dressed and appeared stated age Affect: mood congruent with affect Mood: + anxious mood; no depressed mood ("Ok") Thought Process: goal directed thought process Thought Content: reality based without delusions; no hopelessness Suicidal Thoughts: denies suicidal thoughts and denies suicidal intent Hallucinations: no auditory hallucinations and no visual hallucinations Lymphatic: no cervical lymphadenopathy Results & Data ([facility]) Vital Signs (Past 12 Hours) Vital Signs Temp Pulse Pulse Resp BP BP Pulse Ox 08/08/19 15:42 99.5 F 91 H 18 124/76 94 08/08/19 11:58 98.8 F 98 H 20 126/85 92 08/08/19 08:37 98.2 F 93 H 22 132/79 96 Laboratory Results 08/08/19 08/08/19 Range/Units 04:01 04:01 WBC 12.44 H (4.8-10.8) K/uL RBC 2.66 L (4.2-5.4) M/uL Hgb 7.7 L (12.0-16.0) g/dL Hct 22.8 L (37-47) % MCV 85.7 (80-100) fL MCH 28.9 (25-34) pg MCHC 33.8 (32-36) g/dL RDW Std Deviation 41.9 (36.4-46.3) fL RDW Coeff of Christina 13.4 (11.5-14.5) % Plt Count 444 H (130-400) K/uL MPV 9.2 (7.4-10.4) fL Sodium 140 (136-145) mmol/L Potassium 3.3 L (3.5-5.1) mmol/L Chloride 111 H (98-107) mmol/L Carbon Dioxide 26 (21-32) mmol/L Anion Gap 3.0 (3-11) BUN 4 L (7-18) mg/dl Creatinine 0.37 L (0.6-1.2) mg/dl Est Cr Clr Drug Dosing 185.4 ml/min Est GFR ( Amer) > 150.0 Est GFR (Non-Af Amer) 149.6 BUN/Creatinine Ratio 12.0 (10-20) Glucose 110 H (70-99) mg/dl Calcium 8.5 (8.5-10.1) mg/dl Phosphorus 4.3 (2.5-4.9) mg/dl Magnesium 1.8 (1.8-2.4) mg/dl Total Bilirubin 0.5 (0.2-1) mg/dl AST 27 (15-37) U/L ALT 50 (12-78) U/L Alkaline Phosphatase 183 H (45-117) U/L Total Protein 5.7 L (6.4-8.2) gm/dl Albumin 2.4 L (3.4-5.0) gm/dl Globulin 3.3 (2.5-4.0) gm/dl Albumin/Globulin Ratio 0.7 L (0.9-2) Medications Administered Current Inpatient Medications Acetaminophen (Tylenol) 650 mg PO Q6H PRN PRN Reason: Pain Stop: 09/05/19 18:08 Last Admin: 08/07/19 23:06 Dose: 650 mg Documented by: Albuterol (Ventolin 0.5% 2.5mg/0.5ml) 2.5 mg NEB Q2H PRN PRN Reason: SOB/Wheeze Stop: 08/29/19 16:34 Last Admin: 08/04/19 01:29 Dose: 2.5 mg Documented by: Ascorbic Acid (Vitamin C) [facility] Stop: 09/07/19 08:59 Last Admin: 08/08/19 10:20 Dose: 500 mg Documented by: Buprenorphine HCl (Subutex) 8 mg SL BID [facility] Stop: 09/05/19 20:59 Last Admin: 08/08/19 08:56 Dose: 8 mg Documented by: Calcium Carbonate (Tums) 500 mg PO TID PRN PRN Reason: Indigestion Stop: 09/06/19 15:30 Citalopram Hydrobromide (Celexa) 10 mg PO [facility] Stop: 09/07/19 20:59 Ferrous Sulfate (Feosol) 325 mg PO [facility] Stop: 09/07/19 08:59 Last Admin: 08/08/19 10:20 Dose: 325 mg Documented by: Hydroxyzine HCl (Vistaril) 10 mg PO TID PRN PRN Reason: Anxiety Stop: 08/29/19 14:30 Last Admin: 08/07/19 05:34 Dose: 10 mg Documented by: Ceftaroline Fosamil 600 mg/ (Sodium Chloride) 270 mls @ 270 mls/hr IV Q8H [facility] Stop: 08/15/19 10:29 Last Admin: 08/08/19 18:20 Dose: 270 mls/hr Documented by: Lidocaine (Lidoderm 5%) 1 patch TD [facility] Stop: 09/07/19 14:14 Last Admin: 08/08/19 16:21 Dose: 1 patch Documented by: Magnesium Oxide (Mag-Ox) 400 mg PO [facility] Stop: 09/03/19 20:59 Last Admin: 08/07/19 20:11 Dose: 400 mg Documented by: Miscellaneous (Order Awaiting Action) 1 ea N/A QS [facility] Stop: 08/29/19 15:59 Last Admin: 07/31/19 09:59 Dose: Not Given Documented by: Miscellaneous (Remove Lidoderm Patch) 1 ea N/A DAILY@2100 [facility] Stop: 09/07/19 21:59 Miscellaneous Information () 1 ea N/A UD PRN PRN Reason: Consult Stop: 09/01/19 09:20 Multivitamins (Multivitamin Tab) 1 tab PO QAM [facility] Stop: 09/07/19 08:59 Last Admin: 08/08/19 10:20 Dose: 1 tab Documented by: Ondansetron HCl (Zofran) 4 mg IV Q6H PRN PRN Reason: Nausea Stop: 08/29/19 14:30 Last Admin: 07/30/19 17:10 Dose: 4 mg Documented by: Rivaroxaban (Xarelto) 10 mg PO DAILY [facility] Stop: 09/05/19 10:14 Last Admin: 08/08/19 08:45 Dose: 10 mg Documented by: Resident Activity Tracking Resident Involvement: Resident Care Provided Care Provided: Adult Hospital Medicine (1) Depression Active/Remission status: remission status unspecified Depression Type: major depressive disorder Major depression recurrence: unspecified whether recurrent Qualified Code(s): F32.9 - Major depressive disorder, single episode, unspecified (2) GERD (gastroesophageal reflux disease) Esophagitis presence: esophagitis presence not specified Qualified Code(s): K21.9 - Gastro-esophageal reflux disease without esophagitis
[2019-08-08] MEDS: CITALOPRAM 20 MG TAB PO SCH (21:46)
[2019-08-08] MEDS: MAGNESIUM OXIDE 400 MG TAB PO SCH (21:47)
[2019-08-08] MEDS: hydrOXYzine HCl 10 MG TAB PO PRN (22:24)
[2019-08-09] MEDS: CEFTAROLINE FOSAMIL ACETATE 600 MG in SODIUM CHLORIDE 0.9% 250 ML IV SCH ×3 (03:44→18:03)
[2019-08-09 06:04] LABS: Basophils # (auto) 0.03 K/uL (0-0.2); Basophils % (auto) 0.2 %; Eosinophils # (auto) 0.13 K/uL (0-0.5); Eosinophils % (auto) 0.9 %; Hematocrit (blood only) 24.8 % (37-47); Hemoglobin 8.2 g/dL (12.0-16.0); Immature Granulocytes # (auto) 0.12 K/uL (0.00-0.02); Immature Granulocytes % (auto) 0.8 %; Lymphocytes # (auto) 1.45 K/uL (1.2-3.4); Lymphocytes % (auto) 9.8 %; Mean Corpuscular Hemoglobin 28.6 pg (25-34); Mean Corpuscular Hgb Conc 33.1 g/dL (32-36); Mean Corpuscular Volume 86.4 fL (80-100); Mean Platelet Volume 9.5 fL (7.4-10.4); Monocytes # (auto) 0.93 K/uL (0.11-0.59); Monocytes % (auto) 6.3 %; Neutrophils # (auto) 12.13 K/uL (1.4-6.5); Platelet Count 545 K/uL (130-400); RDW Coefficient of Variation 13.5 % (11.5-14.5); RDW Standard Deviation 42.3 fL (36.4-46.3); Red Blood Count 2.87 M/uL (4.2-5.4); White Blood Count 14.79 K/uL (4.8-10.8)
[2019-08-09 06:36] LABS: BUN Creatinine Ratio 14.6 (10-20); Blood Urea Nitrogen 6 mg/dl (7-18); Calcium 8.4 mg/dl (8.5-10.1); Carbon Dioxide 24 mmol/L (21-32); Chloride 110 mmol/L (98-107); Creatinine Clr Calc Pharmacy 167.3 ml/min; Est GFR (African American) > 150.0; Est GFR (Non-African American) 144.6; Glucose 108 mg/dl (70-99); Potassium 3.7 mmol/L (3.5-5.1); Sodium 140 mmol/L (136-145)
[2019-08-09 06:40] LABS: Creatine Kinase 97 U/L (26-192)
--- NOTE | 2019-08-09 07:33 | Hospitalist Progress Note ---
Date of Service August 09, 2019 Assessment & Plan (1) Gram positive sepsis: 23 yo female with PMHx of IV drug abuse admitted for hypoxic respiratory failure secondary to superimposed multifocal pneumonia on Influenza B with MRSA positive blood cultures, sent to ICU for acute, hypoxic respiratory distress, extubated and transferred to [facility], awaiting outpatient antibiotic approval. MRSA Sepsis/pna/influenza B -Currently on room air, lung exam excellent -Cont ceftaroline. Plan to d/c with dalvance at [facility] for 2 doses, 2 weeks apart. Cannot be on same day of d/c. -Awaiting approval. Likely August 10. -Access is issue: not candidate for midline or picc (h/o IVDU). Unable to obtain peripheral IV in hospital. -Discussed need for compliance with Dalvance and discussed plan to abstain from IVDU -Tachycardia and prior Echocardiogram findings of hyperdynamic LV most likely from sepsis (resolved) Thrombophlebitis - Started on Xarelto for Occlusive superficial venous thrombosis of the left cephalic vein. Multifocal pneumonia -Superimposed multifocal PNA on positive Influenza B -On Day 8 of ceftaroline (MRSA Lung coverage), completed course of Azithromycin, Tamiflu, and dapto. -Bronch cultures positive for MRSA, munira albicans. urine legionella antigen negative. Abx as above. -1/2 blood cultures from 07/30 returned (+) for gram positive cocci/MRSA. Repeated cultures 08/01, 08/04, NGTD. Abx as above. IV drug abuse -Urine tox positive on admission for Methamphetamine and Ecstasy -Echocardiogram 07/30 and 08/04 with nl EF, no valvular vegetations. -Obvious concern for right sided endocarditis in setting of IVDU, but no evidence with normal echo. -On Suboxone, reportedly receiving from telemedicine doc in [place]. Consider transition to local provider if possible Raynauds disease: -Noted in past medical hx -No outpatient noted treatment; pt would like to see rheum as outpatient. -Hands are erythematous with blanching on palpation consistent with disease process. GERD (gastroesophageal reflux disease) -noted in past medical hx -Protonix for stress ulcer ppx DCd Depression -Noted to be on Celexa 10mg PO HS at home; held in setting of ceftaroline/dalvance Edema -Prev noted significant bilateral upper extremities worse at hands, improved. -?raynauds vs superficial venous thrombosis Abnormal LFTs, resolved -likely hr representative of shock liver from poor perfusion from sepsis vs. primary hepatic etiology. -Hep A, B and C neg. Thrombocytopenia, resolved -Suspected from bone marrow infiltration from influenza Lactic acid acidosis, Resolved -07/30 2.9 --> resolved to 1.6 on 07/31 -Most likely from poor perfusion in setting of sepsis Hx MRSA infection -As noted in past medical hx in her hands; most likely from IV Drug Abuse. Code: Full Code DVT ppx: Xarelto 10mg PO FENGI: Regular easy to chew Disposition: Discharge pending Dalvance approval/outpatient logistical issues with access. (2) Superficial thrombophlebitis: (3) Edema: (4) Sepsis with acute hypoxic respiratory failure: (5) Multifocal pneumonia: (6) IV drug abuse: (7) Abnormal LFTs: (8) Thrombocytopenia: (9) Influenza B: (10) GERD (gastroesophageal reflux disease): (11) Raynauds disease: (12) Depression: (13) H/O intravenous drug use in remission: Admission and Anticipated Discharge Date Admission Date: July 30, 2019 Supervising Physician Co-Signing Physician Notes I saw the patient with the resident and confirmed pedro portions of the history and exam. I agree with impression and plan as noted above. The patient without complaints this morning. Her mother and a second relative are in the room with her. Pulse 96, blood pressure 110/63, temperature 37.1 C Pulse oximetry 96% on room air Hypoxic respiratory failure Influenza B Pneumonia Left cephalic vein occlusive superficial thrombosis Bacteremia, gram-positive cocci Thrombocytopenia, resolved Disposition largely dependent on approval of outpatient antibiotics Venous access for this may represent a problem post discharge given known difficulties for IV access Xarelto 6 weeks for her left cephalic vein thrombosis Home medications resumed Subjective Patient continues to do well. Very pleased with decrease in hand swelling. Has been up and about, no complaints of dyspnea. Eating and drinking well. Eager for discharge. Review of Systems Review of Systems: All systems reviewed & are unremarkable except as noted in HPI & below Constitutional: no fever and no chills Ear, Nose, Mouth, Throat: + problem reported (Reporting some streaks of blood in her phlegm) Respiratory: + cough, + change in sputum (some small streaks of blood) and + pain with cough; no dyspnea on exertion Cardiovascular: + edema (improving (hands b/l)) and + Raynauds symptoms; no chest pain, no dyspnea, no dyspnea on exertion and no lightheadedness Gastrointestinal: no nausea and no vomiting Musculoskeletal: no joint pain and no myalgia Integumentary: no rash Neurologic: + generalized weakness (but improving in strides); no unsteadiness, no numbness and no paresthesia Psychiatric: + anxiety Physical Exam Constitutional: WD/WN, vitals as above cooperative and comfortable Eyes: PERRL, conjunctivae normal, anicteric sclerae + anicteric sclerae and PERRL ENMT: external ear and nose normal, oropharynx normal Neck: normal visual inspection Respiratory: normal respiratory effort, lungs clear to auscultation (scattered rhonchi) symmetric chest movement; no respiratory distress, no labored breathing, does not use accessory muscles and no stridor Auscultation: no rales and no pleural rub Cardiovascular: RRR, no murmur, no edema Rate/Rhythm: regular rate and regular rhythm Heart Sounds: normal S1 and normal S2; no murmur Vessels: no JVD Extremities: + edema (improved from exam 08/04) Gastrointestinal (Abdomen): normal bowel sounds, soft, nontender, no hepatosplenomegaly Musculoskeletal: no cyanosis or clubbing, extremities motor strength 5/5 Head/Neck/Chest: normocephalic, head atraumatic and neck supple Extremities: extremities normal to inspection Skin: no rashes, warm and dry + erythema (bilateral hands and feet) and + scar (dorsal surface of bilateral hands) Trauma: + evidence of skin trauma (multiple track chang on b/l forearms ) Neurologic: PERRL, EOMI, accommodation nl, no face palsy, no dysarthria moves all extremities and awake Psychiatric: A+Ox3, euthymic affect Orientation: cooperative Apperance: appropriately dressed and appeared stated age Affect: mood congruent with affect Thought Process: goal directed thought process Thought Content: reality based without delusions; no hopelessness Suicidal Thoughts: denies suicidal thoughts and denies suicidal intent Homicidal Thoughts: denies homicidal thoughts Hallucinations: no auditory hallucinations and no visual hallucinations Results & Data ([facility]) Vital Signs (Past 12 Hours) Vital Signs Temp Pulse Resp BP Pulse Ox 08/09/19 04:00 99.1 F 97 H 18 117/72 94 08/08/19 22:00 98.4 F 91 H 20 114/77 95 08/08/19 20:50 99.0 F 92 H 20 113/68 97 Laboratory Results 08/09/19 08/09/19 Range/Units 05:29 05:29 WBC 14.79 H (4.8-10.8) K/uL RBC 2.87 L (4.2-5.4) M/uL Hgb 8.2 L (12.0-16.0) g/dL Hct 24.8 L (37-47) % MCV 86.4 (80-100) fL MCH 28.6 (25-34) pg MCHC 33.1 (32-36) g/dL RDW Std Deviation 42.3 (36.4-46.3) fL RDW Coeff of Christina 13.5 (11.5-14.5) % Plt Count 545 H (130-400) K/uL MPV 9.5 (7.4-10.4) fL Immature Gran % (Auto) 0.8 % Neut % (Auto) 82.0 % Lymph % (Auto) 9.8 % [place] % (Auto) 6.3 % Eos % (Auto) 0.9 % Baso % (Auto) 0.2 % Immature Gran # (Auto) 0.12 H (0.00-0.02) K/uL Neut # (Auto) 12.13 H (1.4-6.5) K/uL Lymph # (Auto) 1.45 (1.2-3.4) K/uL [place] # (Auto) 0.93 H (0.11-0.59) K/uL Eos # (Auto) 0.13 (0-0.5) K/uL Baso # (Auto) 0.03 (0-0.2) K/uL Sodium 140 (136-145) mmol/L Potassium 3.7 (3.5-5.1) mmol/L Chloride 110 H (98-107) mmol/L Carbon Dioxide 24 (21-32) mmol/L Anion Gap 6.0 (3-11) BUN 6 L (7-18) mg/dl Creatinine 0.41 L (0.6-1.2) mg/dl Est Cr Clr Drug Dosing 167.3 ml/min Est GFR ( Amer) > 150.0 Est GFR (Non-Af Amer) 144.6 BUN/Creatinine Ratio 14.6 (10-20) Glucose 108 H (70-99) mg/dl Calcium 8.4 L (8.5-10.1) mg/dl Total Creatine Kinase 97 (26-192) U/L Medications Administered Current Inpatient Medications Acetaminophen (Tylenol) 650 mg PO Q6H PRN PRN Reason: Pain Stop: 09/05/19 18:08 Last Admin: 08/07/19 23:06 Dose: 650 mg Documented by: Albuterol (Ventolin 0.5% 2.5mg/0.5ml) 2.5 mg NEB Q2H PRN PRN Reason: SOB/Wheeze Stop: 08/29/19 16:34 Last Admin: 08/04/19 01:29 Dose: 2.5 mg Documented by: Ascorbic Acid (Vitamin C) [facility] Stop: 09/07/19 08:59 Last Admin: 08/09/19 08:37 Dose: 500 mg Documented by: Buprenorphine HCl (Subutex) 8 mg SL BID [facility] Stop: 09/05/19 20:59 Last Admin: 08/09/19 08:53 Dose: 8 mg Documented by: Calcium Carbonate (Tums) 500 mg PO TID PRN PRN Reason: Indigestion Stop: 09/06/19 15:30 Citalopram Hydrobromide (Celexa) 10 mg PO HS [facility] Stop: 09/07/19 20:59 Last Admin: 08/08/19 21:46 Dose: 10 mg Documented by: Ferrous Sulfate (Feosol) 325 [facility] [place] Stop: 09/07/19 08:59 Last Admin: 08/09/19 08:37 Dose: 325 mg Documented by: Heparin Sodium (Beef Lung) (Heparin Sod 10 Unit/Ml Flush) 5 ml FLUSH PRN PRN PRN Reason: Flush Stop: 09/07/19 23:25 Last Admin: 08/09/19 11:27 Dose: 5 ml Documented by: Hydroxyzine HCl (Vistaril) 10 mg PO TID PRN PRN Reason: Anxiety Stop: 08/29/19 14:30 Last Admin: 08/08/19 22:24 Dose: 10 mg Documented by: Ceftaroline Fosamil 600 mg/ (Sodium Chloride) 270 mls @ 270 mls/hr IV Q8H [facility] Stop: 08/15/19 10:29 Last Infusion: 08/09/19 11:26 Dose: Infused Documented by: Lidocaine (Lidoderm 5%) 1 patch TD QAM [facility] Stop: 09/07/19 14:14 Last Admin: 08/09/19 08:38 Dose: 1 patch Documented by: Magnesium Oxide (Mag-Ox) 400 mg PO HS [facility] Stop: 09/03/19 20:59 Last Admin: 08/08/19 21:47 Dose: 400 mg Documented by: Miscellaneous (Order Awaiting Action) 1 ea N/A QS [facility] Stop: 08/29/19 15:59 Last Admin: 07/31/19 09:59 Dose: Not Given Documented by: Miscellaneous (Remove Lidoderm Patch) 1 ea N/A DAILY@2100 [facility] Stop: 09/07/19 21:59 Last Admin: 08/08/19 21:47 Dose: 1 ea Documented by: Miscellaneous Information () 1 ea N/A UD PRN PRN Reason: Consult Stop: 09/01/19 09:20 Multivitamins (Multivitamin Tab) 1 tab PO [facility] Stop: 09/07/19 08:59 Last Admin: 08/09/19 08:37 Dose: 1 tab Documented by: Ondansetron HCl (Zofran) 4 mg IV Q6H PRN PRN Reason: Nausea Stop: 08/29/19 14:30 Last Admin: 07/30/19 17:10 Dose: 4 mg Documented by: Rivaroxaban (Xarelto) 10 mg PO DAILY [facility] Stop: 09/05/19 10:14 Last Admin: 08/09/19 08:37 Dose: 10 mg Documented by: Resident Activity Tracking Resident Involvement: Resident Care Provided Care Provided: Adult Hospital Medicine (1) Depression Active/Remission status: remission status unspecified Depression Type: major depressive disorder Major depression recurrence: unspecified whether recurrent Qualified Code(s): F32.9 - Major depressive disorder, single episode, unspecified (2) GERD (gastroesophageal reflux disease) Esophagitis presence: esophagitis presence not specified Qualified Code(s): K21.9 - Gastro-esophageal reflux disease without esophagitis
[2019-08-09] MEDS: FERROUS SULFATE 325 MG TAB PO SCH (08:37)
[2019-08-09] MEDS: MULTIVITAMIN TAB PO SCH (08:37)
[2019-08-09] MEDS: RIVAROXABAN 10 MG TABLET PO SCH (08:37)
[2019-08-09] MEDS: ASCORBIC ACID 500 MG TAB PO SCH (08:37)
[2019-08-09] MEDS: LIDOCAINE 5% 1 PATCH TD SCH (08:38)
[2019-08-09] MEDS: buprenorphine HCL 8 MG SUBL SL SCH ×2 (08:53→21:30)
[2019-08-09] MEDS ORDERED: KETOROLAC TROMETHAMINE 10 MG TABLET PO STA (18:44)
[2019-08-09] MEDS: CITALOPRAM 20 MG TAB PO SCH (21:31)
[2019-08-09] MEDS: MAGNESIUM OXIDE 400 MG TAB PO SCH (21:31)
[2019-08-10] MEDS: CEFTAROLINE FOSAMIL ACETATE 600 MG in SODIUM CHLORIDE 0.9% 250 ML IV SCH ×3 (02:26→17:43)
[2019-08-10 05:39] LABS: Hematocrit (blood only) 24.2 % (37-47); Hemoglobin 7.9 g/dL (12.0-16.0); Mean Corpuscular Hemoglobin 28.3 pg (25-34); Mean Corpuscular Hgb Conc 32.6 g/dL (32-36); Mean Corpuscular Volume 86.7 fL (80-100); Mean Platelet Volume 9.5 fL (7.4-10.4); Platelet Count 504 K/uL (130-400); RDW Coefficient of Variation 13.5 % (11.5-14.5); RDW Standard Deviation 42.7 fL (36.4-46.3); Red Blood Count 2.79 M/uL (4.2-5.4); White Blood Count 9.17 K/uL (4.8-10.8)
[2019-08-10 06:04] LABS: BUN Creatinine Ratio 14.2 (10-20); Blood Urea Nitrogen 6 mg/dl (7-18); Calcium 8.8 mg/dl (8.5-10.1); Carbon Dioxide 25 mmol/L (21-32); Chloride 110 mmol/L (98-107); Creatinine Clr Calc Pharmacy 155.9 ml/min; Est GFR (African American) > 150.0; Est GFR (Non-African American) 141.3; Glucose 101 mg/dl (70-99); Potassium 3.6 mmol/L (3.5-5.1); Sodium 141 mmol/L (136-145)
[2019-08-10 06:15] LABS: Basophils # (auto) 0.03 K/uL (0-0.2); Basophils % (auto) 0.3 %; Eosinophils # (auto) 0.03 K/uL (0-0.5); Eosinophils % (auto) 0.3 %; Immature Granulocytes # (auto) 0.04 K/uL (0.00-0.02); Immature Granulocytes % (auto) 0.4 %; Lymphocytes # (auto) 1.22 K/uL (1.2-3.4); Lymphocytes % (auto) 13.3 %; Monocytes % (auto) 8.7 %; Neutrophils # (auto) 7.05 K/uL (1.4-6.5); Polychromasia 1+
--- NOTE | 2019-08-10 07:37 | Hospitalist Progress Note ---
Date of Service August 10, 2019 Assessment & Plan (1) Gram positive sepsis: 23 yo female with PMHx of IV drug abuse admitted for hypoxic respiratory failure secondary to superimposed multifocal pneumonia on Influenza B with MRSA positive blood cultures, sent to ICU for acute, hypoxic respiratory distress, extubated and transferred to [facility], awaiting outpatient antibiotic approval. MRSA Sepsis/pna/influenza B -Currently on room air, lung exam excellent -Cont ceftaroline. Plan to d/c with dalvance at [facility] for 2 doses, 2 weeks apart. Cannot be on same day of d/c. -Awaiting approval. Likely August 10. -Access is issue: not candidate for midline or picc (h/o IVDU). Unable to obtain peripheral IV in hospital. -Discussed need for compliance with Dalvance and discussed plan to abstain from IVDU -Tachycardia and prior Echocardiogram findings of hyperdynamic LV most likely from sepsis (resolved) Thrombophlebitis -Started on Xarelto for Occlusive superficial venous thrombosis of the left cephalic vein. -Treat for likely 6-8 weeks Multifocal pneumonia -Superimposed multifocal PNA on positive Influenza B -On Day 8 of ceftaroline (MRSA Lung coverage), completed course of Azithromycin, Tamiflu, and dapto. -Bronch cultures positive for MRSA, munira albicans. urine legionella antigen negative. Abx as above. -1/2 blood cultures from 07/30 returned (+) for gram positive cocci/MRSA. Repeated cultures 08/01, 08/04, NGTD. Abx as above. IV drug abuse -Urine tox positive on admission for Methamphetamine and Ecstasy -Echocardiogram 07/30 and 08/04 with nl EF, no valvular vegetations. -Obvious concern for right sided endocarditis in setting of IVDU, but no evidence with normal echo. -On Suboxone, reportedly receiving from telemedicine doc in [place]. Consider transition to local provider if possible Raynauds disease: -Noted in past medical hx -No outpatient noted treatment; pt would like to see rheum as outpatient. -Hands are erythematous with blanching on palpation consistent with disease process. Tobacco user -Nicotine patch provided GERD (gastroesophageal reflux disease) -noted in past medical hx -Protonix for stress ulcer ppx DCd Depression -Noted to be on Celexa 10mg PO HS at home; held in setting of ceftaroline/dalvance Edema -Prev noted significant bilateral upper extremities worse at hands, improved. -?raynauds vs superficial venous thrombosis Abnormal LFTs, resolved -likely artist's representative of shock liver from poor perfusion from sepsis vs. primary hepatic etiology. -Hep A, B and C neg. Thrombocytopenia, resolved -Suspected from bone marrow infiltration from influenza Lactic acid acidosis, Resolved -07/30 2.9 --> resolved to 1.6 on 07/31 -Most likely from poor perfusion in setting of sepsis Hx MRSA infection -As noted in past medical hx in her hands; most likely from IV Drug Abuse. Code: Full Code DVT ppx: Xarelto 10mg PO FENGI: Regular easy to chew Disposition: Discharge pending Dalvance approval/outpatient logistical issues with access. (2) Superficial thrombophlebitis: (3) Edema: (4) Sepsis with acute hypoxic respiratory failure: (5) Multifocal pneumonia: (6) IV drug abuse: (7) Abnormal LFTs: (8) Thrombocytopenia: (9) Influenza B: (10) GERD (gastroesophageal reflux disease): (11) Raynauds disease: (12) Depression: (13) H/O intravenous drug use in remission: Admission and Anticipated Discharge Date Admission Date: July 30, 2019 Supervising Physician Co-Signing Physician Notes I saw the patient with the resident and confirmed pedro portions of the history and exam. I agree with impression and plan as noted above. She remains afebrile. Blood pressure 118/77, pulse 102. Pulse oximetry 98% on room air Hypoxic respiratory failure Influenza B Pneumonia Left cephalic vein occlusive superficial thrombosis Bacteremia, gram-positive cocci Thrombocytopenia, resolved Disposition largely dependent on approval of outpatient antibiotics Venous access for this may represent a problem post discharge given known difficulties for IV access Xarelto 6 weeks for her left cephalic vein thrombosis Home medications resumed Subjective Hugo continues to improve daily. She is very pleased with her course. She notes that her cough doesn't feel "as deep" today. She denies any blood in her sputum today. Very happy with how her hand swelling has improved. Review of Systems Review of Systems: All systems reviewed & are unremarkable except as noted in HPI & below Constitutional: no fever and no chills Respiratory: + cough and + pain with cough; no dyspnea on exertion Cardiovascular: + edema (improving (hands b/l)) and + Raynauds symptoms; no chest pain, no dyspnea, no dyspnea on exertion and no lightheadedness Gastrointestinal: no nausea and no vomiting Musculoskeletal: no joint pain and no myalgia Integumentary: no rash Neurologic: + generalized weakness (but improving in strides); no unsteadiness, no numbness and no paresthesia Psychiatric: + anxiety Physical Exam Constitutional: WD/WN, vitals as above cooperative and comfortable Eyes: PERRL, conjunctivae normal, anicteric sclerae + anicteric sclerae and PERRL ENMT: external ear and nose normal, oropharynx normal Neck: normal visual inspection Respiratory: normal respiratory effort, lungs clear to auscultation symmetric chest movement; no respiratory distress, no labored breathing, does not use accessory muscles and no stridor Auscultation: no rales and no pleural rub Cardiovascular: Rate/Rhythm: regular rate and regular rhythm Heart Sounds: normal S1 and normal S2; no murmur Vessels: no JVD Extremities: + edema (improved daily) Gastrointestinal (Abdomen): normal bowel sounds, soft, nontender, no hepatosplenomegaly Inspection/Auscultation: abdomen not distended Percussion/Palpation: abdomen soft; abdomen nontender and abdomen not rigid Rectal Exam: no rectal mass and no rectal lesions Musculoskeletal: no cyanosis or clubbing, extremities motor strength 5/5 Head/Neck/Chest: normocephalic, head atraumatic and neck supple Extremities: extremities normal to inspection Skin: no rashes, warm and dry + erythema (bilateral hands and feet) and + scar (dorsal surface of bilateral hands) Trauma: + evidence of skin trauma (multiple track chang on b/l forearms ) Neurologic: PERRL, EOMI, accommodation nl, no face palsy, no dysarthria moves all extremities and awake Psychiatric: A+Ox3, euthymic affect Orientation: cooperative Apperance: appropriately dressed and appeared stated age Affect: mood congruent with affect Mood: + anxious mood; no depressed mood ("Ok") Thought Process: goal directed thought process Thought Content: reality based without delusions; no hopelessness Suicidal Thoughts: denies suicidal thoughts and denies suicidal intent Homicidal Thoughts: denies homicidal thoughts Hallucinations: no auditory hallucinations and no visual hallucinations Results & Data ([facility]) Vital Signs (Past 12 Hours) Vital Signs Temp Pulse Resp BP Pulse Ox 08/10/19 07:03 98.6 F 84 19 104/69 93 08/09/19 23:33 98.8 F 90 20 115/73 96 Laboratory Results 08/10/19 08/10/19 Range/Units 04:59 04:59 WBC 9.17 (4.8-10.8) K/uL RBC 2.79 L (4.2-5.4) M/uL Hgb 7.9 L (12.0-16.0) g/dL Hct 24.2 L (37-47) % MCV 86.7 (80-100) fL MCH 28.3 (25-34) pg MCHC 32.6 (32-36) g/dL RDW Std Deviation 42.7 (36.4-46.3) fL RDW Coeff of Christina 13.5 (11.5-14.5) % Plt Count 504 H (130-400) K/uL MPV 9.5 (7.4-10.4) fL Immature Gran % (Auto) 0.4 % Neut % (Auto) 77.0 % Lymph % (Auto) 13.3 % [place] % (Auto) 8.7 % Eos % (Auto) 0.3 % Baso % (Auto) 0.3 % Immature Gran # (Auto) 0.04 H (0.00-0.02) K/uL Neut # (Auto) 7.05 H (1.4-6.5) K/uL Lymph # (Auto) 1.22 (1.2-3.4) K/uL [place] # (Auto) 0.80 H (0.11-0.59) K/uL Eos # (Auto) 0.03 (0-0.5) K/uL Baso # (Auto) 0.03 (0-0.2) K/uL Polychromasia 1+ Sodium 141 (136-145) mmol/L Potassium 3.6 (3.5-5.1) mmol/L Chloride 110 H (98-107) mmol/L Carbon Dioxide 25 (21-32) mmol/L Anion Gap 6.0 (3-11) BUN 6 L (7-18) mg/dl Creatinine 0.44 L (0.6-1.2) mg/dl Est Cr Clr Drug Dosing 155.9 ml/min Est GFR ( Amer) > 150.0 Est GFR (Non-Af Amer) 141.3 BUN/Creatinine Ratio 14.2 (10-20) Glucose 101 H (70-99) mg/dl Calcium 8.8 (8.5-10.1) mg/dl Medications Administered Current Inpatient Medications Acetaminophen (Tylenol) 650 mg PO Q6H PRN PRN Reason: Pain Stop: 09/05/19 18:08 Last Admin: 08/07/19 23:06 Dose: 650 mg Documented by: Albuterol (Ventolin 0.5% 2.5mg/0.5ml) 2.5 mg NEB Q2H PRN PRN Reason: SOB/Wheeze Stop: 08/29/19 16:34 Last Admin: 08/04/19 01:29 Dose: 2.5 mg Documented by: Ascorbic Acid (Vitamin C) 500 [facility] Stop: 09/07/19 08:59 Last Admin: 08/10/19 09:18 Dose: 500 mg Documented by: Buprenorphine HCl (Subutex) 8 mg SL BID [facility] Stop: 09/05/19 20:59 Last Admin: 08/10/19 09:18 Dose: 8 mg Documented by: Calcium Carbonate (Tums) 500 mg PO TID PRN PRN Reason: Indigestion Stop: 09/06/19 15:30 Citalopram Hydrobromide (Celexa) 10 mg PO HS [facility] Stop: 09/07/19 20:59 Last Admin: 08/09/19 21:31 Dose: 10 mg Documented by: Ferrous Sulfate (Feosol) 325 mg PO [facility]ACARL [facility] Stop: 09/07/19 08:59 Last Admin: 08/10/19 09:18 Dose: 325 mg Documented by: Heparin Sodium (Beef Lung) (Heparin Sod 10 Unit/Ml Flush) 5 ml FLUSH PRN PRN PRN Reason: Flush Stop: 09/07/19 23:25 Last Admin: 08/10/19 04:57 Dose: 5 ml Documented by: Hydroxyzine HCl (Vistaril) 10 mg PO TID PRN PRN Reason: Anxiety Stop: 08/29/19 14:30 Last Admin: 08/08/19 22:24 Dose: 10 mg Documented by: Ceftaroline Fosamil 600 mg/ (Sodium Chloride) 270 mls @ 270 mls/hr IV Q8H [facility] Stop: 08/15/19 10:29 Last Admin: 08/10/19 10:14 Dose: 270 mls/hr Documented by: Lidocaine (Lidoderm 5%) 1 patch TD QAM [facility] Stop: 09/07/19 14:14 Last Admin: 08/10/19 09:19 Dose: 1 patch Documented by: Magnesium Oxide (Mag-Ox) 400 mg PO HS [facility] Stop: 09/03/19 20:59 Last Admin: 08/09/19 21:31 Dose: 400 mg Documented by: Miscellaneous (Order Awaiting Action) 1 ea N/A QS [facility] Stop: 08/29/19 15:59 Last Admin: 07/31/19 09:59 Dose: Not Given Documented by: Miscellaneous (Remove Lidoderm Patch) 1 ea N/A DAILY@2100 [facility] Stop: 09/07/19 21:59 Last Admin: 08/09/19 21:32 Dose: 1 ea Documented by: Miscellaneous (Remove Nicoderm Patch) 1 ea N/A DAILY@0859 [facility] Stop: 09/10/19 08:58 Miscellaneous Information () 1 ea N/A UD PRN PRN Reason: Consult Stop: 09/01/19 09:20 Multivitamins (Multivitamin Tab) 1 tab PO [facility]ARL [facility] Stop: 09/07/19 08:59 Last Admin: 08/10/19 09:18 Dose: 1 tab Documented by: Nicotine (Nicoderm Cq) 7 mg TD QAM [facility] Stop: 09/09/19 10:14 Ondansetron HCl (Zofran) 4 mg IV Q6H PRN PRN Reason: Nausea Stop: 08/29/19 14:30 Last Admin: 07/30/19 17:10 Dose: 4 mg Documented by: Rivaroxaban (Xarelto) 10 mg PO DAILY [facility] Stop: 09/05/19 10:14 Last Admin: 08/10/19 09:18 Dose: 10 mg Documented by: Resident Activity Tracking Resident Involvement: Resident Care Provided Care Provided: Adult Hospital Medicine (1) Depression Active/Remission status: remission status unspecified Depression Type: major depressive disorder Major depression recurrence: unspecified whether recurrent Qualified Code(s): F32.9 - Major depressive disorder, single episode, unspecified (2) GERD (gastroesophageal reflux disease) Esophagitis presence: esophagitis presence not specified Qualified Code(s): K21.9 - Gastro-esophageal reflux disease without esophagitis
[2019-08-10] MEDS: RIVAROXABAN 10 MG TABLET PO SCH (09:18)
[2019-08-10] MEDS: buprenorphine HCL 8 MG SUBL SL SCH ×2 (09:18→20:45)
[2019-08-10] MEDS: ASCORBIC ACID 500 MG TAB PO SCH (09:18)
[2019-08-10] MEDS: FERROUS SULFATE 325 MG TAB PO SCH (09:18)
[2019-08-10] MEDS: MULTIVITAMIN TAB PO SCH (09:18)
[2019-08-10] MEDS: LIDOCAINE 5% 1 PATCH TD SCH (09:19)
[2019-08-10] MEDS: NICOTINE 7 MG/24 HR TDSY TD SCH (11:11)
[2019-08-10] MEDS: ACETAMINOPHEN SOL 650 MG/20.3 ML UDC PO PRN (20:44)
[2019-08-10] MEDS: CITALOPRAM 20 MG TAB PO SCH (20:45)
[2019-08-10] MEDS: MAGNESIUM OXIDE 400 MG TAB PO SCH (20:46)
[2019-08-10] MEDS: hydrOXYzine HCl 10 MG TAB PO PRN (21:03)
[2019-08-11] MEDS: CEFTAROLINE FOSAMIL ACETATE 600 MG in SODIUM CHLORIDE 0.9% 250 ML IV SCH ×2 (02:24→10:36)
[2019-08-11] MEDS: ACETAMINOPHEN SOL 650 MG/20.3 ML UDC PO PRN (06:40)
[2019-08-11] MEDS: FERROUS SULFATE 325 MG TAB PO SCH (08:39)
[2019-08-11] MEDS: NICOTINE 7 MG/24 HR TDSY TD SCH (08:39)
[2019-08-11] MEDS: MULTIVITAMIN TAB PO SCH (08:39)
[2019-08-11] MEDS: RIVAROXABAN 10 MG TABLET PO SCH (08:39)
[2019-08-11] MEDS: ASCORBIC ACID 500 MG TAB PO SCH (08:39)
[2019-08-11] MEDS: buprenorphine HCL 8 MG SUBL SL SCH (08:39)
[2019-08-11] MEDS: LIDOCAINE 5% 1 PATCH TD SCH (08:39)
--- NOTE | 2019-08-11 11:39 | Hospitalist Progress Note ---
Date of Service August 11, 2019 Assessment & Plan (1) Gram positive sepsis: 23 yo female with PMHx of IV drug abuse admitted for hypoxic respiratory failure secondary to superimposed multifocal pneumonia on Influenza B with MRSA positive blood cultures, sent to ICU for acute, hypoxic respiratory distress, extubated and transferred to [facility], awaiting outpatient antibiotic approval. MRSA Sepsis/pna/influenza B -Currently on room air, lung exam excellent -Cont ceftaroline. Plan to d/c with dalvance at [facility] for 2 doses, 2 weeks apart. Cannot be on same day of d/c. -Awaiting approval. -Access is issue: not candidate for midline or picc (h/o IVDU). Unable to obtain peripheral IV in hospital. -Discussed need for compliance with Dalvance and discussed plan to abstain from IVDU -Tachycardia and prior Echocardiogram findings of hyperdynamic LV most likely from sepsis (resolved) Thrombophlebitis -Started on Xarelto for Occlusive superficial venous thrombosis of the left cephalic vein. -Treat for likely 6-8 weeks Multifocal pneumonia -Superimposed multifocal PNA on positive Influenza B -On Day 8 of ceftaroline (MRSA Lung coverage), completed course of Azithromycin, Tamiflu, and dapto. -Bronch cultures positive for MRSA, munira albicans. urine legionella antigen negative. Abx as above. -1/2 blood cultures from 07/30 returned (+) for gram positive cocci/MRSA. Repeated cultures 08/01, 08/04, NGTD. Abx as above. IV drug abuse -Urine tox positive on admission for Methamphetamine and Ecstasy -Echocardiogram 07/30 and 08/04 with nl EF, no valvular vegetations. -Obvious concern for right sided endocarditis in setting of IVDU, but no evidence with normal echo. -On Suboxone, reportedly receiving from telemedicine doc in [place]. Consider transition to local provider if possible Raynauds disease: -Noted in past medical hx -No outpatient noted treatment; pt would like to see rheum as outpatient. -Hands are erythematous with blanching on palpation consistent with disease process. Tobacco user -Nicotine patch provided GERD (gastroesophageal reflux disease) -noted in past medical hx -Protonix for stress ulcer ppx DCd Depression -Noted to be on Celexa 10mg PO HS at home; held in setting of ceftaroline/dalvance Edema -Prev noted significant bilateral upper extremities worse at hands, improved. 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 primary hepatic etiology. -Hep A, B and C neg. Thrombocytopenia, resolved -Suspected from bone marrow infiltration from influenza Lactic acid acidosis, Resolved -07/30 2.9 --> resolved to 1.6 on 07/31 -Most likely from poor perfusion in setting of sepsis Hx MRSA infection -As noted in past medical hx in her hands; most likely from IV Drug Abuse. Code: Full Code DVT ppx: Xarelto 10mg PO FENGI: Regular easy to chew Disposition: Discharge pending Dalvance approval/outpatient logistical issues with access. (2) Superficial thrombophlebitis: (3) Edema: Noted significant bilateral upper extremities worse at hands but significantly improved. (4) Sepsis with acute hypoxic respiratory failure: Correction of underlying causes - infectious processes. - Tachycardia and prior Echocardiogram findings of hyperdynamic LV most likely from sepsis. (5) Multifocal pneumonia: - Superimposed multifocal PNA on positive Influenza B - On Day 6 of Dapsone (MRSA blood and other possible soft tissue infections) and ceftaroline (MRSA Lung coverage), completed course of Azithromycin (atypical coverage), and Tamiflu (influenza B). Dapto discontinued as noted above. - bronch cultures positive for MRSA, munira albicans. urine legionella antigen negative. - 1/2 blood cultures from 07/30 return positive for gram positive cocci/MRSA. Repeated blood cultures obtained 08/01, NGTD blood cultures obtained again 08/04 in the morning and again in the evening in setting of febrile episodes - showing no growth to date. antibiotics as above. (6) IV drug abuse: - Urine tox positive on admission for Methamphetamine and Ecstasy - Echocardiogram 07/30 showing normal EF without valvular vegetations. Obvious concern for right sided endocarditis in setting of IV drug abuse, but no evidence with normal echo. - on Suboxone - Repeat Echo Transthoracic didn't show any valvular vegetations (7) Abnormal LFTs: - likely underwriting service representative of shock liver from poor perfusion from sepsis vs. primary hepatic etiology. Hep B and C neg. Hep A pending. - Resolved. (8) Thrombocytopenia: - Suspected from bone marrow infiltration from influenza - Resolved, significantly improved (9) Influenza B: as noted above (10) GERD (gastroesophageal reflux disease): - noted in past medical hx - Protonix for stress ulcer prevention (11) Raynauds disease: Noted in past medical hx No outpatient noted treatment Hands are erythematous with blanching on palpation consistent with disease process. (12) Depression: (13) H/O intravenous drug use in remission: Admission and Anticipated Discharge Date Admission Date: July 30, 2019 Subjective Hugo continues to improve daily. She is very pleased with her course. Only notes being bored from prolonged hospital stay, but has her ipad to watch movies on. Physical Exam Constitutional: WD/WN, vitals as above comfortable and + combative Eyes: PERRL, conjunctivae normal, anicteric sclerae ENMT: external ear and nose normal, oropharynx normal Neck: trachea midline and + tracheal deviation Respiratory: normal respiratory effort, lungs clear to auscultation no respiratory distress Cardiovascular: Rate/Rhythm: regular rate and regular rhythm Gastrointestinal (Abdomen): Percussion/Palpation: abdomen soft; abdomen nontender, no guarding and abdomen not rigid Musculoskeletal: Head/Neck/Chest: normocephalic, head atraumatic and neck supple Skin: warm and dry Neurologic: moves all extremities and awake Psychiatric: A+Ox3, euthymic affect Results & Data ([facility]) Vital Signs (Past 12 Hours) Vital Signs Temp Pulse Resp BP Pulse Ox 08/11/19 07:06 36.9 C 73 20 113/67 94 08/11/19 00:21 36.5 C 20 91/54 L 94 Resident Activity Tracking Resident Involvement: Resident Care Provided Care Provided: Adult Hospital Medicine (1) GERD (gastroesophageal reflux disease) Esophagitis presence: esophagitis presence not specified Qualified Code(s): K21.9 - Gastro-esophageal reflux disease without esophagitis (2) Depression Depression Type: major depressive disorder Major depression recurrence: unspecified whether recurrent Active/Remission status: remission status unspecified Qualified Code(s): F32.9 - Major depressive disorder, single episode, unspecified
--- NOTE | 2019-08-11 13:08 | Discharge Summary ---
Date of Service August 11, 2019 Admission HPI Per Admitting Provider Chief Complaint: Cough, shortness of breath Primary Care Provider: NO PCP Hugo Ortiz is a 23-year-old female with history of prior IV drug abuse, MRSA infections presenting with multifocal pneumonia and influenza B. Patient states she has been having 2 to 3 days of fevers, chills, sweats and body aches. Also with a dry cough, throat pain and chest discomfort with breathing and coughing. On arrival to the ER patient febrile at 38.2, tachycardic at 124 bpm, tachypneic at 36 breaths/min, adequate oxygenation of 96% on room air. ER course Tylenol 1000 mg p.o., ceftriaxone 1 g IV, doxycycline 100 mg IV, Toradol 30 mg IV, normal saline x 1L and 250 mL/h Principal Diagnosis Hypoxic respiratory failure Discharge Exam Constitutional WD/WN, vitals as above cooperative and comfortable Eyes PERRL, conjunctivae normal, anicteric sclerae ENMT external ear and nose normal, oropharynx normal Neck trachea midline and + tracheal deviation Respiratory normal respiratory effort, lungs clear to auscultation no respiratory distress Cardiovascular Rate/Rhythm: regular rate and regular rhythm Gastrointestinal (Abdomen) Percussion/Palpation: abdomen soft; abdomen nontender, no guarding and abdomen not rigid Musculoskeletal Head/Neck/Chest: normocephalic, head atraumatic and neck supple Skin warm and dry Neurologic moves all extremities and awake Psychiatric A+Ox3, euthymic affect Discharge Data Allergies Allergy/AdvReac Type Severity Reaction Status Date / Time No Known Allergies Allergy Verified 07/30/19 09:43 Consultations 07/30/19 12:33 ED Decision to Admit Stat 07/30/19 19:17 Consult Stacker Routine 07/30/19 21:33 Consult Case Management - Discharge Planning Routine 08/06/19 09:44 Consult Infectious Diseases Routine 08/06/19 09:47 Consult Psychiatry Routine Ordered Studies 07/30/19 11:07 CT chest w con Stat 07/30/19 23:43 US liver Routine 07/31/19 07:34 US point of care ultrasound Routine 08/04/19 10:12 US venous doppler LE BI Routine US venous doppler UE BI Routine Hospital Course (1) Gram positive sepsis: 23 yo female with PMHx of IV drug abuse admitted for hypoxic respiratory failure secondary to superimposed multifocal pneumonia on Influenza B with MRSA positive blood cultures, sent to ICU for acute, hypoxic respiratory distress, extubated and transferred to [facility], required a couple extra day stay as Dalvance was antibiotic of choice for outpatient use as patient couldn't go home with PICC line because of IV drug use. Patient will get first dose 08/11 @12:30pm, then will get second dose two weeks later to complete treatment. Her plan to remain drug free is outpatient rehab and going to meetings. She declined going to inpatient rehab. She will need to continue the anti-coagulant Xarelto to treat superficial thrombosis of her left cephalic vein. She will need to continue this medication for 39 more days, for a total of 45 days treatment. She will take one pill (10mg) with food daily. This prescription was sent to her preferred pharmacy on file. More detailed notes below. MRSA Sepsis/pna/influenza B -Currently on room air, lung exam excellent -Cont ceftaroline. Plan to d/c with dalvance at [facility] for 2 doses, 2 weeks apart. Cannot be on same day of d/c. -Awaiting approval. -Access is issue: not candidate for midline or picc (h/o IVDU). Unable to obtain peripheral IV in hospital. -Discussed need for compliance with Dalvance and discussed plan to abstain from IVDU -Tachycardia and prior Echocardiogram findings of hyperdynamic LV most likely from sepsis (resolved) Thrombophlebitis -Started on Xarelto for Occlusive superficial venous thrombosis of the left cephalic vein. -Treat for a total of 45 days, 39 more days of outpatient treatment. Multifocal pneumonia -Superimposed multifocal PNA on positive Influenza B -On Day 8 of ceftaroline (MRSA Lung coverage), completed course of Azithromycin, Tamiflu, and dapto. -Bronch cultures positive for MRSA, munira albicans. urine legionella antigen negative. Abx as above. -1/2 blood cultures from 07/30 returned (+) for gram positive cocci/MRSA. Repeated cultures 08/01, 08/04, NGTD. Abx as above. IV drug abuse -Urine tox positive on admission for Methamphetamine and Ecstasy -Echocardiogram 07/30 and 08/04 with nl EF, no valvular vegetations. -Obvious concern for right sided endocarditis in setting of IVDU, but no evide nce with normal echo. -On Suboxone, reportedly receiving from telemedicine doc in [place]. Consider transition to local provider if possible Raynauds disease: -Noted in past medical hx -No outpatient noted treatment; pt would like to see rheum as outpatient. -Hands are erythematous with blanching on palpation consistent with disease process. Tobacco user -Nicotine patch provided GERD (gastroesophageal reflux disease) -noted in past medical hx -Protonix for stress ulcer ppx DCd Depression -Noted to be on Celexa 10mg PO HS at home; held in setting of ceftaroline/dalvance Edema -Prev noted significant bilateral upper extremities worse at hands, improved. -?raynauds vs superficial venous thrombosis Abnormal LFTs, resolved -likely passenger relations representative of shock liver from poor perfusion from sepsis vs. primary hepatic etiology. -Hep A, B and C neg. Thrombocytopenia, resolved -Suspected from bone marrow infiltration from influenza Lactic acid acidosis, Resolved -07/30 2.9 --> resolved to 1.6 on 07/31 -Most likely from poor perfusion in setting of sepsis Hx MRSA infection -As noted in past medical hx in her hands; most likely from IV Drug Abuse. Code: Full Code DVT ppx: Xarelto 10mg PO FENGI: Regular easy to chew Disposition: Discharge was pending Dalvance approval/outpatient logistical issues with access. Discharge home on 08/11/19. (2) Superficial thrombophlebitis: (3) Edema: Noted significant bilateral upper extremities worse at hands but significantly improved. (4) Sepsis with acute hypoxic respiratory failure: Correction of underlying causes - infectious processes. - Tachycardia and prior Echocardiogram findings of hyperdynamic LV most likely from sepsis. (5) Multifocal pneumonia: - Superimposed multifocal PNA on positive Influenza B - On Day 6 of Dapsone (MRSA blood and other possible soft tissue infections) and ceftaroline (MRSA Lung coverage), completed course of Azithromycin (atypical coverage), and Tamiflu (influenza B). Dapto discontinued as noted above. - bronch cultures positive for MRSA, munira albicans. urine legionella antigen negative. - 1/2 blood cultures from 07/30 return positive for gram positive cocci/MRSA. Repeated blood cultures obtained 08/01, NGTD blood cultures obtained again 08/04 in the morning and again in the evening in setting of febrile episodes - showing no growth to date. antibiotics as above. (6) IV drug abuse: - Urine tox positive on admission for Methamphetamine and Ecstasy - Echocardiogram 07/30 showing normal EF without valvular vegetations. Obvious concern for right sided endocarditis in setting of IV drug abuse, but no evidence with normal echo. - on Suboxone - Repeat Echo Transthoracic didn't show any valvular vegetations (7) Abnormal LFTs: - likely passenger relations representative of shock liver from poor perfusion from sepsis vs. primary hepatic etiology. Hep B and C neg. Hep A pending. - Resolved. (8) Thrombocytopenia: - Suspected from bone marrow infiltration from influenza - Resolved, significantly improved (9) Influenza B: as noted above (10) GERD (gastroesophageal reflux disease): - noted in past medical hx - Protonix for stress ulcer prevention (11) Raynauds disease: Noted in past medical hx No outpatient noted treatment Hands are erythematous with blanching on palpation consistent with disease process. (12) Depression: (13) H/O intravenous drug use in remission: Total Time Total Time Spent Total Time Spent (In Minutes): 120 Total Time Includes: Examination of the Patient, Discharge Planning, Medication Reconciliation and Communication With Other Providers Discharge Plan Discharge Items Patient Disposition: Home - Self-Care Reason For Visit: PNA, INFLUENZA Discharge Diagnosis: MRSA Multifocal Pneumonia; MRSA Bacteremia; Acute Respiratory Failure requiring mechanical ventilation Activity: Resume your previous activity Non-emergency contact: Primary Care Provider Call non-emergency contact if: you have any medication questions, your symptoms worsen and you have a fever Follow-up/Referrals: Octaviano Riley [Other] (Please call for first available appointment for hospital follow up) Tonio Austin DO [Resident] - PCP,NO [Primary Care Provider] - Diet: Regular Addtl Attending Provider Instructions: You were admitted for MRSA Multifocal Pneumonia; MRSA Bacteremia; Acute Respiratory Failure requiring mechanical ventilation. You also tested positive for Influenza B. Please get your annual flu shot next February/March 2020. Please abstain from IV drug use. Continued use of IV drugs could cause another episode of everything you just went through. Please follow up with help for this. We believe in you that you can overcome this. IV drug use can cause heart damage, lead to stroke/brain damage, and will significantly shorten your life. You will need to come back to the hospital for 2 doses of an antibiotic called Dalvance. This medication is given through an IV and lasts for 2 weeks. You will get this twice which will be providing you antibacterial coverage for one month. This is important to treat your serious lung and blood infection caused by MRSA. Return to [facility] tomorrow 08/12/2019 at 12:30pm, for your 1st dose of Dalvance antibiotic. You will then need to return two weeks later for your second and last dose. You will need to continue the anti-coagulant Xarelto to treat your superficial thrombophlebitis. You will need to continue this medication for 39 more days, for a total of 45 days treatment. You will take one pill (10mg) with food daily . This prescription has been sent to your preferred pharmacy on file. Since this is a blood thinner, please be aware of symptoms such as black/bloody stools, nose bleeds, easy bruising, also minor head trauma could cause a serious brain bleed. If you experience these, call your PCP/seek medical attention. Please follow up with your Primary Care Provider for next available appointment to establish hospital follow up. If you are in need of a Provider, I'm more than happy to see you across the street in our Family Medicine Practice. Best of Troy coulter D.O, Pending Studies at Discharge: No Stand-Alone Forms: My [facility] [employer], Smoking Cessation Medications and DC Order Prescriptions: New Xarelto 10 mg Tablet 10 mg PO DAILY 39 Days Qty: 39 RF: 0 Continued buprenorphine HCl 8 mg tablet, sublingual 8 mg SL BID Qty: 10 RF: 0 acetaminophen [Tylenol] 325 mg Tablet 325 mg PO QID PRN (Reason: Pain) RF: 0 clindamycin-benzoyl peroxide 1-5 % gel 1 applic TOPICAL BID RF: 0 citalopram [Celexa] 10 mg tablet 10 mg PO HS RF: 0 Discharge Orders: Discharge Order (Routine); Ordered 08/11/19 Ordered By: Tonio Hernandez/Other Patient Handouts: Addiction Get Help, Addiction Recovery Counseling, Addiction Drug Abuse Tx Admission Data Admit Date/Time: 07/30/19 13:21 Attending Provider: Rudolph Moran Admit Provider: Tanya Hensley Primary Care Provider: PCP,NO Other Providers: Tanya Hensley ; Uli Troncoso ; Melania Herring ; Saadia Rodney Resident Activity Tracking Resident Involvement: Resident Care Provided Care Provided: Adult Hospital Medicine
== END 2019-08-11 14:52 | disposition home or self-care (01) | DRG 870 ==
LOC: ED 08:50 → SUATTDRO 13:21 → 2N 13:21 → 1E 17:52 → 2N 08-08 10:53

== ENCOUNTER 2021-11-03 18:18 | Inpatient (IN) ==
[2021-11-03] MEDS ORDERED: OXYTOCIN 30 UNITS/500 ML BAG IV PRN ×2 (20:53→21:50)
[2021-11-03 21:07] LABS: Amphetamines+Metham, Urine Neg (Neg); Barbiturates, Urine Neg (Neg); Benzodiazepine, Urine Neg (Neg); Cocaine, Urine Neg (Neg); MDMA (Ecstacy), Urine Neg (Neg); Methadone, Urine Neg (Neg); Opiate, Urine Neg (Neg); Phencyclidine, Urine Neg (Neg)
[2021-11-03] MEDS ORDERED: fentaNYL citrate 100 MCG/2 ML VIAL ONE (21:16)
[2021-11-03] MEDS ORDERED: ePHEDrine sulfate 50 MG/ML AMP ONE (21:16)
[2021-11-03] MEDS ORDERED: fentaNYL 2MCG/ML ROPIVACAINE 1.25MG/ML 100 ML BAG EPI ONE (21:16)
[2021-11-03] MEDS ORDERED: BUPIVACAINE 0.25% 30 ML VIAL ONE (21:16)
[2021-11-03] MEDS ORDERED: SODIUM CHLORIDE 0.9% INJ 10 ML VIAL ONE (21:16)
[2021-11-03] MEDS ORDERED: NALOXONE HCL 0.4 MG/1 ML VIAL/CARP IV PRN (21:27)
[2021-11-03] MEDS ORDERED: ePHEDrine sulfate 50 MG/ML AMP IV PRN (21:27)
[2021-11-03] MEDS ORDERED: diphenhydrAMINE 50 MG/ML VIAL IV PRN (21:27)
[2021-11-03] MEDS ORDERED: NALOXONE HCL 1 MG in SODIUM CHLORIDE 0.9% 1000ML 1,000 ML IV PRN (21:27)
[2021-11-03] MEDS ORDERED: fentaNYL 2MCG/ML ROPIVACAINE 1.25MG/ML 100 ML BAG EPI PRN (21:27)
[2021-11-03] MEDS ORDERED: NALBUPHINE HCL INJ 10 MG/ML AMP IV PRN (21:27)
--- NOTE | 2021-11-03 21:27 | Anesthesiology Consultation ---
Date of Service November 03, 2021 Assessment & Plan ASA ASA3 Proposed Anesthesia Anesthesia Type: Labor Epidural Risk / Benefits Reviewed With: PT / POA / Parent / Guardian, Accepts Plan and Informed Consent Obtained History Height/Weight Height: 5 ft 2 in Weight: 76.204 kg Allergies Allergy/AdvReac Type Severity Reaction Status Date / Time No Known Allergies Allergy Verified 04/27/20 13:42 Medications Home Medications Medication Instructions Recorded Confirmed Last Taken buprenorphine HCl 8 mg sublingual 8 mg SL TID tab 03/25/20 11/03/21 11/03/21 17:00 tablet 20 mg Active Medications Generic Name Dose Route Start Last Admin Trade Name Freq PRN Reason Stop Dose Admin Lactated Ringer's 1,000 mls @ 125 mls/hr 11/03/21 20:53 11/03/21 21:34 Lr IV 11/05/21 20:52 999 mls/hr .Q8H PRN Administration L&D Protocol Protocol Past Medical History Medical History (Updated 11/03/21 @ 22:24 by Baljinder Mckinnon MD) Depression GERD (gastroesophageal reflux disease) H/O intravenous drug use in remission Last Use 07/2018 Hx MRSA infection IV drug abuse Raynauds disease Exercise / Class Metabolic Activity II 4-5 Yardwork/Stairs/Walk up hill Past Family History Family History Other No significant family history Denies family history of Ovarian cancer Prostate cancer Diabetes Myocardial infarction Breast cancer Lung cancer Colorectal cancer Hypertension Stroke Past Surgical History Surgical History History of cholecystectomy History of incision and drainage BILATERAL HANDS History of tonsillectomy and adenoidectomy Past Anesthesia History No Hx of Anesthesia Complications and No Family Hx of Anesthesia Complications History of PONV No Hx of PONV and No Hx of Motion Sickness Social History Smoking Status: Current every day smoker tobacco type: cigarettes Do You Dip or Chew Tobacco: No Hx Alcohol Use: No Hx Substance Use: Yes substance use type: former substance user [facility] Elmo Jacome ; Review of Systems denies fever/cough/ colds/ chest pain/ SOB/ CONSTANTINO denies CONSTANTINO Physical Exam Vital Signs Last Vital Signs Temp 37.1 C 11/03/21 18:27 Pulse 82 11/03/21 22:32 Resp 20 11/03/21 22:26 BP 116/68 11/03/21 22:26 Pulse Ox 96 11/03/21 22:32 ENMT Mouth: no TMJ abnormality and no dentition abnormality Thyromental Distance: > or= 3.5 Finger Breadths Mallampati Class: II Neck neck extension not limited Respiratory normal respiratory effort; no respiratory distress Auscultation: lungs clear to auscultation bilaterally Cardiovascular Rate/Rhythm: regular rate and regular rhythm Neurologic moves all extremities Psychiatric Orientation: alert and oriented x 3 Testing Laboratory Results 11/03/21 21:26
[2021-11-03] MEDS: LACTATED RINGER'S 1,000 ML IV PRN (21:34)
[2021-11-03 21:44] LABS: Hematocrit (blood only) 39.3 % (37-47); Hemoglobin 13.8 g/dL (12.0-16.0); Mean Corpuscular Hemoglobin 31.7 pg (25-34); Mean Corpuscular Hgb Conc 35.1 g/dL (32-36); Mean Corpuscular Volume 90.3 fL (80-100); Mean Platelet Volume 10.8 fL (7.4-10.4); Platelet Count 164 K/uL (130-400); RDW Coefficient of Variation 13.5 % (11.5-14.5); RDW Standard Deviation 44.6 fL (36.4-46.3); Red Blood Count 4.35 M/uL (4.2-5.4); White Blood Count 14.42 K/uL (4.8-10.8)
[2021-11-03] MEDS ORDERED: LACTATED RINGER'S 1,000 ML IV PRN (21:50)
--- NOTE | 2021-11-03 22:10 | History & Physical Report ---
Date of Service November 03, 2021 Assessment & Plan (1) Maternal drug dependence complicating : Plan: Admit and plan for epidural History of Present Illness Chief Complaint: onset of labor Primary Care Provider: Juan Bernard, DO 26 F P0000 at40.2 weeks admitted in early labor. GBS is negative. Covid is negative. Hep C is positive. Positive history of drug abuse on Subutex 8 mg daily. Allergies Allergy/AdvReac Type Severity Reaction Status Date / Time No Known Allergies Allergy Verified 04/27/20 13:42 Home Medications Medication Instructions Recorded Confirmed Type buprenorphine HCl 8 mg sublingual 8 mg SL TID tab 03/25/20 11/03/21 History tablet Patient History Medical History (Updated 11/03/21 @ 22:24 by Baljinder Mckinnon MD) Depression GERD (gastroesophageal reflux disease) H/O intravenous drug use in remission Last Use 07/2018 Hx MRSA infection IV drug abuse Raynauds disease Surgical History History of cholecystectomy History of incision and drainage BILATERAL HANDS History of tonsillectomy and adenoidectomy Family History Other No significant family history Denies family history of Ovarian cancer Prostate cancer Diabetes Myocardial infarction Breast cancer Lung cancer Colorectal cancer Hypertension Stroke Social History Smoking Status: Current every day smoker Tobacco Type: Cigarettes Second Hand Exposure: Yes; Do You Dip or Chew Tobacco: No; Tobacco Cessation Education Requested by Patient: No Hx Alcohol Use: No Hx Substance Use: Yes Substance Use Type Other:: [facility]Dr[facility] Elmo Jacome ; Preferred Language: Hungarian Communication Ability: Effective Visual Impairment: No Limitations Hearing Ability: Normal Vp Ad Products And Planning Required: No Beliefs That Will Affect Care: None marital status: Single Current Living Situation: Spouse Current Living Situation Comment: , Elijah; 1 dog current occupational status: employed Other Information That Helps Us Care for You: No Feels Safe at Home: Yes Safety Concerns: Feels Safe At This Time Childhood Exposure to Second-Hand Smoke: Yes caffeine: Yes Dental Care, Regularly: Yes Physical Activity Frequency: 3-4 Times per Week Seatbelt Use: always Sunscreen Use: Yes Assistive Devices: None 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 History history of chlamydia and herpes Review of Systems All systems reviewed & are unremarkable except as noted in HPI & below Physical Exam Constitutional: WD/WN, vitals as above Eyes: PERRL, conjunctivae normal, anicteric sclerae Respiratory: normal respiratory effort, lungs clear to auscultation Cardiovascular: RRR, no murmur, no edema Skin: no rashes, warm and dry Neurologic: patellar DTR's 2+ bilat, sensation intact Psychiatric: A+Ox3, euthymic affect Genitourinary: no vaginal lesions, no adnexal mass normal external appearance OB Exam Abdomen: + fundal height and + vertex Manual OB Exam: + cervical dilation 3 cm, + cervical effacement 100% and + station -1 OB Exam Monitor Tracing: + external FHT monitor used, + external uterine monitor used, + category I and + normal FHT variability Results & Data ([facility]) Vital Signs (Past 12 Hours) Vital Signs Temp Pulse Resp BP Pulse Ox 11/03/21 22:02 82 98 11/03/21 21:57 86 20 133/77 96 11/03/21 18:27 37.1 C 78 18 121/79 Laboratory Results Laboratory Results - last 48 hr 11/03/21 11/03/21 11/03/21 18:15 21:00 21:26 WBC 14.42 H RBC 4.35 Hgb 13.8 Hct 39.3 MCV 90.3 MCH 31.7 MCHC 35.1 RDW Std Deviation 44.6 RDW Coeff of Christina 13.5 Plt Count 164 MPV 10.8 H Urine Opiates Screen Neg Ur Methadone, Qual Neg Urine Barbiturates Neg Ur Phencyclidine (PCP) Neg U Amphetamin/Meth Scrn Neg MDMA (Ecstasy) Screen Neg U Benzodiazepines Scrn Neg Ur Cocaine Metabolite Neg U Marijuana (THC) Screen Neg SARS-CoV-2, RNA, NAAT NEGATIVE Monitoring External Monitor Cat 1
[2021-11-04] MEDS: LACTATED RINGER'S 1,000 ML IV PRN ×2 (00:09→07:23)
[2021-11-04] MEDS ORDERED: OXYTOCIN 30 UNITS/500 ML BAG IV PRN ×2 (07:43→09:57)
--- NOTE | 2021-11-04 07:50 | Obstetrical Progress Note ---
Date of Service November 04, 2021 Assessment & Plan Admission and Anticipated Discharge Date Admission Date: November 03, 2021 Subjective Patient is seen. She was admitted for active labor by Dr Mckinnon, received epidural for pain and now comfortable. GBS neg, Coronavirus testing negative. On Subutex 8 mg in am, 12 mg in pm. Smoker, UDS negative, No h/o genital HSV nor GC, SROM'ed at 7:20, Checked by her nurse and she was fully dilated, head at +1 station. FHR categ I Contractions spaced out, plan to start Oxytocin Continue to monitor closely Results & Data ([facility]) Vital Signs (Past 12 Hours) Vital Signs Temp Pulse Resp BP Pulse Ox 11/04/21 07:44 73 116/78 95 11/04/21 07:39 68 94 11/04/21 07:34 70 94 11/04/21 07:29 76 95 11/04/21 07:28 70 115/73 11/04/21 07:24 69 95 11/04/21 07:19 73 96 11/04/21 07:14 67 95 11/04/21 07:13 66 116/71 11/04/21 07:09 78 96 11/04/21 07:05 37.0 C 18 11/04/21 07:04 89 93 11/04/21 07:00 18 11/04/21 06:59 65 109/55 L 94 11/04/21 06:54 67 93 11/04/21 06:49 66 94 11/04/21 06:44 67 94 11/04/21 06:42 71 114/62 11/04/21 06:39 75 95 11/04/21 06:34 76 95 11/04/21 06:30 18 11/04/21 06:29 69 95 11/04/21 06:28 74 114/62 11/04/21 06:24 83 95 11/04/21 06:19 69 94 11/04/21 06:14 67 95 11/04/21 06:13 73 116/69 11/04/21 06:09 71 95 11/04/21 06:04 72 95 11/04/21 06:00 18 11/04/21 05:59 68 94 11/04/21 05:57 69 113/69 11/04/21 05:54 84 95 11/04/21 05:49 69 95 11/04/21 05:44 65 106/60 95 11/04/21 05:39 69 95 11/04/21 05:34 70 94 11/04/21 05:30 16 11/04/21 05:29 67 95 11/04/21 05:27 71 108/59 L 11/04/21 05:24 66 95 11/04/21 05:20 37.0 C 11/04/21 05:19 72 94 11/04/21 05:14 69 94 11/04/21 05:12 75 109/66 11/04/21 05:09 68 93 11/04/21 05:04 71 93 11/04/21 05:00 18 11/04/21 04:59 71 93 11/04/21 04:58 70 109/63 11/04/21 04:54 74 94 11/04/21 04:49 78 94 11/04/21 04:44 80 95 11/04/21 04:43 70 111/59 L 11/04/21 04:39 72 94 11/04/21 04:34 69 94 11/04/21 04:30 16 11/04/21 04:29 71 94 11/04/21 04:28 67 114/60 11/04/21 04:24 71 94 11/04/21 04:19 70 95 11/04/21 04:14 69 109/62 95 11/04/21 04:09 76 95 11/04/21 04:04 73 95 11/04/21 04:00 16 11/04/21 03:59 71 96 11/04/21 03:58 79 116/61 11/04/21 03:54 70 95 11/04/21 03:49 69 96 11/04/21 03:44 80 97 11/04/21 03:42 80 108/66 11/04/21 03:39 79 96 11/04/21 03:35 37.2 C 11/04/21 03:34 73 96 11/04/21 03:30 16 11/04/21 03:29 67 109/67 95 11/04/21 03:24 68 94 11/04/21 03:19 66 94 11/04/21 03:14 71 95 11/04/21 03:12 76 120/71 11/04/21 03:09 70 94 11/04/21 03:04 66 95 11/04/21 02:59 65 95 11/04/21 02:57 79 113/59 L 11/04/21 02:54 67 94 11/04/21 02:49 65 94 11/04/21 02:44 65 115/62 95 11/04/21 02:38 65 95 11/04/21 02:33 69 95 11/04/21 02:30 18 11/04/21 02:28 69 113/58 L 96 11/04/21 02:23 65 95 11/04/21 02:18 67 95 11/04/21 02:13 66 112/64 95 11/04/21 02:08 67 94 11/04/21 02:03 67 95 11/04/21 02:00 16 11/04/21 01:58 71 117/65 95 11/04/21 01:53 67 95 11/04/21 01:48 70 95 11/04/21 01:45 37.0 C 11/04/21 01:44 74 94 11/04/21 01:43 73 95 11/04/21 01:42 72 117/62 11/04/21 01:39 77 94 11/04/21 01:38 82 95 11/04/21 01:33 94 H 95 11/04/21 01:32 87 94 11/04/21 01:30 16 11/04/21 01:29 72 114/57 L 11/04/21 01:28 78 92 11/04/21 01:27 85 94 11/04/21 01:23 70 94 11/04/21 01:20 79 94 11/04/21 01:18 66 95 11/04/21 01:14 68 94 11/04/21 01:13 69 113/58 L 95 11/04/21 01:09 72 94 11/04/21 01:08 73 94 11/04/21 01:03 69 95 11/04/21 01:00 16 11/04/21 00:58 75 105/65 95 11/04/21 00:55 67 94 11/04/21 00:52 74 94 11/04/21 00:49 71 94 11/04/21 00:47 71 95 05 00:43 72 105/64 11/04/21 00:42 73 95 11/04/21 00:41 73 94 11/04/21 00:37 74 95 11/04/21 00:32 76 96 11/04/21 00:30 16 11/04/21 00:29 72 113/52 L 11/04/21 00:28 75 91 11/04/21 00:27 80 96 11/04/21 00:22 73 96 11/04/21 00:17 78 96 11/04/21 00:13 75 101/57 L 11/04/21 00:12 77 95 11/04/21 00:07 72 96 11/04/21 00:04 37.1 C 11/04/21 00:02 72 96 11/04/21 00:00 18 11/03/21 23:58 89 145/66 H 11/03/21 23:57 78 97 11/03/21 23:52 68 95 11/03/21 23:47 65 96 11/03/21 23:42 69 113/72 96 11/03/21 23:37 69 96 11/03/21 23:32 69 96 11/03/21 23:30 18 11/03/21 23:27 71 121/71 95 11/03/21 23:22 73 96 11/03/21 23:17 83 97 11/03/21 23:12 69 124/69 96 11/03/21 23:07 73 97 11/03/21 23:02 75 98 11/03/21 23:00 18 11/03/21 22:58 74 121/72 11/03/21 22:57 74 95 11/03/21 22:52 77 96 11/03/21 22:47 74 96 11/03/21 22:44 74 121/69 05 22:42 77 97 11/03/21 22:37 77 97 11/03/21 22:32 82 96 11/03/21 22:30 18 11/03/21 22:27 88 96 11/03/21 22:26 76 20 116/68 05 22:22 81 18 120/69 96 05 22:20 37.0 C 11/03/21 22:17 79 97 11/03/21 22:16 75 18 123/67 05 22:14 76 20 118/64 05 22:12 79 18 125/69 98 11/03/21 22:10 79 20 126/70 11/03/21 22:08 86 18 129/92 11/03/21 22:07 91 H 96 11/03/21 22:02 82 98 11/03/21 21:57 86 20 133/77 96
[2021-11-04] MEDS: buprenorphine HCL 8 MG SUBL SL SCH ×3 (08:33→21:34)
--- NOTE | 2021-11-04 09:01 | Obstetrical Progress Note ---
Date of Service November 04, 2021 Assessment & Plan Admission and Anticipated Discharge Date Admission Date: November 03, 2021 Subjective Patient is reevaluated She was started on pitocin, started to feel pressure with ctxs VE; 10/ 100%/ +3 FHR 120's, has acceleration after VE Started pushing with ctxs and caput is visible at the introitus Continue to monitor closely Anticipate Results & Data ([facility]) Vital Signs (Past 12 Hours) Vital Signs Temp Pulse Resp BP Pulse Ox 11/04/21 08:54 77 98 11/04/21 08:53 86 87 L 11/04/21 08:49 76 97 11/04/21 08:44 69 96 11/04/21 08:43 67 117/74 11/04/21 08:39 73 96 11/04/21 08:34 87 99 11/04/21 08:29 72 96 11/04/21 08:27 72 116/74 11/04/21 08:24 77 97 11/04/21 08:19 77 96 11/04/21 08:14 73 95 11/04/21 08:13 71 118/75 11/04/21 08:09 83 96 11/04/21 08:04 79 95 11/04/21 07:59 79 97 11/04/21 07:54 73 95 11/04/21 07:49 72 95 11/04/21 07:44 73 116/78 95 11/04/21 07:39 68 94 11/04/21 07:34 70 94 11/04/21 07:29 76 95 11/04/21 07:28 70 115/73 11/04/21 07:24 69 95 11/04/21 07:19 73 96 11/04/21 07:14 67 95 11/04/21 07:13 66 116/71 11/04/21 07:09 78 96 11/04/21 07:05 37.0 C 18 11/04/21 07:04 89 93 11/04/21 07:00 18 11/04/21 06:59 65 109/55 L 94 11/04/21 06:54 67 93 11/04/21 06:49 66 94 11/04/21 06:44 67 94 11/04/21 06:42 71 114/62 11/04/21 06:39 75 95 11/04/21 06:34 76 95 11/04/21 06:30 18 11/04/21 06:29 69 95 11/04/21 06:28 74 114/62 11/04/21 06:24 83 95 11/04/21 06:19 69 94 11/04/21 06:14 67 95 11/04/21 06:13 73 116/69 11/04/21 06:09 71 95 11/04/21 06:04 72 95 11/04/21 06:00 18 11/04/21 05:59 68 94 11/04/21 05:57 69 113/69 11/04/21 05:54 84 95 11/04/21 05:49 69 95 11/04/21 05:44 65 106/60 95 11/04/21 05:39 69 95 11/04/21 05:34 70 94 11/04/21 05:30 16 11/04/21 05:29 67 95 11/04/21 05:27 71 108/59 L 11/04/21 05:24 66 95 11/04/21 05:20 37.0 C 11/04/21 05:19 72 94 11/04/21 05:14 69 94 11/04/21 05:12 75 109/66 11/04/21 05:09 68 93 11/04/21 05:04 71 93 11/04/21 05:00 18 11/04/21 04:59 71 93 11/04/21 04:58 70 109/63 11/04/21 04:54 74 94 11/04/21 04:49 78 94 11/04/21 04:44 80 95 11/04/21 04:43 70 111/59 L 11/04/21 04:39 72 94 11/04/21 04:34 69 94 11/04/21 04:30 16 11/04/21 04:29 71 94 11/04/21 04:28 67 114/60 11/04/21 04:24 71 94 11/04/21 04:19 70 95 11/04/21 04:14 69 109/62 95 11/04/21 04:09 76 95 11/04/21 04:04 73 95 11/04/21 04:00 16 11/04/21 03:59 71 96 11/04/21 03:58 79 116/61 11/04/21 03:54 70 95 11/04/21 03:49 69 96 11/04/21 03:44 80 97 11/04/21 03:42 80 108/66 11/04/21 03:39 79 96 11/04/21 03:35 37.2 C 11/04/21 03:34 73 96 11/04/21 03:30 16 11/04/21 03:29 67 109/67 95 11/04/21 03:24 68 94 11/04/21 03:19 66 94 11/04/21 03:14 71 95 11/04/21 03:12 76 120/71 11/04/21 03:09 70 94 11/04/21 03:04 66 95 11/04/21 02:59 65 95 11/04/21 02:57 79 113/59 L 11/04/21 02:54 67 94 11/04/21 02:49 65 94 11/04/21 02:44 65 115/62 95 11/04/21 02:38 65 95 11/04/21 02:33 69 95 11/04/21 02:30 18 11/04/21 02:28 69 113/58 L 96 11/04/21 02:23 65 95 11/04/21 02:18 67 95 11/04/21 02:13 66 112/64 95 11/04/21 02:08 67 94 11/04/21 02:03 67 95 11/04/21 02:00 16 11/04/21 01:58 71 117/65 95 11/04/21 01:53 67 95 11/04/21 01:48 70 95 11/04/21 01:45 37.0 C 11/04/21 01:44 74 94 11/04/21 01:43 73 95 11/04/21 01:42 72 117/62 11/04/21 01:39 77 94 11/04/21 01:38 82 95 11/04/21 01:33 94 H 95 11/04/21 01:32 87 94 11/04/21 01:30 16 11/04/21 01:29 72 114/57 L 11/04/21 01:28 78 92 11/04/21 01:27 85 94 11/04/21 01:23 70 94 11/04/21 01:20 79 94 11/04/21 01:18 66 95 11/04/21 01:14 68 94 11/04/21 01:13 69 113/58 L 95 11/04/21 01:09 72 94 11/04/21 01:08 73 94 11/04/21 01:03 69 95 11/04/21 01:00 16 11/04/21 00:58 75 105/65 95 11/04/21 00:55 67 94 11/04/21 00:52 74 94 11/04/21 00:49 71 94 11/04/21 00:47 71 95 11/04/21 00:43 72 105/64 11/04/21 00:42 73 95 11/04/21 00:41 73 94 11/04/21 00:37 74 95 11/04/21 00:32 76 96 11/04/21 00:30 16 11/04/21 00:29 72 113/52 L 11/04/21 00:28 75 91 11/04/21 00:27 80 96 11/04/21 00:22 73 96 11/04/21 00:17 78 96 11/04/21 00:13 75 101/57 L 11/04/21 00:12 77 95 11/04/21 00:07 72 96 11/04/21 00:04 37.1 C 11/04/21 00:02 72 96 11/04/21 00:00 18 11/03/21 23:58 89 145/66 H 11/03/21 23:57 78 97 11/03/21 23:52 68 95 11/03/21 23:47 65 96 11/03/21 23:42 69 113/72 96 11/03/21 23:37 69 96 11/03/21 23:32 69 96 11/03/21 23:30 18 11/03/21 23:27 71 121/71 95 11/03/21 23:22 73 96 11/03/21 23:17 83 97 11/03/21 23:12 69 124/69 96 11/03/21 23:07 73 97 11/03/21 23:02 75 98 11/03/21 23:00 18 11/03/21 22:58 74 121/72 05 22:57 74 95 11/03/21 22:52 77 96 11/03/21 22:47 74 96 11/03/21 22:44 74 121/69 11/03/21 22:42 77 97 11/03/21 22:37 77 97 11/03/21 22:32 82 96 11/03/21 22:30 18 11/03/21 22:27 88 96 11/03/21 22:26 76 20 116/68 11/03/21 22:22 81 18 120/69 96 11/03/21 22:20 37.0 C 11/03/21 22:17 79 97 11/03/21 22:16 75 18 123/67 11/03/21 22:14 76 20 118/64 11/03/21 22:12 79 18 125/69 98 11/03/21 22:10 79 20 126/70 11/03/21 22:08 86 18 129/92 11/03/21 22:07 91 H 96 11/03/21 22:02 82 98 11/03/21 21:57 86 20 133/77 96
[2021-11-04] MEDS ORDERED: MINERAL OIL 30 ML UDC ONE (09:10)
[2021-11-04] MEDS ORDERED: HYDROCORTISONE ACETATE 25 MG SUPP PR PRN (09:57)
[2021-11-04] MEDS ORDERED: BENZOCAINE 20% AER SPR 82.5 GM CAN EXT PRN (09:57)
[2021-11-04] MEDS ORDERED: DIPHTHERIA/TETANUS/PERTUSSIS 0.5 ML SYR/VIAL IM ONE (09:57)
[2021-11-04] MEDS ORDERED: bisacodyL 10 MG SUPP PR PRN (09:57)
[2021-11-04] MEDS ORDERED: ACETAMINOPHEN 325 MG TAB PO PRN (09:57)
[2021-11-04] MEDS ORDERED: oxyCODONE/ACETAMINOPHEN 5mg/325mg TAB PO PRN (09:57)
[2021-11-04] MEDS ORDERED: MEASLES, MUMPS & RUBELLA VIRUS VIAL SQ ONE (09:57)
--- NOTE | 2021-11-04 10:00 | Delivery Summary ---
Vaginal Delivery Summary Date of Service November 04, 2021 Vaginal Delivery Summary Patient was found to be fluid dilated and desired to push. Patient for about 40 minutes and delivered the head without difficulty. The shoulders were delivered with minimal traction and the baby was handed off to the mother, where mouth and nose were suctioned, the cord was clamped x2 and cut at 1 minute delay. The baby was vigorously moving and crying at that point. The placenta was found to be in the vagina, delivered spontaneously as intact and complete. The uterus was explored and found to be empty. The lower segment was cleared of all clots and debris's and fundus was firm. The vagina and perineum were checked for lacerations. There was a small second- degree perineal laceration. Rectal exam was done and confirmed to have excellent sphincter tone and to be second-degree. Gloves were changed. The perineal body muscles around the sphincter were held with Allis clamps and repaired/reapproximated with 2-0 Vicryl with [id number] stitches to support the sphincter. And with another 2-0 Vicryl vagina mucosa and skin were repaired in continuous and subcuticular fashion respectively. Excellent hemostasis was achieved. Rest of the vagina and labia were intact. The mom and baby tolerated procedure well. The sponge, needle, instrument count was correct x2. The baby was a viable male infant, delivered at 09:32 AM, Apgars were 8/9 and weight is pending. No complications happened and I was present during whole procedure.
--- NOTE | 2021-11-04 10:28 | Anesthesia Procedure Note ---
Date of Service November 04, 2021 Anesthesia Post Epidural Note Vital Signs Vital Signs: Temp Pulse Resp BP Pulse Ox 37.0 C 85 18 119/65 85 L 11/04/21 10:00 11/04/21 10:14 11/04/21 10:10 11/04/21 10:14 11/04/21 09:31 Pain Intensity Back: Pain Intensity: 4 Notes Mental Status: alert / awake / arousable Nausea / Vomiting: adequately controlled Pain: adequately controlled Airway Patency, RR, SpO2: stable & adequate BP & HR: stable & adequate Hydration State: stable & adequate Neuraxial Anesthesia: was administered and sensory block is resolving Anesthetic Complications: no major complications apparent and Pt Satisfied with anesthetic care Epidural: Removed without complications and With tip intact
[2021-11-04] MEDS: IBUPROFEN 600 MG TAB PO PRN ×3 (11:07→23:24)
[2021-11-04] MEDS: DOCUSATE SODIUM 100 MG CAP PO SCH (21:33)
[2021-11-05] MEDS: IBUPROFEN 600 MG TAB PO PRN ×3 (04:12→19:57)
[2021-11-05 07:11] LABS: Hematocrit (blood only) 32.2 % (37-47); Mean Corpuscular Hemoglobin 31.1 pg (25-34); Mean Corpuscular Hgb Conc 34.2 g/dL (32-36); Mean Platelet Volume 10.7 fL (7.4-10.4); Platelet Count 129 K/uL (130-400); RDW Coefficient of Variation 13.6 % (11.5-14.5); RDW Standard Deviation 45.5 fL (36.4-46.3); Red Blood Count 3.54 M/uL (4.2-5.4); White Blood Count 10.47 K/uL (4.8-10.8)
--- NOTE | 2021-11-05 08:01 | Obstetrical Progress Note ---
Date of Service November 05, 2021 Assessment & Plan Admission and Anticipated Discharge Date Admission Date: November 03, 2021 Subjective Patient is seen and examined. She feels well, no complaints. Ambulating without dizziness Voiding without difficulty Tolerating regular diet with out N&V Bleeding is minimal No fever/ chills/ CP/ SOB/ N&V/ Leg pain Breast and bottle feeding without problems Vital Signs Temp Pulse Resp BP Pulse Ox 11/05/21 04:10 36.7 C 80 20 119/80 95 11/04/21 23:36 36.6 C 79 22 119/80 97 11/04/21 20:11 36.8 C 81 16 115/75 95 Lab Results 11/03/21 11/03/21 11/03/21 Range/Units 18:15 21:00 21:26 WBC 14.42 H (4.8-10.8) K/uL RBC 4.35 (4.2-5.4) M/uL Hgb 13.8 (12.0-16.0) g/dL Hct 39.3 (37-47) % MCV 90.3 (80-100) fL MCH 31.7 (25-34) pg MCHC 35.1 (32-36) g/dL RDW Std Deviation 44.6 (36.4-46.3) fL RDW Coeff of Christina 13.5 (11.5-14.5) % Plt Count 164 (130-400) K/uL MPV 10.8 H (7.4-10.4) fL Urine Opiates Screen Neg (Neg) Ur Methadone, Qual Neg (Neg) Urine Barbiturates Neg (Neg) Ur Phencyclidine (PCP) Neg (Neg) U Amphetamin/Meth Scrn Neg (Neg) MDMA (Ecstasy) Screen Neg (Neg) U Benzodiazepines Scrn Neg (Neg) Ur Cocaine Metabolite Neg (Neg) U Marijuana (THC) Screen Neg (Neg) SARS-CoV-2, RNA, NAAT NEGATIVE (NEGATIVE) 11/05/21 Range/Units 06:39 WBC 10.47 (4.8-10.8) K/uL RBC 3.54 L (4.2-5.4) M/uL Hgb 11.0 L (12.0-16.0) g/dL Hct 32.2 L (37-47) % MCV 91.0 (80-100) fL MCH 31.1 (25-34) pg MCHC 34.2 (32-36) g/dL RDW Std Deviation 45.5 (36.4-46.3) fL RDW Coeff of Christina 13.6 (11.5-14.5) % Plt Count 129 L (130-400) K/uL MPV 10.7 H (7.4-10.4) fL Urine Opiates Screen (Neg) Ur Methadone, Qual (Neg) Urine Barbiturates (Neg) Ur Phencyclidine (PCP) (Neg) U Amphetamin/Meth Scrn (Neg) MDMA (Ecstasy) Screen (Neg) U Benzodiazepines Scrn (Neg) Ur Cocaine Metabolite (Neg) U Marijuana (THC) Screen (Neg) SARS-CoV-2, RNA, NAAT (NEGATIVE) PE: General: Alert, orientedx3, NAD Abd: soft, NT, fundus firm, below Umbilicus Perineum intact, Lochia rubra minimal Ext; NT, no edema AP: 26 yo s/p , ppd# 1 VSS Afebrile doing well Continue routine care Low platelets, normal BP's, repeat with CMP in am All questions were answered Results & Data ([facility]) Vital Signs (Past 12 Hours) Vital Signs Temp Pulse Resp BP Pulse Ox 11/05/21 04:10 36.7 C 80 20 119/80 95 11/04/21 23:36 36.6 C 79 22 119/80 97 11/04/21 20:11 36.8 C 81 16 115/75 95
[2021-11-05] MEDS: DOCUSATE SODIUM 100 MG CAP PO SCH ×2 (08:09→20:39)
[2021-11-05] MEDS: PRENATAL VITAMIN 1 TAB PO SCH (08:09)
[2021-11-05] MEDS: FERROUS SULFATE 325 MG TAB PO SCH (08:09)
[2021-11-05] MEDS: buprenorphine HCL 8 MG SUBL SL SCH ×2 (08:10→20:40)
--- NOTE | 2021-11-05 11:11 | Obstetrical Progress Note ---
Date of Service November 05, 2021 Assessment & Plan (1) Normal course: Pt doing well No complaints s/p hx of drug use CYS seeing pt this morning anticipate disch tomorrow Subjective Ambulation: ambulating normally Voiding: no voiding problems Passing Gas:: Yes Diet Tolerance:: regular diet Lochia:: Small Feeding Type:: breast feeding Review of Systems All systems reviewed & are unremarkable except as noted in HPI & below Physical Exam Constitutional WD/WN, vitals as above well developed and well nourished Eyes PERRL, conjunctivae normal, anicteric sclerae Neck trachea midline, no thyromegaly Respiratory normal respiratory effort, lungs clear to auscultation Auscultation: no crackles, no rales and no wheezes Cardiovascular RRR, no murmur, no edema Gastrointestinal (Abdomen) normal bowel sounds, soft, nontender, no hepatosplenomegaly Uterus is below umbilicus Musculoskeletal no cyanosis or clubbing, extremities motor strength 5/5 Skin no rashes, warm and dry Neurologic patellar DTR's 2+ bilat, sensation intact Psychiatric A+Ox3, euthymic affect Genitourinary normal external appearance Results & Data ([facility]) Vital Signs (Past 12 Hours) Vital Signs Temp Pulse Resp BP Pulse Ox 11/05/21 07:30 36.6 C 73 18 118/73 11/05/21 04:10 36.7 C 80 20 119/80 95 11/04/21 23:36 36.6 C 79 22 119/80 97
[2021-11-05] MEDS ORDERED: bisacodyL 5 MG TABEC PO SCH (20:00)
[2021-11-06 06:44] LABS: Basophils # (auto) 0.04 K/uL (0-0.2); Basophils % (auto) 0.4 %; Eosinophils # (auto) 0.21 K/uL (0-0.5); Eosinophils % (auto) 2.2 %; Hematocrit (blood only) 32.4 % (37-47); Hemoglobin 11.2 g/dL (12.0-16.0); Immature Granulocytes # (auto) 0.03 K/uL (0.00-0.02); Immature Granulocytes % (auto) 0.3 %; Lymphocytes # (auto) 1.65 K/uL (1.2-3.4); Lymphocytes % (auto) 17.7 %; Mean Corpuscular Hemoglobin 31.4 pg (25-34); Mean Corpuscular Hgb Conc 34.6 g/dL (32-36); Mean Corpuscular Volume 90.8 fL (80-100); Mean Platelet Volume 10.8 fL (7.4-10.4); Monocytes # (auto) 0.52 K/uL (0.11-0.59); Monocytes % (auto) 5.6 %; Neutrophils # (auto) 6.89 K/uL (1.4-6.5); Neutrophils % (auto) 73.8 %; Platelet Count 132 K/uL (130-400); RDW Coefficient of Variation 13.7 % (11.5-14.5); RDW Standard Deviation 45.3 fL (36.4-46.3); Red Blood Count 3.57 M/uL (4.2-5.4); White Blood Count 9.34 K/uL (4.8-10.8)
[2021-11-06 07:03] LABS: Alanine Aminotransferase 28 U/L (7-52); Albumin Globulin Ratio 1.5 (0.9-2); Albumin Level 2.8 gm/dl (3.4-5.0); Alkaline Phosphatase 129 U/L (34-104); Anion Gap 4 (3-11); Aspartate Aminotransferase 25 U/L (13-39); Bilirubin,Total 0.4 mg/dl (0.2-1.0); Blood Urea Nitrogen 8 mg/dl (6-23); Calcium 8.2 mg/dl (8.5-10.1); Carbon Dioxide 23 mmol/L (21-32); Chloride 110 mmol/L (98-107); Creatinine Clr Calc Pharmacy 155.3 ml/min; Est GFR (African American) > 150.0 ml/min; Est GFR (Non-African American) 130.9 ml/min; Globulin 1.9 gm/dl (2.5-4.0); Glucose Fasting 77 mg/dl (70-99); Potassium 3.8 mmol/L (3.5-5.1); Sodium 137 mmol/L (136-145); Total Protein 4.7 gm/dl (6.0-8.3)
[2021-11-06] MEDS: FERROUS SULFATE 325 MG TAB PO SCH (08:37)
[2021-11-06] MEDS: PRENATAL VITAMIN 1 TAB PO SCH (08:37)
[2021-11-06] MEDS: buprenorphine HCL 8 MG SUBL SL SCH (08:37)
[2021-11-06] MEDS: DOCUSATE SODIUM 100 MG CAP PO SCH (08:37)
== END 2021-11-06 11:45 | disposition home or self-care (01) | DRG 806 ==
LOC: OPB 18:18 → 4S1 18:21 → 4E2 11-04 12:20

== ENCOUNTER 2023-03-26 07:49 | Inpatient (IN) ==
[2023-03-26] MEDS ORDERED: OXYTOCIN 30 UNITS/500 ML BAG IV PRN ×3 (08:06→17:36)
[2023-03-26] MEDS ORDERED: LIDOCAINE 1% LOCAL 20 ML VIAL INFIL PRN (08:06)
--- NOTE | 2023-03-26 08:17 | History & Physical Report ---
Date of Service March 26, 2023 Assessment & Plan Admission and Anticipated Discharge Date Admission Date: March 26, 2023 History of Present Illness Chief Complaint: induction of labor Primary Care Provider: NO PCP 27 F P1001 at term presents for IOL for thrombocytopenia. GBS is negative. Allergies Allergy/AdvReac Type Severity Reaction Status Date / Time No Known Allergies Allergy Verified 04/27/20 13:42 Home Medications Medication Instructions Recorded Confirmed Type buprenorphine HCl 8 mg sublingual 8 mg sublingual TID 03/25/20 11/03/21 History tablet ibuprofen 600 mg tablet 600 mg PO Q4H #30 tabs 11/06/21 Rx Patient History Medical History Depression GERD (gastroesophageal reflux disease) H/O intravenous drug use in remission Last Use 07/2018 Hx MRSA infection IV drug abuse Raynauds disease Surgical History History of cholecystectomy History of incision and drainage BILATERAL HANDS History of tonsillectomy and adenoidectomy Family History Other Cancer Diabetes Hypertension Denies family history of No significant family history Ovarian cancer Prostate cancer Myocardial infarction Breast cancer Lung cancer Colorectal cancer Stroke Social History Smoking Status: Current every day smoker Tobacco Type: Cigarettes Second Hand Exposure: Yes; Do You Dip or Chew Tobacco: No; Hx Alcohol Use: No Hx Substance Use: Yes Substance Use Type Other:: [facility];Dr. 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 neg Review of Systems All systems reviewed & are unremarkable except as noted in HPI & below Physical Exam Constitutional: WD/WN, vitals as above Eyes: PERRL, conjunctivae normal, anicteric sclerae Respiratory: normal respiratory effort, lungs clear to auscultation Cardiovascular: RRR, no murmur, no edema Musculoskeletal: Extremities: extremities normal to inspection Neurologic: patellar DTR's 2+ bilat, sensation intact Psychiatric: A+Ox3, euthymic affect Genitourinary: Manual OB Exam: + cervical dilation 3 cm, + cervical effacement 70% and + station -2 OB Exam Monitor Tracing: + external FHT monitor used, + external uterine monitor used, + category I and + normal FHT variability Results & Data Vital Signs (Past 12 Hours) Vital Signs Pulse BP 03/26/23 08:01 60 119/74 Code Status & VTE Plan VTE Prophylaxis Plan VTE Prophylaxis will be ordered: No
[2023-03-26 08:45] LABS: Hematocrit (blood only) 37.3 % (37.0-47.0); Hemoglobin 12.8 g/dl (12.0-16.0); Mean Corpuscular Hemoglobin 30.4 pg (25.0-34.0); Mean Corpuscular Hgb Conc 34.3 g/dL (32.0-36.0); Mean Corpuscular Volume 88.6 fL (80.0-100.0); Platelet Count 106 K/uL (130-400); RDW Standard Deviation 41.9 fL (36.4-46.3); Red Blood Count 4.21 M/uL (4.20-5.40); White Blood Count 7.36 K/ul (4.8-10.8)
[2023-03-26] MEDS: LACTATED RINGER'S 1,000 ML IV PRN ×2 (09:15→14:38)
[2023-03-26 11:26] LABS: Amphetamines+Metham, Urine Neg (Neg); Barbiturates, Urine Neg (Neg); Benzodiazepine, Urine Neg (Neg); Cocaine, Urine Neg (Neg); MDMA (Ecstacy), Urine Neg (Neg); Methadone, Urine Neg (Neg); Opiate, Urine Neg (Neg); Phencyclidine, Urine Neg (Neg)
[2023-03-26] MEDS ORDERED: fentaNYL citrate PF 100 MCG/2 ML VIAL ONE (13:55)
[2023-03-26] MEDS ORDERED: SODIUM CHLORIDE 0.9% PF INJ 10 ML VIAL ONE (13:55)
[2023-03-26] MEDS ORDERED: ePHEDrine sulfate 50 MG/ML AMP ONE (13:55)
[2023-03-26] MEDS ORDERED: BUPIVACAINE 0.25% PF 30 ML VIAL ONE (13:56)
[2023-03-26] MEDS ORDERED: LIDOCAINE 2%/EPINEPHRINE 1:200,000 20 ML PF ONE (13:56)
[2023-03-26] MEDS ORDERED: fentaNYL 2MCG/ML ROPIVACAINE 1.25MG/ML 100 ML BAG EPI ONE (13:56)
[2023-03-26] MEDS ORDERED: BUPIVACAINE 0.25% PF 30 ML VIAL EPI PRN (14:11)
[2023-03-26] MEDS ORDERED: ROPIVACAINE 0.5% PF 5 MG/ML 20 ML VIAL EPI PRN (14:11)
[2023-03-26] MEDS ORDERED: NALOXONE HCL 0.4 MG/1 ML VIAL/CARP IV PRN (14:11)
[2023-03-26] MEDS ORDERED: ePHEDrine sulfate 50 MG/ML AMP IV PRN (14:11)
[2023-03-26] MEDS ORDERED: fentaNYL citrate PF 100 MCG/2 ML VIAL EPI PRN (14:11)
[2023-03-26] MEDS ORDERED: diphenhydrAMINE 50 MG/ML VIAL IV PRN (14:11)
[2023-03-26] MEDS ORDERED: fentaNYL 2MCG/ML ROPIVACAINE 1.25MG/ML 100 ML BAG EPI PRN (14:11)
[2023-03-26] MEDS ORDERED: SODIUM CHLORIDE 0.9% PF INJ 10 ML VIAL EPI PRN (14:11)
[2023-03-26] MEDS ORDERED: NALBUPHINE HCL INJ 10 MG/ML AMP IV PRN (14:11)
[2023-03-26] MEDS ORDERED: NALOXONE HCL 1 MG in SODIUM CHLORIDE 0.9% 1,000 ML IV PRN (14:11)
[2023-03-26] MEDS ORDERED: SODIUM CHLORIDE 0.9% PF INJ 10 ML VIAL EPI STA (14:11)
[2023-03-26] MEDS ORDERED: LIDOCAINE 2% MPF LOCAL 5 ML VIAL EPI PRN (14:11)
[2023-03-26] MEDS ORDERED: LIDOCAINE 2%/EPINEPHRINE 1:200,000 20 ML PF EPI STA (14:11)
[2023-03-26] MEDS ORDERED: ONDANSETRON INJ 2 MG/ML 2 ML VIAL IV PRN (14:11)
[2023-03-26] MEDS ORDERED: BUPIVACAINE 0.25% PF 30 ML VIAL EPI STA (14:11)
[2023-03-26] MEDS ORDERED: fentaNYL citrate PF 100 MCG/2 ML VIAL EPI STA (14:11)
--- NOTE | 2023-03-26 14:18 | Anesthesiology Consultation ---
Date of Service March 26, 2023 Assessment & Plan ASA ASA3 Proposed Anesthesia Anesthesia Type: Labor Epidural Risk / Benefits Reviewed With: PT / POA / Parent / Guardian, Accepts Plan and Informed Consent Obtained History Height/Weight Height: 5 ft 2 in Weight: 77.111 kg Allergies Allergy/AdvReac Type Severity Reaction Status Date / Time No Known Allergies Allergy Verified 04/27/20 13:42 Medications Home Medications Medication Instructions Recorded Confirmed Last Taken buprenorphine HCl 8 mg sublingual 8 mg sublingual TID 03/25/20 03/26/23 03/26/23 06:00 tablet ibuprofen 600 mg tablet 600 mg PO Q4H #30 tabs 11/06/21 03/26/23 Unknown Active Medications Generic Name Dose Route Start Last Admin Trade Name Freq PRN Reason Stop Dose Admin Lactated Ringer's 1,000 mls @ 125 mls/hr 03/26/23 08:06 03/26/23 09:15 Lr IV 03/28/23 08:05 125 mls/hr .Q8H PRN Administration L&D Protocol Protocol Oxytocin 30 units in 500 mls @ 9 mls/hr 03/26/23 08:14 03/26/23 13:15 Pitocin IV 03/28/23 08:13 0.54 units/hr .Q24H PRN 9 mls/hr Labor Induction/Augmentation Titration Protocol 0.54 UNITS/HR Past Medical History Medical History Depression GERD (gastroesophageal reflux disease) H/O intravenous drug use in remission Last Use 07/2018 Hx MRSA infection IV drug abuse Raynauds disease Exercise / Class Metabolic Activity II 4-5 Yardwork/Stairs/Walk up hill Past Family History Family History Other Cancer Diabetes Hypertension Denies family history of No significant family history Ovarian cancer Prostate cancer Myocardial infarction Breast cancer Lung cancer Colorectal cancer Stroke Past Surgical History Surgical History History of cholecystectomy History of incision and drainage BILATERAL HANDS History of tonsillectomy and adenoidectomy Past Anesthesia History No Hx of Anesthesia Complications and No Family Hx of Anesthesia Complications History of PONV No Hx of PONV and No Hx of Motion Sickness Social History Smoking Status: Former smoker tobacco type: cigarettes Do You Dip or Chew Tobacco: No Hx Alcohol Use: No Hx Substance Use: Yes substance use type: former substance user Substance Use Type Other:: [facility];Dr. Elmo Jacome ; Last Used Substance: Just Prior to Arrival Review of Systems denies fever/cough/ colds/ chest pain/ SOB/ CONSTANTINO denies CONSTANTINO Physical Exam Vital Signs Last Vital Signs Temp 36.8 C 03/26/23 11:00 Pulse 65 03/26/23 14:46 Resp 18 03/26/23 11:00 BP 125/62 03/26/23 14:45 Pulse Ox 98 03/26/23 14:46 ENMT Mouth: no TMJ abnormality and no dentition abnormality Thyromental Distance: > or= 3.5 Finger Breadths Mallampati Class: II Neck neck extension not limited Respiratory normal respiratory effort; no respiratory distress Auscultation: lungs clear to auscultation bilaterally Cardiovascular Rate/Rhythm: regular rate and regular rhythm Neurologic moves all extremities Psychiatric Orientation: alert and oriented x 3 Testing Laboratory Results 03/26/23 08:18
--- NOTE | 2023-03-26 17:18 | Delivery Summary ---
Vaginal Delivery Summary Date of Service March 26, 2023 Vaginal Delivery Summary live female GILDAROD over intact perineum with delayed cord clamping and Apgars 8/9 weight pending. Cord blood obtained followed by spontaneous delivery of intact placenta. No tears. EBL 100 ml. Final sponge and instrument count are correct. Mom and baby stable.
[2023-03-26] MEDS ORDERED: HYDROCORTISONE ACETATE 25 MG SUPP PR PRN (17:36)
[2023-03-26] MEDS ORDERED: IBUPROFEN 600 MG TAB PO SCH (17:36)
[2023-03-26] MEDS ORDERED: DIPHTHERIA/TETANUS/PERTUSSIS Vaccine (Tdap, Age 7+yrs) 0.5mL SYR/VL IM ONE (17:36)
[2023-03-26] MEDS ORDERED: BENZOCAINE 20% SPRY 85 APPLN/85 GM CAN EXT PRN (17:36)
[2023-03-26] MEDS ORDERED: bisacodyL 10 MG SUPP PR PRN (17:36)
[2023-03-26] MEDS ORDERED: ACETAMINOPHEN 325 MG TAB PO PRN (17:36)
--- NOTE | 2023-03-26 18:18 | Anesthesia Procedure Note ---
Date of Service March 26, 2023 Anesthesia Post Epidural Note Vital Signs Vital Signs: Temp Pulse Resp BP Pulse Ox 36.5 C 57 L 18 108/66 100 03/26/23 18:10 03/26/23 18:10 03/26/23 18:10 03/26/23 18:10 03/26/23 17:11 Pain Intensity Abdomen: Pain Intensity: 2 Notes Mental Status: alert / awake / arousable and participated in evaluation Nausea / Vomiting: adequately controlled Pain: adequately controlled Airway Patency, RR, SpO2: stable & adequate BP & HR: stable & adequate Hydration State: stable & adequate Neuraxial Anesthesia: was administered and sensory block resolved Anesthetic Complications: no major complications apparent and Pt Satisfied with anesthetic care Epidural: Removed without complications and With tip intact
[2023-03-26] MEDS ORDERED: Nursing to Pharmacy Communication SCH (18:30)
[2023-03-26] MEDS: DOCUSATE SODIUM 100 MG CAP PO SCH (21:02)
[2023-03-26] MEDS: buprenorphine HCL 8 MG SUBL SL SCH (21:02)
[2023-03-27] MEDS: IBUPROFEN 600 MG TAB PO PRN ×2 (04:29→08:44)
[2023-03-27 06:38] LABS: Hematocrit (blood only) 34.5 % (37.0-47.0); Mean Corpuscular Hemoglobin 30.7 pg (25.0-34.0); Mean Corpuscular Hgb Conc 34.8 g/dL (32.0-36.0); Mean Corpuscular Volume 88.2 fL (80.0-100.0); Mean Platelet Volume 11.2 fL (9.4-12.4); Platelet Count 103 K/uL (130-400); RDW Coefficient of Variation 13.1 % (11.5-14.5); RDW Standard Deviation 41.8 fL (36.4-46.3); Red Blood Count 3.91 M/uL (4.20-5.40); White Blood Count 8.47 K/ul (4.8-10.8)
[2023-03-27] MEDS: PRENATAL VITAMIN 1 TAB PO SCH (08:44)
[2023-03-27] MEDS: DOCUSATE SODIUM 100 MG CAP PO SCH ×2 (08:44→22:08)
[2023-03-27] MEDS: FERROUS SULFATE 325 MG TAB PO SCH (08:44)
[2023-03-27] MEDS: buprenorphine HCL 8 MG SUBL SL SCH ×2 (08:46→22:08)
--- NOTE | 2023-03-27 09:20 | Obstetrical Progress Note ---
Date of Service March 27, 2023 Assessment & Plan Admission and Anticipated Discharge Date Admission Date: March 26, 2023 Subjective Patient is seen and examined. She feels well, no complaints. Ambulating without dizziness Voiding without difficulty Tolerating regular diet with out N&V Bleeding is minimal No fever/ chills/ CP/ SOB/ N&V/ Leg pain Breast feeding without problems Vital Signs Temp Pulse Resp BP Pulse Ox O2 Del Method 03/27/23 03:25 36.6 C 62 18 124/85 98 Room Air 03/26/23 23:55 36.7 C 66 18 130/85 100 Room Air Lab Results 03/26/23 03/26/23 03/27/23 Range/Units 08:18 Unknown 06:05 WBC 7.36 8.47 (4.8-10.8) K/ul RBC 4.21 3.91 L (4.20-5.40) M/uL Hgb 12.8 12.0 (12.0-16.0) g/dl Hct 37.3 34.5 L (37.0-47.0) % MCV 88.6 88.2 (80.0-100.0) fL MCH 30.4 30.7 (25.0-34.0) pg MCHC 34.3 34.8 (32.0-36.0) g/dL RDW Std Deviation 41.9 41.8 (36.4-46.3) fL RDW Coeff of Christina 13.0 13.1 (11.5-14.5) % Plt Count 106 L 103 L (130-400) K/uL MPV 11.0 11.2 (9.4-12.4) fL Urine Opiates Screen Neg (Neg) Ur Methadone, Qual Neg (Neg) Urine Barbiturates Neg (Neg) Ur Phencyclidine (PCP) Neg (Neg) U Amphetamin/Meth Scrn Neg (Neg) MDMA (Ecstasy) Screen Neg (Neg) U Benzodiazepines Scrn Neg (Neg) Ur Cocaine Metabolite Neg (Neg) U Marijuana (THC) Screen Neg (Neg) PE: General: Alert, orientedx3, NAD Abd: soft, NT, fundus firm, below Umbilicus Perineum intact, Lochia rubra minimal Ext; NT, no edema AP: 27 yo s/p , ppd# 1 VSS Afebrile doing well Continue routine care All questions were answered D/C home tomorrow Results & Data Vital Signs (Past 12 Hours) Vital Signs Temp Pulse Resp BP Pulse Ox O2 Del Method 03/27/23 03:25 36.6 C 62 18 124/85 98 Room Air 03/26/23 23:55 36.7 C 66 18 130/85 100 Room Air
[2023-03-27] MEDS ORDERED: bisacodyL 5 MG TABEC PO SCH ×2 (20:00)
[2023-03-28] MEDS: IBUPROFEN 600 MG TAB PO PRN ×2 (04:33→09:08)
[2023-03-28 07:09] LABS: Hematocrit (blood only) 35.1 % (37.0-47.0); Hemoglobin 12.1 g/dl (12.0-16.0)
[2023-03-28] MEDS: PRENATAL VITAMIN 1 TAB PO SCH (09:08)
[2023-03-28] MEDS: FERROUS SULFATE 325 MG TAB PO SCH (09:08)
[2023-03-28] MEDS: buprenorphine HCL 8 MG SUBL SL SCH (09:09)
[2023-03-28] MEDS: DOCUSATE SODIUM 100 MG CAP PO SCH (09:09)
--- NOTE | 2023-03-28 11:28 | Obstetrical Progress Note ---
Date of Service March 28, 2023 Subjective Ambulation: ambulating normally Voiding: no voiding problems Passing Gas:: Yes Diet Tolerance:: regular diet Lochia:: Small Feeding Type:: breast feeding Current Pain Level(1-10): 0 doing well Physical Exam Constitutional WD/WN, vitals as above Gastrointestinal (Abdomen) abdomen soft and non-tender. fundus firm Musculoskeletal Extremities: extremities normal to inspection Skin no rashes, warm and dry Neurologic patellar DTR's 2+ bilat, sensation intact Psychiatric A+Ox3, euthymic affect Results & Data Vital Signs (Past 12 Hours) Vital Signs Temp Pulse Resp BP Pulse Ox O2 Del Method 03/28/23 07:30 36.6 C 65 18 102/65 96 Room Air 03/28/23 00:50 36.7 C 75 16 114/76 96 Room Air Laboratory Results 03/26/23 03/26/23 03/27/23 08:18 Unknown 06:05 WBC 7.36 8.47 RBC 4.21 3.91 L Hgb 12.8 12.0 Hct 37.3 34.5 L MCV 88.6 88.2 MCH 30.4 30.7 MCHC 34.3 34.8 RDW Std Deviation 41.9 41.8 RDW Coeff of Christina 13.0 13.1 Plt Count 106 L 103 L MPV 11.0 11.2 Urine Opiates Screen Neg Ur Methadone, Qual Neg Urine Barbiturates Neg Ur Phencyclidine (PCP) Neg U Amphetamin/Meth Scrn Neg MDMA (Ecstasy) Screen Neg U Benzodiazepines Scrn Neg Ur Cocaine Metabolite Neg U Marijuana (THC) Screen Neg 03/28/23 06:19 WBC RBC Hgb 12.1 Hct 35.1 L MCV MCH MCHC RDW Std Deviation RDW Coeff of Christina Plt Count MPV Urine Opiates Screen Ur Methadone, Qual Urine Barbiturates Ur Phencyclidine (PCP) U Amphetamin/Meth Scrn MDMA (Ecstasy) Screen U Benzodiazepines Scrn Ur Cocaine Metabolite U Marijuana (THC) Screen
== END 2023-03-28 13:15 | disposition home or self-care (01) | DRG 807 ==
LOC: 4S1 07:49 → 4E2 19:38